=== PATIENT | female | born 1955 | race Caucasian/White ===

== ENCOUNTER 2020-10-28 13:00 | Outpatient (REF) | payer MEDICARE, SELFPAY ==
--- NOTE | 2020-10-28 | XR_ITS ---
EXAMINATION: XR CHEST CLINICAL INFORMATION: Pneumonia COMPARISON: August 19, 2020 and November 22, 2016 TECHNIQUE: 2 views of the chest were obtained. FINDINGS: There is a stable region of scarring seen within the lingula. No acute parenchymal disease, pneumothorax, or pleural effusion identified. Heart normal size. No evidence of pulmonary edema. XR/XR chest 2V IMPRESSION: No acute parenchymal disease.
[2020-10-28 14:28] LABS: MANUAL DIFF FLAG NO
[2020-10-28 14:31] LABS: Basophils Absolute Auto 0.1 X10*3/uL (0.0-0.2); Basophils Percent Auto 0.8 % (0-2); Eosinophils Absolute Auto 0.1 X10*3/uL (0.0-0.4); Eosinophils Percent Auto 0.6 % (0-4); Hematocrit 48.6 % (37-47); Hemoglobin 15.6 g/dl (12.0-16.0); Imm Gran Abs Auto 0.05 X10*3/uL (0.00-0.03); Imm Gran Pct Auto 0.4 % (0.0-0.4); Lymphocytes Absolute Auto 2.2 X10*3/uL (1.2-4.9); Lymphocytes Percent Auto 17.9 % (20-40); Mean Corpuscular HGB Conc 32.1 g/dl (31.0-35.0); Mean Corpuscular Hemoglobin 28.8 pg (27.0-33.0); Mean Corpuscular Volume 89.7 fL (80-98); Mean Platelet Volume 11.1 fL (9.4-12.3); Monocytes Percent Auto 8.1 % (2-11); Neutrophils Absolute Auto 8.9 X10*3/uL (2.0-8.3); Neutrophils Percent Auto 72.2 % (45-73); Platelet Count 453 X10*3/uL (160-400); Red Blood Count 5.42 X10*6/uL (4.20-5.50); Red Cell Distribution Width 13.2 % (11.0-16.0); White Blood Count 12.3 X10*3/uL (4.8-10.8)
[2020-10-28 15:04] LABS: Alanine Aminotransferase 35 U/L (0-31); Albumin Level 4.3 g/dL (3.5-5.0); Alkaline Phosphatase 92 U/L (39-117); Anion Gap 17 (12-20); Aspartate Amino Transferase 36 U/L (5-31); Bilirubin Total 0.6 mg/dL (0.0-1.0); Blood Urea Nitrogen 24 mg/dL (9-16); Calcium 9.2 mg/dL (8.4-10.2); Carbon Dioxide 24 mmol/L (22-29); Chloride 106 mmol/L (96-108); Estimated Glomerular Filt Rate 26; Glucose Random 87 mg/dL (60-115); Potassium 4.7 mmol/l (3.3-5.1); Sodium 142 mmol/L (135-145); Total Protein 7.3 g/dL (6.5-8.0)
[2020-10-28 15:07] LABS: Cholesterol 188 mg/dL; HDL Cholesterol 80 mg/dL; LDL Cholesterol Calculated 91 mg/dl; Triglycerides 89 mg/dL
[2020-10-28 15:26] LABS: Free T4 (Free Thyroxine) 1.18 ng/dL (0.71-1.85); Thyroid Stimulating Hormone 1.28 uIU/mL (0.32-4.0)
[2020-10-28 15:28] LABS: T4 Thyroxine 12.1 ug/dL (4.5-12.0); Vitamin D 25-OH Total 18.8 ng/mL (>30)
[2020-10-28 15:45] LABS: Folate > 20.0 ng/mL (> or = 4.0); Vitamin B12 1715 pg/mL (200-900)
== END 2020-10-28 13:01 | disposition home or self-care (01) ==
LOC: HO.LAB 13:00
PROVIDERS: PCP Internal Medicine; Visit Provider Internal Medicine
DX: K21.9 Gastro-esophageal reflux disease without esophagitis (principal); I10 Essential (primary) hypertension; R42 Dizziness and giddiness; J18.9 Pneumonia, unspecified organism; G35 Multiple sclerosis; M54.9 Dorsalgia, unspecified
CPT/HCPCS: 36415; 71046; 80053; 80061; 82306; 82607; 82746; 84436; 84439; 84443; 85025

== ENCOUNTER 2020-10-29 14:52 | Outpatient (REF) | payer MEDICARE, SELFPAY ==
--- NOTE | 2020-10-29 | MM_ITS ---
EXAMINATION: MM SCREENING DIGITAL BREAST TOMOSYNTHESIS, BILATERAL CLINICAL INFORMATION: Screening. Asymptomatic. The lifetime risk of breast cancer based on the Tyrer-Cuzick Model is 17.2%. COMPARISON: Mammography: December 2018 and studies dating back to April 02, 2012 TECHNIQUE: Digital breast tomosynthesis is performed in both the craniocaudal and mediolateral oblique views along with computer-aided detection (CAD). Synthesized 2D images are generated from the tomosynthesis. FINDINGS: There are scattered areas of fibroglandular density (ACR BI-RADS breast composition Category b). There are no significant masses, abnormal calcifications, or other abnormalities. MM/MM tomosynthesis screening BI IMPRESSION: There are no significant changes from prior study. ASSESSMENT: BI-RADS 1: Negative RECOMMENDATION: Routine annual mammography screening. This patient's information was entered into a reminder system with a target due date for their next mammogram.
== END 2020-10-29 14:53 | disposition home or self-care (01) ==
LOC: HO.MAMMO 14:52
PROVIDERS: PCP Internal Medicine; Visit Provider Internal Medicine
DX: Z12.31 Encounter for screening mammogram for malignant neoplasm of breast (principal)
CPT/HCPCS: 77063; 77067

== ENCOUNTER 2020-11-10 10:46 | Outpatient (REF) | payer MEDICARE, SELFPAY ==
--- NOTE | 2020-11-10 | US_ITS ---
EXAMINATION: US PELVIS COMPLETE US PELVIS TRANSVAGINAL CLINICAL INFORMATION: Disorders, left ovary COMPARISON: Ultrasound pelvis 12/16/2018 TECHNIQUE: Transabdominal and transvaginal ultrasounds of the pelvis are performed. FINDINGS: The uterus is anteverted and anteflexed measuring 3.8 cm in length, 2.6 cm AP and 2.9 cm in transverse dimension. There is a hypoechoic lesion in the central uterus measuring 1.1 x 1.2 x 1.1 cm. Previously it measured 1.0 x 1.4 x 1.0 cm. The right ovary is not visualized. The left ovary measures 5.1 x 3.1 x 4.6 cm and volume 38.0 mL. There is an anechoic cyst measuring 1.1 x 0.84 x 1.2 cm. Previously the left ovary measured 5.1 x 3.0 x 2.9 cm. There is small amount of free fluid in the cul-de-sac. US/US transvaginal IMPRESSION: 1. Small 1.2 cm fibroid within the upper body of the uterus. 2. Prominent left ovary measuring 5.1 cm with a small anechoic cyst measuring 1.2 cm. Previously left ovary measured 5.1 cm.
--- NOTE | 2020-11-10 10:51 | US_ITS ---
EXAMINATION: US ABDOMEN COMPLETE CLINICAL INFORMATION: Cyst of kidney, acquired. COMPARISON: CT abdomen and pelvis 11/28/2018. Ultrasound abdomen 07/09/2013 and 10/27/2010. MRI abdomen 11/12/2010. TECHNIQUE: Real-time imaging of the abdominal viscera. FINDINGS: PANCREAS: Normal. ABDOMINAL AORTA: The proximal, mid, and distal segments are normal in caliber. INFERIOR VENA CAVA: Visualized portions are normal. LIVER: The liver is normal in size. The liver contour is normal. The liver has increased echogenicity. There is an anechoic cyst in left lobe measuring 0.9 x 0.60 x 0.91 cm. There is no intrahepatic biliary duct dilatation seen. GALLBLADDER: Normal. The gallbladder is physiologically distended without evidence of stones, sludge, polyps, wall thickening or pericholecystic fluid. COMMON BILE DUCT: Normal in caliber measuring 0.4 cm in diameter. RIGHT KIDNEY: There is an echogenic stone in the lower pole measuring 0.31 x 0.21 x 0.32 cm. No hydronephrosis or focal parenchymal lesions. The kidney measures 8.3 cm in maximum dimension. LEFT KIDNEY: There is mild fullness in the right kidney. No renal calculi or focal parenchymal lesions. The kidney measures 8.8 cm in maximum dimension. SPLEEN: Normal. The spleen measures 9.8 cm in maximum dimension. FREE FLUID: None. US/US abdomen complete IMPRESSION: Small anechoic cyst left hepatic lobe. Small echogenic stone, lower pole right kidney. No caliectasis or hydronephrosis. Mild fullness of left kidney pelvis.
--- NOTE | 2020-11-10 10:51 | US_ITS ---
EXAMINATION: US PELVIS COMPLETE US PELVIS TRANSVAGINAL CLINICAL INFORMATION: Disorders, left ovary COMPARISON: Ultrasound pelvis 12/16/2018 TECHNIQUE: Transabdominal and transvaginal ultrasounds of the pelvis are performed. FINDINGS: The uterus is anteverted and anteflexed measuring 3.8 cm in length, 2.6 cm AP and 2.9 cm in transverse dimension. There is a hypoechoic lesion in the central uterus measuring 1.1 x 1.2 x 1.1 cm. Previously it measured 1.0 x 1.4 x 1.0 cm. The right ovary is not visualized. The left ovary measures 5.1 x 3.1 x 4.6 cm and volume 38.0 mL. There is an anechoic cyst measuring 1.1 x 0.84 x 1.2 cm. Previously the left ovary measured 5.1 x 3.0 x 2.9 cm. There is small amount of free fluid in the cul-de-sac. US/US pelvic complete IMPRESSION: 1. Small 1.2 cm fibroid within the upper body of the uterus. 2. Prominent left ovary measuring 5.1 cm with a small anechoic cyst measuring 1.2 cm. Previously left ovary measured 5.1 cm.
== END 2020-11-10 10:47 | disposition home or self-care (01) ==
LOC: HO.US 10:46
PROVIDERS: Visit Provider Internal Medicine
DX: N28.1 Cyst of kidney, acquired (principal); K76.89 Other specified diseases of liver; N83.8 Other noninflammatory disorders of ovary, fallopian tube and broad ligament
CPT/HCPCS: 76700; 76830; 76856

== ENCOUNTER 2020-11-23 13:55 | Outpatient (REF) | payer MEDICARE, SELFPAY ==
--- NOTE | 2020-11-23 14:00 | CT_ITS ---
EXAMINATION: CT CHEST WITHOUT CONTRAST CLINICAL INFORMATION: Follow-up pulmonary nodules COMPARISON: Previous chest x-ray most recent October [address] November 2018 TECHNIQUE: Multidetector volumetric CT imaging of the chest was done. Axial MIP volume rendering provided. Sagittal and coronal reformatted images were obtained. This CT examination was performed using dose optimization techniques as appropriate, variously including the following: *Automated exposure control *Adjustment of mA and/or kV according to patient size (this includes techniques or standardized protocols for targeted exams where dose is matched to indication/reason for exam; i.e. 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 The majority of the nodules are a semisolid or groundglass in attenuation. Largest pulmonary nodules measure 6 mm in the in the lower lobes, axial image 371 series 5 on the right and axial image 411 and axial image 429 series 5 on the left. This is similar to previous exam There is a 3 mm calcified right upper lobe nodule axial image 204 series 5 that is stable. There is scarring or chronic subsegmental atelectasis in the right middle lobe and lingula that is stable. MEDIASTINUM: The mediastinum is normal. PLEURA: There is no pleural effusion. No pleural mass or thickening. AXILLA: No lymphadenopathy. UPPER ABDOMEN: Unremarkable. OSSEOUS STRUCTURES: Unremarkable. CT/CT chest wo con IMPRESSION: Stable pulmonary nodules.
[2020-11-23 14:58] LABS: Basophils Absolute Auto 0.1 X10*3/uL (0.0-0.2); Basophils Percent Auto 0.8 % (0-2); Eosinophils Absolute Auto 0.1 X10*3/uL (0.0-0.4); Eosinophils Percent Auto 0.8 % (0-4); Hematocrit 48.8 % (37-47); Hemoglobin 15.7 g/dl (12.0-16.0); Imm Gran Abs Auto 0.04 X10*3/uL (0.00-0.03); Imm Gran Pct Auto 0.5 % (0.0-0.4); Lymphocytes Absolute Auto 1.5 X10*3/uL (1.2-4.9); Lymphocytes Percent Auto 16.9 % (20-40); Mean Corpuscular HGB Conc 32.2 g/dl (31.0-35.0); Mean Corpuscular Hemoglobin 28.6 pg (27.0-33.0); Mean Corpuscular Volume 89.1 fL (80-98); Mean Platelet Volume 11.2 fL (9.4-12.3); Monocytes Absolute Auto 0.8 X10*3/uL (0.1-1.2); Monocytes Percent Auto 9.3 % (2-11); Neutrophils Absolute Auto 6.1 X10*3/uL (2.0-8.3); Neutrophils Percent Auto 71.7 % (45-73); Platelet Count 285 X10*3/uL (160-400); Red Blood Count 5.48 X10*6/uL (4.20-5.50); Red Cell Distribution Width 12.5 % (11.0-16.0); White Blood Count 8.6 X10*3/uL (4.8-10.8)
[2020-11-23 14:59] LABS: MANUAL DIFF FLAG NO
[2020-11-23 15:28] LABS: Alanine Aminotransferase 25 U/L (0-31); Albumin Level 3.9 g/dL (3.5-5.0); Alkaline Phosphatase 85 U/L (39-117); Anion Gap 15 (12-20); Aspartate Amino Transferase 32 U/L (5-31); Bilirubin Total 0.5 mg/dL (0.0-1.0); Blood Urea Nitrogen 14 mg/dL (9-16); Calcium 8.7 mg/dL (8.4-10.2); Carbon Dioxide 24 mmol/L (22-29); Chloride 104 mmol/L (96-108); Estimated Glomerular Filt Rate 36; Glucose Random 106 mg/dL (60-115); Potassium 4.1 mmol/l (3.3-5.1); Sodium 139 mmol/L (135-145); Total Protein 6.7 g/dL (6.5-8.0)
== END 2020-11-23 13:56 | disposition home or self-care (01) ==
LOC: HO.CT 13:55
PROVIDERS: PCP Internal Medicine; Visit Provider Internal Medicine
DX: R91.8 Other nonspecific abnormal finding of lung field (principal)
CPT/HCPCS: 36415; 71250; 80053; 85025

== ENCOUNTER 2021-10-11 17:07 | Outpatient (REF) | payer MEDICARE, SELFPAY ==
--- NOTE | ~2021-10-11 | XR_ITS ---
EXAMINATION: XR LUMBOSACRAL SPINE CLINICAL INFORMATION: Pain COMPARISON: Previous x-ray August 2017 TECHNIQUE: Three views of the lumbosacral spine. FINDINGS: There is curvature of the lower lumbar spine to the right. Bone alignment is otherwise normal. No fracture or dislocation is seen. There is degenerative disc disease at L1-L2 and L2-L3. There is lower lumbar spine facet arthritis. There are several small calcifications appreciated on the lateral view questionable for renal stones. XR/XR lumbar spine 2-3V IMPRESSION: Mild scoliosis and degenerative changes. Question renal stones.
[2021-10-11 18:03] LABS: Anion Gap 16 (12-20); Blood Urea Nitrogen 24 mg/dL (9-16); Calcium 9.7 mg/dL (8.4-10.2); Carbon Dioxide 23 mmol/L (22-29); Chloride 103 mmol/L (96-108); Estimated Glomerular Filt Rate 25; Glucose Random 110 mg/dL (60-115); Potassium 4.4 mmol/L (3.3-5.1); Sodium 138 mmol/L (135-145)
[2021-10-12 17:31] LABS: CA-125 24 U/mL (<35)
== END 2021-10-11 17:08 | disposition home or self-care (01) ==
LOC: HO.XRAY 17:07
PROVIDERS: PCP Internal Medicine; Visit Provider Physician Assistant
DX: R79.89 Other specified abnormal findings of blood chemistry (principal); N83.8 Other noninflammatory disorders of ovary, fallopian tube and broad ligament; M51.9 Unspecified thoracic, thoracolumbar and lumbosacral intervertebral disc disorder
CPT/HCPCS: 36415; 72100; 80048; 86304

== ENCOUNTER 2021-11-08 14:45 | Outpatient (RCR) | payer MEDICARE, SELFPAY | END 2021-11-29 09:29 | disposition home or self-care (01) | LOC: HO.PT 14:45 | PROVIDERS: PCP Internal Medicine; Visit Provider Psychiatry & Neurology Neurology | DX: M79.7 Fibromyalgia (principal) | CPT/HCPCS: 97110; 97162 ==

== ENCOUNTER 2021-11-08 16:03 | Outpatient (REF) | payer MEDICARE, SELFPAY ==
[2021-11-08 16:20] LABS: MANUAL DIFF FLAG NO
[2021-11-08 16:48] LABS: Basophils Absolute Auto 0.1 X10*3/uL (0.0-0.2); Basophils Percent Auto 0.8 % (0-2); Eosinophils Absolute Auto 0.1 X10*3/uL (0.0-0.4); Eosinophils Percent Auto 0.6 % (0-4); Hematocrit 47.7 % (37.0-47.0); Hemoglobin 15.2 g/dl (12.0-16.0); Imm Gran Abs Auto 0.04 X10*3/uL (0.00-0.03); Imm Gran Pct Auto 0.4 % (0.0-0.4); Lymphocytes Absolute Auto 1.8 X10*3/uL (1.2-4.9); Lymphocytes Percent Auto 17.6 % (20-40); Mean Corpuscular HGB Conc 31.9 g/dl (31.0-35.0); Mean Corpuscular Hemoglobin 28.8 pg (27.0-33.0); Mean Corpuscular Volume 90.3 fL (80.0-98.0); Mean Platelet Volume 11.7 fL (9.4-12.3); Monocytes Absolute Auto 0.9 X10*3/uL (0.1-1.2); Monocytes Percent Auto 8.4 % (2-11); Neutrophils Absolute Auto 7.4 x10*3/uL (2.0-8.3); Neutrophils Percent Auto 72.2 % (45-73); Platelet Count 334 X10*3/uL (160-400); Red Blood Count 5.28 X10*6/uL (4.20-5.50); Red Cell Distribution Width 12.6 % (11.0-16.0); White Blood Count 10.2 X10*3/uL (4.8-10.8)
[2021-11-08 17:05] LABS: INTERNATIONAL NORM RATIO 1.2 (0.9-1.1); Prothrombin Time 13.2 SEC (9.9-13.0)
[2021-11-08 18:03] LABS: Alanine Aminotransferase 18 U/L (0-31); Albumin Level 4.1 g/dL (3.5-5.0); Alkaline Phosphatase 66 U/L (39-117); Amylase 92 U/L (28-100); Anion Gap 15 (12-20); Aspartate Amino Transferase 24 U/L (5-31); Bilirubin Direct 0.2 mg/dL (0.0-0.5); Bilirubin Total 0.3 mg/dL (0.0-1.0); Blood Urea Nitrogen 20 mg/dL (9-16); Calcium 9.7 mg/dL (8.4-10.2); Carbon Dioxide 23 mmol/L (22-29); Chloride 104 mmol/L (96-108); Estimated Glomerular Filt Rate 23; Glucose Random 105 mg/dL (60-115); Lipase 77 U/L (8-78); Sodium 138 mmol/L (135-145); Total Protein 7.1 g/dL (6.5-8.0)
[2021-11-09 11:57] LABS: Alpha Fetoprotein 6.3 ng/mL
[2021-11-13 21:37] LABS: FIB-ALT 16 U/L (6-29); FIB-Alpha-2-Macroglobulin 365 mg/dL (106-279); FIB-Apolipoprotein A1 169 mg/dL (101-198); FIB-GGT 18 U/L (3-65); FIB-Haptoglobin 112 mg/dL (43-212); FIB-Total Bilirubin 0.3 mg/dL (0.2-1.2); Liver Fibrosis Score 0.32; Liver Fibrosis Stage F1-F2; Nec Inflam Act Grade A0; Nec Inflam Act Score 0.06
[2021-11-15 12:56] LABS: HCV Log PCR 5.69 Log IU/mL (NOT DETECTED); HepC Viral Load 495000 IU/mL (NOT DETECTED)
== END 2021-11-08 16:04 | disposition home or self-care (01) ==
LOC: HO.LAB 16:03
PROVIDERS: PCP Internal Medicine; Visit Provider Internal Medicine
DX: R11.0 Nausea (principal); B18.2 Chronic viral hepatitis C
CPT/HCPCS: 36415; 80048; 80076; 81596; 82105; 82150; 83690; 85025; 85610; 87522

== ENCOUNTER 2022-01-27 13:17 | Inpatient (IN) | payer MEDICARE, SELFPAY ==
[2022-01-27] VITALS (8 sets, daily range): BP systolic 126–196; BP diastolic 54–135; PULSE 70–94; RESP 18–20; TEMP 36.5–36.6; O2SAT 96–100; BMI 28.3
--- NOTE | ~2022-01-27 | CT_ITS ---
EXAMINATION: CT HEAD WITHOUT CONTRAST CLINICAL INFORMATION: Multiple falls, syncope COMPARISON: 11/18/2028 TECHNIQUE: Contiguous axial imaging was performed from the skull base to vertex without intravenous administration of contrast. This CT examination was performed using dose optimization techniques as appropriate, variously including the following: *Automated exposure control *Adjustment of mA and/or kV according to patient size (this includes techniques or standardized protocols for targeted exams where dose is matched to indication/reason for exam; i.e. extremities or head) *Use of iterative reconstruction technique DLP: 585 mGy-cm FINDINGS: There is no evidence of acute intracranial hemorrhage or territorial infarction. No abnormal mass effect or midline shift is seen. Coulter to white matter differentiation is well preserved. No extra-axial fluid collections are identified. Ventricles and sulci are similar in configuration to the prior study. Similar appearance of mild patchy periventricular and subcortical white matter hypodensity. The osseous structures and soft tissues are normal. The mastoid air cells and visualized portions of the paranasal sinuses are well aerated. CT/CT head/brain wo con IMPRESSION: No acute intracranial pathology. No significant change from prior studies.
--- NOTE | ~2022-01-27 | FL_ITS ---
EXAMINATION: XR FLUOROSCOPY WITH IMAGES CLINICAL INFORMATION: Left ureteral stone. COMPARISON: CT scan of the abdomen and pelvis dated 01/27/2022. TECHNIQUE: Fluoroscopy performed by Dr. Sherwood. Fluoroscopy time: 19.5 seconds Cumulative dose: 4.56 mGy Images: 2 FL/FL guidance in OR FINDINGS/IMPRESSION: Final images show a left ureteral stent in place. An ovoid calculus is seen overlying the left ureteropelvic junction region. Please refer to the procedure report for detailed findings.
--- NOTE | ~2022-01-27 | XR_ITS ---
EXAMINATION: XR CHEST CLINICAL INFORMATION: Weakness COMPARISON: Previous chest x-ray and chest CT October 2020 TECHNIQUE: AP portable view of the chest was obtained. FINDINGS: The cardiac and mediastinal contours are stable. There is a nodular density adjacent to the left heart border measuring 1.3 cm Uncertain whether this represents a pulmonary nodule or related to prominent epicardial fat. There is question of bilateral 5 mm pulmonary nodules overlapping scapula and in between the posterior fifth and sixth ribs. The lungs are otherwise clear. There is no pleural effusion or pneumothorax. There are degenerative changes of the spine. XR/XR chest 1V IMPRESSION: Bilateral nodular densities, largest measuring 1.3 cm adjacent to the left heart border. This could be better evaluated with chest CT scan if clinically indicated.
--- NOTE | ~2022-01-27 | MR_ITS ---
EXAMINATION: MR BRAIN WITHOUT CONTRAST MR CERVICAL SPINE WITHOUT CONTRAST CLINICAL INDICATION Weakness, numbness and pain. Concern for multiple sclerosis. COMPARISON: CT scan of the head 01/27/2022. Remote MRI scan of the brain 10/15/2015 and MRI scan of the cervical spine 11/21/2012. TECHNIQUE: MRI scans of the brain and cervical spine were obtained using routine sequences without contrast. FINDINGS: MRI Brain: There are a few foci of increased diffusion signal with hyperintense ADC map signal and corresponding hyperintense T2/FLAIR signal in the bilateral centra semiovale, consistent with T2 shine through. No diffusion abnormalities are identified to suggest an acute or subacute infarct. No mass effect or midline shift is seen. The ventricles and sulci are slightly commensurately prominent consistent with diffuse volume loss. There are extensive areas of increased T2 and FLAIR signal in the periventricular and subcortical white matter, and in the crystal which have markedly increased compared to prior imaging. These are consistent with progression of demyelination and/or chronic microvascular ischemic disease. There is good volume of the corpus callosum. Some of these foci demonstrate intrinsic intrinsically low T1 signal consistent with chronic plaques. These areas demonstrate no abnormal enhancement to suggest acute demyelination, and there is no abnormal enhancement elsewhere. There is a prominent perivascular space in the left basal ganglia. No extra-axial fluid collections are seen. The cerebellum appears normal. There is no evidence of acute hemorrhage. The craniovertebral junction, marrow signal, and midline structures are normal. The major intracranial flow-voids at the level of the [place] are preserved. The dural venous sinus flow-voids are maintained. There is a retention cyst in the right maxillary sinus. The other paranasal sinuses and mastoid air cells are well-aerated. MRI Cervical Spine: VERTEBRAL BODIES AND PARASPINAL SOFT TISSUES: There is a slight dextroscoliosis. The study demonstrates narrowing of intervertebral disc height at C5-C6. There has been slight interval increase in the retrolisthesis of C5 on C6. Vertebral body heights are maintained and no fractures are demonstrated. There are degenerative endplate contour changes at C5-C6 with minimal edematous signal. Overall, marrow signal is homogenous. The visualized regional soft tissue structures are unremarkable. CERVICOMEDULLARY JUNCTION AND VISUALIZED POSTERIOR FOSSA: There is increased T2 and STIR signal in the crystal, demonstrated on the MRI scan of the brain. Accounting for artifact, spinal cord signal appears normal. SPINAL LEVELS: C2-C3: The facet joints appear normal bilaterally. Posterior disc contour is normal. There is no spinal cord compression or central stenosis. The neural foramina are patent bilaterally. C3-C4: The facet joints appear normal bilaterally. Posterior disc contour is normal. There is no spinal cord compression or central stenosis. The neural foramina are patent bilaterally. C4-C5: The facet joints appear normal bilaterally. Posterior disc contour is normal. There is no spinal cord compression or central stenosis. The neural foramina are patent bilaterally. C5-C6: There is mild right facet arthropathy. There is a broad-based posterior disc osteophyte complex which effaces CSF ventral to the spinal cord, but there is no spinal cord compression. There is mild central stenosis. There is severe bilateral foraminal narrowing. C6-C7: There is mild bilateral facet arthropathy. There is a shallow posterior disc protrusion with there is no spinal cord compression. There is mild central stenosis. The neural foramina are patent bilaterally. C7-T1: The facet joints appear normal bilaterally. Posterior disc contour is normal. There is no spinal cord compression or central stenosis. The neural foramina are patent bilaterally. MR/MR cervical spine wo con IMPRESSION: MRI brain: 1. There has been marked interval increase in scattered areas of hyperintense T2 and FLAIR signal in the periventricular and with subcortical white matter, as well as in the crystal which may be consistent with areas of demyelination and/or chronic microvascular ischemic disease. None of these demonstrate restricted diffusion or enhancement to suggest acute demyelination or infarct. 2. There is diffuse volume loss. There are no acute bleeds or infarcts. There are no masses or areas of abnormal enhancement. MRI cervical spine: 1. The study redemonstrates mild spondylosis which is most prominent at C5-C6. There is mild central stenosis at C5-C6 and C6-C7, but there is no spinal cord compression. 2. There is severe neural foraminal narrowing bilaterally at C5-C6. 3. The spinal cord has normal signal.
--- NOTE | ~2022-01-27 | CT_ITS ---
EXAMINATION: CT ABDOMEN AND PELVIS WITHOUT CONTRAST CLINICAL INFORMATION: Left upper quadrant abdominal pain status post multiple falls COMPARISON: Ultrasound abdomen 11/10/2020, CT chest 11/23/2020, CT abdomen and pelvis 11/28/2018 TECHNIQUE: Multidetector volumetric imaging was performed from the superior aspect of the liver through the pubic symphysis. Sagittal and coronal reformatted images were obtained on the technologist's workstation. This CT examination was performed using dose optimization techniques as appropriate, variously including the following: *Automated exposure control *Adjustment of mA and/or kV according to patient size (this includes techniques or standardized protocols for targeted exams where dose is matched to indication/reason for exam; i.e. extremities or head) *Use of iterative reconstruction technique DLP: 528 mGy-cm FINDINGS: LUNG BASES: Multiple lung nodules are seen ranging in size from a few millimeters punctate up to 4 mm right lower lobe solid nodule (17:13) and multiple groundglass nodules measuring up to 4 mm in size (for example 17:53). [place] images of all nodules have been saved. At the time of the prior chest CT dated 08/24/2020, similar findings were present. LIVER, GALLBLADDER, AND BILIARY TREE: The liver is normal in size, shape, and attenuation. No focal hepatic lesion or biliary ductal dilatation is present. The gallbladder is unremarkable with no evidence of radiopaque gallstones, gallbladder wall thickening, or obvious pericholecystic inflammatory changes. PANCREAS: Unremarkable. SPLEEN: Unremarkable. No evidence of splenic laceration. ADRENAL GLANDS: Unremarkable. KIDNEYS AND URETERS: On the left, there is an obstructing stone present in the proximal ureter measuring 7 x 6 x 9 mm. This is associated with moderate pelvocaliectasis. This stone measures 1451 Hounsfield units and is about 11 cm from the posterior axillary line. Some smaller left-sided intrarenal nonobstructing calculi are present measuring about 3 mm in size each. No renal masses are seen. The right kidney appears normal without calculi. BLADDER: Empty but unremarkable GASTROINTESTINAL TRACT: The small and large bowel are unremarkable. The appendix is unremarkable. ABDOMINAL WALL: No significant hernia is appreciated. LYMPH NODES: No retroperitoneal lymphadenopathy. VASCULAR: Normal calcific plaque without aneurysm. PELVIC VISCERA: A retroverted uterus is present with some calcifications indicative of old fibroids. OSSEOUS STRUCTURES: No fractures or bony destructive lesions are seen. There is mild scoliosis present convex to the right with degenerative changes seen most marked from L1 through L3. CT/CT abdomen pelvis wo con IMPRESSION: * 7 x 6 x 9 mm obstructing left proximal ureteral stone with associated left-sided hydronephrosis. * Other incidental findings as described above including stable lung nodules, nonobstructing smaller left intrarenal calculi, old uterine fibroids and degenerative changes in the spine. Fleischner guidelines were followed.
--- NOTE | 2022-01-27 13:45 | ECG_ITS ---
Test Reason : dizziness Blood Pressure : / mmHG Vent. Rate : 083 BPM Atrial Rate : 083 BPM P-R Int : 116 ms QRS Dur : 070 ms QT Int : 378 ms P-R-T Axes : 018 001 083 degrees QTc Int : 444 ms Normal sinus rhythm Left ventricular hypertrophy with repolarization abnormality ( R in aVL , Sokolow-Brantley ) Abnormal ECG When compared with ECG of 18-NOV-2018 20:45, Criteria for Anteroseptal infarct are no longer Present T wave inversion now evident in Lateral leads Referred By: Generic ED Physician Electronically Signed By:Devante Cox
[2022-01-27 14:00] LABS: MANUAL DIFF FLAG NO
[2022-01-27 14:02] LABS: Basophils Absolute Auto 0.1 X10*3/uL (0.0-0.2); Basophils Percent Auto 0.7 % (0-2); Eosinophils Percent Auto 0.3 % (0-4); Hematocrit 44.6 % (37.0-47.0); Hemoglobin 14.5 g/dl (12.0-16.0); Imm Gran Abs Auto 0.05 X10*3/uL (0.00-0.03); Imm Gran Pct Auto 0.4 % (0.0-0.4); Lymphocytes Absolute Auto 2.3 X10*3/uL (1.2-4.9); Lymphocytes Percent Auto 19.2 % (20-40); Mean Corpuscular HGB Conc 32.5 g/dl (31.0-35.0); Mean Corpuscular Hemoglobin 29.4 pg (27.0-33.0); Mean Corpuscular Volume 90.3 fL (80.0-98.0); Mean Platelet Volume 11.1 fL (9.4-12.3); Monocytes Percent Auto 8.4 % (2-11); Neutrophils Absolute Auto 8.5 x10*3/uL (2.0-8.3); Platelet Count 310 X10*3/uL (160-400); Red Blood Count 4.94 X10*6/uL (4.20-5.50); Red Cell Distribution Width 12.5 % (11.0-16.0)
[2022-01-27 14:22] LABS: Anion Gap 17 (12-20); Blood Urea Nitrogen 47 mg/dL (9-16); Calcium 9.5 mg/dL (8.4-10.2); Carbon Dioxide 22 mmol/L (22-29); Chloride 102 mmol/L (96-108); Estimated Glomerular Filt Rate 12; Glucose Random 108 mg/dL (60-115); Potassium 4.5 mmol/L (3.3-5.1); Sodium 136 mmol/L (135-145)
--- NOTE | 2022-01-27 15:42 | ED_ITS ---
HPI - Dizziness General Chief Complaint: Dizziness <REUBEN Franco Last Filed: 01/27/22 17:21> Stated Complaint: nausea dizzy l rib cage pain <REUBEN Franco Last Filed: 01/27/22 17:21> Time Seen by Provider: 01/27/22 15:10 <REUBEN Franco Last Filed: 01/27/22 17:21> Source: patient <REUBEN Franco Last Filed: 01/27/22 17:21> Mode of arrival: ambulatory <REUBEN Franco Last Filed: 01/27/22 17:21> History of Present Illness HPI Narrative: 66-year-old female with a past medical history of asthma, GERD, hepatitis- C, MS, presenting to the ED complaining of nausea, LUQ/epigastric abdominal pain, lightheadedness/dizziness, difficulty ambulating, multiple falls, syncope x2 over the past 5 days. Reports difficulty ambulating secondary to weakness/fear of falling. Also reports increasing acute on chronic confusion. Denies fever, chills, CP/SOB, vomiting/diarrhea, hematuria <REUBEN Franco Last Filed: 01/27/22 17:21> MD elicited complaint: dizziness, lightheadedness and difficulty walking <REUBEN Franco Last Filed: 01/27/22 17:21> Related Data Home Medications: Home Medications Medication Instructions Recorded Confirmed gabapentin 600 mg tablet 600 mg PO TID 11/02/20 01/27/22 lamotrigine 200 mg tablet 200 mg PO DAILY 11/02/20 01/27/22 (Lamictal) memantine 10 mg tablet 10 mg PO BID 10/11/21 01/27/22 acetaminophen 500 mg tablet 500 mg PO 5XD 01/27/22 01/27/22 omeprazole 20 mg capsule,delayed 1 cap PO DAILY 01/27/22 01/27/22 release ondansetron HCl 4 mg tablet 1 tab PO TID 01/27/22 01/27/22 Previous Rx's Medication Instructions Recorded albuterol sulfate 90 mcg/actuation 2 puff INHALATION Q4-6H PRN 90 10/11/21 aerosol inhaler (ProAir HFA) Days #3 units <REUBEN Franco Last Filed: 01/27/22 17:21> Allergies/Adverse Reactions: Allergies Allergy/AdvReac Type Severity Reaction Status Date / Time escitalopram [From LEXAPRO] Allergy Severe STOMACH Verified 01/27/22 13:36 UPSET lisinopril [LISINOPRIL] Allergy Severe SWELLING, Verified 01/27/22 13:36 Leg swelling duloxetine [From CYMBALTA] Allergy Intermediate STOMACH Verified 01/27/22 13:36 UPSET desipramine [Desipramine] Allergy Mild PALPITATION Verified 01/27/22 13:36 S diphenhydramine Allergy Mild PALPITATIONS/CLAMMY Verified 01/27/22 13:36 [From Benadryl] SKIN Penicillins Allergy Mild UNKNOWN Verified 01/27/22 13:36 fluoxetine [From Prozac] AdvReac Mild PARKINSON Verified 01/27/22 13:36 SYMPTOMS garlic AdvReac Mild IBS Verified 01/27/22 13:36 SYMPTOMS oxycodone [From Percocet] AdvReac Mild N/V Verified 01/27/22 13:36 carbamazepine [From TEGRETOL] AdvReac Unknown BLACKOUT, Verified 01/27/22 13:36 SEVERE INTOXICATION <REUBEN Franco Last Filed: 01/27/22 17:21> Review of Systems Review of Systems: Constitutional: No Fever, No Chills, No Fatigue, No Malaise ENT/Mouth: No Ear Pain, No Nasal Congestion, No sore throat, No Rhinorrhea, No Swallowing Difficulty Eyes: No Eye Pain, No Swelling, No Redness Cardiovascular: No Chest Pain, No SOB, No Edema, No Palpitations Respiratory: No Cough, No Sputum, No Dyspnea Gastrointestinal: + Nausea, No Vomiting, No Diarrhea, No Constipation, + Abdominal pain Genitourinary: No Dysuria, No Urinary Frequency, No Hematuria, No Urgency, No Flank Pain, No Urinary Flow Changes Musculoskeletal: No joint pain, No Myalgias, No Joint Swelling Skin: No Skin Lesions, No rash Neuro: + Weakness, No Numbness, No Paresthesias, + Loss of Consciousness, +Lightheadedness/ Dizziness, No Headache <REUBEN Franco Last Filed: 01/27/22 17:21> Yes all other systems are reviewed and are negative <REUBEN Franco Last Filed: 01/27/22 17:21> [facility] Past Medical History Attestation statement: The following information was validated with the patient. <REUBEN Franco - Last Filed: 01/27/22 17:21> Medical History: Medical History Allergic rhinitis Asthma Closed right clavicular fracture GERD (gastroesophageal reflux disease) Hepatitis C History of renal calculi Hypertension Lumbar radiculopathy Multiple sclerosis Obesity <REUBEN Franco - Last Filed: 01/27/22 17:21> Surgical History: Surgical History History of liver biopsy History of verrucae (wart) excision <REUBEN Franco - Last Filed: 01/27/22 17:21> Family History Family History: Family History Father Prostate cancer Myocardial infarction Mother Breast cancer Paternal Aunt Myocardial infarction Paternal Uncle Myocardial infarction <REUBEN Franco - Last Filed: 01/27/22 17:21> Social History Social History: Social History Housing: House Alcohol intake: never Patient Tobacco Use Status: Former Tobacco user Tobacco use type: Cigarette Years Smoked: 1979 quit for 8 years e-Cigarette/Vaping Use: Never Used Advance Directives: No Advance Directives Information Provided: No <REUBEN Franco - Last Filed: 01/27/22 17:21> Physical Exam Vital Signs: Vital Signs: Last Vital Signs Temp 97.9 F 01/27/22 17:38 Pulse 94 01/27/22 17:44 Resp 18 01/27/22 17:38 BP 156/135 H 01/27/22 17:44 Pulse Ox 100 01/27/22 17:38 BMI result Body Mass Index 28.3 <REUBEN Franco - Last Filed: 01/27/22 17:21> Vital Signs: Last Vital Signs Temp 97.9 F 01/27/22 17:38 Pulse 94 01/27/22 17:44 Resp 18 01/27/22 17:38 BP 156/135 H 01/27/22 17:44 Pulse Ox 100 01/27/22 17:38 BMI result Body Mass Index 28.3 <Doyle Bang PA - Last Filed: 01/27/22 19:30> Const: General: cooperative <REUBEN Franco - Last Filed: 01/27/22 17:21> Orientation/consciousness: patient oriented x3 <REUBEN Franco - Last Filed: 01/27/22 17:21> Limitations: no limitations <REUBEN Franco - Last Filed: 01/27/22 17:21> HENMT: Head: Yes normal to inspection and Yes atraumatic <REUBEN Franco - Last Filed: 01/27/22 17:21> Ears: hearing grossly normal bilaterally <REUBEN Franco - Last Filed: 01/27/22 17:21> General nose exam: Normal external nose present <REUBEN Franco - Last Filed: 01/27/22 17:21> Face and sinus: Yes normal facial exam <REUBEN Franco - Last Filed: 0 01/27/22 17:21> Throat: Yes posterior oropharynx normal, Yes tonsils normal and Yes uvula midline <REUBEN Franco - Last Filed: 01/27/22 17:21> Eyes: General: appearance normal, both eyes and all related structures <REUBEN Franco - Last Filed: 01/27/22 17:21> Pupils: Equal, round and reactive pupils present <REUBEN Franco - Last Filed: 01/27/22 17:21> EOM: EOMs intact bilaterally <REUBEN Franco - Last Filed: 01/27/22 17:21> Neck: Other: No midline cervical spinous tenderness <REUBEN Franco - Last Filed: 01/27/22 17:21> Neck: Yes normal visual inspection and Yes no meningeal signs <REUBEN Franco - Last Filed: 01/27/22 17:21> Chest: Chest palpation & inspection: no crepitus and no tenderness <Zandra ward PA - Last Filed: 01/27/22 17:21> Resp: Effort & Inspection: normal respiratory effort and no respiratory distress <Zandra Pouldaphnet PA - Last Filed: 01/27/22 17:21> Auscultation: clear to auscultation bilaterally, no rales, no rhonchi and no wheezes <Zandra Pouldaphnet, PA - Last Filed: 01/27/22 17:21> Cardio: Rate: regular rate <Zandra Pouldaphnet, PA - Last Filed: 01/27/22 17:21> Heart sounds: S1 normal heart sound present and S2 normal heart sound present <Zandra Pouldaphnet, PA - Last Filed: 01/27/22 17:21> GI: Inspection: Yes normal to inspection <Zandra Pouldaphnet, PA - Last Filed: 01/27/22 17:21> Palpation (GI): Soft to palpation, Tenderness to palpation present (GI) in the LUQ, no guarding and not rigid <Zandra Pouldaphnet, PA - Last Filed: 01/27/22 17:21> : General: Yes no CVA tenderness <Zandra Pouldaphnet, PA - Last Filed: 01/27/22 17:21> Back/Spine/Pelvis: Other: No midline thoracic/lumbar spinous tenderness <Zandra Pouldaphnet, PA - Last Filed: 01/27/22 17:21> Back: no CVA tenderness <Zandra Pouldaphnet, PA - Last Filed: 01/27/22 17:21> Skin: Rashes: no rashes <Zandra Grere, PA - Last Filed: 01/27/22 17:21> Wounds: no wounds <Zandra Pouldaphnet, PA - Last Filed: 01/27/22 17:21> Neuro: Other: No appreciable focal weakness <Zandra Pouldaphnet, PA - Last Filed: 01/27/22 17:21> General: patient oriented x3, tone normal, moves all extremities, no meningeal signs and no focal motor deficits <Zandra Pouldaphnet PA - Last Filed: 01/27/22 17:21> Cranial nerves: Yes CN's II-XII intact bilaterally, Yes Equal, round and reactive pupils present and Yes Bilaterally intact EOM present <Zandra Poulleigh PA - Last Filed: 01/27/22 17:21> Motor exam (neuro): 5/5 motor strength present throughout and Pronator motor fu nction not present <REUBEN Franco Last Filed: 01/27/22 17:21> Coordination: [id number] test normal <REUBEN Franco Last Filed: 01/27/22 17:21> Romberg Test: Negative <REUBEN Franco Last Filed: 01/27/22 17:21> Extrem: General: Yes normal to inspection and Yes no pedal edema <REUBEN Franco Last Filed: 01/27/22 17:21> Course Course Course Narrative: -1306--mild leukocytosis of 12.0, Acute on chronic YOHANA with creatinine 3.8/BUN of 47 > likely from dehydration rather than severe sepsis -CRP mildly elevated at 0.95 -1618--troponin 50.7 likely from renal dysfunction > will obtain 3 hour repeat XR chest 1V IMPRESSION: Bilateral nodular densities, largest measuring 1.3 cm adjacent to the left heart border. This could be better evaluated with chest CT scan if clinically indicated. -1700-- ED care tranferred to REUBEN Reyes pending remaning labs, CT's and admission <REUBEN Franco Last Filed: 01/27/22 17:21> Reevaluation(s) Reevaluation #1: Spoke to hospitalist, at this time patient will be admitted to the hospitalist team. Pending repeat troponin. Reviewed patient's CT she does have a left obstructing stone. She will be given Flomax and fluids at this time. <REUBEN Darden - Last Filed: 01/27/22 19:30> Time: 19:30 <REUBEN Darden Last Filed: 01/27/22 19:30> MDM - Dizziness MDM Narrative Medical decision making narrative: 66-year-old female with a past medical history of asthma, GERD, hepatitis- C, MS, presenting to the ED complaining of nausea, LUQ/epigastric abdominal pain, lightheadedness/dizziness, difficulty ambulating, multiple falls, syncope x2 over the past 5 days. On exam vital signs stable, NAD, A&O x3, no focal weakness appreciated. Concern for MS flare vs metabolic and infectious etiologies including dehydration vs ACS. R/o intra-abdominal injury Plan: EKG, labs, UA, CXR, head CT, CT abdomen/pelvis, orthostatic vital signs, admission <REUBEN Franco - Last Filed: 01/27/22 17:21> Medical Records Attestation: I reviewed the patient's medical records. <REUBEN Franco - Last Filed: 01/27/22 17:21> Lab Data Attestation: I reviewed the patient's lab results. <REUBEN Franco - Last Filed: 01/27/22 17:21> Result diagrams: : 01/27/22 13:53 01/27/22 13:53 <REUBEN Franco - Last Filed: 01/27/22 17:21> Labs: Lab Results 01/27/22 01/27/22 01/27/22 Range/Units 13:53 13:53 13:53 WBC 12.0 H (4.8-10.8) X10*3/uL RBC 4.94 (4.20-5.50) X10*6/uL Hgb 14.5 (12.0-16.0) g/dl Hct 44.6 (37.0-47.0) % MCV 90.3 (80.0-98.0) fL MCH 29.4 (27.0-33.0) pg MCHC 32.5 (31.0-35.0) g/dl RDW 12.5 (11.0-16.0) % Plt Count 310 (160-400) X10*3/uL MPV 11.1 (9.4-12.3) fL Immature Gran % (Auto) 0.4 (0.0-0.4) % Neut % (Auto) 71.0 (45-73) % Lymph % (Auto) 19.2 L (20-40) % [place] % (Auto) 8.4 (2-11) % Eos % (Auto) 0.3 (0-4) % Baso % (Auto) 0.7 (0-2) % Lymph # (Auto) 2.3 (1.2-4.9) X10*3/uL [place] # (Auto) 1.0 (0.1-1.2) X10*3/uL Eos # (Auto) 0.0 (0.0-0.4) X10*3/uL Baso # (Auto) 0.1 (0.0-0.2) X10*3/uL Abs Immat Gran (auto) 0.05 H (0.00-0.03) X10*3/uL Absolute Neuts (auto) 8.5 H (2.0-8.3) x10*3/uL Absolute Nucleated RBC 0.000 (0.0-0.012) X10*3/uL Nucleated RBC % (auto) 0.0 (0.0-0.2) /100WBC ESR (0-20) MM/HR Sodium 136 (135-145) mmol/L Potassium 4.5 (3.3-5.1) mmol/L Chloride 102 (96-108) mmol/L Carbon Dioxide 22 (22-29) mmol/L Anion Gap 17 (12-20) BUN 47 H D (9-16) mg/dL Creatinine 3.80 H (0.5-1.4) mg/dL Estim Creat Clear Calc 14.0 Estimated GFR 12 Random Glucose 108 (60-115) mg/dL Calcium 9.5 (8.4-10.2) mg/dL Magnesium 2.3 (1.6-2.6) mg/dL Total Bilirubin 0.8 (0.0-1.0) mg/dL Direct Bilirubin 0.4 (0.0-0.5) mg/dL AST 20 (5-31) U/L ALT 11 (0-31) U/L Alkaline Phosphatase 62 (39-117) U/L Troponin I High Sens 50.7 H* (<3.5-17.0) ng/L C-Reactive Protein 0.95 H (< or = 0.50) mg/dL Total Protein 7.0 (6.5-8.0) g/dL Albumin 4.0 (3.5-5.0) g/dL Lipase 67 (8-78) U/L Urine Color Urine Appearance Urine pH (5.0-8.0) Ur Specific [place] (1.005-1.025) Urine Protein (NEG-TRACE) MG/DL Urine Glucose (UA) (NEG) MG/DL Urine Ketones (NEG) MG/DL Urine Blood (NEG) Urine Nitrite (NEG) Ur Leukocyte Esterase (NEG) COVID-19 (NICOLE) (Negative) COVID-19 Clin Com 01/27/22 01/27/22 01/27/22 Range/Units 13:53 16:28 17:36 WBC (4.8-10.8) X10*3/uL RBC (4.20-5.50) X10*6/uL Hgb (12.0-16.0) g/dl Hct (37.0-47.0) % MCV (80.0-98.0) fL MCH (27.0-33.0) pg MCHC (31.0-35.0) g/dl RDW (11.0-16.0) % Plt Count (160-400) X10*3/uL MPV (9.4-12.3) fL Immature Gran % (Auto) (0.0-0.4) % Neut % (Auto) (45-73) % Lymph % (Auto) (20-40) % [place] % (Auto) (2-11) % Eos % (Auto) (0-4) % Baso % (Auto) (0-2) % Lymph # (Auto) (1.2-4.9) X10*3/uL [place] # (Auto) (0.1-1.2) X10*3/uL Eos # (Auto) (0.0-0.4) X10*3/uL Baso # (Auto) (0.0-0.2) X10*3/uL Abs Immat Gran (auto) (0.00-0.03) X10*3/uL Absolute Neuts (auto) (2.0-8.3) x10*3/uL Absolute Nucleated RBC (0.0-0.012) X10*3/uL Nucleated RBC % (auto) (0.0-0.2) /100WBC ESR 7 (0-20) MM/HR Sodium (135-145) mmol/L Potassium (3.3-5.1) mmol/L Chloride (96-108) mmol/L Carbon Dioxide (22-29) mmol/L Anion Gap (12-20) BUN (9-16) mg/dL Creatinine (0.5-1.4) mg/dL Estim Creat Clear Calc Estimated GFR Random Glucose (60-115) mg/dL Calcium (8.4-10.2) mg/dL Magnesium (1.6-2.6) mg/dL Total Bilirubin (0.0-1.0) mg/dL Direct Bilirubin (0.0-0.5) mg/dL AST (5-31) U/L ALT (0-31) U/L Alkaline Phosphatase (39-117) U/L Troponin I High Sens (<3.5-17.0) ng/L C-Reactive Protein (< or = 0.50) mg/dL Total Protein (6.5-8.0) g/dL Albumin (3.5-5.0) g/dL Lipase (8-78) U/L Urine Color YELLOW Urine Appearance CLEAR Urine pH 5.5 (5.0-8.0) Ur Specific [place] 1.020 (1.005-1.025) Urine Protein NEG (NEG-TRACE) MG/DL Urine Glucose (UA) NEG (NEG) MG/DL Urine Ketones NEG (NEG) MG/DL Urine Blood NEG (NEG) Urine Nitrite NEG (NEG) Ur Leukocyte Esterase NEG (NEG) COVID-19 (NICOLE) Negative (Negative) COVID-19 Clin Com See Note <REUBEN Franco - Last Filed: 01/27/22 17:21> Lab Results 01/27/22 01/27/22 01/27/22 Range/Units 13:53 13:53 13:53 WBC 12.0 H (4.8-10.8) X10*3/uL RBC 4.94 (4.20-5.50) X10*6/uL Hgb 14.5 (12.0-16.0) g/dl Hct 44.6 (37.0-47.0) % MCV 90.3 (80.0-98.0) fL MCH 29.4 (27.0-33.0) pg MCHC 32.5 (31.0-35.0) g/dl RDW 12.5 (11.0-16.0) % Plt Count 310 (160-400) X10*3/uL MPV 11.1 (9.4-12.3) fL Immature Gran % (Auto) 0.4 (0.0-0.4) % Neut % (Auto) 71.0 (45-73) % Lymph % (Auto) 19.2 L (20-40) % [place] % (Auto) 8.4 (2-11) % Eos % (Auto) 0.3 (0-4) % Baso % (Auto) 0.7 (0-2) % Lymph # (Auto) 2.3 (1.2-4.9) X10*3/uL [place] # (Auto) 1.0 (0.1-1.2) X10*3/uL Eos # (Auto) 0.0 (0.0-0.4) X10*3/uL Baso # (Auto) 0.1 (0.0-0.2) X10*3/uL Abs Immat Gran (auto) 0.05 H (0.00-0.03) X10*3/uL Absolute Neuts (auto) 8.5 H (2.0-8.3) x10*3/uL Absolute Nucleated RBC 0.000 (0.0-0.012) X10*3/uL Nucleated RBC % (auto) 0.0 (0.0-0.2) /100WBC ESR (0-20) MM/HR Sodium 136 (135-145) mmol/L Potassium 4.5 (3.3-5.1) mmol/L Chloride 102 (96-108) mmol/L Carbon Dioxide 22 (22-29) mmol/L Anion Gap 17 (12-20) BUN 47 H D (9-16) mg/dL Creatinine 3.80 H (0.5-1.4) mg/dL Estim Creat Clear Calc 14.0 Estimated GFR 12 Random Glucose 108 (60-115) mg/dL Calcium 9.5 (8.4-10.2) mg/dL Magnesium 2.3 (1.6-2.6) mg/dL Total Bilirubin 0.8 (0.0-1.0) mg/dL Direct Bilirubin 0.4 (0.0-0.5) mg/dL AST 20 (5-31) U/L ALT 11 (0-31) U/L Alkaline Phosphatase 62 (39-117) U/L Troponin I High Sens 50.7 H* (<3.5-17.0) ng/L C-Reactive Protein 0.95 H (< or = 0.50) mg/dL Total Protein 7.0 (6.5-8.0) g/dL Albumin 4.0 (3.5-5.0) g/dL Lipase 67 (8-78) U/L Urine Color Urine Appearance Urine pH (5.0-8.0) Ur Specific [place] (1.005-1.025) Urine Protein (NEG-TRACE) MG/DL Urine Glucose (UA) (NEG) MG/DL Urine Ketones (NEG) MG/DL Urine Blood (NEG) Urine Nitrite (NEG) Ur Leukocyte Esterase (NEG) COVID-19 (NICOLE) (Negative) COVID-19 Clin Com 01/27/22 01/27/22 01/27/22 Range/Units 13:53 16:28 17:36 WBC (4.8-10.8) X10*3/uL RBC (4.20-5.50) X10*6/uL Hgb (12.0-16.0) g/dl Hct (37.0-47.0) % MCV (80.0-98.0) fL MCH (27.0-33.0) pg MCHC (31.0-35.0) g/dl RDW (11.0-16.0) % Plt Count (160-400) X10*3/uL MPV (9.4-12.3) fL Immature Gran % (Auto) (0.0-0.4) % Neut % (Auto) (45-73) % Lymph % (Auto) (20-40) % [place] % (Auto) (2-11) % Eos % (Auto) (0-4) % Baso % (Auto) (0-2) % Lymph # (Auto) (1.2-4.9) X10*3/uL [place] # (Auto) (0.1-1.2) X10*3/uL Eos # (Auto) (0.0-0.4) X10*3/uL Baso # (Auto) (0.0-0.2) X10*3/uL Abs Immat Gran (auto) (0.00-0.03) X10*3/uL Absolute Neuts (auto) (2.0-8.3) x10*3/uL Absolute Nucleated RBC (0.0-0.012) X10*3/uL Nucleated RBC % (auto) (0.0-0.2) /100WBC ESR 7 (0-20) MM/HR Sodium (135-145) mmol/L Potassium (3.3-5.1) mmol/L Chloride (96-108) mmol/L Carbon Dioxide (22-29) mmol/L Anion Gap (12-20) BUN (9-16) mg/dL Creatinine (0.5-1.4) mg/dL Estim Creat Clear Calc Estimated GFR Random Glucose (60-115) mg/dL Calcium (8.4-10.2) mg/dL Magnesium (1.6-2.6) mg/dL Total Bilirubin (0.0-1.0) mg/dL Direct Bilirubin (0.0-0.5) mg/dL AST (5-31) U/L ALT (0-31) U/L Alkaline Phosphatase (39-117) U/L Troponin I High Sens (<3.5-17.0) ng/L C-Reactive Protein (< or = 0.50) mg/dL Total Protein (6.5-8.0) g/dL Albumin (3.5-5.0) g/dL Lipase (8-78) U/L Urine Color YELLOW Urine Appearance CLEAR Urine pH 5.5 (5.0-8.0) Ur Specific [place] 1.020 (1.005-1.025) Urine Protein NEG (NEG-TRACE) MG/DL Urine Glucose (UA) NEG (NEG) MG/DL Urine Ketones NEG (NEG) MG/DL Urine Blood NEG (NEG) Urine Nitrite NEG (NEG) Ur Leukocyte Esterase NEG (NEG) COVID-19 (NICOLE) Negative (Negative) COVID-19 Clin Com See Note <REUBEN Darden - Last Filed: 01/27/22 19:30> Critical Care Time Critical Care Time Critical Care Time: No <REUBEN Darden - Last Filed: 01/27/22 19:30> Discharge Plan Discharge Clinical Impression: Multiple sclerosis exacerbation, Syncope and collapse, Abdominal pain <REUBEN Franco - Last Filed: 01/27/22 17:21> Patient Disposition: Admitted As Inpatient <REUBEN Franco - Last Filed: 01/27/22 17:21> Prescriptions: No Action omeprazole 20 mg capsule,delayed release(DR/EC) 1 cap PO DAILY 0RF ondansetron HCl 4 mg tablet 1 tab PO TID 0RF gabapentin 600 mg tablet 600 mg PO TID 0RF lamotrigine [Lamictal] 200 mg tablet 200 mg PO DAILY 0RF acetaminophen 500 mg tablet 500 mg PO 5XD 0RF memantine 10 mg tablet 10 mg PO BID 0RF albuterol sulfate [ProAir HFA] 90 mcg/actuation HFA aerosol inhaler 2 puff inhalation Q4-6H PRN (Reason: bronchospasm) 90 Days Qty: 3 1RF <REUBEN Franco - Last Filed: 01/27/22 17:21>
[2022-01-27 15:56] LABS: Alanine Aminotransferase 11 U/L (0-31); Alkaline Phosphatase 62 U/L (39-117); Aspartate Amino Transferase 20 U/L (5-31); Bilirubin Direct 0.4 mg/dL (0.0-0.5); Bilirubin Total 0.8 mg/dL (0.0-1.0); C Reactive Protein 0.95 mg/dL (< or = 0.50); Lipase 67 U/L (8-78); Magnesium 2.3 mg/dL (1.6-2.6)
[2022-01-27] MEDS: ondansetron HCL 4 MG/2 ML VIAL IVPUSH (16:05)
[2022-01-27 16:08] LABS: Troponin-I High Sensitivity 50.7 ng/L (<3.5-17.0)
[2022-01-27] MEDS: 0.9 % Sodium Chloride 1,000 ML 999 ML IV ×2 (16:08→18:07)
[2022-01-27 16:19] LABS: Erythrocyte Sedimentation Rate 7 MM/HR (0-20)
[2022-01-27 16:37] LABS: Appearance Urine CLEAR; Color Urine YELLOW; Glucose Urine UA NEG (NEG); Leukocyte Esterase Urine NEG (NEG); Nitrite Urine NEG (NEG); PH 5.5 (5.0-8.0); Urine Blood NEG (NEG); Urine Ketones NEG (NEG); Urine Protein NEG (NEG-TRACE)
--- NOTE | 2022-01-27 17:26 | PHA.MEDREC ---
Pharmacy Consult ? Medication Reconciliation Pharmacy has completed the medication reconciliation. Patient self discontinued Harvoni on 01/24 after 25 days due to ADRS. Patient takes zofran TID scheduled. Thanks Nehemiah
[2022-01-27 18:05] LABS: COVID-19 Test Negative (Negative)
[2022-01-27] MEDS: Tamsulosin HCL 0.4 MG CAPSULE PO (19:42)
[2022-01-27 20:07] LABS: Troponin-I High Sensitivity 55.7 ng/L (<3.5-17.0)
[2022-01-27] MEDS: Acetaminophen 325 MG TABLET 975 MG PO (21:44)
--- NOTE | 2022-01-27 23:03 | PM.IMHP ---
History of Present Illness Date of Service: 01/27/22 Chief Complaint: Fall 66-year-old female with a past medical history of hypertension, hyperlipidemia, multiple sclerosis, asthma, GERD, history of hep C, history of renal calculi presented to the hospital today with a chief complaint of fall. Patient reports that over the past 1-2 weeks she has been having increased falls, and this time associated with syncope. Reports that when she tries to walk around she suddenly feels weak and falls onto the ground and has lost consciousness for few seconds. Denies any seizure-like activity. Denies any chest pain palpitations. Denies any prodrome of symptoms. Denies any postictal confusion is a. Denies any fever chills cough. Denies any urinary symptoms. Review of all other systems is negative except mentioned above ER course: Per ER team patient was also noted to be confused with the family members and has been lately crawling in the house to move around; patient also complained of left upper quadrant abdominal pain and epigastric pain to the ER team. Exam was nonfocal, CT head showed no acute findings; CT abdomen showed 7-9 mm left ureteral stone with moderate left hydronephrosis. On labs noted to have YOHANA on CKD with creatinine increased to 3.8 from baseline 2.1. EKG was nonischemic; initial troponin was 52nd troponin is pending. Patient is oriented x3 to the ER team complain of chronic back pain no change in the pain. Received Tylenol. Admitted to the hospital for further management. [facility]LY [facility] Medical History Allergic rhinitis Asthma Closed right clavicular fracture GERD (gastroesophageal reflux disease) Hepatitis C History of renal calculi Hypertension Lumbar radiculopathy Multiple sclerosis Obesity Family History Father Prostate cancer Myocardial infarction Mother Breast cancer Paternal Aunt Myocardial infarction Paternal Uncle Myocardial infarction Surgical History History of liver biopsy History of verrucae (wart) excision Social History Housing: House Alcohol intake: never Patient Tobacco Use Status: Former Tobacco user Tobacco use type: Cigarette Years Smoked: 1979 quit for 8 years e-Cigarette/Vaping Use: Never Used Advance Directives: No Advance Directives Information Provided: No Meds Allergies Allergy/AdvReac Type Severity Reaction Status Date / Time escitalopram [From LEXAPRO] Allergy Severe STOMACH Verified 01/27/22 13:36 UPSET lisinopril [LISINOPRIL] Allergy Severe SWELLING, Verified 01/27/22 13:36 Leg swelling duloxetine [From CYMBALTA] Allergy Intermediate STOMACH Verified 01/27/22 13:36 UPSET desipramine [Desipramine] Allergy Mild PALPITATION Verified 01/27/22 13:36 S diphenhydramine Allergy Mild PALPITATIONS/CLAMMY Verified 01/27/22 13:36 [From Benadryl] SKIN Penicillins Allergy Mild UNKNOWN Verified 01/27/22 13:36 fluoxetine [From Prozac] AdvReac Mild PARKINSON Verified 01/27/22 13:36 SYMPTOMS garlic AdvReac Mild IBS Verified 01/27/22 13:36 SYMPTOMS oxycodone [From Percocet] AdvReac Mild N/V Verified 01/27/22 13:36 carbamazepine [From TEGRETOL] AdvReac Unknown BLACKOUT, Verified 01/27/22 13:36 SEVERE INTOXICATION Active Medications: Current Medications Pharmacy Consult (Consult Rx Perform Med Rec) 1 each MISCELLANE ONCE PRN PRN Reason: Consult order Home Medications Medication Instructions Recorded Confirmed Last Taken Type gabapentin 600 mg tablet 600 mg PO TID 11/02/20 01/27/22 01/27/22 History lamotrigine 200 mg tablet 200 mg PO DAILY 11/02/20 01/27/22 01/27/22 History (Lamictal) memantine 10 mg tablet 10 mg PO BID 10/11/21 01/27/22 01/27/22 History acetaminophen 500 mg tablet 500 mg PO 5XD 01/27/22 01/27/22 01/27/22 History omeprazole 20 mg capsule,delayed 1 cap PO DAILY 01/27/22 01/27/22 01/27/22 History release ondansetron HCl 4 mg tablet 1 tab PO TID 01/27/22 01/27/22 01/27/22 History Physical Exam Vital Signs and Narrative: Vital Signs: Last Vital Signs Temp 97.9 F 01/27/22 19:30 Pulse 70 03/04/22 19:30 Resp 18 01/27/22 19:30 BP 126/57 L 01/27/22 19:30 Pulse Ox 100 01/27/22 19:30 BMI result Body Mass Index 28.3 Gen: Appears be in no acute distress HEENT: NCAT, Moist mucosa. Pulmonary: Vesicular breath sounds, fair air entry CVS: Normal S1-S2 Abdomen: BS+, Soft, Nontender Extremities: Warm well perfused Neuro: Alert and awake. Grossly nonfocal Results Labs CBC and Chem 7: 01/27/22 13:53 01/27/22 13:53 Labs: Laboratory Results - last 24 hr 01/27/22 01/27/22 01/27/22 13:53 13:53 13:53 MCV 90.3 MCH 29.4 MCHC 32.5 RDW 12.5 Plt Count 310 MPV 11.1 Immature Gran % (Auto) 0.4 Neut % (Auto) 71.0 Lymph % (Auto) 19.2 L [place] % (Auto) 8.4 Eos % (Auto) 0.3 Baso % (Auto) 0.7 Lymph # (Auto) 2.3 [place] # (Auto) 1.0 Eos # (Auto) 0.0 Baso # (Auto) 0.1 Abs Immat Gran (auto) 0.05 H Absolute Neuts (auto) 8.5 H Absolute Nucleated RBC 0.000 Nucleated RBC % (auto) 0.0 ESR 7 Anion Gap 17 Estim Creat Clear Calc 14.0 Estimated GFR 12 Random Glucose 108 Calcium 9.5 Magnesium 2.3 Total Bilirubin 0.8 Direct Bilirubin 0.4 AST 20 ALT 11 Alkaline Phosphatase 62 C-Reactive Protein 0.95 H Total Protein 7.0 Albumin 4.0 Lipase 67 Urine Color Urine Appearance Urine pH Ur Specific [place] Urine Protein Urine Glucose (UA) Urine Ketones Urine Blood Urine Nitrite Ur Leukocyte Esterase COVID-19 (NICOLE) COVID-19 Clin Com 01/27/22 01/27/22 16:28 17:36 MCV MCH MCHC RDW Plt Count MPV Immature Gran % (Auto) Neut % (Auto) Lymph % (Auto) [place] % (Auto) Eos % (Auto) Baso % (Auto) Lymph # (Auto) [place] # (Auto) Eos # (Auto) Baso # (Auto) Abs Immat Gran (auto) Absolute Neuts (auto) Absolute Nucleated RBC Nucleated RBC % (auto) ESR Anion Gap Estim Creat Clear Calc Estimated GFR Random Glucose Calcium Magnesium Total Bilirubin Direct Bilirubin AST ALT Alkaline Phosphatase C-Reactive Protein Total Protein Albumin Lipase Urine Color YELLOW Urine Appearance CLEAR Urine pH 5.5 Ur Specific [place] 1.020 Urine Protein NEG Urine Glucose (UA) NEG Urine Ketones NEG Urine Blood NEG Urine Nitrite NEG Ur Leukocyte Esterase NEG COVID-19 (NICOLE) Negative COVID-19 Clin Com See Note Imaging Radiologist's Impressions: Impressions Chest X-Ray 01/27/22 15:53 IMPRESSION: Bilateral nodular densities, largest measuring 1.3 cm adjacent to the left heart border. This could be better evaluated with chest CT scan if clinically indicated. Abdomen/Pelvis CT 01/27/22 17:19 IMPRESSION: * 7 x 6 x 9 mm obstructing left proximal ureteral stone with associated left-sided hydronephrosis. * Other incidental findings as described above including stable lung nodules, nonobstructing smaller left intrarenal calculi, old uterine fibroids and degenerative changes in the spine. Fleischner guidelines were followed. Head CT 01/27/22 17:19 IMPRESSION: No acute intracranial pathology. No significant change from prior studies. Assessment and Plan (1) Syncope and collapse: Status: Acute (2) Abdominal pain: Status: Acute (3) Acute kidney injury superimposed on CKD: Status: Acute Plan 66-year-old female with a past medical history of hypertension, hyperlipidemia, multiple sclerosis, asthma, GERD, history of hep C, history of renal calculi presented to the hospital today with a chief complaint of fall. Patient reports that over the past 1-2 weeks she has been having increased falls, and this time associated with syncope. noted to have following conditions Recurrent falls: Patient reports that she has history of falls. Attributes to her multiple sclerosis. Currently denies any focal weakness or numbness. PT/ OT eventually. Syncope: Patient reports had couple episodes of syncope. Denies any prodrome. Denies any chest pain. Denies any seizure-like activity. Troponins indeterminate. likely reduced clearance of renal insufficiency. EKG showed no evidence of bradycardia or AV blocks. CT head is negative. Exam grossly nonfocal. Will also obtain echocardiogram Neurology consult for further recommendations YOHANA on CKD: Patient baseline creatinine around 2.1. Creatinine presentation is 3.8. Patient on gentle IV fluids. Supportive care. Avoid nephrotoxins. Left ureteral calculus/left hydronephrosis: Urinalysis negative for infection. Pain control. Nephrology follow-up. Patient refusing opiate pain medications. History of chronic back pain: Patient denies any change in her pain. mentions that she usually takes Tylenol for pain. History of multiple sclerosis: Patient currently denies any focal weakness or numbness. Supportive care. History of anxiety / depression/ bipolar: Continue home medications. DVT prophylaxis: Subcu heparin Code status: Full code Quality Stroke Does the patient have a stroke diagnosis?: No VTE Prior VTE?: No VTE Risk Level:: Medical - moderate - high VTE Device Contraindication: Treatment Not Indicated VTE Drug Contraindication: N/A - Med Ordered
[2022-01-28] VITALS (7 sets, daily range): BP systolic 140–180; BP diastolic 32–80; PULSE 78–91; RESP 17–20; TEMP 36.2–37.3; O2SAT 98–100; BMI 29.2
--- NOTE | 2022-01-28 01:10 | PC.NURSE ---
I assumed care of this pt at 1900. At that time the pt was standing in her room, preparing to ambulate to the bathroom with her cane. She informed me that she needed to void, and I watched her ambulate to the bathroom using her cane independently, safely, steadily and at a decent pace. She did not appear to have any difficulty ambulating what so ever. Upon her return from the bathroom she requested Tylenol, and I informed her I would speak with the provider. At that time I got a new patient in the room next to hers. While in that room performing a triage on the pt I heard a very loud banging sounds. i looked into the hallway for the source of the sound and noticed that Francesca was lying in her stretcher, holding a large metal IV pole with one hand and violently banging it up against the IV cart in her room. I was shocked. I asked the pt what's going on ?. She angirly replied I need tylenol . I informed her that being violent is not a way to get staff's attention. I then left the room. Similar behavior continued from Francesca shortly after this. She stopped multiple staff members as they walked by her room, requesting Tylenol. Eventually we administered Tylenol to her, yet after getting the Tylenol she continue to stop people and ask for Tylenol. At one point she was sitting on the floor in her room, sticking ehr head - only her head - outside of the curtain and talking to people as they walk by. We assisted her back into the bed and requested that she stop behaving this way. I also informed [facility] of this. At this time the pt has been transported to her inpatient bed.
[2022-01-28] MEDS: 0.9 % Sodium Chloride 1,000 ML 75 ML IVCONT ×2 (01:30→22:36)
[2022-01-28] MEDS: ondansetron HCL 4 MG/2 ML VIAL IVPUSH ×2 (02:44→17:33)
[2022-01-28] MEDS: Acetaminophen 325 MG TABLET 650 MG PO ×4 (03:42→22:36)
[2022-01-28 06:20] LABS: MANUAL DIFF FLAG NO
[2022-01-28] MEDS: Omeprazole 20 MG CAPSULE.DR PO (06:40)
[2022-01-28 06:46] LABS: Anion Gap 11 (12-20); Basophils Absolute Auto 0.1 X10*3/uL (0.0-0.2); Blood Urea Nitrogen 39 mg/dL (9-16); Calcium 8.4 mg/dL (8.4-10.2); Carbon Dioxide 24 mmol/L (22-29); Chloride 108 mmol/L (96-108); Creatinine Clr Calc Pharmacy 17.9; Eosinophils Absolute Auto 0.2 X10*3/uL (0.0-0.4); Eosinophils Percent Auto 2.5 % (0-4); Estimated Glomerular Filt Rate 15; Glucose Random 97 mg/dL (60-115); Hematocrit 38.3 % (37.0-47.0); Hemoglobin 12.3 g/dl (12.0-16.0); Imm Gran Abs Auto 0.02 X10*3/uL (0.00-0.03); Imm Gran Pct Auto 0.2 % (0.0-0.4); Lymphocytes Absolute Auto 2.4 X10*3/uL (1.2-4.9); Lymphocytes Percent Auto 29.4 % (20-40); Mean Corpuscular HGB Conc 32.1 g/dl (31.0-35.0); Mean Corpuscular Hemoglobin 29.5 pg (27.0-33.0); Mean Corpuscular Volume 91.8 fL (80.0-98.0); Mean Platelet Volume 11.4 fL (9.4-12.3); Monocytes Absolute Auto 0.9 X10*3/uL (0.1-1.2); Monocytes Percent Auto 11.1 % (2-11); Neutrophils Absolute Auto 4.5 x10*3/uL (2.0-8.3); Neutrophils Percent Auto 55.8 % (45-73); Red Blood Count 4.17 X10*6/uL (4.20-5.50); Red Cell Distribution Width 12.5 % (11.0-16.0); Sodium 139 mmol/L (135-145); White Blood Count 8.1 X10*3/uL (4.8-10.8)
[2022-01-28 07:10] LABS: Platelet Count 202 X10*3/uL (160-400)
[2022-01-28 09:09] LABS: Troponin-I High Sensitivity 79.8 ng/L (<3.5-17.0)
--- NOTE | 2022-01-28 09:33 | MHC.CM.PN ---
Addendum entered by Iris Bustamante 01/28/22 09:38: PT HAS BEEN VACCINATED AGAINST COVID-19: PFIZER 03/23/21 & 04/15/21 BOOSTER: PFIZER 10/19/21 COPY OF VACCINE CARD SCANNED INTO [employer] AND PLACED IN CHART Original Note: PT REPORTS SHE LIVES WITH HER BOYFRIEND AND IS INDEPENDENT WITH CARE AT BASELINE SHE REPORTS SHE USES [facility] AND NO OTHER DME PT HAS NO HOME SERVICES PT DOES NOT HAVE A HCP, SHE REPORTS SHE DOES NOT FEEL SHE CAN COMPLETE ONE AT THIS TIME, SHE WOULD LIKE TO DISCUSS IT WITH HER SISTER AT A LATER DATE. SHE IS AWARE CM CAN ASSIST IF SHE CHOOSES TO COMPLETE ONE DURING HER ADMISSION. PCP IS MATTHEW LEWIS IMM DELIVERED CURRENT DC PLAN IS HOME WITH NO SERVICES BOYFRIEND TO TRANSPORT
[2022-01-28] MEDS: Memantine HCl 10 MG TABLET PO ×2 (09:38→19:58)
[2022-01-28] MEDS: lamoTRIgine 100 MG TABLET 200 MG PO (09:38)
--- NOTE | 2022-01-28 09:46 | HO.PM.IMPN ---
Subjective Subjective Date of Service: 01/28/22 Interval History: Seen in f/u for kidney s tone, renal failure, c/o been fogy still has some pain and doesn't want narcotics, tyelenol instead Review of Systems Back pain no fever no chest pain Physical Exam Vital Signs: Vital Signs: Last Vital Signs Temp 97.3 F 01/28/22 07:42 Pulse 78 01/28/22 07:42 Resp 18 01/28/22 07:42 BP 169/60 H 01/28/22 07:42 Pulse Ox 98 01/28/22 07:42 BMI result Body Mass Index 29.2 Const: Other: General: AO X 3, no acute distress Resp: CTA bilateral CVS: S1,S2,RRR GI: +BS, NT, no distention Skin: No rash Neuro: motor grossly intact Psych: appropriate affect Objective Data Active Medications Acetaminophen (Acetaminophen 325 Mg Tablet) 650 mg PO Q6H PRN PRN Reason: Pain, Mild (Pain Scale 1-3) Last Admin: 01/28/22 09:38 Dose: 650 mg Documented by: JT Albuterol Sulfate (Albuterol Sulfate 90 Mcg 8 Gm Inhaler) 2 puff INHALE Q4H PRN PRN Reason: bronchospasm Gabapentin (Gabapentin 600 Mg Tablet) 600 mg PO TID [facility] Last Admin: 01/28/22 09:36 Dose: Not Given Documented by: JT Non-Admin Reason: Physician Held Med Heparin Sodium (Porcine) (Heparin Sodium,Porcine 5,000 Unit/Ml Vial) 5,000 unit SUBCUT Q8H [facility] Last Admin: 01/28/22 09:34 Dose: Not Given Documented by: JT Non-Admin Reason: Patient Refused Sodium Chloride (Ns) 1,000 mls @ 75 mls/hr IVCONT .[id number] [facility] Last Admin: 01/28/22 01:30 Dose: 75 mls/hr Documented by: GREY Lamotrigine (Lamotrigine 100 Mg Tablet) 200 mg PO DAILY [facility] Last Admin: 01/28/22 09:38 Dose: 200 mg Documented by: JT Melatonin (Melatonin 3 Mg Tablet) 6 mg PO BEDTIME PRN PRN Reason: Insomnia Memantine (Memantine Hcl 10 Mg Tablet) 10 mg PO BID [facility] Last Admin: 01/28/22 09:38 Dose: 10 mg Documented by: BROSima Omeprazole (Omeprazole 20 Mg Capsule.Dr) 20 mg PO DAILY@0630 [facility] Last Admin: 01/28/22 06:40 Dose: 20 mg Documented by: GREY Pharmacy Consult (Consult Rx Perform Med Rec) 1 each MISCELLANE ONCE PRN PRN Reason: Consult order Senna (Sennosides 8.6 Mg Tablet) 17.2 mg PO BEDTIME PRN PRN Reason: Constipation Sodium Chloride (0.9 % Sodium Chloride Flush 3 Ml Syringe) 3 ml IVFLUSH QSHIFT [facility] Last Admin: 01/28/22 09:23 Dose: Not Given Documented by: JT Non-Admin Reason: IV Running Labs CBC & Chem 7: 01/28/22 05:57 01/28/22 05:57 Labs: Laboratory Results - last 24 hr 01/27/22 01/27/22 01/27/22 13:53 13:53 13:53 MCV 90.3 MCH 29.4 MCHC 32.5 RDW 12.5 Plt Count 310 MPV 11.1 Immature Gran % (Auto) 0.4 Neut % (Auto) 71.0 Lymph % (Auto) 19.2 L [place] % (Auto) 8.4 Eos % (Auto) 0.3 Baso % (Auto) 0.7 Lymph # (Auto) 2.3 [place] # (Auto) 1.0 Eos # (Auto) 0.0 Baso # (Auto) 0.1 Abs Immat Gran (auto) 0.05 H Absolute Neuts (auto) 8.5 H Absolute Nucleated RBC 0.000 Nucleated RBC % (auto) 0.0 ESR 7 Anion Gap 17 Estim Creat Clear Calc 14.0 Estimated GFR 12 Random Glucose 108 Calcium 9.5 Magnesium 2.3 Total Bilirubin 0.8 Direct Bilirubin 0.4 AST 20 ALT 11 Alkaline Phosphatase 62 C-Reactive Protein 0.95 H Total Protein 7.0 Albumin 4.0 Lipase 67 Urine Color Urine Appearance Urine pH Ur Specific [place] Urine Protein Urine Glucose (UA) Urine Ketones Urine Blood Urine Nitrite Ur Leukocyte Esterase COVID-19 (NICOLE) COVID-19 Clin Com 01/27/22 01/27/22 01/28/22 16:28 17:36 05:57 MCV 91.8 MCH 29.5 MCHC 32.1 RDW 12.5 Plt Count 202 D MPV 11.4 Immature Gran % (Auto) 0.2 Neut % (Auto) 55.8 Lymph % (Auto) 29.4 [place] % (Auto) 11.1 H Eos % (Auto) 2.5 Baso % (Auto) 1.0 Lymph # (Auto) 2.4 [place] # (Auto) 0.9 Eos # (Auto) 0.2 Baso # (Auto) 0.1 Abs Immat Gran (auto) 0.02 Absolute Neuts (auto) 4.5 Absolute Nucleated RBC 0.000 Nucleated RBC % (auto) 0.0 ESR Anion Gap Estim Creat Clear Calc Estimated GFR Random Glucose Calcium Magnesium Total Bilirubin Direct Bilirubin AST ALT Alkaline Phosphatase C-Reactive Protein Total Protein Albumin Lipase Urine Color YELLOW Urine Appearance CLEAR Urine pH 5.5 Ur Specific [place] 1.020 Urine Protein NEG Urine Glucose (UA) NEG Urine Ketones NEG Urine Blood NEG Urine Nitrite NEG Ur Leukocyte Esterase NEG COVID-19 (NICOLE) Negative COVID-19 Clin Com See Note 01/28/22 05:57 MCV MCH MCHC RDW Plt Count MPV Immature Gran % (Auto) Neut % (Auto) Lymph % (Auto) [place] % (Auto) Eos % (Auto) Baso % (Auto) Lymph # (Auto) [place] # (Auto) Eos # (Auto) Baso # (Auto) Abs Immat Gran (auto) Absolute Neuts (auto) Absolute Nucleated RBC Nucleated RBC % (auto) ESR Anion Gap 11 L Estim Creat Clear Calc 17.9 Estimated GFR 15 Random Glucose 97 Calcium 8.4 D Magnesium Total Bilirubin Direct Bilirubin AST ALT Alkaline Phosphatase C-Reactive Protein Total Protein Albumin Lipase Urine Color Urine Appearance Urine pH Ur Specific [place] Urine Protein Urine Glucose (UA) Urine Ketones Urine Blood Urine Nitrite Ur Leukocyte Esterase COVID-19 (NICOLE) COVID-19 Clin Com Assessment and Plan (1) Acute kidney injury superimposed on CKD: Status: Acute (2) Kidney stone: Status: Acute Plan 66/F with HTN, HLD, multiple sclerosis ( MS), asthma, GERD, history of hep C, history of renal calculi presented to the hospital today a fall, reports multiple falls the past 1-2 weeks she has been having increased falls, and this time associated with syncope. She is noted to have YOHANA, renal stone, elevated troponin. #YOHANA on CKD2--likely from dehyration and obstructive uropathy from stone. -Renal consult, IVF, serial labs and avoid Nephrotoxins. Avoid Gabapentin d/t renal failure # Left ureteral calculus/left hydronephrosis: Urinalysis negative for infection. Pain control. Nephrology follow-up. Patient refusing opiate pain medications. -Urology will like intervene on stone, once cleared by cardiology # Recurrent falls: Patient reports that she has history of falls. Attributes to her multiple sclerosis. Currently denies any focal weakness or numbness. PT/ OT eventually before discharge #Syncope: Circusmstance not clear, no arrythmia noted, elevated troponin likely from renal failure. Continue tele, echo won't be done till sunday. Cardiology to comment on this. #Elevated troponin I--likely d/t CKD--no ECG ischemic changes, cardiology eval pending #History of chronic back pain: Patient denies any change in her pain. mentions that she usually takes Tylenol for pain. #History of multiple sclerosis: Patient currently denies any focal weakness or numbness. Supportive care. #History of anxiety / depression/ bipolar: Continue home medications. DVT prophylaxis: Subcu heparin Code status: Full code Quality Stroke Does the patient have a stroke diagnosis?: No VTE Prior VTE?: No VTE Risk Level:: Medical - moderate - high VTE Device Contraindication: Treatment Not Indicated VTE Drug Contraindication: N/A - Med Ordered
--- NOTE | 2022-01-28 09:48 | P.CONNP_ITS ---
History of Present Illness Reason for Consult Consult date: 01/28/22 Chief Complaint Chief complaint: Syncope/acute on chronic kidney injury/kidney ston History of Present Illness Narrative: 66-year-old female with a medical history of hypertension, hyperlipidemia, multiple sclerosis, asthma, GERD, history of hep C, history of renal calculi presented to the hospital today with a chief complaint of fall.? Patient reports that over the past 1-2 weeks she has been having increased falls, and this time associated with syncope.? Reports that when she tries to walk around she suddenly feels weak and falls onto the ground and has lost consciousness for few seconds.? Denies any seizure- like activity.? Denies any chest pain palpitations.? Denies any prodrome of symptoms.? Denies any postictal confusion is a.? Denies any fever chills cough.? Denies any urinary symptoms.? Review of all other systems is negative except mentioned above Review of Systems Review of Systems Constitutional: No Fever, No Chills, No Fatigue, No Malaise ENT/Mouth: No Ear Pain, No Nasal Congestion, No sore throat, No Rhinorrhea, No Swallowing Difficulty Eyes: No Eye Pain, No Swelling, No Redness Cardiovascular: No Chest Pain, No SOB, No Edema, No Palpitations Respiratory: No Cough, No Sputum, No Dyspnea Gastrointestinal: + Nausea, No Vomiting, No Diarrhea, No Constipation, + Abdo kalyan pain Genitourinary: No Dysuria, No Urinary Frequency, No Hematuria, No Urgency, No Flank Pain, No Urinary Flow Changes Musculoskeletal: No joint pain, No Myalgias, No Joint Swelling Skin: No Skin Lesions, No rash Neuro: + Weakness, No Numbness, No Paresthesias, + Loss of Consciousness, +Lightheadedness/ Dizziness, No Headache Yes all other systems are reviewed and are negative [facility] Past Medical History Medical History Allergic rhinitis Asthma Closed right clavicular fracture GERD (gastroesophageal reflux disease) Hepatitis C History of renal calculi Hypertension Lumbar radiculopathy Multiple sclerosis Obesity Family History Family History Father Prostate cancer Myocardial infarction Mother Breast cancer Paternal Aunt Myocardial infarction Paternal Uncle Myocardial infarction Surgical History Surgical History History of liver biopsy History of verrucae (wart) excision Social History Social History Household Members: None Housing: Apartment Do you presently have visiting nurse or other home services: No Alcohol intake: never Patient Tobacco Use Status: Former Tobacco user Tobacco use type: Cigarette Years Smoked: 1978 quit for 8 years e-Cigarette/Vaping Use: Never Used Use of substances other than those prescribed or required for medical reasons: No Currently Displaying Signs/Symptoms of Drug Intoxication Withdrawal: No Have you been hit, kicked, punched, or otherwise hurt by someone within the past year? If so, by whom?: No Do you feel safe in your current relationship?: Yes Is there a partner from a previous relationship who is making you feel unsafe now?: No Are you made to feel afraid or neglected: No Advance Directives: No Advance Directives Information Provided: No Do you have thoughts of harming others: None Do you have a plan to hurt others: No Plan Recently lost weight without trying: Yes How much weight loss: Unsure Nutrition Risks: No Nutritional Risk service: No Current occupational status: retired Meds Allergies Allergy/AdvReac Type Severity Reaction Status Date / Time escitalopram [From LEXAPRO] Allergy Severe STOMACH Verified 01/27/22 13:36 UPSET lisinopril [LISINOPRIL] Allergy Severe SWELLING, Verified 01/27/22 13:36 Leg swelling duloxetine [From CYMBALTA] Allergy Intermediate STOMACH Verified 01/27/22 13:36 UPSET desipramine [Desipramine] Allergy Mild PALPITATION Verified 01/27/22 13:36 S diphenhydramine Allergy Mild PALPITATIONS/CLAMMY Verified 01/27/22 13:36 [From Benadryl] SKIN Penicillins Allergy Mild UNKNOWN Verified 01/27/22 13:36 fluoxetine [From Prozac] AdvReac Mild PARKINSON Verified 01/27/22 13:36 SYMPTOMS garlic AdvReac Mild IBS Verified 01/27/22 13:36 SYMPTOMS oxycodone [From Percocet] AdvReac Mild N/V Verified 01/27/22 13:36 carbamazepine [From TEGRETOL] AdvReac Unknown BLACKOUT, Verified 01/27/22 13:36 SEVERE INTOXICATION Active Medications: Current Medications Acetaminophen (Acetaminophen 325 Mg Tablet) 650 mg PO Q6H PRN PRN Reason: Pain, Mild (Pain Scale 1-3) Last Admin: 01/28/22 09:38 Dose: 650 mg Documented by: Albuterol Sulfate (Albuterol Sulfate 90 Mcg 8 Gm Inhaler) 2 puff INHALE Q4H PRN PRN Reason: bronchospasm Gabapentin (Gabapentin 600 Mg Tablet) 600 mg PO TID [facility] Last Admin: 01/28/22 09:36 Dose: Not Given Documented by: Heparin Sodium (Porcine) (Heparin Sodium,Porcine 5,000 Unit/Ml Vial) 5,000 unit SUBCUT Q8H [facility] Last Admin: 01/28/22 09:34 Dose: Not Given Documented by: Sodium Chloride (Ns) 1,000 mls @ 75 mls/hr IVCONT .[id number] [facility] Last Admin: 01/28/22 01:30 Dose: 75 mls/hr Documented by: Lamotrigine (Lamotrigine 100 Mg Tablet) 200 mg PO DAILY [facility] Last Admin: 01/28/22 09:38 Dose: 200 mg Documented by: Melatonin (Melatonin 3 Mg Tablet) 6 mg PO BEDTIME PRN PRN Reason: Insomnia Memantine (Memantine Hcl 10 Mg Tablet) 10 mg PO BID [facility] Last Admin: 01/28/22 09:38 Dose: 10 mg Documented by: Omeprazole (Omeprazole 20 Mg Capsule.Dr) 20 mg PO DAILY@0630 [facility] Last Admin: 01/28/22 06:40 Dose: 20 mg Documented by: Pharmacy Consult (Consult Rx Perform Med Rec) 1 each MISCELLANE ONCE PRN PRN Reason: Consult order Senna (Sennosides 8.6 Mg Tablet) 17.2 mg PO BEDTIME PRN PRN Reason: Constipation Sodium Chloride (0.9 % Sodium Chloride Flush 3 Ml Syringe) 3 ml IVFLUSH QSHIFT [facility] Last Admin: 01/28/22 09:23 Dose: Not Given Documented by: Home Medications Medication Instructions Recorded Confirmed Last Taken Type gabapentin 600 mg tablet 600 mg PO TID 11/02/20 01/27/22 01/27/22 History lamotrigine 200 mg tablet 200 mg PO DAILY 11/02/20 01/27/22 01/27/22 History (Lamictal) memantine 10 mg tablet 10 mg PO BID 10/11/21 01/27/22 01/27/22 History acetaminophen 500 mg tablet 500 mg PO 5XD 01/27/22 01/27/22 01/27/22 History omeprazole 20 mg capsule,delayed 1 cap PO DAILY 01/27/22 01/27/22 01/27/22 History release ondansetron HCl 4 mg tablet 1 tab PO TID 01/27/22 01/27/22 01/27/22 History Physical Exam Vital Signs: Last Vital Signs Temp 97.3 F 01/28/22 07:42 Pulse 78 01/28/22 07:42 Resp 18 01/28/22 07:42 BP 169/60 H 01/28/22 07:42 Pulse Ox 98 01/28/22 07:42 BMI result Body Mass Index 29.2 Const General: cooperative Orientation/consciousness: patient oriented x3 Limitations: no limitations HENMT Ears: hearing grossly normal bilaterally Eyes General: appearance normal, both eyes and all related structures Neck Other: No midline cervical spinous tenderness Neck: Yes no meningeal signs Resp Effort & Inspection: normal respiratory effort and no respiratory distress Auscultation: clear to auscultation bilaterally, no rales, no rhonchi and no wheezes Cardio Rate: regular rate Heart sounds: S1 normal heart sound present and S2 normal heart sound present GI Inspection: Yes normal to inspection Palpation (GI): Soft to palpation, Tenderness to palpation present (GI) in the LUQ, no guarding and not rigid General: Yes no CVA tenderness Back/Spine/Pelvis Other: No midline thoracic/lumbar spinous tenderness Back: no CVA tenderness Skin Rashes: no rashes Wounds: no wounds Neuro Other: No appreciable focal weakness General: patient oriented x3, moves all extremities, no meningeal signs and no focal motor deficits Motor exam (neuro): 5/5 motor strength present throughout Extrem General: Yes normal to inspection and Yes no pedal edema Results Lab Results Result Diagrams: 01/28/22 05:57 01/28/22 05:57 Lab results: Chemistry 01/27/22 01/28/22 13:53 05:57 Sodium 136 139 Potassium 4.5 4.0 Carbon Dioxide 22 24 BUN 47 H D 39 H Creatinine 3.80 H 3.04 H Calcium 9.5 8.4 D Hematology 01/27/22 01/28/22 13:53 05:57 WBC 12.0 H 8.1 Hgb 14.5 12.3 Plt Count 310 202 D Urinalysis 01/27/22 16:28 Urine Color YELLOW Urine Appearance CLEAR Urine pH 5.5 Ur Specific [place] 1.020 Urine Protein NEG Urine Glucose (UA) NEG Urine Ketones NEG Urine Blood NEG Urine Nitrite NEG Ur Leukocyte Esterase NEG Assessment and Plan (1) Syncope and collapse: Status: Acute (2) Abdominal pain: Status: Acute (3) Acute kidney injury superimposed on CKD: Status: Acute Plan YOHANA superimposed on CKD Left ureteral calculus/left hydronephrosis: *? 7 x 6 x 9 mm obstructing left proximal ureteral stone with associated left-sided hydronephrosis. Suggest: Urine for Na/Cr/Protein IV hydration Urology evaluation for left hydro/stone Pain Control Avoid NSAIDS Procedures Date of Service Date of Service: 01/28/22
--- NOTE | 2022-01-28 09:58 | PM.CNCAR ---
History of Present Illness History of Present Illness Date of Service: 01/28/22 Requesting physician: Eric Cook Chief complaint: + troponin Narrative: 66 year female who is here for syncope and fall. She has background of multiple sclerosis and had falls in the past. She said day for yesterday she had 2 episodes where she fell forward and passed out. She is saying she did not pass out for long time but is sure that she completely passed out. Denying any significant chest pain. She was having abdominal pain which has been found to be due to renal stone and hydronephrosis. Her high sensitivity troponin level was 50, 55 and 79. ECG is showing sinus rhythm 83 beats per minute, normal axis, left ventricular hypertrophy with repolarization changes. [facility] Past Medical History Medical History Allergic rhinitis Asthma Closed right clavicular fracture GERD (gastroesophageal reflux disease) Hepatitis C History of renal calculi Hypertension Lumbar radiculopathy Multiple sclerosis Obesity Family History Family History Father Prostate cancer Myocardial infarction Mother Breast cancer Paternal Aunt Myocardial infarction Paternal Uncle Myocardial infarction Surgical History Surgical History History of liver biopsy History of verrucae (wart) excision Social History Social History Household Members: None Housing: Apartment Do you presently have visiting nurse or other home services: No Alcohol intake: never Patient Tobacco Use Status: Former Tobacco user Tobacco use type: Cigarette Years Smoked: 1979 quit for 8 years e-Cigarette/Vaping Use: Never Used Use of substances other than those prescribed or required for medical reasons: No Currently Displaying Signs/Symptoms of Drug Intoxication Withdrawal: No Have you been hit, kicked, punched, or otherwise hurt by someone within the past year? If so, by whom?: No Do you feel safe in your current relationship?: Yes Is there a partner from a previous relationship who is making you feel unsafe now?: No Are you made to feel afraid or neglected: No Advance Directives: No Advance Directives Information Provided: No Do you have thoughts of harming others: None Do you have a plan to hurt others: No Plan Recently lost weight without trying: Yes How much weight loss: Unsure Nutrition Risks: No Nutritional Risk service: No Current occupational status: retired Meds Allergies Allergy/AdvReac Type Severity Reaction Status Date / Time escitalopram [From LEXAPRO] Allergy Severe STOMACH Verified 01/27/22 13:36 UPSET lisinopril [LISINOPRIL] Allergy Severe SWELLING, Verified 01/27/22 13:36 Leg swelling duloxetine [From CYMBALTA] Allergy Intermediate STOMACH Verified 01/27/22 13:36 UPSET desipramine [Desipramine] Allergy Mild PALPITATION Verified 01/27/22 13:36 S diphenhydramine Allergy Mild PALPITATIONS/CLAMMY Verified 01/27/22 13:36 [From Benadryl] SKIN Penicillins Allergy Mild UNKNOWN Verified 01/27/22 13:36 fluoxetine [From Prozac] AdvReac Mild PARKINSON Verified 01/27/22 13:36 SYMPTOMS garlic AdvReac Mild IBS Verified 01/27/22 13:36 SYMPTOMS oxycodone [From Percocet] AdvReac Mild N/V Verified 01/27/22 13:36 carbamazepine [From TEGRETOL] AdvReac Unknown BLACKOUT, Verified 01/27/22 13:36 SEVERE INTOXICATION Active Medications: Current Medications Acetaminophen (Acetaminophen 325 Mg Tablet) 650 mg PO Q6H PRN PRN Reason: Pain, Mild (Pain Scale 1-3) Last Admin: 01/28/22 09:38 Dose: 650 mg Documented by: Albuterol Sulfate (Albuterol Sulfate 90 Mcg 8 Gm Inhaler) 2 puff INHALE Q4H PRN PRN Reason: bronchospasm Gabapentin (Gabapentin 600 Mg Tablet) 600 mg PO TID [facility] Last Admin: 01/28/22 09:36 Dose: Not Given Documented by: Heparin Sodium (Porcine) (Heparin Sodium,Porcine 5,000 Unit/Ml Vial) 5,000 unit SUBCUT Q8H [facility] Last Admin: 01/28/22 09:34 Dose: Not Given Documented by: Sodium Chloride (Ns) 1,000 mls @ 75 mls/hr IVCONT .[id number] [facility] Last Admin: 01/28/22 01:30 Dose: 75 mls/hr Documented by: Lamotrigine (Lamotrigine 100 Mg Tablet) 200 mg PO DAILY [facility] Last Admin: 01/28/22 09:38 Dose: 200 mg Documented by: Melatonin (Melatonin 3 Mg Tablet) 6 mg PO BEDTIME PRN PRN Reason: Insomnia Memantine (Memantine Hcl 10 Mg Tablet) 10 mg PO BID [facility] Last Admin: 01/28/22 09:38 Dose: 10 mg Documented by: Omeprazole (Omeprazole 20 Mg Capsule.) 20 mg PO DAILY@0630 [facility] Last Admin: 01/28/22 06:40 Dose: 20 mg Documented by: Pharmacy Consult (Consult Rx Perform Med Rec) 1 each MISCELLANE ONCE PRN PRN Reason: Consult order Senna (Sennosides 8.6 Mg Tablet) 17.2 mg PO BEDTIME PRN PRN Reason: Constipation Sodium Chloride (0.9 % Sodium Chloride Flush 3 Ml Syringe) 3 ml IVFLUSH QSHIFT [facility] Last Admin: 01/28/22 09:23 Dose: Not Given Documented by: Home Medications Medication Instructions Recorded Confirmed Last Taken Type gabapentin 600 mg tablet 600 mg PO TID 11/02/20 01/27/22 01/27/22 History lamotrigine 200 mg tablet 200 mg PO DAILY 11/02/20 01/27/22 01/27/22 History (Lamictal) memantine 10 mg tablet 10 mg PO BID 10/11/21 01/27/22 01/27/22 History acetaminophen 500 mg tablet 500 mg PO 5XD 01/27/22 01/27/22 01/27/22 History omeprazole 20 mg capsule,delayed 1 cap PO DAILY 01/27/22 01/27/22 01/27/22 History release ondansetron HCl 4 mg tablet 1 tab PO TID 01/27/22 01/27/22 01/27/22 History Physical Exam Vital Signs: Vital Signs: Last Vital Signs Temp 97.3 F 01/28/22 07:42 Pulse 78 01/28/22 07:42 Resp 18 01/28/22 07:42 BP 169/60 H 01/28/22 07:42 Pulse Ox 98 01/28/22 07:42 BMI result Body Mass Index 29.2 GENERAL APPEARANCE: in no acute distress, pleasant. NECK: no carotid bruit, no jugular venous distention. SKIN: no suspicious lesions, warm and dry. HEART: no murmurs, regular rate and rhythm. LUNGS: clear to auscultation bilaterally. ABDOMEN: soft, nontender. EXTREMITIES: no edema. PERIPHERAL PULSES: equal. NEUROLOGIC: No gross deficits, AAO X 3 Objective Labs and Meds Result diagrams: 01/28/22 05:57 01/28/22 05:57 Lab results: Laboratory Results - last 24 hr 01/27/22 01/27/22 01/27/22 13:53 13:53 13:53 WBC 12.0 H RBC 4.94 Hgb 14.5 Hct 44.6 MCV 90.3 MCH 29.4 MCHC 32.5 RDW 12.5 Plt Count 310 MPV 11.1 Immature Gran % (Auto) 0.4 Neut % (Auto) 71.0 Lymph % (Auto) 19.[address] [place] % (Auto) 8.4 Eos % (Auto) 0.3 Baso % (Auto) 0.7 Lymph # (Auto) 2.3 [place] # (Auto) 1.0 Eos # (Auto) 0.0 Baso # (Auto) 0.1 Abs Immat Gran (auto) 0.05 H Absolute Neuts (auto) 8.5 H Absolute Nucleated RBC 0.000 Nucleated RBC % (auto) 0.0 ESR Sodium 136 Potassium 4.5 Chloride 102 Carbon Dioxide 22 Anion Gap 17 BUN 47 H D Creatinine 3.80 H Estim Creat Clear Calc 14.0 Estimated GFR 12 Random Glucose 108 Calcium 9.5 Magnesium 2.3 Total Bilirubin 0.8 Direct Bilirubin 0.4 AST 20 ALT 11 Alkaline Phosphatase 62 Troponin I High Sens 50.7 H* C-Reactive Protein 0.95 H Total Protein 7.0 Albumin 4.0 Lipase 67 Urine Color Urine Appearance Urine pH Ur Specific [place] Urine Protein Urine Glucose (UA) Urine Ketones Urine Blood Urine Nitrite Ur Leukocyte Esterase COVID-19 (NICOLE) COVID-19 Clin Com 01/27/22 01/27/22 01/27/22 13:53 16:28 17:36 WBC RBC Hgb Hct MCV MCH MCHC RDW Plt Count MPV Immature Gran % (Auto) Neut % (Auto) Lymph % (Auto) [place] % (Auto) Eos % (Auto) Baso % (Auto) Lymph # (Auto) [place] # (Auto) Eos # (Auto) Baso # (Auto) Abs Immat Gran (auto) Absolute Neuts (auto) Absolute Nucleated RBC Nucleated RBC % (auto) ESR 7 Sodium Potassium Chloride Carbon Dioxide Anion Gap BUN Creatinine Estim Creat Clear Calc Estimated GFR Random Glucose Calcium Magnesium Total Bilirubin Direct Bilirubin AST ALT Alkaline Phosphatase Troponin I High Sens C-Reactive Protein Total Protein Albumin Lipase Urine Color YELLOW Urine Appearance CLEAR Urine pH 5.5 Ur Specific [place] 1.020 Urine Protein NEG Urine Glucose (UA) NEG Urine Ketones NEG Urine Blood NEG Urine Nitrite NEG Ur Leukocyte Esterase NEG COVID-19 (NICOLE) Negative COVID-19 Clin Com See Note 01/27/22 01/28/22 01/28/22 19:35 05:57 05:57 WBC 8.1 RBC 4.17 L Hgb 12.3 Hct 38.3 MCV 91.8 MCH 29.5 MCHC 32.1 RDW 12.5 Plt Count 202 D MPV 11.4 Immature Gran % (Auto) 0.2 Neut % (Auto) 55.8 Lymph % (Auto) 29.4 [place] % (Auto) 11.1 H Eos % (Auto) 2.5 Baso % (Auto) 1.0 Lymph # (Auto) 2.4 [place] # (Auto) 0.9 Eos # (Auto) 0.2 Baso # (Auto) 0.1 Abs Immat Gran (auto) 0.02 Absolute Neuts (auto) 4.5 Absolute Nucleated RBC 0.000 Nucleated RBC % (auto) 0.0 ESR Sodium 139 Potassium 4.0 Chloride 108 Carbon Dioxide 24 Anion Gap 11 L BUN 39 H Creatinine 3.04 H Estim Creat Clear Calc 17.9 Estimated GFR 15 Random Glucose 97 Calcium 8.4 D Magnesium Total Bilirubin Direct Bilirubin AST ALT Alkaline Phosphatase Troponin I High Sens 55.7 H* C-Reactive Protein Total Protein Albumin Lipase Urine Color Urine Appearance Urine pH Ur Specific [place] Urine Protein Urine Glucose (UA) Urine Ketones Urine Blood Urine Nitrite Ur Leukocyte Esterase COVID-19 (NICOLE) COVID-19 Clin Com 01/28/22 08:25 WBC RBC Hgb Hct MCV MCH MCHC RDW Plt Count MPV Immature Gran % (Auto) Neut % (Auto) Lymph % (Auto) [place] % (Auto) Eos % (Auto) Baso % (Auto) Lymph # (Auto) [place] # (Auto) Eos # (Auto) Baso # (Auto) Abs Immat Gran (auto) Absolute Neuts (auto) Absolute Nucleated RBC Nucleated RBC % (auto) ESR Sodium Potassium Chloride Carbon Dioxide Anion Gap BUN Creatinine Estim Creat Clear Calc Estimated GFR Random Glucose Calcium Magnesium Total Bilirubin Direct Bilirubin AST ALT Alkaline Phosphatase Troponin I High Sens 79.8 H* C-Reactive Protein Total Protein Albumin Lipase Urine Color Urine Appearance Urine pH Ur Specific [place] Urine Protein Urine Glucose (UA) Urine Ketones Urine Blood Urine Nitrite Ur Leukocyte Esterase COVID-19 (NICOLE) COVID-19 Clin Com Imaging Radiologist's impression: Impressions Chest X-Ray 01/27/22 15:53 IMPRESSION: Bilateral nodular densities, largest measuring 1.3 cm adjacent to the left heart border. This could be better evaluated with chest CT scan if clinically indicated. Abdomen/Pelvis CT 01/27/22 17:19 IMPRESSION: * 7 x 6 x 9 mm obstructing left proximal ureteral stone with associated left-sided hydronephrosis. * Other incidental findings as described above including stable lung nodules, nonobstructing smaller left intrarenal calculi, old uterine fibroids and degenerative changes in the spine. Fleischner guidelines were followed. Head CT 01/27/22 17:19 IMPRESSION: No acute intracranial pathology. No significant change from prior studies. Assessment and Plan (1) Syncope and collapse: Status: Acute (2) Elevated troponin: Status: Acute Plan 66-year-old female who is presenting for syncope and fall. She has been diagnosed with renal stone and hydronephrosis. She will need surgical management for this. She has been very mildly abnormal troponin level which can be due to elevated blood pressure. ECG is showing left ventricular hypertrophy and repolarization changes. ECG has not shown any heart block. She is on memantine which can sometimes lead to bradycardia. She is being monitored on telemetry and we will see if there is any arrhythmia. She will need echocardiography to assess for any structural heart issues. I think the troponin is a type 2 injury and does not need further assessment right now. She can proceed with her surgery with intermediate risk for perioperative cardiovascular complications. Blood pressure is elevated. Please add 2.5 mg amlodipine. Thank you for allowing me to participate in the care of your patient. Please feel free to contact me if you have any questions. Procedures Date of Service Date of Service: 01/28/22
--- NOTE | 2022-01-28 11:33 | PM.NEUROCN ---
History of Present Illness Data of Consult Service Date: 01/28/22 Primary Care Provider: Cookie Sam MD [facility] Reason for consult: Falling and passing out 66 years old woman with complicated underlying neuropsychiatric history. She has imaging features suggestive of multiple sclerosis and overall clinical picture suggestive of chronic progressive multiple sclerosis. In the past she had tried couple of medicines but did not want to do injections. She also had underlying psychiatric disease manage by Dr. Carrillo. Her brain imaging has also revealed bilateral frontal cortical atrophy, which can be seen with underlying psychiatric disease or by itself result in frontal lobe syndrome. She has chronic complaints of pain unsteadiness forgetfulness numbness anxiety and depression. This time she was admitted with losing balance falling and apparently passing out. Review of Systems Review of Systems: No recent cold or flu-like illness. She was treated for renal calculi and also hepatitis-C with [facility]. [facility] Past Medical History Medical History Allergic rhinitis Asthma Closed right clavicular fracture GERD (gastroesophageal reflux disease) Hepatitis C History of renal calculi Hypertension Lumbar radiculopathy Multiple sclerosis Obesity Family History Family History Father Prostate cancer Myocardial infarction Mother Breast cancer Paternal Aunt Myocardial infarction Paternal Uncle Myocardial infarction Surgical History Surgical History History of liver biopsy History of verrucae (wart) excision Social History Social History Household Members: None Housing: Apartment Do you presently have visiting nurse or other home services: No Alcohol intake: never Patient Tobacco Use Status: Former Tobacco user Tobacco use type: Cigarette Years Smoked: 1979 quit for 8 years e-Cigarette/Vaping Use: Never Used Use of substances other than those prescribed or required for medical reasons: No Currently Displaying Signs/Symptoms of Drug Intoxication Withdrawal: No Have you been hit, kicked, punched, or otherwise hurt by someone within the past year? If so, by whom?: No Do you feel safe in your current relationship?: Yes Is there a partner from a previous relationship who is making you feel unsafe now?: No Are you made to feel afraid or neglected: No Advance Directives: No Advance Directives Information Provided: No Do you have thoughts of harming others: None Do you have a plan to hurt others: No Plan Recently lost weight without trying: Yes How much weight loss: Unsure Nutrition Risks: No Nutritional Risk service: No Current occupational status: retired Meds Allergies Allergy/AdvReac Type Severity Reaction Status Date / Time escitalopram [From LEXAPRO] Allergy Severe STOMACH Verified 01/27/22 13:36 UPSET lisinopril [LISINOPRIL] Allergy Severe SWELLING, Verified 01/27/22 13:36 Leg swelling duloxetine [From CYMBALTA] Allergy Intermediate STOMACH Verified 01/27/22 13:36 UPSET desipramine [Desipramine] Allergy Mild PALPITATION Verified 01/27/22 13:36 S diphenhydramine Allergy Mild PALPITATIONS/CLAMMY Verified 01/27/22 13:36 [From Benadryl] SKIN Penicillins Allergy Mild UNKNOWN Verified 01/27/22 13:36 fluoxetine [From Prozac] AdvReac Mild PARKINSON Verified 01/27/22 13:36 SYMPTOMS garlic AdvReac Mild IBS Verified 01/27/22 13:36 SYMPTOMS oxycodone [From Percocet] AdvReac Mild N/V Verified 01/27/22 13:36 carbamazepine [From TEGRETOL] AdvReac Unknown BLACKOUT, Verified 01/27/22 13:36 SEVERE INTOXICATION Active Medications: Current Medications Acetaminophen (Acetaminophen 325 Mg Tablet) 650 mg PO Q6H PRN PRN Reason: Pain, Mild (Pain Scale 1-3) Last Admin: 01/28/22 09:38 Dose: 650 mg Documented by: Albuterol Sulfate (Albuterol Sulfate 90 Mcg 8 Gm Inhaler) 2 puff INHALE Q4H PRN PRN Reason: bronchospasm Gabapentin (Gabapentin 600 Mg Tablet) 600 mg PO TID [facility] Last Admin: 01/28/22 09:36 Dose: Not Given Documented by: Heparin Sodium (Porcine) (Heparin Sodium,Porcine 5,000 Unit/Ml Vial) 5,000 unit SUBCUT Q8H [facility] Last Admin: 01/28/22 09:34 Dose: Not Given Documented by: Sodium Chloride (Ns) 1,000 mls @ 75 mls/hr IVCONT .[id number] [facility] Last Admin: 01/28/22 01:30 Dose: 75 mls/hr Documented by: Lamotrigine (Lamotrigine 100 Mg Tablet) 200 mg PO DAILY [facility] Last Admin: 01/28/22 09:38 Dose: 200 mg Documented by: Melatonin (Melatonin 3 Mg Tablet) 6 mg PO BEDTIME PRN PRN Reason: Insomnia Memantine (Memantine Hcl 10 Mg Tablet) 10 mg PO BID [facility] Last Admin: 01/28/22 09:38 Dose: 10 mg Documented by: Omeprazole (Omeprazole 20 Mg Capsule.) 20 mg PO DAILY@0630 [facility] Last Admin: 01/28/22 06:40 Dose: 20 mg Documented by: Pharmacy Consult (Consult Rx Perform Med Rec) 1 each MISCELLANE ONCE PRN PRN Reason: Consult order Senna (Sennosides 8.6 Mg Tablet) 17.2 mg PO BEDTIME PRN PRN Reason: Constipation Sodium Chloride (0.9 % Sodium Chloride Flush 3 Ml Syringe) 3 ml IVFLUSH QSHIFT [facility] Last Admin: 01/28/22 09:23 Dose: Not Given Documented by: Home Medications Medication Instructions Recorded Confirmed Last Taken Type gabapentin 600 mg tablet 600 mg PO TID 11/02/20 01/27/22 01/27/22 History lamotrigine 200 mg tablet 200 mg PO DAILY 11/02/20 01/27/22 01/27/22 History (Lamictal) memantine 10 mg tablet 10 mg PO BID 10/11/21 01/27/22 01/27/22 History acetaminophen 500 mg tablet 500 mg PO 5XD 01/27/22 01/27/22 01/27/22 History omeprazole 20 mg capsule,delayed 1 cap PO DAILY 01/27/22 01/27/22 01/27/22 History release ondansetron HCl 4 mg tablet 1 tab PO TID 01/27/22 01/27/22 01/27/22 History Physical Exam Vital Signs: Vital Signs: Last Vital Signs Temp 97.3 F 01/28/22 07:42 Pulse 78 01/28/22 07:42 Resp 18 01/28/22 07:42 BP 169/60 H 01/28/22 07:42 Pulse Ox 98 01/28/22 07:42 BMI result Body Mass Index 29.2 Neuro: Other: She is alert and awake with normal spontaneity of speech fluency comprehension and anxious affect. Pupils are equal and reactive to light and extraocular muscles are intact. Visual littlejohn are full. Face is symmetrical. There is no nystagmus. [id number] testing revealed moderate ataxia on right side and minimal on left. Deep tendon reflexes are 2+ including knees with equivocal plantars. Speech is normal. Results Labs CBC & Chem 7: 01/28/22 05:57 01/28/22 05:57 Labs: Short CBC 01/27/22 01/28/22 Range/Units 13:53 05:57 WBC 12.0 H 8.1 (4.8-10.8) X10*3/uL Hgb 14.5 12.3 (12.0-16.0) g/dl Hct 44.6 38.3 (37.0-47.0) % Plt Count 310 202 D (160-400) X10*3/uL BMP 01/27/22 01/28/22 13:53 05:57 Sodium 136 139 Potassium 4.5 4.0 Chloride 102 108 Carbon Dioxide 22 24 BUN 47 H D 39 H Creatinine 3.80 H 3.04 H Calcium 9.5 8.4 D Liver Function 01/27/22 Range/Units 13:53 Total Bilirubin 0.8 (0.0-1.0) mg/dL Direct Bilirubin 0.4 (0.0-0.5) mg/dL AST 20 (5-31) U/L ALT 11 (0-31) U/L Alkaline Phosphatase 62 (39-117) U/L Albumin 4.0 (3.5-5.0) g/dL Urine 01/27/22 Range/Units 16:28 Urine Color YELLOW Urine Appearance CLEAR Urine pH 5.5 (5.0-8.0) Ur Specific [place] 1.020 (1.005-1.025) Urine Protein NEG (NEG-TRACE) MG/DL Urine Glucose (UA) NEG (NEG) MG/DL Assessment and Plan (1) Syncope and collapse: Start date: 01/28/22 Status: Acute 66 years old woman with chronic multiple sclerosis. Her recent or present symptoms might be related to excess or Iron donaldson. My recommendation at this time is to obtain MRI of brain and cervical spine. Because of nature of her symptoms, an EEG is also recommended. If no other medical illness explaining falling more weakness, such as infection or metabolic abnormality, is found, I would recommend treatment with Solu-Medrol a g a day for 3 days. Please also ask Psychiatry to see her as treatment with steroid might make her more nervous. Also involved PT OT. (2) Multiple sclerosis: Status: Acute Procedures Date of Service Date of Service: 01/28/22
[2022-01-28] MEDS: Throat Lozenge, Medicated LOZENGE 1 LOZENGE MUCOUS MEM (17:33)
[2022-01-28] MEDS: Gabapentin 600 MG TABLET PO (20:01)
[2022-01-29] VITALS (13 sets, daily range): BP systolic 86–197; BP diastolic 39–100; PULSE 57–98; RESP 15–20; TEMP 36.6–37.3; O2SAT 91–99
[2022-01-29] MEDS: Acetaminophen 325 MG TABLET 650 MG PO ×3 (04:05→18:32)
[2022-01-29] MEDS: Omeprazole 20 MG CAPSULE.DR PO (05:45)
--- NOTE | 2022-01-29 08:04 | P.PNIM_ITS ---
Subjective Subjective Date of Service: 01/29/22 Interval History: Seen in f/u for kidney s tone, renal failure, c/o feels better, but generally not at her baseline Review of Systems No recent cold or flu-like illness. She was treated for renal calculi and also hepatitis-C with Mckay. Physical Exam Vital Signs: Vital Signs: Last Vital Signs Temp 98.0 F 01/29/22 07:41 Pulse 82 01/29/22 07:41 Resp 20 01/29/22 07:41 BP 161/78 H 01/29/22 07:41 Pulse Ox 98 01/29/22 07:41 BMI result Body Mass Index 29.2 Const: Other: General: AO X 3, no acute distress Resp: CTA bilateral CVS: S1,S2,RRR GI: +BS, NT, no distention Skin: No rash Neuro: motor grossly intact Psych: appropriate affect Objective Data Active Medications Acetaminophen (Acetaminophen 325 Mg Tablet) 650 mg PO Q6H PRN PRN Reason: Pain, Mild (Pain Scale 1-3) Last Admin: 01/29/22 04:05 Dose: 650 mg Documented by: GREY Albuterol Sulfate (Albuterol Sulfate 90 Mcg 8 Gm Inhaler) 2 puff INHALE Q4H PRN PRN Reason: bronchospasm Benzocaine (Throat Lozenge, Medicated Lozenge) 1 lozenge MUCOUS MEM Q2H PRN PRN Reason: Sore Throat Last Admin: 01/28/22 17:33 Dose: 1 lozenge Documented by: DOBROB Gabapentin (Gabapentin 600 Mg Tablet) 600 mg PO TID [facility] Last Admin: 01/28/22 20:01 Dose: 600 mg Documented by: GREY Heparin Sodium (Porcine) (Heparin Sodium,Porcine 5,000 Unit/Ml Vial) 5,000 unit SUBCUT Q8H [facility] Last Admin: 01/29/22 00:01 Dose: Not Given Documented by: GREY Non-Admin Reason: Patient Refused Sodium Chloride (Ns) 1,000 mls @ 75 mls/hr IVCONT .[id number] [facility] Last Admin: 01/28/22 22:36 Dose: 75 mls/hr Documented by: GREY Lamotrigine (Lamotrigine 100 Mg Tablet) 200 mg PO DAILY [facility] Last Admin: 01/28/22 09:38 Dose: 200 mg Documented by: BROSima Melatonin (Melatonin 3 Mg Tablet) 6 mg PO BEDTIME PRN PRN Reason: Insomnia Memantine (Memantine Hcl 10 Mg Tablet) 10 mg PO BID [facility] Last Admin: 01/28/22 19:58 Dose: 10 mg Documented by: GREY Omeprazole (Omeprazole 20 Mg Capsule.) 20 mg PO DAILY@0630 [facility] Last Admin: 01/29/22 05:45 Dose: 20 mg Documented by: GREY Ondansetron HCl (Ondansetron Hcl 4 Mg/2 Ml Vial) 4 mg IVPUSH Q8H PRN PRN Reason: Nausea and Vomiting Last Admin: 01/28/22 17:33 Dose: 4 mg Documented by: JT Pharmacy Consult (Consult Rx Perform Med Rec) 1 each MISCELLANE ONCE PRN PRN Reason: Consult order Senna (Sennosides 8.6 Mg Tablet) 17.2 mg PO BEDTIME PRN PRN Reason: Constipation Sodium Chloride (0.9 % Sodium Chloride Flush 3 Ml Syringe) 3 ml IVFLUSH QSHIFT [facility] Last Admin: 01/28/22 19:59 Dose: Not Given Documented by: GREY Non-Admin Reason: IV Running Labs CBC & Chem 7: 01/28/22 05:57 01/28/22 05:57 Assessment and Plan (1) Acute kidney injury superimposed on CKD: Status: Acute (2) Kidney stone: Status: Acute Plan 66/F with HTN, HLD, multiple sclerosis ( MS), asthma, GERD, history of hep C, history of renal calculi presented to the hospital today a fall, reports multiple falls the past 1-2 weeks she has been having increased falls, and this time associated with syncope. She is noted to have YOHANA, renal stone, elevated troponin. #YOHANA on CKD2--likely from dehyration and obstructive uropathy from stone. -Renal followingt, IVF, serial labs and avoid Nephrotoxins. Avoid Gabapentin d/t renal failure # Left ureteral calculus/left hydronephrosis: Urinalysis negative for infection. Pain control. Nephrology follow-up. Patient refusing opiate pain medications. -Urology to intervene on stone possible today, cleared by cardiology for surgery # Recurrent falls: Patient reports that she has history of falls. Attributes to her multiple sclerosis. Currently denies any focal weakness or numbness. PT/ OT eventually before discharge #MS--Neurology is advising MRI of head, Neck and IV 1 gram of solumedrol for 3 days but she will sart with 1 dose first #Syncope: Circusmstance not clear, no arrythmia noted, elevated troponin likely from renal failure. Continue tele, echo won't be done till sunday. Cardiology to comment on this. #Elevated troponin I--likely d/t CKD--no ECG ischemic changes, cardiology recommends no further testing at this time #History of chronic back pain: Patient denies any change in her pain. mentions that she usually takes Tylenol for pain. #History of anxiety / depression/ bipolar: Continue home medications. Psych consult DVT prophylaxis: Subcu heparin Code status: Full code Quality Stroke Does the patient have a stroke diagnosis?: No VTE Prior VTE?: No VTE Risk Level:: Medical - moderate - high VTE Device Contraindication: Treatment Not Indicated VTE Drug Contraindication: N/A - Med Ordered
--- NOTE | 2022-01-29 09:51 | P.CONAN_ITS ---
HPI - Anesthesia Eval Consult details Narrative: proximal ureter obstructing stone PMFSH Active Problems Active Problems: All Active Problems (Updated 01/28/22 @ 11:37 by Dora Lipscomb MD) Multiple sclerosis (Acute) Elevated troponin (Acute) Kidney stone (Acute) Acute kidney injury superimposed on CKD (Acute) Multiple sclerosis exacerbation (Acute) Syncope and collapse (Acute) Abdominal pain (Acute) Low back pain (Acute) Cervical cancer screening declined (Acute) Mammogram declined (Acute) Screening for osteoporosis (Acute) History of renal calculi (Acute) Chronic hepatitis C (Acute) Generalized anxiety disorder (Acute) Chronic kidney disease (Acute) Fibroid (Acute) Medicare annual wellness visit, initial (Acute) Lumbar disc disease (Acute) Nausea (Acute) DDD (degenerative disc disease) (Acute) Fibromyalgia (Acute) Renal cyst (Acute) Liver cyst (Acute) Pulmonary nodules (Acute) GERD (gastroesophageal reflux disease) (Acute) Obesity (Acute) Hypertension (Acute) Multiple sclerosis (Acute) Asthma (Acute) Past Medical History Medical History Allergic rhinitis Asthma Closed right clavicular fracture GERD (gastroesophageal reflux disease) Hepatitis C History of renal calculi Hypertension Lumbar radiculopathy Multiple sclerosis Obesity Family History Family History Father Prostate cancer Myocardial infarction Mother Breast cancer Paternal Aunt Myocardial infarction Paternal Uncle Myocardial infarction Family history of problems with anesthesia: No Surgical History Surgical History History of liver biopsy History of verrucae (wart) excision History of Problems with Anesthesia: No Social History Social History Household Members: None Housing: Apartment Do you presently have visiting nurse or other home services: No Alcohol intake: never Patient Tobacco Use Status: Former Tobacco user Tobacco use type: Cigarette Years Smoked: 1979 quit for 8 years e-Cigarette/Vaping Use: Never Used Use of substances other than those prescribed or required for medical reasons: No Currently Displaying Signs/Symptoms of Drug Intoxication Withdrawal: No Have you been hit, kicked, punched, or otherwise hurt by someone within the past year? If so, by whom?: No Do you feel safe in your current relationship?: Yes Is there a partner from a previous relationship who is making you feel unsafe now?: No Are you made to feel afraid or neglected: No Advance Directives: No Advance Directives Information Provided: No Do you have thoughts of harming others: None Do you have a plan to hurt others: No Plan Recently lost weight without trying: Yes How much weight loss: Unsure Nutrition Risks: No Nutritional Risk service: No Current occupational status: retired Meds Allergies Allergy/AdvReac Type Severity Reaction Status Date / Time escitalopram [From LEXAPRO] Allergy Severe STOMACH Verified 01/27/22 13:36 UPSET lisinopril [LISINOPRIL] Allergy Severe SWELLING, Verified 01/27/22 13:36 Leg swelling duloxetine [From CYMBALTA] Allergy Intermediate STOMACH Verified 01/27/22 13:36 UPSET desipramine [Desipramine] Allergy Mild PALPITATION Verified 01/27/22 13:36 S diphenhydramine Allergy Mild PALPITATIONS/CLAMMY Verified 01/27/22 13:36 [From Benadryl] SKIN Penicillins Allergy Mild UNKNOWN Verified 01/27/22 13:36 fluoxetine [From Prozac] AdvReac Mild PARKINSON Verified 01/27/22 13:36 SYMPTOMS garlic AdvReac Mild IBS Verified 01/27/22 13:36 SYMPTOMS oxycodone [From Percocet] AdvReac Mild N/V Verified 01/27/22 13:36 carbamazepine [From TEGRETOL] AdvReac Unknown BLACKOUT, Verified 01/27/22 13:36 SEVERE INTOXICATION Active Medications: Current Medications Acetaminophen (Acetaminophen 325 Mg Tablet) 650 mg PO Q6H PRN PRN Reason: Pain, Mild (Pain Scale 1-3) Last Admin: 01/29/22 04:05 Dose: 650 mg Documented by: Albuterol Sulfate (Albuterol Sulfate 90 Mcg 8 Gm Inhaler) 2 puff INHALE Q4H PRN PRN Reason: bronchospasm Benzocaine (Throat Lozenge, Medicated Lozenge) 1 lozenge MUCOUS MEM Q2H PRN PRN Reason: Sore Throat Last Admin: 01/28/22 17:33 Dose: 1 lozenge Documented by: Gabapentin (Gabapentin 600 Mg Tablet) 600 mg PO TID [facility] Last Admin: 01/28/22 20:01 Dose: 600 mg Documented by: Heparin Sodium (Porcine) (Heparin Sodium,Porcine 5,000 Unit/Ml Vial) 5,000 unit SUBCUT Q8H [facility] Last Admin: 01/29/22 09:06 Dose: Not Given Documented by: Sodium Chloride (Ns) 1,000 mls @ 75 mls/hr IVCONT .[id number] [facility] Last Admin: 01/28/22 22:36 Dose: 75 mls/hr Documented by: Methylprednisolone Sodium Succinate 1,000 mg/ Sodium Chloride 66 mls @ 66 mls/hr IV DAILY [facility] Lamotrigine (Lamotrigine 100 Mg Tablet) 200 mg PO DAILY [facility] Last Admin: 01/28/22 09:38 Dose: 200 mg Documented by: Melatonin (Melatonin 3 Mg Tablet) 6 mg PO BEDTIME PRN PRN Reason: Insomnia Memantine (Memantine Hcl 10 Mg Tablet) 10 mg PO BID [facility] Last Admin: 01/28/22 19:58 Dose: 10 mg Documented by: Omeprazole (Omeprazole 20 Mg Capsule.) 20 mg PO DAILY@0630 [facility] Last Admin: 01/29/22 05:45 Dose: 20 mg Documented by: Ondansetron HCl (Ondansetron Hcl 4 Mg/2 Ml Vial) 4 mg IVPUSH Q8H PRN PRN Reason: Nausea and Vomiting Last Admin: 01/28/22 17:33 Dose: 4 mg Documented by: Pharmacy Consult (Consult Rx Perform Med Rec) 1 each MISCELLANE ONCE PRN PRN Reason: Consult order Senna (Sennosides 8.6 Mg Tablet) 17.2 mg PO BEDTIME PRN PRN Reason: Constipation Sodium Chloride (0.9 % Sodium Chloride Flush 3 Ml Syringe) 3 ml IVFLUSH QSHIFT [facility] Last Admin: 01/29/22 09:06 Dose: Not Given Documented by: Home Medications Medication Instructions Recorded Confirmed Last Taken Type gabapentin 600 mg tablet 600 mg PO TID 11/02/20 01/27/22 01/27/22 History lamotrigine 200 mg tablet 200 mg PO DAILY 11/02/20 01/27/22 01/27/22 History (Lamictal) memantine 10 mg tablet 10 mg PO BID 10/11/21 01/27/22 01/27/22 History acetaminophen 500 mg tablet 500 mg PO 5XD 01/27/22 01/27/22 01/27/22 History omeprazole 20 mg capsule,delayed 1 cap PO DAILY 01/27/22 01/27/22 01/27/22 History release ondansetron HCl 4 mg tablet 1 tab PO TID 01/27/22 01/27/22 01/27/22 History Exam Exam Date and Time: January 29, 2022 0951 Height,Weight and Vital Signs: Height 5 ft 3 in Weight 75 kg Last Vital Signs Temp 98.0 F 01/29/22 07:41 Pulse 82 01/29/22 07:41 Resp 20 01/29/22 07:41 BP 161/78 H 01/29/22 07:41 Pulse Ox 98 01/29/22 07:41 Pertinent Lab Results Pertinent Lab Results: Laboratory Tests 01/27/22 01/27/22 01/27/22 13:53 13:53 13:53 WBC 12.0 H RBC 4.94 Hgb 14.5 Hct 44.6 MCV 90.3 MCH 29.4 MCHC 32.5 RDW 12.5 Plt Count 310 MPV 11.1 Immature Gran % (Auto) 0.4 Neut % (Auto) 71.0 Lymph % (Auto) 19.2 L [place] % (Auto) 8.4 Eos % (Auto) 0.3 Baso % (Auto) 0.7 Lymph # (Auto) 2.3 Grimes # (Auto) 1.0 Eos # (Auto) 0.0 Baso # (Auto) 0.1 Abs Immat Gran (auto) 0.05 H Absolute Neuts (auto) 8.5 H Absolute Nucleated RBC 0.000 Nucleated RBC % (auto) 0.0 ESR Sodium 136 Potassium 4.5 Chloride 102 Carbon Dioxide 22 Anion Gap 17 BUN 47 H D Creatinine 3.80 H Estim Creat Clear Calc 14.0 Estimated GFR 12 Random Glucose 108 Calcium 9.5 Magnesium 2.3 Total Bilirubin 0.8 Direct Bilirubin 0.4 AST 20 ALT 11 Alkaline Phosphatase 62 Troponin I High Sens 50.7 H* C-Reactive Protein 0.95 H Total Protein 7.0 Albumin 4.0 Lipase 67 Urine Color Urine Appearance Urine pH Ur Specific [place] Urine Protein Urine Glucose (UA) Urine Ketones Urine Blood Urine Nitrite Ur Leukocyte Esterase COVID-19 (NICOLE) COVID-19 Clin Com 01/27/22 01/27/22 01/27/22 13:53 16:28 17:36 WBC RBC Hgb Hct MCV MCH MCHC RDW Plt Count MPV Immature Gran % (Auto) Neut % (Auto) Lymph % (Auto) Grimes % (Auto) Eos % (Auto) Baso % (Auto) Lymph # (Auto) Grimes # (Auto) Eos # (Auto) Baso # (Auto) Abs Immat Gran (auto) Absolute Neuts (auto) Absolute Nucleated RBC Nucleated RBC % (auto) ESR 7 Sodium Potassium Chloride Carbon Dioxide Anion Gap BUN Creatinine Estim Creat Clear Calc Estimated GFR Random Glucose Calcium Magnesium Total Bilirubin Direct Bilirubin AST ALT Alkaline Phosphatase Troponin I High Sens C-Reactive Protein Total Protein Albumin Lipase Urine Color YELLOW Urine Appearance CLEAR Urine pH 5.5 Ur Specific [place] 1.020 Urine Protein NEG Urine Glucose (UA) NEG Urine Ketones NEG Urine Blood NEG Urine Nitrite NEG Ur Leukocyte Esterase NEG COVID-19 (NICOLE) Negative COVID-19 Clin Com See Note 01/27/22 01/28/22 01/28/22 19:35 05:57 05:57 WBC 8.1 RBC 4.17 L Hgb 12.3 Hct 38.3 MCV 91.8 MCH 29.5 MCHC 32.1 RDW 12.5 Plt Count 202 D MPV 11.4 Immature Gran % (Auto) 0.2 Neut % (Auto) 55.8 Lymph % (Auto) 29.4 Grimes % (Auto) 11.1 H Eos % (Auto) 2.5 Baso % (Auto) 1.0 Lymph # (Auto) 2.4 Grimes # (Auto) 0.9 Eos # (Auto) 0.2 Baso # (Auto) 0.1 Abs Immat Gran (auto) 0.02 Absolute Neuts (auto) 4.5 Absolute Nucleated RBC 0.000 Nucleated RBC % (auto) 0.0 ESR Sodium 139 Potassium 4.0 Chloride 108 Carbon Dioxide 24 Anion Gap 11 L BUN 39 H Creatinine 3.04 H Estim Creat Clear Calc 17.9 Estimated GFR 15 Random Glucose 97 Calcium 8.4 D Magnesium Total Bilirubin Direct Bilirubin AST ALT Alkaline Phosphatase Troponin I High Sens 55.7 H* C-Reactive Protein Total Protein Albumin Lipase Urine Color Urine Appearance Urine pH Ur Specific [place] Urine Protein Urine Glucose (UA) Urine Ketones Urine Blood Urine Nitrite Ur Leukocyte Esterase COVID-19 (NICOLE) COVID-19 Clin Com 01/28/22 08:25 WBC RBC Hgb Hct MCV MCH MCHC RDW Plt Count MPV Immature Gran % (Auto) Neut % (Auto) Lymph % (Auto) [place]imes % (Auto) Eos % (Auto) Baso % (Auto) Lymph # (Auto) Grimes # (Auto) Eos # (Auto) Baso # (Auto) Abs Immat Gran (auto) Absolute Neuts (auto) Absolute Nucleated RBC Nucleated RBC % (auto) ESR Sodium Potassium Chloride Carbon Dioxide Anion Gap BUN Creatinine Estim Creat Clear Calc Estimated GFR Random Glucose Calcium Magnesium Total Bilirubin Direct Bilirubin AST ALT Alkaline Phosphatase Troponin I High Sens 79.8 H* C-Reactive Protein Total Protein Albumin Lipase Urine Color Urine Appearance Urine pH Ur Specific [place] Urine Protein Urine Glucose (UA) Urine Ketones Urine Blood Urine Nitrite Ur Leukocyte Esterase COVID-19 (NICOLE) COVID-19 Clin Com Airway Mallampati Class: II TM Dist: >3cm Neck ROM: Full Loose/Missing/Broken Teeth: No Heart: RRR Lungs: CTA Assessment and Plan Assessment Anesthesia Assessment: Anesthesia Plan Discussed, PAT Visit and Chart Reviewed Final Anesthetic Review Family History of Problems with Anesthesia: No History of Problems with Anesthesia: No NPO: Yes ASA Class: III Final Preanesthetic Review: No Changes in Pt Med Stat, Meds/Allgs Chart Reviewed, Consent Obtained/Reviewed and Anes Risks/Benef Reviewed Patient Risk: Intermediate Procedure Risk: Low Anesthetic Plan Anesthetic Plan: GA Disposition: Standard PACU
--- NOTE | 2022-01-29 09:56 | HO.ANESPROP2 ---
HPI - Anesthesia Eval Consult details Narrative: proximal ureter obstructing stone PMFSH Active Problems Active Problems: All Active Problems (Updated 01/28/22 @ 11:37 by Dora Lipscomb MD) Multiple sclerosis (Acute) Elevated troponin (Acute) Kidney stone (Acute) Acute kidney injury superimposed on CKD (Acute) Multiple sclerosis exacerbation (Acute) Syncope and collapse (Acute) Abdominal pain (Acute) Low back pain (Acute) Cervical cancer screening declined (Acute) Mammogram declined (Acute) Screening for osteoporosis (Acute) History of renal calculi (Acute) Chronic hepatitis C (Acute) Generalized anxiety disorder (Acute) Chronic kidney disease (Acute) Fibroid (Acute) Medicare annual wellness visit, initial (Acute) Lumbar disc disease (Acute) Nausea (Acute) DDD (degenerative disc disease) (Acute) Fibromyalgia (Acute) Renal cyst (Acute) Liver cyst (Acute) Pulmonary nodules (Acute) GERD (gastroesophageal reflux disease) (Acute) Obesity (Acute) Hypertension (Acute) Multiple sclerosis (Acute) Asthma (Acute) Past Medical History Medical History Allergic rhinitis Asthma Closed right clavicular fracture GERD (gastroesophageal reflux disease) Hepatitis C History of renal calculi Hypertension Lumbar radiculopathy Multiple sclerosis Obesity Family History Family History Father Prostate cancer Myocardial infarction Mother Breast cancer Paternal Aunt Myocardial infarction Paternal Uncle Myocardial infarction Family history of problems with anesthesia: No Surgical History Surgical History History of liver biopsy History of verrucae (wart) excision History of Problems with Anesthesia: No Social History Social History Household Members: None Housing: Apartment Do you presently have visiting nurse or other home services: No Alcohol intake: never Patient Tobacco Use Status: Former Tobacco user Tobacco use type: Cigarette Years Smoked: 1979 quit for 8 years e-Cigarette/Vaping Use: Never Used Use of substances other than those prescribed or required for medical reasons: No Currently Displaying Signs/Symptoms of Drug Intoxication Withdrawal: No Have you been hit, kicked, punched, or otherwise hurt by someone within the past year? If so, by whom?: No Do you feel safe in your current relationship?: Yes Is there a partner from a previous relationship who is making you feel unsafe now?: No Are you made to feel afraid or neglected: No Advance Directives: No Advance Directives Information Provided: No Do you have thoughts of harming others: None Do you have a plan to hurt others: No Plan Recently lost weight without trying: Yes How much weight loss: Unsure Nutrition Risks: No Nutritional Risk service: No Current occupational status: retired Meds Allergies Allergy/AdvReac Type Severity Reaction Status Date / Time escitalopram [From LEXAPRO] Allergy Severe STOMACH Verified 01/27/22 13:36 UPSET lisinopril [LISINOPRIL] Allergy Severe SWELLING, Verified 01/27/22 13:36 Leg swelling duloxetine [From CYMBALTA] Allergy Intermediate STOMACH Verified 01/27/22 13:36 UPSET desipramine [Desipramine] Allergy Mild PALPITATION Verified 01/27/22 13:36 S diphenhydramine Allergy Mild PALPITATIONS/CLAMMY Verified 01/27/22 13:36 [From Benadryl] SKIN Penicillins Allergy Mild UNKNOWN Verified 01/27/22 13:36 fluoxetine [From Prozac] AdvReac Mild PARKINSON Verified 01/27/22 13:36 SYMPTOMS garlic AdvReac Mild IBS Verified 01/27/22 13:36 SYMPTOMS oxycodone [From Percocet] AdvReac Mild N/V Verified 01/27/22 13:36 carbamazepine [From TEGRETOL] AdvReac Unknown BLACKOUT, Verified 01/27/22 13:36 SEVERE INTOXICATION Active Medications: Current Medications Acetaminophen (Acetaminophen 325 Mg Tablet) 650 mg PO Q6H PRN PRN Reason: Pain, Mild (Pain Scale 1-3) Last Admin: 01/29/22 04:05 Dose: 650 mg Documented by: Albuterol Sulfate (Albuterol Sulfate 90 Mcg 8 Gm Inhaler) 2 puff INHALE Q4H PRN PRN Reason: bronchospasm Benzocaine (Throat Lozenge, Medicated Lozenge) 1 lozenge MUCOUS MEM Q2H PRN PRN Reason: Sore Throat Last Admin: 01/28/22 17:33 Dose: 1 lozenge Documented by: Gabapentin (Gabapentin 600 Mg Tablet) 600 mg PO TID FRANCIA Last Admin: 01/28/22 20:01 Dose: 600 mg Documented by: Heparin Sodium (Porcine) (Heparin Sodium,Porcine 5,000 Unit/Ml Vial) 5,000 unit SUBCUT Q8H [facility] Last Admin: 01/29/22 09:06 Dose: Not Given Documented by: Sodium Chloride (Ns) 1,000 mls @ 75 mls/hr IVCONT .[id number] [facility] Last Admin: 01/28/22 22:36 Dose: 75 mls/hr Documented by: Methylprednisolone Sodium Succinate 1,000 mg/ Sodium Chloride 66 mls @ 66 mls/hr IV DAILY [facility] Lamotrigine (Lamotrigine 100 Mg Tablet) 200 mg PO DAILY [facility] Last Admin: 01/28/22 09:38 Dose: 200 mg Documented by: Melatonin (Melatonin 3 Mg Tablet) 6 mg PO BEDTIME PRN PRN Reason: Insomnia Memantine (Memantine Hcl 10 Mg Tablet) 10 mg PO BID [facility] Last Admin: 01/28/22 19:58 Dose: 10 mg Documented by: Omeprazole (Omeprazole 20 Mg Capsule.) 20 mg PO DAILY@0630 [facility] Last Admin: 01/29/22 05:45 Dose: 20 mg Documented by: Ondansetron HCl (Ondansetron Hcl 4 Mg/2 Ml Vial) 4 mg IVPUSH Q8H PRN PRN Reason: Nausea and Vomiting Last Admin: 01/28/22 17:33 Dose: 4 mg Documented by: Pharmacy Consult (Consult Rx Perform Med Rec) 1 each MISCELLANE ONCE PRN PRN Reason: Consult order Senna (Sennosides 8.6 Mg Tablet) 17.2 mg PO BEDTIME PRN PRN Reason: Constipation Sodium Chloride (0.9 % Sodium Chloride Flush 3 Ml Syringe) 3 ml IVFLUSH QSHIFT [facility] Last Admin: 01/29/22 09:06 Dose: Not Given Documented by: Home Medications Medication Instructions Recorded Confirmed Last Taken Type gabapentin 600 mg tablet 600 mg PO TID 11/02/20 01/27/22 01/27/22 History lamotrigine 200 mg tablet 200 mg PO DAILY 11/02/20 01/27/22 01/27/22 History (Lamictal) memantine 10 mg tablet 10 mg PO BID 10/11/21 01/27/22 01/27/22 History acetaminophen 500 mg tablet 500 mg PO 5XD 01/27/22 01/27/22 01/27/22 History omeprazole 20 mg capsule,delayed 1 cap PO DAILY 01/27/22 01/27/22 01/27/22 History release ondansetron HCl 4 mg tablet 1 tab PO TID 01/27/22 01/27/22 01/27/22 History Exam Exam Date and Time: January 29, 2022 0956 Height,Weight and Vital Signs: Height 5 ft 3 in Weight 75 kg Last Vital Signs Temp 98.7 F 01/29/22 09:44 Pulse 98 01/29/22 09:44 Resp 18 01/29/22 09:44 BP 194/100 H 01/29/22 09:44 Pulse Ox 98 01/29/22 09:44 Pertinent Lab Results Pertinent Lab Results: Laboratory Tests 01/27/22 01/27/22 01/27/22 13:53 13:53 13:53 WBC 12.0 H RBC 4.94 Hgb 14.5 Hct 44.6 MCV 90.3 MCH 29.4 MCHC 32.5 RDW 12.5 Plt Count 310 MPV 11.1 Immature Gran % (Auto) 0.4 Neut % (Auto) 71.0 Lymph % (Auto) 19.2 L [place] % (Auto) 8.4 Eos % (Auto) 0.3 Baso % (Auto) 0.7 Lymph # (Auto) 2.3 [place] # (Auto) 1.0 Eos # (Auto) 0.0 Baso # (Auto) 0.1 Abs Immat Gran (auto) 0.05 H Absolute Neuts (auto) 8.5 H Absolute Nucleated RBC 0.000 Nucleated RBC % (auto) 0.0 ESR Sodium 136 Potassium 4.5 Chloride 102 Carbon Dioxide 22 Anion Gap 17 BUN 47 H D Creatinine 3.80 H Estim Creat Clear Calc 14.0 Estimated GFR 12 Random Glucose 108 Calcium 9.5 Magnesium 2.3 Total Bilirubin 0.8 Direct Bilirubin 0.4 AST 20 ALT 11 Alkaline Phosphatase 62 Troponin I High Sens 50.7 H* C-Reactive Protein 0.95 H Total Protein 7.0 Albumin 4.0 Lipase 67 Urine Color Urine Appearance Urine pH Ur Specific [place] Urine Protein Urine Glucose (UA) Urine Ketones Urine Blood Urine Nitrite Ur Leukocyte Esterase COVID-19 (NICOLE) COVID-19 Clin Com 01/27/22 01/27/22 01/27/22 13:53 16:28 17:36 WBC RBC Hgb Hct MCV MCH MCHC RDW Plt Count MPV Immature Gran % (Auto) Neut % (Auto) Lymph % (Auto) [place] % (Auto) Eos % (Auto) Baso % (Auto) Lymph # (Auto) [place] # (Auto) Eos # (Auto) Baso # (Auto) Abs Immat Gran (auto) Absolute Neuts (auto) Absolute Nucleated RBC Nucleated RBC % (auto) ESR 7 Sodium Potassium Chloride Carbon Dioxide Anion Gap BUN Creatinine Estim Creat Clear Calc Estimated GFR Random Glucose Calcium Magnesium Total Bilirubin Direct Bilirubin AST ALT Alkaline Phosphatase Troponin I High Sens C-Reactive Protein Total Protein Albumin Lipase Urine Color YELLOW Urine Appearance CLEAR Urine pH 5.5 Ur Specific [place] 1.020 Urine Protein NEG Urine Glucose (UA) NEG Urine Ketones NEG Urine Blood NEG Urine Nitrite NEG Ur Leukocyte Esterase NEG COVID-19 (NICOLE) Negative COVID-19 Clin Com See Note 01/27/22 01/28/22 01/28/22 19:35 05:57 05:57 WBC 8.1 RBC 4.17 L Hgb 12.3 Hct 38.3 MCV 91.8 MCH 29.5 MCHC 32.1 RDW 12.5 Plt Count 202 D MPV 11.4 Immature Gran % (Auto) 0.2 Neut % (Auto) 55.8 Lymph % (Auto) 29.4 [place] % (Auto) 11.1 H Eos % (Auto) 2.5 Baso % (Auto) 1.0 Lymph # (Auto) 2.4 [place] # (Auto) 0.9 Eos # (Auto) 0.2 Baso # (Auto) 0.1 Abs Immat Gran (auto) 0.02 Absolute Neuts (auto) 4.5 Absolute Nucleated RBC 0.000 Nucleated RBC % (auto) 0.0 ESR Sodium 139 Potassium 4.0 Chloride 108 Carbon Dioxide 24 Anion Gap 11 L BUN 39 H Creatinine 3.04 H Estim Creat Clear Calc 17.9 Estimated GFR 15 Random Glucose 97 Calcium 8.4 D Magnesium Total Bilirubin Direct Bilirubin AST ALT Alkaline Phosphatase Troponin I High Sens 55.7 H* C-Reactive Protein Total Protein Albumin Lipase Urine Color Urine Appearance Urine pH Ur Specific [place] Urine Protein Urine Glucose (UA) Urine Ketones Urine Blood Urine Nitrite Ur Leukocyte Esterase COVID-19 (NICOLE) COVID-19 Clin Com 01/28/22 08:25 WBC RBC Hgb Hct MCV MCH MCHC RDW Plt Count MPV Immature Gran % (Auto) Neut % (Auto) Lymph % (Auto) [place] % (Auto) Eos % (Auto) Baso % (Auto) Lymph # (Auto) [place] # (Auto) Eos # (Auto) Baso # (Auto) Abs Immat Gran (auto) Absolute Neuts (auto) Absolute Nucleated RBC Nucleated RBC % (auto) ESR Sodium Potassium Chloride Carbon Dioxide Anion Gap BUN Creatinine Estim Creat Clear Calc Estimated GFR Random Glucose Calcium Magnesium Total Bilirubin Direct Bilirubin AST ALT Alkaline Phosphatase Troponin I High Sens 79.8 H* C-Reactive Protein Total Protein Albumin Lipase Urine Color Urine Appearance Urine pH Ur Specific [place] Urine Protein Urine Glucose (UA) Urine Ketones Urine Blood Urine Nitrite Ur Leukocyte Esterase COVID-19 (NICOLE) COVID-19 Clin Com Airway Mallampati Class: II TM Dist: >3cm Neck ROM: Full Loose/Missing/Broken Teeth: No Heart: rrr Lungs: cta Assessment and Plan Assessment Anesthesia Assessment: Anesthesia Plan Discussed and Chart Reviewed Final Anesthetic Review Family History of Problems with Anesthesia: No History of Problems with Anesthesia: No ASA Class: III Final Preanesthetic Review: No Changes in Pt Med Stat, Meds/Allgs Chart Reviewed, Consent Obtained/Reviewed and Anes Risks/Benef Reviewed Patient Risk: Intermediate Procedure Risk: Low Anesthetic Plan Anesthetic Plan: GA Disposition: Standard PACU
[2022-01-29] MEDS: Gentamicin Sulfate/NaCl 80 MG/100 ML PIGGYBACK 100 MG IV (10:21)
--- NOTE | 2022-01-29 10:38 | PM.OP ---
Brief Operative Note Date of Service: 01/29/22 Pre-op diagnosis: obstructing left stone upj Post-op diagnosis: same Procedure: cystoscopy. retrograde stent placment left stone manipulation patinet taken to OR, time out done. cysto very tight ureteral orific would not allow whistle tip parly could place wire. givrn six of stone and tightness of ureter decided to leave stent and allow passive dilatation instead of dilating and poyentially damaging ureter, 6 x 24 used barley fit, good position by cysto and flouroscopy plan had been discussed with pt pre op Urologically cleared for discharge Surgeon: Jacques Sherwood III, MD Anesthesia: GLMA Was an Hop Separator used for this Procedure?: No Estimated blood loss (mL): 0 Pathology: none sent Condition: stable Disposition: PACU
[2022-01-29] MEDS: lamoTRIgine 100 MG TABLET 200 MG PO (12:11)
[2022-01-29] MEDS: methylPREDNISolone Sod Succ 1,000 MG in 0.9 % Sodium Chloride 50 ML 66 MG IV (12:12)
[2022-01-29] MEDS: Memantine HCl 10 MG TABLET PO ×2 (12:12→20:49)
[2022-01-29] MEDS: Gabapentin 600 MG TABLET PO ×2 (15:15→20:49)
[2022-01-29] MEDS: 0.9 % Sodium Chloride 1,000 ML 75 ML IVCONT (15:15)
[2022-01-29] MEDS: Ondansetron ODT 4 MG TAB.RAPDIS TRANSLINGU ×2 (15:15→20:49)
[2022-01-29] MEDS: 0.9 % Sodium Chloride Flush 3 ML SYRINGE IVFLUSH (20:49)
[2022-01-30] VITALS (7 sets, daily range): BP systolic 175–200; BP diastolic 80–110; PULSE 67–139; RESP 14–20; TEMP 36.3–36.8; O2SAT 95–98
[2022-01-30] MEDS: Acetaminophen 325 MG TABLET 650 MG PO ×5 (00:59→21:01)
[2022-01-30] MEDS: 0.9 % Sodium Chloride 1,000 ML 75 ML IVCONT (06:16)
[2022-01-30] MEDS: Omeprazole 20 MG CAPSULE.DR PO (06:16)
[2022-01-30 07:34] LABS: Anion Gap 16 (12-20); Blood Urea Nitrogen 31 mg/dL (9-16); Calcium 9.2 mg/dL (8.4-10.2); Carbon Dioxide 21 mmol/L (22-29); Chloride 105 mmol/L (96-108); Creatinine Clr Calc Pharmacy 21.8; Estimated Glomerular Filt Rate 19; Glucose Random 152 mg/dL (60-115); Potassium 4.8 mmol/L (3.3-5.1); Sodium 137 mmol/L (135-145)
--- NOTE | 2022-01-30 08:36 | ECG_ITS ---
Test Reason : ? heart rate afib Blood Pressure : / mmHG Vent. Rate : 153 BPM Atrial Rate : 000 BPM P-R Int : 000 ms QRS Dur : 078 ms QT Int : 290 ms P-R-T Axes : 000 -07 179 degrees QTc Int : 463 ms Atrial fibrillation with rapid ventricular response Minimal voltage criteria for LVH, may be normal variant ( R in aVL ) Septal infarct , age undetermined Marked ST abnormality, possible inferolateral subendocardial injury Abnormal ECG When compared with ECG of 27-JAN-2022 13:44, Atrial fibrillation with rapid ventricular response has replaced Normal sinus rhythm Diffuse ST depressions are present Referred By: Eric Cook Electronically Signed By:CHANNING HYDE MD
--- NOTE | 2022-01-30 09:00 | CA_ITS ---
Transthoracic Echocardiogram Patient (Last, First, Middle): Francesca Ford E Gender: Female Date of : 1955 Age: 66 Procedure Date: 01/30/2022 Procedure Type: Transthoracic E[place]ocardiogram [place] [facility] [place]: 160.02 cm Weight: 74.84 kg BSA: 1.78 m2 Heart Rate: bpm BP: 175 / 90 mmHg Hand Binder Stripper: PAMELA Forman MD: Cristian Spaulding MD Engineering Operator: Bob Maier MD Symptoms: syncope Study Quality: Fair ECG Rhythm: Atrial Fibrillation with RVR Conclusions: - 1. Technically difficult study to interpret due to rapid atrial fibrillation 2. Low normal LVEF of 50-55% 3. Normal cardiac valvular Doppler 4. Mildly elevated right ventricular systolic pressure with mildly elevated right atrial pressures 5. No gross pericardial effusion Findings Left Ventricle Normal left ventricular cavity size. There is normal left ventricular wall thickness. The left ventricular systolic function is low normal. The visually estimated ejection fraction is between 50-55%. Diastolic function is indeterminate on the basis of available data. Right Ventricle Normal right ventricular cavity size and systolic function. Atria The left atrium is likely dilated. Interatrial shunt cannot be excluded. The right atrium is normal in size. Aortic Valve Normal aortic valve structure and function. There is no aortic valve stenosis. There is no aortic valve regurgitation. Mitral Valve Likely normal mitral valve structure and function. There is mild mitral annular calcification. There is trace mitral valve regurgitation. There is no mitral valve stenosis. Pulmonic Valve The pulmonic valve was not well visualized. Tricuspid Valve Normal tricuspid valve structure. There is mild tricuspid valve regurgitation. Mildly elevated right atrial pressure. Mild pulmonary hypertension is present. Great Vessels All visible segments of the aorta are normal in size. The pulmonary artery was not well visualized. Venous The inferior vena cava is mildly dilated and collapses less than 50% with inspiration. Pericardium/Pleural There is no evidence of pericardial effusion. Prior Study Comparison no previous study in the last 5 years for comparison Measurements 2D Linear Measurements IVSd: 1.12 0.6-0.9/0.6-1.0 cm LVIDd: 3.87 3.9-5.3/4.2-5.9 cm LVIDd Index: 2.17 2.4-3.2/2.2-3.1 cm/m2 LVIDs: 2.80 2.0-3.6 cm LVPWd: 1.14 0.7-1.1 cm LA Diam: 3.60 2.7-3.8/3.0-4.0 cm LAIDs Index: 2.02 1.5-2.3 cm/m2 LV Mass: 179.28 67-162/88-224 g LV Mass Index: 100.72 43-95/49-115 g/m2 LVOT Diam: 1.90 3.0+(-)1.3 cm 2D Systolic Function EF 4C: 51.00 >55% EF 2C: 47.10 >55% Aortic Valve AoV Pk Nicholas: 1.70 AoV Mn Nicholas: 1.13 AoV VTI: 0.24 AoV Pk Grad: 12.00 Aov Mn Grad: 6.00 HEATH Cont.VTI: 2.48 LVOT LVOT Pk Nicholas: 1.22 LVOT Mn Nicholas: 0.86 LVOT VTI: 0.21 LVOT Pk Grad: 6.00 LVOT Mn Grad: 3.00 LVOT Diam: 1.90 LVOT Area: 2.84 Right Ventricle TAPSE (mm): 21.20 TVS' Nicholas: 15.10 Tricuspid Valve TR Pk Nicholas: 2.88 TR Pk Grad: 33.00 RA Press: 8.00 RVSP: 41.00 Great Vessels Aorta Sinus of Valsalva: 2.98 2.0-3.[address] [place]: 2.85 1.7-3.4 cm Ao Asc: 3.40 2.1-3.4 cm Ao Arch: 2.80 Updated in Other Vendor System with Status of Final Bob Maier MD electronically signed on 01/30/2022 10:44:42 AM with status of Final
--- NOTE | 2022-01-30 09:00 | HO.PM.IMPN ---
Subjective Subjective Date of Service: 02/25/22 Interval History: Seen in f/u for kidney s tone, renal failure, s/p retrograde stent placment left stone manipulation 01/29 and feeling better. This morning went into AFIB with RVR HR up 170 Review of Systems No recent cold or flu-like illness. She was treated for renal calculi and also hepatitis-C with Mckay. Physical Exam Vital Signs: Vital Signs: Last Vital Signs Temp 98.3 F 01/30/22 08:14 Pulse 126 H 01/30/22 08:14 Resp 20 01/30/22 08:14 BP 180/80 H 01/30/22 08:14 Pulse Ox 97 01/30/22 08:14 BMI result Body Mass Index 29.2 Const: Other: General: AO X 3, no acute distress Resp: CTA bilateral CVS: S1,S2, irregular, irregular GI: +BS, NT, no distention Skin: No rash Neuro: motor grossly intact Psych: appropriate affect Objective Data Active Medications Acetaminophen (Acetaminophen 325 Mg Tablet) 650 mg PO Q6H PRN PRN Reason: Pain, Mild (Pain Scale 1-3) Last Admin: 01/30/22 00:59 Dose: 650 mg Documented by: PAYAL Acetaminophen (Acetaminophen 325 Mg Tablet) 650 mg PO 5XD [facility] Last Admin: 01/30/22 06:16 Dose: 650 mg Documented by: PAYAL Albuterol Sulfate (Albuterol Sulfate 90 Mcg 8 Gm Inhaler) 2 puff INHALE Q4H PRN PRN Reason: bronchospasm Albuterol Sulfate (Albuterol Sulfate (0.083%) 2.5 Mg/3 Ml Vial.Neb) 2.5 mg INHALE ONCE PRN PRN Reason: Wheezing Benzocaine (Throat Lozenge, Medicated Lozenge) 1 lozenge MUCOUS MEM Q2H PRN PRN Reason: Sore Throat Last Admin: 01/28/22 17:33 Dose: 1 lozenge Documented by: DOBROB Fentanyl (Fentanyl Citrate/Pf 100 Mcg/2 Ml Vial) 25 mcg IVPUSH Q5M PRN; Protocol PRN Reason: Pain, Moderate (Pain Scale 4-6 Gabapentin (Gabapentin 600 Mg Tablet) 600 mg PO TID [facility] Last Admin: 01/29/22 20:49 Dose: 600 mg Documented by: ANTOIC Heparin Sodium (Porcine) (Heparin Sodium,Porcine 5,000 Unit/Ml Vial) 5,000 unit SUBCUT Q8H [facility] Last Admin: 01/29/22 20:51 Dose: Not Given Documented by: APYAL Non-Admin Reason: Patient Refused Hydromorphone HCl (Hydromorphone Hcl 0.5 Mg/0.5 Ml Syringe) 0.25 mg IVPUSH Q5M PRN; Protocol PRN Reason: Pain, Severe (Pain Scale 7-10) Sodium Chloride (Ns) 1,000 mls @ 75 mls/hr IVCONT .[id number] [facility] Last Admin: 01/30/22 06:16 Dose: 75 mls/hr Documented by: ANTCHRISTIANO Methylprednisolone Sodium Succinate 1,000 mg/ Sodium Chloride 66 mls @ 66 mls/hr IV DAILY [facility] Last Infusion: 01/29/22 13:39 Dose: 0 mls/hr Documented by: JT Promethazine HCl 12.5 mg/ (Sodium Chloride) 50.5 mls @ 202 mls/hr IV ONCE PRN PRN Reason: Nausea and Vomiting Lamotrigine (Lamotrigine 100 Mg Tablet) 200 mg PO DAILY [facility] Last Admin: 01/29/22 12:11 Dose: 200 mg Documented by: JT Melatonin (Melatonin 3 Mg Tablet) 6 mg PO BEDTIME PRN PRN Reason: Insomnia Memantine (Memantine Hcl 10 Mg Tablet) 10 mg PO BID [facility] Last Admin: 01/29/22 20:49 Dose: 10 mg Documented by: ANTCHRISTIANO Omeprazole (Omeprazole 20 Mg Capsule.) 20 mg PO DAILY@0630 [facility] Last Admin: 01/30/22 06:16 Dose: 20 mg Documented by: ANTCHRISTIANO Ondansetron HCl (Ondansetron Hcl 4 Mg/2 Ml Vial) 4 mg IVPUSH Q8H PRN PRN Reason: Nausea and Vomiting Last Admin: 01/28/22 17:33 Dose: 4 mg Documented by: JT Ondansetron HCl (Ondansetron Odt 4 Mg Tab.Rapdis) 4 mg TRANSLINGU TID [facility] Last Admin: 01/29/22 20:49 Dose: 4 mg Documented by: PAYAL Pharmacy Consult (Consult Rx Perform Med Rec) 1 each MISCELLANE ONCE PRN PRN Reason: Consult order Senna (Sennosides 8.6 Mg Tablet) 17.2 mg PO BEDTIME PRN PRN Reason: Constipation Sodium Chloride (0.9 % Sodium Chloride Flush 3 Ml Syringe) 3 ml IVFLUSH QSHIFT [facility] Last Admin: 01/29/22 20:49 Dose: 3 ml Documented by: ANTOIC Labs CBC & Chem 7: 01/28/22 05:57 02/01/22 05:27 Labs: Laboratory Results - last 24 hr 01/30/22 06:31 Anion Gap 16 Estim Creat Clear Calc 21.8 Estimated GFR 19 Random Glucose 152 H Calcium 9.2 D Assessment and Plan (1) Paroxysmal atrial fibrillation: Status: Acute Plan 66/F with HTN, HLD, multiple sclerosis ( MS), asthma, GERD, history of hep C, history of renal calculi presented to the hospital today a fall, reports multiple falls the past 1-2 weeks she has been having increased falls, and this time associated with syncope. She is noted to have YOHANA, renal stone, elevated troponin. #New onset of AFIB with RVR (since 01/30)--HR up to 170s.. -IV cardizem, oral metoprolol, has planned echo today, consult Dr. Maier, check TSH. Add Eliquis #YOHANA on CKD2--likely from dehyration and obstructive uropathy from stone. s/p retrograde stent placment left stone manipulation by Dr. Sherwood on 01/29 -Creatine is trending down -Renal followingt, IVF, daily labs and avoid Nephrotoxins. Avoid Gabapentin d/t renal failure # Left ureteral calculus/left hydronephrosis: Urinalysis negative for infection. Doesn't want opiate pain medications. - s/p retrograde stent placment left stone manipulation as above, to follow up with Dr. Ramon in 10-14 days # Recurrent falls: Patient reports that she has history of falls. Attributes to her multiple sclerosis. Currently denies any focal weakness or numbness. Was evaluated by Dr. Lipscomb and recommended 3 days of IV 1 grm solumedrol, she's only agreable to taking one day. MRI of cervical spine and Brain i: as follow MRI brain: 1. There has been marked interval increase in scattered areas of hyperintense T2 and FLAIR signal in the periventricular and with subcortical white matter, as well as in the crystal which may be consistent with areas of demyelination and/or chronic microvascular ischemic disease. None of these demonstrate restricted diffusion or enhancement to suggest acute demyelination or infarct. 2. There is diffuse volume loss. There are no acute bleeds or infarcts. There are no masses or areas of abnormal enhancement. ? MRI cervical spine: 1. The study redemonstrates mild spondylosis which is most prominent at C5-C6. There is mild central stenosis at C5-C6 and C6-C7, but there is no spinal cord compression. 2. There is severe neural foraminal narrowing bilaterally at C5-C6. 3. The spinal cord has normal signal. #Syncope: Circusmstance not clear, no arrythmia noted, elevated troponin likely from renal failure, ? related to AFIB with RVR #Elevated troponin I--likely d/t CKD--no ECG ischemic changes, cardiology recommends no further testing at this time #History of chronic back pain: Patient denies any change in her pain. mentions that she usually takes Tylenol for pain. #History of anxiety / depression/ bipolar: Continue home medications. Psych consult DVT prophylaxis: Subcu heparin Code status: Full code Quality Stroke Does the patient have a stroke diagnosis?: No VTE Prior VTE?: No VTE Risk Level:: Medical - moderate - high VTE Device Contraindication: Treatment Not Indicated VTE Drug Contraindication: N/A - Med Ordered
[2022-01-30] MEDS: dilTIAZem HCL 50 MG/10 ML VIAL 10 MG IVPUSH (09:03)
[2022-01-30] MEDS: Heparin Sodium,Porcine 5,000 UNIT/ML VIAL 5000 UNIT SUBCUT (09:05)
[2022-01-30] MEDS: Ondansetron ODT 4 MG TAB.RAPDIS TRANSLINGU ×3 (09:05→21:03)
[2022-01-30] MEDS: lamoTRIgine 100 MG TABLET 200 MG PO (09:05)
[2022-01-30] MEDS: Memantine HCl 10 MG TABLET PO ×2 (09:05→21:02)
[2022-01-30] MEDS: 0.9 % Sodium Chloride Flush 3 ML SYRINGE IVFLUSH ×3 (09:06→21:03)
[2022-01-30] MEDS: methylPREDNISolone Sod Succ 1,000 MG in 0.9 % Sodium Chloride 50 ML 66 MG IV (09:07)
[2022-01-30 09:17] LABS: Thyroid Stimulating Hormone 0.16 uIU/mL (0.32-4.0)
--- NOTE | 2022-01-30 09:43 | PC.NURSE ---
pt HR raised to 170's, cardizem 10 mg given at 09:03, Hr at 09:45 150
[2022-01-30] MEDS: dilTIAZem HCL 125 MG in 0.9 % Sodium Chloride 100 ML 10 MG IVCONT (10:34)
[2022-01-30] MEDS: Apixaban 5 MG TABLET PO ×2 (12:00→21:02)
[2022-01-30] MEDS: Metoprolol Tartrate 12.5 MG HALFTAB PO ×3 (12:18→21:03)
--- NOTE | 2022-01-30 12:24 | PM.PNCARD ---
Subjective Subjective Date of Service: 01/30/22 Principal diagnosis: Atrial fibrillation with rapid ventricular response Interval history: Patient developed atrial fibrillation this morning with rapid ventricular response. Complains of dizziness. Denies palpitations, chest pain, shortness of breath. No drop in her blood pressure. Started IV Cardizem drip. Just now converted back to sinus rhythm. Review of Systems Constitutional: Reports other (Body ache) Reports system reviewed and no additional complaints, except as documented Cardiovascular: Denies chest pain, Reports lightheadedness, Denies Loss of Consciousness, Denies palpitations and Denies dyspnea Respiratory: Reports no additional respiratory complaints and Denies dyspnea Gastrointestinal: Reports no additional gastrointestinal complaints Genitourinary: Reports no additional female genitourinary complaints Musculoskeletal: Reports no additional musculoskeletal complaints Reports system reviewed and no additional complaints, except as documented Psychiatric: Reports no additional psychiatric complaints Endocrine: Reports no additional endocrine complaints and Denies palpitations Hematologic/Lymphatic: Reports no additional hematologic/lymphatic complaints Physical Exam Vital Signs: Last Vital Signs Temp 98.2 F 01/30/22 10:48 Pulse 139 H 01/30/22 10:48 Resp 20 01/30/22 10:48 BP 182/84 H 01/30/22 10:48 Pulse Ox 97 01/30/22 10:48 BMI result Body Mass Index 29.2 Const General: cooperative, comfortable, alert, awake and anxious Nutritional Appearance: overweight Orientation/consciousness: patient oriented x3 Neck Neck: Yes trachea midline, Yes supple and Yes no JVD Chest Chest palpation & inspection: normal inspection of the chest Resp Effort & Inspection: normal respiratory effort Auscultation: clear to auscultation bilaterally Cardio Jugular venous distension: no JVD Rate: tachycardic Rhythm: abnormal rhythm irregularly irregular Heart sounds: S1 normal heart sound present, S2 normal heart sound present, no click, no gallops, no murmurs and no rubs GI Auscultation: normal bowel sounds Skin General skin exam: no rashes or lesions noted Neuro General: patient oriented x3 and no focal motor deficits Extrem General: Yes no clubbing, cyanosis or edema Objective Labs and Meds Result diagrams: 01/28/22 05:57 01/30/22 06:31 Lab results: Laboratory Results - last 24 hr 01/30/22 06:31 Sodium 137 Potassium 4.8 Chloride 105 Carbon Dioxide 21 L Anion Gap 16 BUN 31 H Creatinine 2.50 H Estim Creat Clear Calc 21.8 Estimated GFR 19 Random Glucose 152 H Calcium 9.2 D TSH 0.16 L Imaging Radiologist's impression: Impressions Brain MRI 01/29/22 14:58 IMPRESSION: MRI brain: 1. There has been marked interval increase in scattered areas of hyperintense T2 and FLAIR signal in the periventricular and with subcortical white matter, as well as in the crystal which may be consistent with areas of demyelination and/or chronic microvascular ischemic disease. None of these demonstrate restricted diffusion or enhancement to suggest acute demyelination or infarct. 2. There is diffuse volume loss. There are no acute bleeds or infarcts. There are no masses or areas of abnormal enhancement. MRI cervical spine: 1. The study redemonstrates mild spondylosis which is most prominent at C5-C6. There is mild central stenosis at C5-C6 and C6-C7, but there is no spinal cord compression. 2. There is severe neural foraminal narrowing bilaterally at C5-C6. 3. The spinal cord has normal signal. Cervical Spine MRI 01/29/22 14:58 IMPRESSION: MRI brain: 1. There has been marked interval increase in scattered areas of hyperintense T2 and FLAIR signal in the periventricular and with subcortical white matter, as well as in the crystal which may be consistent with areas of demyelination and/or chronic microvascular ischemic disease. None of these demonstrate restricted diffusion or enhancement to suggest acute demyelination or infarct. 2. There is diffuse volume loss. There are no acute bleeds or infarcts. There are no masses or areas of abnormal enhancement. MRI cervical spine: 1. The study redemonstrates mild spondylosis which is most prominent at C5-C6. There is mild central stenosis at C5-C6 and C6-C7, but there is no spinal cord compression. 2. There is severe neural foraminal narrowing bilaterally at C5-C6. 3. The spinal cord has normal signal. Progress Note: A&P Assessment and plan (1) Paroxysmal atrial fibrillation: Status: Acute Assessment and Plan: Paroxysmal atrial fibrillation in this elderly woman, happened without any prior history of atrial fibrillation. This is not the cause for her syncopal episode. She did complain of lightheadedness. However there was no hypertensive response. She has converted to sinus rhythm with Cardizem drip and rate control. Switch her to metoprolol 25 mg q.6 hours. She has low normal LV ejection fraction. Also she needs oral anticoagulation therapy, given her creatinine and her age and her weight, she can be on Eliquis 5 mg b.i.d. as per FDA guidance. Other possibilities switch her to Xarelto 15 mg daily. (2) Syncope and collapse: Status: Acute Assessment and Plan: Syncope and collapse with significant pain, most likely vasovagal in nature. Adequate hydration needs to be discussed. Will monitor for 1 more day on metoprolol therapy. Continue oral hydration. Will follow up as outpatient. Thank you for allowing us to partake in the care Fall Risk Details Current Medications: Current Medications Acetaminophen (Acetaminophen 325 Mg Tablet) 650 mg PO Q6H PRN PRN Reason: Pain, Mild (Pain Scale 1-3) Last Admin: 01/30/22 00:59 Dose: 650 mg Documented by: Acetaminophen (Acetaminophen 325 Mg Tablet) 650 mg PO 5XD [facility] Last Admin: 01/30/22 12:00 Dose: 650 mg Documented by: Albuterol Sulfate (Albuterol Sulfate 90 Mcg 8 Gm Inhaler) 2 puff INHALE Q4H PRN PRN Reason: bronchospasm Albuterol Sulfate (Albuterol Sulfate (0.083%) 2.5 Mg/3 Ml Vial.Neb) 2.5 mg INHALE ONCE PRN PRN Reason: Wheezing Apixaban (Apixaban 5 Mg Tablet) 5 mg PO BID [facility] Last Admin: 01/30/22 12:00 Dose: 5 mg Documented by: Benzocaine (Throat Lozenge, Medicated Lozenge) 1 lozenge MUCOUS MEM Q2H PRN PRN Reason: Sore Throat Last Admin: 01/28/22 17:33 Dose: 1 lozenge Documented by: Fentanyl (Fentanyl Citrate/Pf 100 Mcg/2 Ml Vial) 25 mcg IVPUSH Q5M PRN; Protocol PRN Reason: Pain, Moderate (Pain Scale 4-6 Gabapentin (Gabapentin 600 Mg Tablet) 600 mg PO TID [facility] Last Admin: 01/30/22 12:19 Dose: Not Given Documented by: Hydromorphone HCl (Hydromorphone Hcl 0.5 Mg/0.5 Ml Syringe) 0.25 mg IVPUSH Q5M PRN; Protocol PRN Reason: Pain, Severe (Pain Scale 7-10) Sodium Chloride (Ns) 1,000 mls @ 75 mls/hr IVCONT .[id number] [facility] Last Admin: 01/30/22 06:16 Dose: 75 mls/hr Documented by: Methylprednisolone Sodium Succinate 1,000 mg/ Sodium Chloride 66 mls @ 66 mls/hr IV DAILY [facility] Last Infusion: 01/30/22 10:15 Dose: Infused Documented by: Promethazine HCl 12.5 mg/ (Sodium Chloride) 50.5 mls @ 202 mls/hr IV ONCE PRN PRN Reason: Nausea and Vomiting Diltiazem HCl 125 mg/ Sodium (Chloride) 125 mls @ 0 mls/hr IVCONT .Q0M [facility]; Protocol Last Admin: 01/30/22 10:34 Dose: 10 mg/hr, 10 mls/hr Documented by: Lamotrigine (Lamotrigine 100 Mg Tablet) 200 mg PO DAILY [facility] Last Admin: 01/30/22 09:05 Dose: 200 mg Documented by: Melatonin (Melatonin 3 Mg Tablet) 6 mg PO BEDTIME PRN PRN Reason: Insomnia Memantine (Memantine Hcl 10 Mg Tablet) 10 mg PO BID [facility] Last Admin: 01/30/22 09:05 Dose: 10 mg Documented by: Metoprolol Tartrate (Metoprolol Tartrate 12.5 Mg Halftab) 12.5 mg PO TID [facility]; Protocol Last Admin: 01/30/22 12:18 Dose: 12.5 mg Documented by: Omeprazole (Omeprazole 20 Mg Capsule.Dr) 20 mg PO DAILY@0630 [facility] Last Admin: 01/30/22 06:16 Dose: 20 mg Documented by: Ondansetron HCl (Ondansetron Hcl 4 Mg/2 Ml Vial) 4 mg IVPUSH Q8H PRN PRN Reason: Nausea and Vomiting Last Admin: 01/28/22 17:33 Dose: 4 mg Documented by: Ondansetron HCl (Ondansetron Odt 4 Mg Tab.Rapdis) 4 mg TRANSLINGU TID [facility] Last Admin: 01/30/22 09:05 Dose: 4 mg Documented by: Pharmacy Consult (Consult Rx Perform Med Rec) 1 each MISCELLANE ONCE PRN PRN Reason: Consult order Senna (Sennosides 8.6 Mg Tablet) 17.2 mg PO BEDTIME PRN PRN Reason: Constipation Sodium Chloride (0.9 % Sodium Chloride Flush 3 Ml Syringe) 3 ml IVFLUSH QSHIFT [facility] Last Admin: 01/30/22 09:06 Dose: 3 ml Documented by: Time Spent With Patient Time: Total time spent is greater than 50% in coordination of care (as documented) at patient's floor/unit and/or counseling patient: Time with patient: 25 - 35 minutes Progress Note: Quality Stroke Does the patient have a stroke diagnosis?: No Procedures Date of Service Date of Service: 01/30/22
--- NOTE | 2022-01-30 14:30 | HO.POSTANES ---
Post Anesthesia Evaluation Post Anesthesia Evaluation Vital Signs: Vital Signs Temp Pulse Resp BP Pulse Ox 01/30/22 10:48 98.2 F 139 H 20 182/84 H 97 01/30/22 10:02 95 01/30/22 08:14 98.3 F 126 H 20 180/80 H 97 Anesthesia: General Mental Status: Awake Pain Control: Satisfactory Nausea/Vomiting: None Hydration: Adequate Anesthesia-Related Issues: No Anes. Related Issues Comments: rapid A-fib, high troponins being followed by cardiology
--- NOTE | 2022-01-30 14:40 | MHC.CM.PN ---
echocardiogram done today pt not ready for dc
[2022-01-30] MEDS: Gabapentin 600 MG TABLET PO ×2 (15:34→21:02)
[2022-01-30] MEDS: amLODIPine Besylate 2.5 MG TABLET PO (17:15)
[2022-01-30] MEDS: hydrALAZINE HCl 20 MG/ML VIAL 5 MG IVPUSH ×2 (18:39→20:59)
[2022-01-31] VITALS (10 sets, daily range): BP systolic 130–208; BP diastolic 66–104; PULSE 66–82; RESP 14–20; TEMP 36.4–36.8; O2SAT 97–99
[2022-01-31] MEDS: hydrALAZINE HCl 20 MG/ML VIAL 5 MG IVPUSH (00:15)
[2022-01-31] MEDS: ondansetron HCL 4 MG/2 ML VIAL IVPUSH (03:43)
[2022-01-31] MEDS: Omeprazole 20 MG CAPSULE.DR PO (05:01)
[2022-01-31] MEDS: Acetaminophen 325 MG TABLET 650 MG PO ×4 (05:02→17:32)
--- NOTE | 2022-01-31 05:27 | PM.EVENT ---
Event Note Date of Service: 01/31/22 Event Note: PT HYPERTENSIVE THROUGH THE NIGHT. REceived 2 doses of IV hydralazine with no resolutionl. pt asymptomatic. HR in the 70s. will try labetalol to see if it helps with bp
[2022-01-31] MEDS: Labetalol HCL 100 MG/20 ML VIAL 10 MG IVPUSH (05:54)
[2022-01-31] MEDS: Gabapentin 600 MG TABLET PO ×3 (08:00→19:49)
[2022-01-31] MEDS: 0.9 % Sodium Chloride Flush 3 ML SYRINGE IVFLUSH ×3 (08:00→19:50)
[2022-01-31] MEDS: Ondansetron ODT 4 MG TAB.RAPDIS TRANSLINGU ×3 (08:00→19:49)
[2022-01-31] MEDS: lamoTRIgine 100 MG TABLET 200 MG PO (08:01)
[2022-01-31] MEDS: Apixaban 5 MG TABLET PO ×2 (08:01→19:49)
[2022-01-31] MEDS: amLODIPine Besylate 5 MG TABLET PO (08:01)
[2022-01-31] MEDS: Memantine HCl 10 MG TABLET PO ×2 (08:01→19:49)
[2022-01-31] MEDS: Metoprolol Tartrate 25 MG TABLET PO ×3 (08:01→19:49)
--- NOTE | 2022-01-31 09:24 | PM.PNNEP ---
Subjective Subjective Date of Service: 01/30/22 Interval history: Seen and exmaimed, events noted Physical Exam Vital Signs: Vital Signs: Last Vital Signs Temp 98.1 F 01/31/22 07:25 Pulse 70 01/31/22 07:25 Resp 20 01/31/22 07:25 BP 182/80 H 01/31/22 07:25 Pulse Ox 99 01/31/22 07:25 BMI result Body Mass Index 29.2 Const: General: cooperative Orientation/consciousness: patient oriented x3 Limitations: no limitations HENMT: Ears: hearing grossly normal bilaterally Eyes: General: appearance normal, both eyes and all related structures Neck: Other: No midline cervical spinous tenderness Neck: Yes no meningeal signs Resp: Effort & Inspection: normal respiratory effort and no respiratory distress Auscultation: clear to auscultation bilaterally, no rales, no rhonchi and no wheezes Cardio: Rate: regular rate Heart sounds: S1 normal heart sound present and S2 normal heart sound present GI: Inspection: Yes normal to inspection Palpation (GI): Soft to palpation, Tenderness to palpation present (GI) in the LUQ, no guarding and not rigid : General: Yes no CVA tenderness Back/Spine/Pelvis: Other: No midline thoracic/lumbar spinous tenderness Back: no CVA tenderness Skin: Rashes: no rashes Wounds: no wounds Neuro: Other: No appreciable focal weakness General: patient oriented x3, moves all extremities, no meningeal signs and no focal motor deficits Motor exam (neuro): 5/5 motor strength present throughout Extrem: General: Yes normal to inspection and Yes no pedal edema Objective Data Labs CBC & Chem 7: 01/28/22 05:57 01/30/22 06:31 Procedures Date of Service Date of Service: 01/30/22 Assessment & Plan Assessment and plan (1) Syncope and collapse: Status: Acute (2) Abdominal pain: Status: Acute (3) Acute kidney injury superimposed on CKD: Status: Acute Plan 1. Non-Oliguric YOHANA: c/w Obs L kidney; now SCr decr close to bsl 2. CKD 4: BSL Scr 1.5-2.0; ques etiol--HTN vs other 3. L kidney Obs from stone: s/p urol intervention 4. HTN 5. Pafib 6. MS REC: cont tot rack UOP/renl func; avoid Ntoxins reveiw outpt rec re: w/u CKD as may need additional testing will follow with team Time Spent With Patient Time: Total time spent is greater than 50% in coordination of care (as documented) at patient's floor/unit and/or counseling patient: Progress Note: Quality Stroke Does the patient have a stroke diagnosis?: No
[2022-01-31] MEDS: Albuterol Sulfate 90 MCG 8 GM INHALER 2 PUFF INHALE ×2 (09:32→14:35)
[2022-01-31 09:35] LABS: Anion Gap 17 (12-20); Blood Urea Nitrogen 37 mg/dL (9-16); Calcium 8.9 mg/dL (8.4-10.2); Carbon Dioxide 20 mmol/L (22-29); Chloride 95 mmol/L (96-108); Creatinine Clr Calc Pharmacy 23.9; Estimated Glomerular Filt Rate 22; Glucose Random 157 mg/dL (60-115); Potassium 3.7 mmol/L (3.3-5.1); Sodium 128 mmol/L (135-145)
[2022-01-31] MEDS: methylPREDNISolone Sod Succ 1,000 MG in 0.9 % Sodium Chloride 50 ML 66 MG IV (10:15)
--- NOTE | 2022-01-31 13:20 | P.PNIM_ITS ---
Subjective Subjective Date of Service: 01/31/22 Interval History: uncontrolled htn,yohana, afib with rvr Review of Systems Denies any chest pain or shortness of breath or abdominal pain or fever or chills or cough or phlegm. Feels somewhat weak Physical Exam Vital Signs: Vital Signs: Last Vital Signs Temp 97.6 F 01/31/22 11:22 Pulse 68 01/31/22 11:22 Resp 20 01/31/22 11:22 BP 174/86 H 01/31/22 11:22 Pulse Ox 97 01/31/22 11:22 BMI result Body Mass Index 29.2 General: AO X 3, no acute distress Resp:? CTA bilateral CVS: S1,S2,? irregular,? irregular GI: +BS, NT, no distention Skin: No rash Neuro:? motor grossly intact Psych: appropriate affect Objective Data Active Medications Acetaminophen (Acetaminophen 325 Mg Tablet) 650 mg PO Q6H PRN PRN Reason: Pain, Mild (Pain Scale 1-3) Last Admin: 01/30/22 00:59 Dose: 650 mg Documented by: ANTOIC Acetaminophen (Acetaminophen 325 Mg Tablet) 650 mg PO 5XD [facility] Last Admin: 01/31/22 09:32 Dose: 650 mg Documented by: COTEMA Albuterol Sulfate (Albuterol Sulfate 90 Mcg 8 Gm Inhaler) 2 puff INHALE Q4H PRN PRN Reason: bronchospasm Last Admin: 01/31/22 09:32 Dose: 2 puff Documented by: COTEMA Albuterol Sulfate (Albuterol Sulfate (0.083%) 2.5 Mg/3 Ml Vial.Neb) 2.5 mg INHALE ONCE PRN PRN Reason: Wheezing Amlodipine Besylate (Amlodipine Besylate 5 Mg Tablet) 5 mg PO DAILY [facility]; Protocol Last Admin: 01/31/22 08:01 Dose: 5 mg Documented by: COTEMA Apixaban (Apixaban 5 Mg Tablet) 5 mg PO BID [facility] Last Admin: 01/31/22 08:01 Dose: 5 mg Documented by: COTEMA Benzocaine (Throat Lozenge, Medicated Lozenge) 1 lozenge MUCOUS MEM Q2H PRN PRN Reason: Sore Throat Last Admin: 01/28/22 17:33 Dose: 1 lozenge Documented by: DOBROB Fentanyl (Fentanyl Citrate/Pf 100 Mcg/2 Ml Vial) 25 mcg IVPUSH Q5M PRN; Protocol PRN Reason: Pain, Moderate (Pain Scale 4-6 Gabapentin (Gabapentin 600 Mg Tablet) 600 mg PO TID [facility] Last Admin: 01/31/22 08:00 Dose: 600 mg Documented by: COTEMA Hydralazine HCl (Hydralazine Hcl 20 Mg/Ml Vial) 5 mg IVPUSH Q6H PRN; Protocol PRN Reason: SBP 180 Last Admin: 01/31/22 00:15 Dose: 5 mg Documented by: KARRI Hydromorphone HCl (Hydromorphone Hcl 0.5 Mg/0.5 Ml Syringe) 0.25 mg IVPUSH Q5M PRN; Protocol PRN Reason: Pain, Severe (Pain Scale 7-10) Methylprednisolone Sodium Succinate 1,000 mg/ Sodium Chloride 66 mls @ 66 mls/hr IV DAILY [facility] Last Infusion: 01/31/22 11:17 Dose: 0 mls/hr Documented by: RACHELEMA Promethazine HCl 12.5 mg/ (Sodium Chloride) 50.5 mls @ 202 mls/hr IV ONCE PRN PRN Reason: Nausea and Vomiting Lamotrigine (Lamotrigine 100 Mg Tablet) 200 mg PO DAILY [facility] Last Admin: 01/31/22 08:01 Dose: 200 mg Documented by: JINA Melatonin (Melatonin 3 Mg Tablet) 6 mg PO BEDTIME PRN PRN Reason: Insomnia Memantine (Memantine Hcl 10 Mg Tablet) 10 mg PO BID [facility] Last Admin: 01/31/22 08:01 Dose: 10 mg Documented by: COTEMA Metoprolol Tartrate (Metoprolol Tartrate 25 Mg Tablet) 25 mg PO Q6H [facility]; Protocol Last Admin: 01/31/22 08:01 Dose: 25 mg Documented by: COTEMA Omeprazole (Omeprazole 20 Mg Capsule.Dr) 20 mg PO DAILY@0630 [facility] Last Admin: 01/31/22 05:01 Dose: 20 mg Documented by: KARRI Ondansetron HCl (Ondansetron Hcl 4 Mg/2 Ml Vial) 4 mg IVPUSH Q8H PRN PRN Reason: Nausea and Vomiting Last Admin: 01/31/22 03:43 Dose: 4 mg Documented by: KARRI Ondansetron HCl (Ondansetron Odt 4 Mg Tab.Rapdis) 4 mg TRANSLINGU TID [facility] Last Admin: 01/31/22 08:00 Dose: 4 mg Documented by: JINA Pharmacy Consult (Consult Rx Perform Med Rec) 1 each MISCELLANE ONCE PRN PRN Reason: Consult order Senna (Sennosides 8.6 Mg Tablet) 17.2 mg PO BEDTIME PRN PRN Reason: Constipation Sodium Chloride (0.9 % Sodium Chloride Flush 3 Ml Syringe) 3 ml IVFLUSH QSHIFT [facility] Last Admin: 01/31/22 08:00 Dose: 3 ml Documented by: JINA Labs CBC & Chem 7: 01/28/22 05:57 01/31/22 08:55 Labs: Laboratory Results - last 24 hr 01/27/22 01/28/22 01/30/22 13:53 05:57 06:31 Sodium 136 139 137 Anion Gap Creatinine 3.80 H 3.04 H 2.50 H Estim Creat Clear Calc Estimated GFR Random Glucose Calcium 01/31/22 08:55 Sodium 128 L Anion Gap 17 Creatinine 2.27 H Estim Creat Clear Calc 23.9 Estimated GFR 22 Random Glucose 157 H Calcium 8.9 Assessment and Plan (1) Multiple sclerosis: Status: Acute (2) Syncope and collapse: Status: Acute (3) Low back pain: Status: Acute Plan 66/F with HTN, HLD, multiple sclerosis ( [place]), asthma, GERD, history of hep C, history of renal calculi presented to the hospital today a fall, reports multiple falls? ? the past 1-2 weeks she has been having increased falls, and this time associated with syncope.? She is noted to have YOHANA, renal stone, elevated troponin. 1.New onset of AFIB with RVR (since 01/30)--HR seems to be improved tsh 0.16, free t3 and t4 added. echo seems low normal LV ejection fraction. off cardizem, adjusted metoprolol,?Eliquis, now patient is snius. cardiology : Syncope and collapse probably related to vasovagal type episode, cardio recommended continue hydration and metoprolol 1 more day. 2.YOHANA on CKD2--likely from dehyration and obstructive uropathy from stone. ?s/p retrograde stent placment left stone manipulation by Dr. Sherwood on 01/29 -Creatine is trending down -Renal followingt, IVF, daily? labs and avoid Nephrotoxins. Avoid Gabapentin d/t renal failure YOHANA improving. 3. Left ureteral calculus/left hydronephrosis: Urinalysis negative for infection. Doesn't want? opiate pain medications. - s/p retrograde stent placment left stone manipulation as above, to follow up with Dr. Ramon in 10-14 days 4. Recurrent falls: Patient reports that she has history of falls.? Attributes to her multiple sclerosis.? Currently denies any focal weakness or numbness. ? Was evaluated by Dr. Lipscomb and recommended 3 days of IV 1 grm solumedrol, she's only agreable to taking one day. MRI of cervical spine and Brain i: as follow Pt/ot added . 5.History of chronic back pain:? Patient denies any change in her pain.? mentions that she usually takes Tylenol for pain. 6.History of anxiety / depression/ bipolar: Continue home medications. Psych - recomended continue current meds . 7. hyponatremia : workup added will recheck sodium levels nephro eval 8. uncontrolled htn: adjusted metoprolol and amlodipine oob pt/ot ?DVT prophylaxis:? Subcu heparin ? ? Quality Stroke Does the patient have a stroke diagnosis?: No VTE Prior VTE?: No VTE Risk Level:: Medical - moderate - high VTE Device Contraindication: Treatment Not Indicated VTE Drug Contraindication: N/A - Med Ordered
[2022-01-31 13:55] LABS: Alanine Aminotransferase 28 U/L (0-31); Albumin Level 3.8 g/dL (3.5-5.0); Alkaline Phosphatase 65 U/L (39-117); Aspartate Amino Transferase 28 U/L (5-31); Bilirubin Direct 0.4 mg/dL (0.0-0.5); Bilirubin Total 0.7 mg/dL (0.0-1.0); Total Protein 6.6 g/dL (6.5-8.0)
[2022-01-31 13:59] LABS: Osmolality, Serum 277 mosm/kg (281-305)
[2022-01-31 14:09] LABS: Free T4 (Free Thyroxine) 1.16 ng/dL (0.71-1.85)
--- NOTE | 2022-01-31 15:51 | MHC.CM.PN ---
bed at [facility] for pt when dcd ready
--- NOTE | 2022-01-31 17:27 | PM.PNCARD ---
Subjective Subjective Date of Service: 01/31/22 Principal diagnosis: Atrial fibrillation with rapid ventricular response Interval history: No recurrent atrial fibrillation. No cardiac symptoms to report at this time. No repeat EKG performed at this time Review of Systems Review of Systems Yes all other systems are reviewed and are negative Physical Exam Vital Signs: Last Vital Signs Temp 98.2 F 01/31/22 15:33 Pulse 66 01/31/22 15:33 Resp 14 01/31/22 15:33 BP 167/86 H 01/31/22 15:33 Pulse Ox 97 01/31/22 15:33 BMI result Body Mass Index 29.2 Const General: cooperative, comfortable, no acute distress, alert, awake and anxious Nutritional Appearance: overweight Orientation/consciousness: patient oriented x3 Neck Neck: Yes trachea midline, Yes supple and Yes no JVD Resp Effort & Inspection: normal respiratory effort Auscultation: clear to auscultation bilaterally Cardio Jugular venous distension: no JVD Palpation: normal PMI Rate: regular rate Rhythm: regular rhythm Heart sounds: S1 normal heart sound present, S2 normal heart sound present, no click, no gallops and no murmurs Skin General skin exam: no rashes or lesions noted Neuro General: patient oriented x3 Objective Labs and Meds Result diagrams: 01/28/22 05:57 01/31/22 08:55 Lab results: Laboratory Results - last 24 hr 01/31/22 01/31/22 08:55 08:55 Sodium 128 L Potassium 3.7 D Chloride 95 L Carbon Dioxide 20 L Anion Gap 17 BUN 37 H Creatinine 2.27 H Estim Creat Clear Calc 23.9 Estimated GFR 22 Random Glucose 157 H Osmolality 277 L Calcium 8.9 Total Bilirubin 0.7 Direct Bilirubin 0.4 AST 28 ALT 28 Alkaline Phosphatase 65 Total Protein 6.6 Albumin 3.8 Free T4 1.16 Progress Note: A&P Assessment and plan (1) Paroxysmal atrial fibrillation: Status: Acute Assessment and Plan: Paroxysmal atrial fibrillation which has now resolved with rate control. Will continue rhythm control approach as she was symptomatic with atrial fibrillation. Continue metoprolol therapy. Continue Eliquis therapy given her risk. Outpatient workup with Holter monitor will be pursued. (2) Syncope and collapse: Status: Acute Assessment and Plan: Syncope most likely related to pain and vasovagal in nature. Will obtain Holter monitor as above. Also perform a myocardial perfusion imaging to run significant ischemic heart disease. Follow up in the clinic in 4 weeks time after above-mentioned workup. Thank you for allowing me to partake in her care. Will sign of the case Fall Risk Details Current Medications: Current Medications Acetaminophen (Acetaminophen 325 Mg Tablet) 650 mg PO Q6H PRN PRN Reason: Pain, Mild (Pain Scale 1-3) Last Admin: 01/30/22 00:59 Dose: 650 mg Documented by: Acetaminophen (Acetaminophen 325 Mg Tablet) 650 mg PO 5XD [facility] Last Admin: 01/31/22 14:32 Dose: 650 mg Documented by: Albuterol Sulfate (Albuterol Sulfate 90 Mcg 8 Gm Inhaler) 2 puff INHALE Q4H PRN PRN Reason: bronchospasm Last Admin: 01/31/22 14:35 Dose: 2 puff Documented by: Albuterol Sulfate (Albuterol Sulfate (0.083%) 2.5 Mg/3 Ml Vial.Neb) 2.5 mg INHALE ONCE PRN PRN Reason: Wheezing Amlodipine Besylate (Amlodipine Besylate 5 Mg Tablet) 5 mg PO DAILY [facility]; Protocol Last Admin: 01/31/22 08:01 Dose: 5 mg Documented by: Apixaban (Apixaban 5 Mg Tablet) 5 mg PO BID [facility] Last Admin: 01/31/22 08:01 Dose: 5 mg Documented by: Benzocaine (Throat Lozenge, Medicated Lozenge) 1 lozenge MUCOUS MEM Q2H PRN PRN Reason: Sore Throat Last Admin: 01/28/22 17:33 Dose: 1 lozenge Documented by: Fentanyl (Fentanyl Citrate/Pf 100 Mcg/2 Ml Vial) 25 mcg IVPUSH Q5M PRN; Protocol PRN Reason: Pain, Moderate (Pain Scale 4-6 Gabapentin (Gabapentin 600 Mg Tablet) 600 mg PO TID [facility] Last Admin: 01/31/22 14:32 Dose: 600 mg Documented by: Hydralazine HCl (Hydralazine Hcl 20 Mg/Ml Vial) 5 mg IVPUSH Q6H PRN; Protocol PRN Reason: SBP 180 Last Admin: 01/31/22 00:15 Dose: 5 mg Documented by: Hydromorphone HCl (Hydromorphone Hcl 0.5 Mg/0.5 Ml Syringe) 0.25 mg IVPUSH Q5M PRN; Protocol PRN Reason: Pain, Severe (Pain Scale 7-10) Methylprednisolone Sodium Succinate 1,000 mg/ Sodium Chloride 66 mls @ 66 mls/hr IV DAILY [facility] Last Infusion: 01/31/22 11:17 Dose: Infused Documented by: Promethazine HCl 12.5 mg/ (Sodium Chloride) 50.5 mls @ 202 mls/hr IV ONCE PRN PRN Reason: Nausea and Vomiting Lamotrigine (Lamotrigine 100 Mg Tablet) 200 mg PO DAILY [facility] Last Admin: 01/31/22 08:01 Dose: 200 mg Documented by: Melatonin (Melatonin 3 Mg Tablet) 6 mg PO BEDTIME PRN PRN Reason: Insomnia Memantine (Memantine Hcl 10 Mg Tablet) 10 mg PO BID [facility] Last Admin: 01/31/22 08:01 Dose: 10 mg Documented by: Metoprolol Tartrate (Metoprolol Tartrate 25 Mg Tablet) 25 mg PO Q6H [facility]; Protocol Last Admin: 01/31/22 14:32 Dose: 25 mg Documented by: Omeprazole (Omeprazole 20 Mg Capsule.) 20 mg PO DAILY@0630 [facility] Last Admin: 01/31/22 05:01 Dose: 20 mg Documented by: Ondansetron HCl (Ondansetron Hcl 4 Mg/2 Ml Vial) 4 mg IVPUSH Q8H PRN PRN Reason: Nausea and Vomiting Last Admin: 01/31/22 03:43 Dose: 4 mg Documented by: Ondansetron HCl (Ondansetron Odt 4 Mg Tab.Rapdis) 4 mg TRANSLINGU TID [facility] Last Admin: 01/31/22 14:32 Dose: 4 mg Documented by: Pharmacy Consult (Consult Rx Perform Med Rec) 1 each MISCELLANE ONCE PRN PRN Reason: Consult order Senna (Sennosides 8.6 Mg Tablet) 17.2 mg PO BEDTIME PRN PRN Reason: Constipation Sodium Chloride (0.9 % Sodium Chloride Flush 3 Ml Syringe) 3 ml IVFLUSH QSHIFT [facility] Last Admin: 01/31/22 14:36 Dose: 3 ml Documented by: Time Spent With Patient Time: Total time spent is greater than 50% in coordination of care (as documented) at patient's floor/unit and/or counseling patient: Time with patient: 15 - 24 minutes Progress Note: Quality Stroke Does the patient have a stroke diagnosis?: No Procedures Date of Service Date of Service: 01/31/22
--- NOTE | 2022-01-31 19:06 | PM.PNNEP ---
Subjective Subjective Date of Service: 01/31/22 Interval history: Seen and examined, events above noted Physical Exam Vital Signs: Vital Signs: Last Vital Signs Temp 98.3 F 01/31/22 18:49 Pulse 70 01/31/22 18:49 Resp 16 01/31/22 18:49 BP 130/66 01/31/22 18:49 Pulse Ox 98 01/31/22 18:49 BMI result Body Mass Index 29.2 Const: General: cooperative Orientation/consciousness: patient oriented x3 Limitations: no limitations HENMT: Ears: hearing grossly normal bilaterally Eyes: General: appearance normal, both eyes and all related structures Neck: Other: No midline cervical spinous tenderness Neck: Yes no meningeal signs Resp: Effort & Inspection: normal respiratory effort and no respiratory distress Auscultation: clear to auscultation bilaterally, no rales, no rhonchi and no wheezes Cardio: Rate: regular rate Heart sounds: S1 normal heart sound present and S2 normal heart sound present GI: Inspection: Yes normal to inspection Palpation (GI): Soft to palpation, Tenderness to palpation present (GI) in the LUQ, no guarding and not rigid : General: Yes no CVA tenderness Back/Spine/Pelvis: Other: No midline thoracic/lumbar spinous tenderness Back: no CVA tenderness Skin: Rashes: no rashes Wounds: no wounds Neuro: Other: No appreciable focal weakness General: patient oriented x3, moves all extremities, no meningeal signs and no focal motor deficits Motor exam (neuro): 5/5 motor strength present throughout Extrem: General: Yes normal to inspection and Yes no pedal edema Objective Data Labs CBC & Chem 7: 01/28/22 05:57 01/31/22 08:55 Labs: Laboratory Results - last 24 hr 01/31/22 01/31/22 08:55 08:55 Sodium 128 L Potassium 3.7 D Chloride 95 L Carbon Dioxide 20 L Anion Gap 17 BUN 37 H Creatinine 2.27 H Estim Creat Clear Calc 23.9 Estimated GFR 22 Random Glucose 157 H Osmolality 277 L Calcium 8.9 Total Bilirubin 0.7 Direct Bilirubin 0.4 AST 28 ALT 28 Alkaline Phosphatase 65 Total Protein 6.6 Albumin 3.8 Free T4 1.16 Procedures Date of Service Date of Service: 01/31/22 Assessment & Plan Assessment and plan (1) Syncope and collapse: Status: Acute (2) Abdominal pain: Status: Acute (3) Acute kidney injury superimposed on CKD: Status: Acute Plan 1. Non-Oliguric YOHANA: c/w Obs L kidney; now SCr decr close to bsl 2. CKD 4: BSL Scr 1.5-2.0; ques etiol--HTN vs other 3. L kidney Obs from stone: s/p urol intervention 4. HTN 5. HypoNa: quesexcess PO fluid intake and painassoc incr ADH 6. Pafib 7. MS REC: po fluidrestrcition; urine studies Na, osm, check uric acid level; am TSH cont to track UOP/renal func; avoid Ntoxins will follow with team Time Spent With Patient Time: Total time spent is greater than 50% in coordination of care (as documented) at patient's floor/unit and/or counseling patient: Progress Note: Quality Stroke Does the patient have a stroke diagnosis?: No
[2022-01-31 19:41] LABS: Anion Gap 18 (12-20); Carbon Dioxide 19 mmol/L (22-29); Chloride 94 mmol/L (96-108); Glucose Random 219 mg/dL (60-115); Potassium 4.2 mmol/L (3.3-5.1); Sodium 127 mmol/L (135-145)
[2022-02-01 01:24] LABS: Osmolality Urine 205 mosm/kg (373-1093)
[2022-02-01 01:46] LABS: Potassium Urine Random 18.1 mmol/L; Sodium Urine Random < 20.0 mmol/L
[2022-02-01 02:07] VITALS: BP 170/82; PULSE 76
[2022-02-01] MEDS: Metoprolol Tartrate 25 MG TABLET PO ×2 (02:07→08:55)
[2022-02-01] MEDS: ondansetron HCL 4 MG/2 ML VIAL IVPUSH (03:59)
[2022-02-01 04:06] VITALS: BP 178/86; PULSE 69; RESP 20; TEMP 36.8; O2SAT 99
[2022-02-01 05:55] LABS: Anion Gap 15 (12-20); Blood Urea Nitrogen 46 mg/dL (9-16); Carbon Dioxide 23 mmol/L (22-29); Chloride 97 mmol/L (96-108); Creatinine Clr Calc Pharmacy 25.2; Estimated Glomerular Filt Rate 23; Glucose Random 154 mg/dL (60-115); Potassium 4.4 mmol/L (3.3-5.1); Sodium 131 mmol/L (135-145)
[2022-02-01 06:17] LABS: TSH reflex Free T4 0.06 uIU/mL (0.32-4.0)
[2022-02-01] MEDS: Acetaminophen 325 MG TABLET 650 MG PO ×2 (06:27→09:09)
[2022-02-01] MEDS: Omeprazole 20 MG CAPSULE.DR PO (06:28)
[2022-02-01 07:49] VITALS: BP 163/78; PULSE 72; RESP 18; TEMP 36.6; O2SAT 97
[2022-02-01 07:54] LABS: Chloride Urine Random < 20.0 mmol/L
[2022-02-01 08:16] LABS: Triiodothyronine T3 Free 1.9 pg/mL (2.3-4.2)
[2022-02-01 08:50] LABS: Magnesium 2.1 mg/dL (1.6-2.6)
[2022-02-01] MEDS: Gabapentin 600 MG TABLET PO (08:54)
[2022-02-01] MEDS: amLODIPine Besylate 5 MG TABLET PO (08:54)
[2022-02-01] MEDS: 0.9 % Sodium Chloride Flush 3 ML SYRINGE IVFLUSH (08:54)
[2022-02-01] MEDS: Apixaban 5 MG TABLET PO (08:56)
[2022-02-01] MEDS: lamoTRIgine 100 MG TABLET 200 MG PO (08:57)
[2022-02-01] MEDS: Memantine HCl 10 MG TABLET PO (08:57)
[2022-02-01] MEDS: Ondansetron ODT 4 MG TAB.RAPDIS TRANSLINGU (08:58)
--- NOTE | 2022-02-01 09:11 | PM.DS ---
DS: Providers Provider Date of Service: 02/01/22 Date of admission: 01/27/22 22:59 Primary care physician: Cookie Sam MD Consults: 01/27/22 22:59 Consult to Nephrology Routine Consulting Provider: Navjot Holt Reason for consultation: YOHANA on CKD Consult to Neurology Routine Consulting Provider: [facility] Reason for consultation: hx MS; p/w Rec falls/ syncope Consult to Urology Routine Consulting Provider: Donal Ramon Reason for consultation: ureteral stone/hydronephrosis 01/28/22 09:46 Consult to Cardiology Routine Consulting Provider: Devante Cox Reason for consultation: Elevated troponin, for surgery tomorrow 01/28/22 12:15 Consult to Psychiatry Routine Consulting Provider: Psych Covering Reason for consultation: Depression 01/30/22 08:38 Consult to Cardiology Routine Consulting Provider: Bob Maier Reason for consultation: AFIB with RVR Has provider been notified: No DS: Diagnosis Discharge Diagnosis (1) Syncope and collapse: Status: Acute (2) Abdominal pain: Status: Acute (3) Acute kidney injury superimposed on CKD: Status: Acute DS: Summary Hospital Course Hospital Course: 66-year-old female with a past medical history of hypertension, hyperlipidemia, multiple sclerosis, asthma, GERD, history of hep C, history of renal calculi presented to the hospital today with a chief complaint of fall.? Patient reports that over the past 1-2 weeks she has been having increased falls, and this time associated with syncope.? Reports that when she tries to walk around she suddenly feels weak and falls onto the ground and has lost consciousness for few seconds.? Denies any seizure-like activity.? Denies any chest pain palpitations.? Denies any prodrome of symptoms.? Denies any postictal confusion is a.? Denies any fever chills cough.? Denies any urinary symptoms.? Review of all other systems is negative except mentioned above ER course: Per ER team patient was also noted to be confused with the family members and has been lately crawling in the house to move around; patient also complained of left upper quadrant abdominal pain and epigastric pain to the ER team.? Exam was nonfocal, CT head showed no acute findings; CT abdomen showed 7-9 mm left ureteral stone with moderate left hydronephrosis.? On labs noted to have YOHANA on CKD with creatinine increased to 3.8 from baseline 2.1.? EKG was nonischemic; initial troponin was 52nd troponin is pending.? Patient is oriented x3 to the ER team complain of chronic back pain no change in the pain.? Received Tylenol.? Admitted to the hospital for further management. Hospital course: Patient was admitted for AFib with RVR, YOHANA, MS flare possible, left ureteral calculus and hydronephrosis: AFib was treated with IV diltiazem-subsequently heart rate seems to be better under control and patient was switched to adjusted dose of metoprolol, continue amlodipine. Cardiology so saw the patient and recommended to continue metoprolol and Eliquis. Also syncope was thought to be vasovagal nature-cardiology may arrange outpatient appointment for further workup including Holter, and possible myocardial perfusion imaging. Possible MS flare: Patient was having falls and had MRI done and seen by neurology recommended-3 days of IV Solu-Medrol which was given and patient is improving-further management outpatient as per Neurology. PT recommended rehab. YOHANA on ckd seems to be improving with hydration, also patient had renal stent placement which might also have helped. follow-up with Urology Dr. Ramon in next 2 weeks. hyponatremia: probably related to increased fluid intake, seen by nephrology recommended fluid restriction 1800 mL a day, monitors BMP in rehab, consider outpatient nephrology evaluation if needed. Uncontrolled hypertension: metoprolol dose adjusted to 50 mg p.o. b.i.d., continue amlodipine monitor blood pressure improving ,moniter closely if needed these medication can be adjusted further if in rehab. possible euthyroid sick syndrome : tsh low , normal free t4 , low free t3: Please check TSH, free T4 and total T3 in 1 week in rehab, consider in endocrinology appointment, discussed with Dr. Lu in endocrinology clinic. Above management discussed with the patient in detail length she understand and in agreement with the above plan, time spent 50 minutes and 50% time spent on counseling. Significant findings: As above. Procedures performed: None. Treatment and response: As above. Complications: None. Time Spent with Patient Time attestation: Total time spent providing and/or coordinating discharge services: Discharge coordination time: Greater than 30 minutes Quality: Stroke Does the patient have a stroke diagnosis?: No Physical Exam Vital Signs: Vital Signs: Last Vital Signs Temp 97.8 F 02/01/22 07:49 Pulse 72 02/01/22 07:49 Resp 18 02/01/22 07:49 BP 163/78 H 02/01/22 07:49 Pulse Ox 97 02/01/22 07:49 BMI result Body Mass Index 29.2 General: AO X 3, no acute distress Resp:? CTA bilateral CVS: S1,S2,? irregular rythem. GI: +BS, NT, no distention Skin: No rash Neuro:? aox3,motor grossly intact. ext: no edema or cyanosis. Psych: appropriate affect DS: Data Data Completed and Pending Labs on day of discharge: Laboratory Results - last 24 hr 01/31/22 01/31/22 01/31/22 08:55 08:55 08:55 Sodium 128 L Potassium 3.7 D Chloride 95 L Carbon Dioxide 20 L Anion Gap 17 BUN 37 H Creatinine 2.27 H Estim Creat Clear Calc 23.9 Estimated GFR 22 Random Glucose 157 H Osmolality 277 L Calcium 8.9 Magnesium Total Bilirubin 0.7 Direct Bilirubin 0.4 AST 28 ALT 28 Alkaline Phosphatase 65 Total Protein 6.6 Albumin 3.8 TSH Free T4 1.16 Free T3 1.9 L Urine Osmolality Ur Random Sodium Ur Random Potassium Ur Random Chloride 01/31/22 01/31/22 01/31/22 19:23 23:45 23:45 Sodium 127 L Potassium 4.2 Chloride 94 L Carbon Dioxide 19 L Anion Gap 18 BUN Creatinine Estim Creat Clear Calc Estimated GFR Random Glucose 219 H Osmolality Calcium Magnesium Total Bilirubin Direct Bilirubin AST ALT Alkaline Phosphatase Total Protein Albumin TSH Free T4 Free T3 Urine Osmolality 205 L Ur Random Sodium < 20.0 Ur Random Potassium 18.1 Ur Random Chloride < 20.0 02/01/22 02/01/22 05:27 05:27 Sodium 131 L Potassium 4.4 Chloride 97 Carbon Dioxide 23 Anion Gap 15 BUN 46 H Creatinine 2.16 H Estim Creat Clear Calc 25.2 Estimated GFR 23 Random Glucose 154 H Osmolality Calcium 9.0 Magnesium 2.1 Total Bilirubin Direct Bilirubin AST ALT Alkaline Phosphatase Total Protein Albumin TSH 0.06 L Free T4 Free T3 Urine Osmolality Ur Random Sodium Ur Random Potassium Ur Random Chloride Additional Comments Additional comments: echo: Conclusions: - 1. Technically difficult study to interpret due to rapid atrial fibrillation ? 2.? Low normal LVEF of 50-55%? 3. Normal cardiac valvular Doppler ? 4. Mildly elevated right ventricular systolic pressure with? ? ? mildly elevated right atrial pressures ? 5. No gross pericardial effusion ? ? ?MR/MR cervical spine wo con IMPRESSION: MRI brain: 1. There has been marked interval increase in scattered areas of hyperintense T2 and FLAIR signal in the periventricular and with subcortical white matter, as well as in the crystal which may be consistent with areas of demyelination and/or chronic microvascular ischemic disease. None of these demonstrate restricted diffusion or enhancement to suggest acute demyelination or infarct. 2. There is diffuse volume loss. There are no acute bleeds or infarcts. There are no masses or areas of abnormal enhancement. ? MRI cervical spine: 1. The study redemonstrates mild spondylosis which is most prominent at C5-C6. There is mild central stenosis at C5-C6 and C6-C7, but there is no spinal cord compression. 2. There is severe neural foraminal narrowing bilaterally at C5-C6. 3. The spinal cord has normal signal. Discharge Plan Discharge Patient Disposition: [facility] Discharge Diagnosis: AFib with RVR, MS flare, YOHANA, renal stone. Referrals: Donal Ramon MD [Physician] - 1 Week (follow up outpatiently) Dora Lipscomb MD [Physician] - 1 Week (follow up outpatiently) Carla Gao DO [Physician] - 1 Week (Follow up outpatiently) Cookie Sam MD [Primary Care Provider] - 1 Week Bob Maier MD [Physician] - 1 Week (follow up outpatiently) Discharge Medications: New sennosides [Senna Lax] 8.6 mg Tablet 17.2 mg PO BEDTIME PRN (Reason: Constipation) Qty: 30 0RF Continued apixaban 5 mg tablet 5 mg PO BID Qty: 60 0RF amlodipine 5 mg tablet 5 mg PO DAILY Qty: 30 0RF metoprolol tartrate 25 mg tablet 25 mg PO BID Qty: 60 0RF omeprazole 20 mg capsule,delayed release(DR/EC) 1 cap PO DAILY 0RF ondansetron HCl 4 mg tablet 1 tab PO TID 0RF gabapentin 600 mg tablet 600 mg PO TID 0RF lamotrigine [Lamictal] 200 mg tablet 200 mg PO DAILY 0RF acetaminophen 500 mg tablet 500 mg PO 5XD 0RF memantine 10 mg tablet 10 mg PO BID 0RF albuterol sulfate [ProAir HFA] 90 mcg/actuation HFA aerosol inhaler 2 puff inhalation Q4-6H PRN (Reason: bronchospasm) 90 Days Qty: 3 1RF Changed metoprolol tartrate 25 mg tablet 50 mg PO BID Qty: 60 0RF Discharge Orders: Discharge Order (Routine); Ordered 02/01/22 Ordered By: Kristina Faustin Diet: advance to usual diet Activity on Discharge: As tolerated Stand Alone Forms: Patient Portal Discharge page Care Plan Goals: Patient was admitted for AFib with RVR, YOHANA, MS flare possible, left ureteral calculus and hydronephrosis: AFib was treated with IV diltiazem-subsequently heart rate seems to be better under control and patient was switched to adjusted dose of metoprolol, continue amlodipine. Cardiology so saw the patient and recommended to continue metoprolol and Eliquis. Also syncope was thought to be vasovagal nature-cardiology may arrange outpatient appointment for further workup including Holter, and possible myocardial perfusion imaging. Possible MS flare: Patient was having falls and had MRI done and seen by neurology recommended-3 days of IV Solu-Medrol which was given and patient is improving-further management outpatient as per Neurology. PT recommended rehab. YOHANA on ckd seems to be improving with hydration, also patient had renal stent placement which might also have helped. follow-up with Urology Dr. Ramon in next 2 weeks. hyponatremia: probably related to increased fluid intake, seen by nephrology recommended fluid restriction 1800 mL a day, monitors BMP in rehab, consider outpatient nephrology evaluation if needed. Uncontrolled hypertension: metoprolol dose adjusted to 50 mg p.o. b.i.d., continue amlodipine monitor blood pressure closely if needed these medication can be adjusted further if in rehab. possible euthyroid sick syndrome : tsh low , normal free t4 , low free t3: Please check TSH, free T4 and total T3 in 1 week in rehab, consider in endocrinology appointment, discussed with Dr. Lu in endocrinology clinic. Health Concerns: As above. Plan of Treatment: As above. Assessment: As above.
[2022-02-01 09:28] LABS: Free T4 (Free Thyroxine) 1.35 ng/dL (0.71-1.85)
[2022-02-01 09:50] LABS: COVID-19 Test Negative (Negative)
[2022-02-01 10:00] VITALS: O2SAT 98
--- NOTE | 2022-02-01 10:51 | PM.PNNEP ---
Subjective Subjective Date of Service: 02/01/22 Principal diagnosis: Atrial fibrillation with rapid ventricular response Interval history: Seen and examined, events above noted Physical Exam Vital Signs: Vital Signs: Last Vital Signs Temp 97.8 F 02/01/22 07:49 Pulse 72 02/01/22 07:49 Resp 18 02/01/22 07:49 BP 163/78 H 02/01/22 07:49 Pulse Ox 98 02/01/22 10:00 BMI result Body Mass Index 29.2 Const: General: cooperative Orientation/consciousness: patient oriented x3 Limitations: no limitations HENMT: Ears: hearing grossly normal bilaterally Eyes: General: appearance normal, both eyes and all related structures Neck: Other: No midline cervical spinous tenderness Neck: Yes no meningeal signs Resp: Effort & Inspection: normal respiratory effort and no respiratory distress Auscultation: clear to auscultation bilaterally, no rales, no rhonchi and no wheezes Cardio: Rate: regular rate Heart sounds: S1 normal heart sound present and S2 normal heart sound present GI: Inspection: Yes normal to inspection Palpation (GI): Soft to palpation, Tenderness to palpation present (GI) in the LUQ, no guarding and not rigid : General: Yes no CVA tenderness Back/Spine/Pelvis: Other: No midline thoracic/lumbar spinous tenderness Back: no CVA tenderness Skin: Rashes: no rashes Wounds: no wounds Neuro: Other: No appreciable focal weakness General: patient oriented x3, moves all extremities, no meningeal signs and no focal motor deficits Motor exam (neuro): 5/5 motor strength present throughout Extrem: General: Yes normal to inspection and Yes no pedal edema Objective Data Labs CBC & Chem 7: 01/28/22 05:57 02/01/22 05:27 Labs: Laboratory Results - last 24 hr 01/31/22 01/31/22 01/31/22 08:55 08:55 08:55 Sodium Potassium Chloride Carbon Dioxide Anion Gap BUN Creatinine Estim Creat Clear Calc Estimated GFR Random Glucose Osmolality 277 L Calcium Magnesium Total Bilirubin 0.7 Direct Bilirubin 0.4 AST 28 ALT 28 Alkaline Phosphatase 65 Total Protein 6.6 Albumin 3.8 TSH Free T4 1.16 Free T3 1.9 L Urine Osmolality Ur Random Sodium Ur Random Potassium Ur Random Chloride COVID-19 ([facility]) COVID-19 Clin Com 01/31/22 01/31/22 01/31/22 19:23 23:45 23:45 Sodium 127 L Potassium 4.2 Chloride 94 L Carbon Dioxide 19 L Anion Gap 18 BUN Creatinine Estim Creat Clear Calc Estimated GFR Random Glucose 219 H Osmolality Calcium Magnesium Total Bilirubin Direct Bilirubin AST ALT Alkaline Phosphatase Total Protein Albumin TSH Free T4 Free T3 Urine Osmolality 205 L Ur Random Sodium < 20.0 Ur Random Potassium 18.1 Ur Random Chloride < 20.0 COVID-19 ([facility]) COVID-19 Clin Com 02/01/22 02/01/22 02/01/22 05:27 05:27 09:21 Sodium 131 L Potassium 4.4 Chloride 97 Carbon Dioxide 23 Anion Gap 15 BUN 46 H Creatinine 2.16 H Estim Creat Clear Calc 25.2 Estimated GFR 23 Random Glucose 154 H Osmolality Calcium 9.0 Magnesium 2.1 Total Bilirubin Direct Bilirubin AST ALT Alkaline Phosphatase Total Protein Albumin TSH 0.06 L Free T4 1.35 Free T3 Urine Osmolality Ur Random Sodium Ur Random Potassium Ur Random Chloride COVID-19 ([facility]) Negative COVID-19 Clin Com See Note Procedures Date of Service Date of Service: 02/01/22 Assessment & Plan Assessment and plan (1) Syncope and collapse: Status: Acute (2) Abdominal pain: Status: Acute (3) Acute kidney injury superimposed on CKD: Status: Acute Plan 1. Non-Oliguric YOHANA: c/w Obs L kidney; now SCr decr close to bsl 2. CKD 4: BSL Scr 1.5-2.0; ques etiol--HTN vs other 3. L kidney Obs from stone: s/p urol intervention 4. HTN 5. HypoNa: admits to drinking lots of water Sna better this am on PO fluid restrition 6. Pafib 7. MS REC: liberalize po po fluid restrcition [id number] and recheck SNa; avoid Ntoxins I will arrange f/u with Dr Holt as outpt will follow with team Time Spent With Patient Time: Total time spent is greater than 50% in coordination of care (as documented) at patient's floor/unit and/or counseling patient: Progress Note: Quality Stroke Does the patient have a stroke diagnosis?: No
[2022-02-02 08:21] LABS: Triiodothyronine T3 Total 85 ng/dL (76-181)
== END 2022-02-01 12:00 | disposition skilled nursing facility (03) | DRG 660 ==
LOC: HO.ED 19:30 → HO.EDOVER 23:09 → HO.IMC 01-28 00:15
PROVIDERS: Internal Medicine; Internal Medicine Nephrology; Physician Assistant; Urology; Admitting Provider Hospitalist; Emergency Provider Emergency Medicine Emergency Medical Services; PCP Internal Medicine; Visit Provider Internal Medicine
PROC: 0T778ZZ Dilation of Left Ureter, Via Natural or Artificial Opening Endoscopic (ICD-10-PCS; principal; 2022-01-29 09:30)
DX: N13.2 Hydronephrosis with renal and ureteral calculous obstruction (principal); E87.1 Hypo-osmolality and hyponatremia; G35 Multiple sclerosis; N17.9 Acute kidney failure, unspecified; I12.9 Hypertensive chronic kidney disease with stage 1 through stage 4 chronic kidney disease, or unspecified chronic kidney disease; E78.5 Hyperlipidemia, unspecified; R29.6 Repeated falls; N18.2 Chronic kidney disease, stage 2 (mild); F31.9 Bipolar disorder, unspecified; G89.29 Other chronic pain; R55 Syncope and collapse; I48.91 Unspecified atrial fibrillation; E07.81 Sick-euthyroid syndrome; Z91.81 History of falling; Z86.19 Personal history of other infectious and parasitic diseases; Z20.822 Contact with and (suspected) exposure to COVID-19; Z88.0 Allergy status to penicillin; Z88.5 Allergy status to narcotic agent; Z79.01 Long term (current) use of anticoagulants; Z79.899 Other long term (current) drug therapy
CPT/HCPCS: 36415; 70450; 70551; 71045; 72141; 74176; 80048; 80051; 80076; 81003; 82436; 82947; 83690; 83735; 83930; 83935; 84133; 84300; 84439; 84443; 84480; 84481; 84484; 85025; 85652; 86140; 87635; 93005; 93306; 96361; 96374; 97162; 97166; 99285; C1769; C2617; J1100; J1580; J2405; J2930; J3010; Q9967

== ENCOUNTER 2022-02-08 16:23 | Outpatient (REF) | payer MEDICARE, SELFPAY ==
[2022-02-08 17:08] LABS: MANUAL DIFF FLAG NO
[2022-02-08 17:38] LABS: Basophils Percent Auto 0.3 % (0-2); Eosinophils Absolute Auto 0.3 X10*3/uL (0.0-0.4); Eosinophils Percent Auto 2.4 % (0-4); Hematocrit 41.4 % (37.0-47.0); Hemoglobin 13.1 g/dl (12.0-16.0); Imm Gran Abs Auto 0.08 X10*3/uL (0.00-0.03); Imm Gran Pct Auto 0.7 % (0.0-0.4); Lymphocytes Absolute Auto 2.9 X10*3/uL (1.2-4.9); Lymphocytes Percent Auto 24.7 % (20-40); Mean Corpuscular HGB Conc 31.6 g/dl (31.0-35.0); Mean Corpuscular Hemoglobin 29.3 pg (27.0-33.0); Mean Corpuscular Volume 92.6 fL (80.0-98.0); Mean Platelet Volume 10.4 fL (9.4-12.3); Monocytes Absolute Auto 1.1 X10*3/uL (0.1-1.2); Monocytes Percent Auto 9.4 % (2-11); Neutrophils Absolute Auto 7.4 x10*3/uL (2.0-8.3); Neutrophils Percent Auto 62.5 % (45-73); Platelet Count 456 X10*3/uL (160-400); Red Blood Count 4.47 X10*6/uL (4.20-5.50); Red Cell Distribution Width 13.2 % (11.0-16.0); White Blood Count 11.9 X10*3/uL (4.8-10.8)
[2022-02-08 17:41] LABS: Appearance Urine HAZY; Color Urine OTHER; Glucose Urine UA NEG (NEG); Leukocyte Esterase Urine 2+ (NEG); Nitrite Urine NEG (NEG); Urine Blood 3+ (NEG); Urine Ketones NEG (NEG); Urine Protein 2+ MG/DL (NEG-TRACE)
[2022-02-08 17:50] LABS: Bacteria Urine 1+ /LPF; RBC Urine 30-49 /HPF (0)
[2022-02-08 18:45] LABS: Creatinine Urine 74.45 mg/dL; Protein/Creatinine Ratio, Ur 0.74 (<0.2); Total Protein Urine Random 55 mg/dL (<12)
[2022-02-08 18:47] LABS: Alanine Aminotransferase 21 U/L (0-31); Alkaline Phosphatase 58 U/L (39-117); Anion Gap 16 (12-20); Aspartate Amino Transferase 20 U/L (5-31); Bilirubin Direct 0.3 mg/dL (0.0-0.5); Bilirubin Total 0.6 mg/dL (0.0-1.0); Blood Urea Nitrogen 33 mg/dL (9-16); Calcium 9.5 mg/dL (8.4-10.2); Carbon Dioxide 21 mmol/L (22-29); Chloride 106 mmol/L (96-108); Estimated Glomerular Filt Rate 25; Potassium 4.1 mmol/L (3.3-5.1); Rheumatoid Factor < 15.0 IU/mL (<15.0); Sodium 139 mmol/L (135-145); Total Protein 6.8 g/dL (6.5-8.0); Uric Acid 7.1 mg/dL (2.4-5.7)
[2022-02-08 19:07] LABS: Vitamin D 25-OH Total 84.7 ng/mL (>30)
[2022-02-10 09:17] LABS: Complement C3 147 mg/dL (83-193)
[2022-02-10 16:06] LABS: Calcium (PTHI) 9.3 mg/dL (8.6-10.4); PTHI 101 pg/mL (16-77)
[2022-02-12 08:31] LABS: HCV Log PCR <1.18 NOT DETECTED Log IU/mL (NOT DETECTED); HepC Viral Load <15 NOT DETECTED IU/mL (NOT DETECTED)
[2022-02-13 13:31] LABS: Prot Elec - Albumin 3.8 g/dL (3.8-4.8); Prot Elec - Alpha1 0.4 g/dL (0.2-0.3); Prot Elec - Alpha2 1.1 g/dL (0.5-0.9); Prot Elec - Beta 1 0.5 g/dL (0.4-0.6); Prot Elec - Beta 2 0.3 g/dL (0.2-0.5); Prot Elec - Gamma 0.8 g/dL (0.8-1.7); Prot Elec - Total Protein 6.8 g/dL (6.1-8.1)
[2022-02-14 14:51] LABS: Neutrophil Cyto Ab Screen NEGATIVE (NEGATIVE)
== END 2022-02-08 16:24 | disposition home or self-care (01) ==
LOC: HO.LAB 16:23
PROVIDERS: Absent Provider Internal Medicine; PCP Internal Medicine; Visit Provider Internal Medicine Nephrology
DX: B18.2 Chronic viral hepatitis C (principal); I12.9 Hypertensive chronic kidney disease with stage 1 through stage 4 chronic kidney disease, or unspecified chronic kidney disease; N18.32 Chronic kidney disease, stage 3b; N17.9 Acute kidney failure, unspecified
CPT/HCPCS: 36415; 80051; 80076; 81001; 82306; 82310; 82565; 82595; 83970; 84156; 84165; 84520; 84550; 85025; 86036; 86037; 86160; 86431; 87522

== ENCOUNTER → 2022-02-15 14:53 | Outpatient (BNVA) | payer MEDICARE, SELFPAY | PROVIDERS: PCP Internal Medicine; Visit Provider Urology | DX: N20.0 Calculus of kidney (principal) | CPT/HCPCS: Q3014 ==

== ENCOUNTER → 2022-02-17 07:39 | Outpatient (REF) | payer MEDICARE, SELFPAY ==
--- NOTE | ~2022-02-17 | NM_ITS ---
Lexiscan Myocardial perfusion study Indication: Proximal atrial fibrillation, assess for coronary disease and ischemia Technique: The patient was brought in for a Lexiscan perfusion study on 02/17/2022 and was injected 0.4 mg of Lexiscan intravenously. Within a minute of this injection 25 mCi of sestamibi was given intravenously. Images were obtained using the SPECT gamma camera interlaced with the gating device. Images were obtained in supine position. Resting perfusion study was performed on 02/20/2022. Patient was administered 25 mCi of sestamibi intravenously at rest. Images were then obtained in supine position. Total DLP 100mGy-cm. Images were processed with the software and compared side to side in short axis, horizontal long axis and vertical long axis views. Findings: Raw acquisition was reviewed. The stress perfusion study showed no significant perfusion abnormality. Both uncorrected as well as CT attenuation corrected images were reviewed. The gated study shows normal LV systolic function with calculated LVEF of 68%. LV cavity is normal in size. The gated study shows normal wall thickening and contraction of segments. Resting study shows no significant perfusion abnormality. Gating at rest reveals normal wall motion with ejection fraction at 53%. The findings are consistent with no reversible or fixed perfusion abnormality. NM/NM mily perf SPECT rest & str Impression: 1. Myocardial perfusion imaging study shows normal myocardial perfusion. No evidence of any ischemia or infarction. 2. Gated LVEF is 68% during stress and 53% during rest. 3. Transient ischemic dilatation not present. EKG component of the test reported separately.
--- NOTE | 2022-02-17 07:43 | CA_ITS ---
Acquisition Time: 2022-02-17 08:40:31 Total Exercise Time: 00:02:00 Test Indications: CP, SOB Medications: SEE CHART Protocol: LEXISCAN Max HR: 077 BPM 49% of Pred: 155 BPM Max BP: 146/086 mmHG Max Work Load: 1.0 METS Pharmacologcial stress test with Lexiscan injection, while sitting and kicking her legs, without anginal symptoms, without arrythmia, with normotensive response to injection, with horizontal ST depression inferiorly and downsloping ST depression V5-V6 in setting of baseline ST abnormality, possible ischemia noted. In recovery she reported some lightheadedness and nausea that was treated with Aminophylline 75mg IVP to reverse Lexiscan with resolution of symptoms. EKG changes gradually improved to baseline. Nuclear images pending. Test reviewed with Dr Cox. Referred By: Bob Maier Overread By: CRISPIN JIMÉNEZ
--- NOTE | 2022-02-17 07:43 | HM_ITS ---
Conclusion: 1. Patient was monitored for total period of 5 days and 7 hours 2. Baseline was normal sinus rhythm with average heart rate 59 beats per minute the bradycardic side 3. No significant pauses noted 4. Thirteen short bursts of SVT noted, longest lasting 10 beats. 5. No sustained episodes of atrial fibrillation 6. Total of 1359 PVCs accounting for 0.25% total burden account for occasional PACs 7. Patient reported symptoms, all of them correlated with sinus rhythm MTDD
--- NOTE | 2022-02-17 07:44 | CA_ITS ---
Transthoracic Echocardiogram Patient (Last, First, Middle): Francesca Ford E Gender: Female Date of : 1955 Age: 66 Procedure Date: 02/17/2022 Procedure Type: Transthoracic Echocardiogram Location: OP Height: 160.02 cm Weight: 73.62 kg BSA: 1.77 m2 Heart Rate: bpm BP: 120 / 84 mmHg Senior Inspector: ALEX Referring MD: Bob Maier MD Symptoms: I48.0 PAF, R55 SYNCOPE COLLAPSE R77.9 PLASMA ABN Conclusions: - Normal left ventricular size and systolic function. There is mildly increased left ventricular wall thickness. The visually estimated ejection fraction is between 65-70%. - Normal right ventricular cavity size and systolic function. Findings Left Ventricle Normal left ventricular size and systolic function. There is mildly increased left ventricular wall thickness. The visually estimated ejection fraction is between 65-70%. There is no evidence of regional wall motion abnormalities. Diastolic function is indeterminate on the basis of available data. Right Ventricle Normal right ventricular cavity size and systolic function. Mitral Valve There is mild anterior and posterior mitral leaflet thickening. Pericardium/Pleural There is no evidence of pericardial effusion. Prior Study Comparison Changes noted compared to prior study dated: 01/30/2022. EF 65-70% Measurements 2D Linear Measurements IVSd: 1.09 0.6-0.9/0.6-1.0 cm LVIDd: 4.56 3.9-5.3/4.2-5.9 cm LVIDd Index: 2.58 2.4-3.2/2.2-3.1 cm/m2 LVIDs: 2.82 2.0-3.6 cm LVPWd: 0.98 0.7-1.1 cm LV Mass: 204.89 67-162/88-224 g LV Mass Index: 115.76 43-95/49-115 g/m2 2D Systolic Function EF 4C: 75.10 >55% EF 2C: 69.70 >55% EF BiP: 72.40 >55% Mitral Valve MV Pk E: 0.65 MV PK A: 0.31 MV Decel Time: 169.00 E/A: 2.10 E'Lateral: 8.16 E'Medial: 6.64 E/E' Med: 9.80 E/E' Lat: 8.00 PHT: 50.00 MVA PHT: 4.40 Decel Vinton: 3.85 Diastolic Function MV Pk E: 0.65 MV Pk A: 0.31 E/A: 2.10 E'Medial: 6.64 E/E' Med: 9.80 E' Laterial: 8.16 E/E' Lat: 8.00 Right Ventricle TAPSE (mm): 2.56 TVS' Nicholas: 13.70 Updated in Other Vendor System with Status of Final Devante Cox MD electronically signed on 02/19/2022 9:45:38 PM with status of Final
== END ==
LOC: HO.CARD 07:39
PROVIDERS: Visit Provider Internal Medicine Cardiovascular Disease
DX: Z01.818 Encounter for other preprocedural examination (principal); R55 Syncope and collapse; I48.0 Paroxysmal atrial fibrillation; R77.8 Other specified abnormalities of plasma proteins
CPT/HCPCS: 78452; 93017; 93242; 93308; A9500; J0280; J2785

== ENCOUNTER 2022-03-01 07:59 | Day surgery (SDC) | payer MEDICARE, SELFPAY ==
[2022-02-27 10:10] VITALS: BMI 28.8
--- NOTE | 2022-02-27 13:34 | HO.ANESPROP2 ---
Documented by User: Consuelo Orona NP 02/27/22 13:49 HPI - Anesthesia Eval Consult details Narrative: 66yo F for Left Lithotripsy ESW s/p cysto, etc 01/2022 with GA-LMA 4 (was deemed intermediate risk by cardiology for inpatient procedure) 02/01/22 [facility] admit with YOHANA 2/2 obstructive uropathy, new onset afib with RVR (decrease rate with IV cardizem) Eliquis for afib *Multiple med allergies* [facility] Active Problems Active Problems: All Active Problems (Updated 02/27/22 @ 10:37 by Adore Gomez, SHAHRIAR) Pulmonary nodules (Acute) Liver cyst (Acute) Renal cyst (Acute) Fibromyalgia (Acute) DDD (degenerative disc disease) (Acute) Nausea (Acute) Lumbar disc disease (Acute) Medicare annual wellness visit, initial (Acute) Fibroid (Acute) Chronic kidney disease (Acute) Generalized anxiety disorder (Acute) Chronic hepatitis C (Acute) Screening for osteoporosis (Acute) Mammogram declined (Acute) Cervical cancer screening declined (Acute) Low back pain (Acute) Multiple sclerosis exacerbation (Acute) Syncope and collapse (Acute) Abdominal pain (Acute) Acute kidney injury superimposed on CKD (Acute) Kidney stone (Acute) Elevated troponin (Acute) Multiple sclerosis (Acute) Age-related osteoporosis without current pathological fracture (Acute) Euthyroid sick syndrome (Acute) Hospital discharge follow-up (Acute) Renal calculi (Acute) YOHANA (acute kidney injury) (Acute) Hyperlipidemia (Acute) Hyponatremia (Acute) Paroxysmal atrial fibrillation (Acute) History of renal calculi (Acute) GERD (gastroesophageal reflux disease) (Acute) Obesity (Acute) Hypertension (Acute) Multiple sclerosis (Acute) Asthma (Acute) Past Medical History Medical History (Updated 03/01/22 @ 15:34 by Cookie Sam MD) Allergic rhinitis Asthma Chronic kidney disease, stage 3b Closed right clavicular fracture GERD (gastroesophageal reflux disease) Hepatitis C History of panic attacks History of renal calculi Hypertension Lumbar radiculopathy Multiple sclerosis Obesity Paroxysmal atrial fibrillation Family History Family History Father Prostate cancer Myocardial infarction Mother Breast cancer Paternal Aunt Myocardial infarction Paternal Uncle Myocardial infarction Family history of problems with anesthesia: No Surgical History Surgical History History of esophagogastroduodenoscopy (EGD) History of gynecologic surgery History of lithotripsy History of liver biopsy History of verrucae (wart) excision Hx of colonoscopy Hx of wisdom tooth extraction History of Problems with Anesthesia: No Social History Social History Household Members: None Housing: Apartment Are you a primary director of critical care to a significant other at home: No Do you presently have visiting nurse or other home services: Yes (PT, OT, VNA) Alcohol intake: never Patient Tobacco Use Status: Former Tobacco user Quit Date: 1978 Tobacco use type: Cigarette Years Smoked: 8 e-Cigarette/Vaping Use: Never Used service: No Current occupational status: retired Cognitive needs: No Hearing needs: No Vision needs: No Meds Allergies Allergy/AdvReac Type Severity Reaction Status Date / Time escitalopram [From LEXAPRO] Allergy Severe STOMACH Verified 03/07/22 15:07 UPSET, abd pain lisinopril [LISINOPRIL] Allergy Severe SWELLING, Verified 03/07/22 15:07 Leg swelling desipramine [Desipramine] Allergy Intermediate PALPITATIONS, Verified 03/07/22 15:07 clammy skin diphenhydramine Allergy Intermediate PALPITATIONS/CLAMMY Verified 03/07/22 15:07 [From Benadryl] SKIN duloxetine [From CYMBALTA] Allergy Intermediate STOMACH Verified 03/07/22 15:07 UPSET, abd pain Penicillins Allergy Intermediate Rash Verified 03/07/22 15:07 carbamazepine [From TEGRETOL] AdvReac Severe BLACKOUT, Verified 03/07/22 15:07 SEVERE INTOXICATION oxycodone [From Percocet] AdvReac Severe N/V, Verified 03/07/22 15:07 projectile vomiting fluoxetine [From Prozac] AdvReac Intermediate PARKINSON Verified 03/07/22 15:07 SYMPTOMS garlic AdvReac Intermediate IBS Verified 03/07/22 15:07 SYMPTOMS Home Medications Medication Instructions Recorded Confirmed Last Taken Type lamotrigine 200 mg tablet 200 mg PO DAILY 11/02/20 02/27/22 01/27/22 History (Lamictal) memantine 10 mg tablet 10 mg PO BID 10/11/21 02/27/22 01/27/22 History acetaminophen 500 mg tablet 500 mg PO 5XD 01/27/22 02/27/22 01/27/22 History ondansetron HCl 4 mg tablet 1 tab PO TID 01/27/22 02/27/22 01/27/22 History amlodipine 10 mg tablet 10 mg PO DAILY 02/15/22 02/27/22 03/01/22 History omeprazole 40 mg capsule,delayed 40 mg PO DAILY 02/15/22 02/27/22 03/01/22 History release alprazolam 0.25 mg tablet 0.125 - 0.25 mg PO DAILY PRN 03/07/22 Unknown History citalopram 10 mg tablet 10 mg PO DAILY tab 03/07/22 Unknown History gabapentin 600 mg tablet 300 mg PO TID tab 03/07/22 Unknown History Exam Exam Date and Time: February 27, 2022 1334 Height,Weight and Vital Signs: Height 5 ft 3 in Weight 73.709 kg Pertinent Lab Results Pertinent Lab Results: Laboratory Tests 02/08/22 02/08/22 17:05 17:05 WBC 11.9 H Hgb 13.1 Hct 41.4 Plt Count 456 H D Sodium 139 Potassium 4.1 Chloride 106 Carbon Dioxide 21 L BUN 33 H Creatinine 1.99 H Narrative Narrative: ECHO 02/17/22 Conclusions: - Normal left ventricular size and systolic function. There is ? mildly increased left ventricular wall thickness.? The visually? estimated ejection fraction is between 65-70%. ? - Normal right ventricular cavity size and systolic function.? ? NM mily perf SPECT rest & str 02/17/22 Impression: ? 1.? Myocardial perfusion imaging study shows normal myocardial perfusion. No evidence of any ischemia or infarction. 2.? Gated LVEF is 68% during stress and 53% during rest. 3. Transient ischemic dilatation not present. ? EKG component of the test reported separately. EKG 01/27/22 Vent. Rate : 083 BPM ? ? Atrial Rate : 083 BPM ?? P-R Int : 116 ms? QRS Dur : 070 ms ? ? QT Int : 378 ms ? ? ? P-R-T Axes : 018 001 083 degrees ?? QTc Int : 444 ms ? Normal sinus rhythm Left ventricular hypertrophy with repolarization abnormality ( R in aVL , Sokolow-Brantley ) Abnormal ECG When compared with ECG of 24-DEC-2018 20:45, Criteria for Anteroseptal infarct are no longer Present T wave inversion now evident in Lateral leads Assessment and Plan Assessment Anesthesia Assessment: Chart Reviewed Final Anesthetic Review Family History of Problems with Anesthesia: No History of Problems with Anesthesia: No Documented by User: Collin Jamil MD 03/07/22 23:57 HPI - Anesthesia Eval Consult details Narrative: 66yo F for Left Lithotripsy ESW s/p cysto, etc 01/2022 with GA-LMA 4 (was deemed intermediate risk by cardiology for inpatient procedure) 02/01/22 [facility] admit with YOHANA 2/2 obstructive uropathy, new onset afib with RVR (decrease rate with IV cardizem) Eliquis for afib, on hold for procedure patient is high risk for Cardiovascular standpoint . *Multiple med allergies* [facility] Past Medical History Medical History (Updated 03/01/22 @ 15:34 by Cookie Sam MD) Allergic rhinitis Asthma Chronic kidney disease, stage 3b Closed right clavicular fracture GERD (gastroesophageal reflux disease) Hepatitis C History of panic attacks History of renal calculi Hypertension Lumbar radiculopathy Multiple sclerosis Obesity Paroxysmal atrial fibrillation Family History Family History Father Prostate cancer Myocardial infarction Mother Breast cancer Paternal Aunt Myocardial infarction Paternal Uncle Myocardial infarction Surgical History Surgical History History of esophagogastroduodenoscopy (EGD) History of gynecologic surgery History of lithotripsy History of liver biopsy History of verrucae (wart) excision Hx of colonoscopy Hx of wisdom tooth extraction Social History Social History Household Members: None Housing: Apartment Are you a primary director of critical care to a significant other at home: No Do you presently have visiting nurse or other home services: Yes (PT, OT, VNA) Alcohol intake: never Patient Tobacco Use Status: Former Tobacco user Quit Date: 1978 Tobacco use type: Cigarette Years Smoked: 8 e-Cigarette/Vaping Use: Never Used service: No Current occupational status: retired Cognitive needs: No Hearing needs: No Vision needs: No Meds Allergies Allergy/AdvReac Type Severity Reaction Status Date / Time escitalopram [From LEXAPRO] Allergy Severe STOMACH Verified 03/07/22 15:07 UPSET, abd pain lisinopril [LISINOPRIL] Allergy Severe SWELLING, Verified 03/07/22 15:07 Leg swelling desipramine [Desipramine] Allergy Intermediate PALPITATIONS, Verified 03/07/22 15:07 clammy skin diphenhydramine Allergy Intermediate PALPITATIONS/CLAMMY Verified 03/07/22 15:07 [From Benadryl] SKIN duloxetine [From CYMBALTA] Allergy Intermediate STOMACH Verified 03/07/22 15:07 UPSET, abd pain Penicillins Allergy Intermediate Rash Verified 03/07/22 15:07 carbamazepine [From TEGRETOL] AdvReac Severe BLACKOUT, Verified 03/07/22 15:07 SEVERE INTOXICATION oxycodone [From Percocet] AdvReac Severe N/V, Verified 03/07/22 15:07 projectile vomiting fluoxetine [From Prozac] AdvReac Intermediate PARKINSON Verified 03/07/22 15:07 SYMPTOMS garlic AdvReac Intermediate IBS Verified 03/07/22 15:07 SYMPTOMS Home Medications Medication Instructions Recorded Confirmed Last Taken Type lamotrigine 200 mg tablet 200 mg PO DAILY 11/02/20 02/27/22 01/27/22 History (Lamictal) memantine 10 mg tablet 10 mg PO BID 10/11/21 02/27/22 01/27/22 History acetaminophen 500 mg tablet 500 mg PO 5XD 01/27/22 02/27/22 01/27/22 History ondansetron HCl 4 mg tablet 1 tab PO TID 01/27/22 02/27/22 01/27/22 History amlodipine 10 mg tablet 10 mg PO DAILY 02/15/22 02/27/22 03/01/22 History omeprazole 40 mg capsule,delayed 40 mg PO DAILY 02/15/22 02/27/22 03/01/22 History release alprazolam 0.25 mg tablet 0.125 - 0.25 mg PO DAILY PRN 03/07/22 Unknown History citalopram 10 mg tablet 10 mg PO DAILY tab 03/07/22 Unknown History gabapentin 600 mg tablet 300 mg PO TID tab 03/07/22 Unknown History Exam Airway Mallampati Class: III TM Dist: >3cm Neck ROM: Full Loose/Missing/Broken Teeth: Yes Heart: S1, S2 Lungs: b/l breath sounds Assessment and Plan Assessment Anesthesia Assessment: Anesthesia Plan Discussed Final Anesthetic Review NPO: Yes ASA Class: III Final Preanesthetic Review: Meds/Allgs Chart Reviewed, Consent Obtained/Reviewed and Anes Risks/Benef Reviewed Patient Risk: High Procedure Risk: Intermediate Anesthetic Plan Anesthetic Plan: GA Disposition: Standard PACU
[2022-03-01] VITALS (7 sets, daily range): BP systolic 126–156; BP diastolic 59–79; PULSE 56–64; RESP 7–18; TEMP 36.2–36.8; O2SAT 96–100
--- NOTE | ~2022-03-01 | XR_ITS ---
EXAMINATION: XR ABDOMEN KUB CLINICAL INDICATION: Nephrolithiasis COMPARISON: CT abdomen and pelvis 01/27/2022. TECHNIQUE: AP view of the abdomen. FINDINGS: There is a left ureteral stent in place with a radiopaque calculi in the lower pole of the calyx left kidney measuring 8mm. No additional radiopaque calculi seen along the course of the stent. There is mild/moderate stool seen throughout the colon. There is no organomegaly. No gross bony abnormality. XR/XR KUB IMPRESSION: Left ureteral stent is noted. There is a radiopaque 8 mm calculi lower pole calyx left kidney. On previous CT, the same calculi was seen in the left kidney pelvis on previous CT abdomen exam..
[2022-03-01] MEDS: Lactated Ringers 1,000 ML 50 ML IVCONT (09:03)
[2022-03-01] MEDS: Acetaminophen 325 MG TABLET 650 MG PO (09:03)
--- NOTE | 2022-03-01 10:22 | MHC.SHP ---
Pre-Procedural Eval Section A Date of Service: 03/01/22 The patient is an INPATIENT: No Changes since office visit: No Cold of Flu in the past 2 weeks, No New Medical Problems, No Changes in Medication and No Patient answered all questions The History & Physical has been completed within 30 days and I have reviewed it.: Yes Section B Chief Complaint: Calculus of kidney Details of Present Illness: left kidney stone with indwelling stent Relevant Family History (Specify if Yes): No Relevant Social History: None Present Medications: see Short Stay Collaborative assessment Medical History: No relevant PMH History of Previous Operations: Relevant previous surgery/procedure and date(s) Allergies: Allergies Allergy/AdvReac Type Severity Reaction Status Date / Time escitalopram [From LEXAPRO] Allergy Severe STOMACH Verified 02/27/22 10:07 UPSET, abd pain lisinopril [LISINOPRIL] Allergy Severe SWELLING, Verified 02/27/22 10:07 Leg swelling desipramine [Desipramine] Allergy Intermediate PALPITATIONS, Verified 02/27/22 10:07 clammy skin diphenhydramine Allergy Intermediate PALPITATIONS/CLAMMY Verified 02/27/22 10:07 [From Benadryl] SKIN duloxetine [From CYMBALTA] Allergy Intermediate STOMACH Verified 02/27/22 10:07 UPSET, abd pain Penicillins Allergy Intermediate Rash Verified 02/27/22 10:07 carbamazepine [From TEGRETOL] AdvReac Severe BLACKOUT, Verified 02/27/22 10:07 SEVERE INTOXICATION oxycodone [From Percocet] AdvReac Severe N/V, Verified 02/27/22 10:07 projectile vomiting fluoxetine [From Prozac] AdvReac Intermediate PARKINSON Verified 02/27/22 10:07 SYMPTOMS garlic AdvReac Intermediate IBS Verified 02/27/22 10:07 SYMPTOMS Review of Systems Sugical H&P ROS: Negative: Constitution, Cardiovascular, Respiratory, Neurological, Psychiatric, Hem-Onc, Allergic/Immunologic, Gastrointestinal, Genitourinary, Musculoskeletal, Integumentary, Endocrine and Eyes/Ears/Nose/Throat Exam Surgical H&P Exam: Normal: HEENT, Normal: Heart, Normal: Lungs, Normal: Extremities, Normal: Abdomen, Normal: Skin and Normal: Neurological Plan Diagnosis/Plan: Unchanged (left sewl with removal of left stent cystoscopy) I have reviewed the history and physical and performed a pertinent physical examination on my patient. No changes have occurred unless specified.
--- NOTE | 2022-03-01 11:26 | W.PM.OPN ---
Operative Note Operative Note Date of Service: 03/01/22 Narrative: PreOperative Diagnosis: Left Renal stones and indwelling stent Post Operative Diagnosis: Left Renal stones and indwelling stent Procedure: Left ESWL - cystoscopy with stent remove Surgeon: Dr Donal Ramon Anesthesia: mac/sedation Indications for procedure: The patient understands ESWL may be a staged procedure and subsequent intervention may be required based on imaging after ESWL. They also understand there is a risk of bleeding to the kidney, infection, damage to adjacent organs, and stone migration following the procedure. - Imaging 9 mm stone left lower pole Procedure: After informed consent was verified the patient was brought to the operating room and placed in a supine position. Anesthesia was performed per protocol. Safety pause time-out was performed. Imaging was displayed in the room and laterality confirmed. ESWL was performed. The 1st 500 shocks were performed at 60 hertz. These were performed with increasing power. Once maximum power was reached the rate was increased to 180 hertz. A total of 2500 shocks were given. Targetted imaging with ultrasound/fluoroscopy showed stone smudging suggestive of disintegration. At completion of the procedure the patient was placed in a frog-leg position. Cystoscopy was introduced and the stent emerging from the left ureteric orifice was grasped and removed without difficulty. The patient tolerated the procedure well and was transferred to the recovery area upon completion. Post procedure imaging will be organized. There was no evidence for flank discoloration.
== END 2022-03-01 12:36 | disposition home or self-care (01) ==
PROVIDERS: PCP Internal Medicine; Visit Provider Urology
PROC: (CPT 50590; principal; 2022-03-01 10:10)
DX: N20.0 Calculus of kidney (principal); Z96.0 Presence of urogenital implants; Z87.442 Personal history of urinary calculi; G35 Multiple sclerosis; J45.909 Unspecified asthma, uncomplicated; I10 Essential (primary) hypertension; B19.20 Unspecified viral hepatitis C without hepatic coma; I48.0 Paroxysmal atrial fibrillation; Z79.01 Long term (current) use of anticoagulants; Z79.899 Other long term (current) drug therapy; Z88.0 Allergy status to penicillin; Z88.8 Allergy status to other drugs, medicaments and biological substances; Z87.891 Personal history of nicotine dependence
CPT/HCPCS: 50590; 52310; 74018; J1100; J2250; J2370; J2405; J3010

== ENCOUNTER → 2022-03-07 14:54 | Outpatient (BNVA) | payer MEDICARE, SELFPAY | PROVIDERS: PCP Internal Medicine; Referring Provider Internal Medicine; Visit Provider Nurse Practitioner Family | DX: Z09 Encounter for follow-up examination after completed treatment for conditions other than malignant neoplasm (principal); I48.0 Paroxysmal atrial fibrillation; N18.9 Chronic kidney disease, unspecified; R77.8 Other specified abnormalities of plasma proteins; R55 Syncope and collapse | CPT/HCPCS: 99212 ==

== ENCOUNTER 2022-03-08 12:18 | Outpatient (REF) | payer MEDICARE, SELFPAY ==
--- NOTE | ~2022-03-08 | MM_ITS ---
EXAMINATION: MM SCREENING DIGITAL BREAST TOMOSYNTHESIS, BILATERAL CLINICAL INFORMATION: Screening. Asymptomatic. The lifetime risk of breast cancer based on the Tyrer-Cuzick Model is 16%. COMPARISON: Mammography: 10/29/2020, 01/03/2019, 11/12/2013 TECHNIQUE: Digital breast tomosynthesis is performed in both the craniocaudal and mediolateral oblique views along with computer-aided detection (CAD). Synthesized 2D images are generated from the tomosynthesis. FINDINGS: There are scattered areas of fibroglandular density (ACR BI-RADS breast composition Category b). There are no significant masses, abnormal calcifications, or other abnormalities. Parenchymal pattern is similar to prior studies. There is no developing density or architectural abnormality or significant change. MM/MM tomosynthesis screening BI IMPRESSION: No mammographic evidence of malignancy. ASSESSMENT: BI-RADS 1: Negative RECOMMENDATION: Routine annual mammography screening. This patient's information was entered into a reminder system with a target due date for their next mammogram.
--- NOTE | ~2022-03-08 | MM_ITS ---
EXAMINATION: BONE DENSITOMETRY CLINICAL INDICATION: Age-related osteoporosis without current pathological fracture. COMPARISON: Baseline BD dated 05/20/2010. TECHNIQUE: Using a [employer] DXA System (software version: 13.1) manufactured by [employer], dual-energy x-ray absorptiometry was performed of the lumbar spine and left hip. The images are of good technical quality. Summary results are attached. FINDINGS: AP SPINE L1-L4: Current: BMD 1.022 g/cm2, Z-score -0.1, T-score -1.3, osteopenia, 17.3% decrease from baseline (<5% change is not significant). Baseline: BMD 1.236 g/cm2. LEFT FEMUR, NECK: Current: BMD 0.728 g/cm2, Z-score -1.0, T-score -2.2, osteopenia. Baseline: BMD 0.900 g/cm2. LEFT FEMUR, TOTAL: Current: BMD 0.743 g/cm2, Z-score -1.2, T-score -2.1, osteopenia, 24.3% decrease from baseline (<5% change is not significant). Baseline: BMD 0.981 g/cm2. IDENTIFIED RISK FACTORS: Renal, recurrent falls, secondary osteoporosis, history of fracture (adult), menopause. HISTORY OF FRACTURE: Clavicle. MEDICATIONS: None listed. MM/XR DEXA axial skeleton IMPRESSION: 1. DIAGNOSIS: Osteopenia based on the lowest T-score value of -2.2 in the femoral neck applying World Health Organization criteria. 2. 10-YEAR FRACTURE RISK PREDICTION, FRAX: Major osteoporotic fracture (clinical spine, forearm, hip or shoulder) 18.8%. Hip fracture 3.4%. 3. Treatment Recommendations: NOF guidelines recommend consideration for treatment in postmenopausal women and men age 50 and older presenting with the following: -A hip or vertebral (clinical or morphometric) fracture. -T-score less than or equal to -2.5 at the femoral neck or spine after appropriate evaluation to exclude secondary causes. -Low bone mass at the hip or spine and a 10-year fracture probability by FRAX of greater than or equal to 3% for hip fracture or greater than or equal to 20% for major osteoporotic fracture based on the [place] adapted WHO algorithm. 4. Other Recommendations: All treatment decisions require clinical judgment and consideration of individual patient factors, including patient preferences, comorbidities, previous drug use, risk factors not captured in the FRAX model (e.g. frailty, falls, vitamin D deficiency, increased bone turnover, interval significant decline in bone density) and possible under or overestimation of fracture risk by FRAX. Additional medical evaluation for secondary cause of low bone mineral density may be appropriate. FUTURE SCAN RECOMMENDATION: People with diagnosed cases of osteoporosis or at high risk for fracture should have regular bone mineral density tests. For patients eligible for Medicare, routine testing is allowed once every 2 years. The testing frequency can be increased to one year for patients who have rapidly progressing disease, those who are receiving or discontinuing medical therapy to restore bone mass, or have additional risk factors.
== END 2022-03-08 12:19 | disposition home or self-care (01) ==
LOC: HO.MAMMO 12:18
PROVIDERS: PCP Internal Medicine; Visit Provider Internal Medicine
DX: Z12.31 Encounter for screening mammogram for malignant neoplasm of breast (principal); M81.0 Age-related osteoporosis without current pathological fracture; Z78.0 Asymptomatic menopausal state; R29.2 Abnormal reflex; Z91.81 History of falling
CPT/HCPCS: 77063; 77067; 77080

== ENCOUNTER 2022-03-24 11:13 | Outpatient (REF) | payer MEDICARE, SELFPAY | END 2022-03-24 11:14 | disposition home or self-care (01) | LOC: CF 11:13 | PROVIDERS: PCP Internal Medicine; Visit Provider Urology | DX: Z13.89 Encounter for screening for other disorder (principal) | CPT/HCPCS: 99212; Q3014 ==

== ENCOUNTER 2022-03-24 15:03 | Outpatient (REF) | payer MEDICARE, SELFPAY ==
[2022-03-30 23:01] LABS: Stone Source KIDNEY STONE
== END 2022-03-24 15:04 | disposition home or self-care (01) ==
LOC: HO.LNP 15:03
PROVIDERS: Visit Provider Urology
DX: N20.0 Calculus of kidney (principal)
CPT/HCPCS: 82365; 88300; 99212; Q3014

== ENCOUNTER 2022-05-04 12:47 | Outpatient (REF) | payer MEDICARE, SELFPAY ==
[2022-05-04 14:03] LABS: Alanine Aminotransferase 10 U/L (0-31); Albumin Level 4.3 g/dL (3.5-5.0); Alkaline Phosphatase 65 U/L (39-117); Aspartate Amino Transferase 17 U/L (5-31); Bilirubin Direct 0.2 mg/dL (0.0-0.5); Bilirubin Total 0.5 mg/dL (0.0-1.0)
[2022-05-06 14:56] LABS: HCV Log PCR <1.18 NOT DETECTED Log IU/mL (NOT DETECTED); HepC Viral Load <15 NOT DETECTED IU/mL (NOT DETECTED)
== END 2022-05-04 12:48 | disposition home or self-care (01) ==
LOC: HO.LAB 12:47
PROVIDERS: PCP Internal Medicine; Visit Provider Internal Medicine
DX: B18.2 Chronic viral hepatitis C (principal)
CPT/HCPCS: 36415; 80076; 87522

== ENCOUNTER → 2022-05-18 11:20 | Outpatient (BNVA) | payer MEDICARE, SELFPAY | PROVIDERS: PCP Internal Medicine; Visit Provider Internal Medicine | DX: E05.90 Thyrotoxicosis, unspecified without thyrotoxic crisis or storm (principal); E21.3 Hyperparathyroidism, unspecified; M85.80 Other specified disorders of bone density and structure, unspecified site; E55.9 Vitamin D deficiency, unspecified | CPT/HCPCS: Q3014 ==

== ENCOUNTER 2022-05-25 11:59 | Outpatient (REF) | payer MEDICARE, SELFPAY ==
[2022-05-25 13:54] LABS: Free T4 (Free Thyroxine) 1.11 ng/dL (0.71-1.85); Thyroid Stimulating Hormone 0.73 uIU/mL (0.32-4.0); Vitamin D 25-OH Total 73.8 ng/mL (>30)
[2022-05-26 16:07] LABS: Triiodothyronine T3 Total 120 ng/dL (76-181)
[2022-05-26 22:52] LABS: Thyroglobulin Antibodies <1 IU/mL (< or = 1); Thyroid Peroxidase Antibodies 3 IU/mL (<9)
[2022-05-29 18:57] LABS: Thyrotropin Receptor Antibody <1.00 IU/L (<=2.00)
[2022-05-31 15:49] LABS: Thyroid Stimulating Immunoglob 91 % baseline (<140)
== END 2022-05-25 12:00 | disposition home or self-care (01) ==
LOC: HO.LAB 11:59
PROVIDERS: PCP Internal Medicine; Visit Provider Internal Medicine
DX: E05.90 Thyrotoxicosis, unspecified without thyrotoxic crisis or storm (principal); E55.9 Vitamin D deficiency, unspecified
CPT/HCPCS: 36415; 82306; 83520; 84439; 84443; 84445; 84480; 86376; 86800

== ENCOUNTER → 2022-06-07 09:30 | Outpatient (REF) | payer MEDICARE, SELFPAY ==
--- NOTE | ~2022-06-07 | NM_ITS ---
EXAMINATION: THYROID UPTAKE AND SCAN CLINICAL INFORMATION: Thyrotoxicosis, TSH 02/01/2022 0.06. COMPARISON: No previous thyroid imaging studies are available for comparison. TECHNIQUE: Following the oral administration of 299 microcuries of I-123 sodium iodide, thyroid uptake was performed and expressed as a percentage of the administrated dose. Gamma scintillation camera images of the thyroid in the anterior and right and left anterior oblique views were obtained using a pinhole collimator following the administration of 10 mCi Tc-99m pertechnetate. FINDINGS: The uptake is 4.9% at 4 hours and 22.6% at 24 hours (Normal radioiodine uptake at 24 hours is 10% to 30%). The radioiodine uptake is normal. The radiopertechnetate thyroid scintigram demonstrates the thyroid gland to be normal in size, shape, and position. There is homogeneous distribution of activity within the the gland with no focal abnormalities noted. The trapping function moderately increased diffusely. NM/NM thyroid w uptake IMPRESSION: Although this scan appearance and uptake measurements are normal, the diffusely increased trapping function and the very low TSH level are most consistent with Graves' disease. No nodules are visualized.
== END ==
LOC: HO.NUCMED 09:30
PROVIDERS: PCP Internal Medicine; Visit Provider Internal Medicine
DX: E05.90 Thyrotoxicosis, unspecified without thyrotoxic crisis or storm (principal)
CPT/HCPCS: 78014; A9512; A9516

== ENCOUNTER 2022-07-12 13:16 | Outpatient (REF) | payer MEDICARE, SELFPAY ==
--- NOTE | ~2022-07-12 | US_ITS ---
EXAMINATION: US THYROID CLINICAL INFORMATION: Thyrotoxicosis, unspecified without thyrotoxic crisis or storm. COMPARISON: Nuclear medicine thyroid uptake and scan 06/07/2022. TECHNIQUE: Linear transducer grayscale and color Doppler examination with attention to the region of the thyroid. FINDINGS: SIZE: Measurements of the thyroid lobes and nodules are given in sagittal, anteroposterior and transverse dimensions respectively. Right Thyroid Lobe: 4.9 x 1.2 x 1.5 cm, volume 4.6 mL. Parenchyma: The gland echotexture is homogeneous. Thyroid vascularity is normal. Left Thyroid Lobe: 4.1 x 1.0 x 1.2 cm, volume 2.6 mL. Parenchyma: The gland echotexture is homogeneous. Thyroid vascularity is normal. Isthmus: 0.2 cm in maximum AP dimension. Estimated total number of nodules greater than or equal to 1 cm: 1. [employer] nodules are described as follows: 1. Location: Right mid. Size: 0.5 x 0.3 x 0.4 cm, volume 0.03 mL. Nodule characteristics: Composition: Solid (2). Echogenicity: Hypoechoic (2). Shape: Not taller than wide (0). Margins: Smooth (0). Echogenic Foci: None (0). ACR TI-RADS total points: 4 ACR TI-RADS category: 4 2. Location: Right inferior. Size: 0.5 x 0.3 x 0.4 cm, volume 0.03 mL. Nodule characteristics: Composition: Mixed cystic and solid (1). Echogenicity: Cannot be determined (1). Shape: Not taller than wide (0). Margins: Smooth (0). Echogenic Foci: None (0). ACR TI-RADS total points: 2 ACR TI-RADS category: 2 3. Location: Left inferior. Size: 0.9 x 0.5 x 0.5 cm, volume 0.2 mL. Nodule characteristics: Composition: Solid/almost completely solid (2). Echogenicity: Hypoechoic (2). Shape: Not taller than wide (0). Margins: Smooth (0). Echogenic Foci: None (0). ACR TI-RADS total points: 4 ACR TI-RADS category: 4 4. Location: Left inferior. Size: 0.6 x 0.4 x 0.5 cm, volume 0.1 mL. Nodule characteristics: Composition: Solid/almost completely solid (2). Echogenicity: Isoechoic (1). Shape: Not taller than wide (0). Margins: Smooth (0). Echogenic Foci: None (0). ACR TI-RADS total points: 3 ACR TI-RADS category: 3 5. Location: Isthmus. Size: 1.5 x 0.5 x 0.7 cm, volume 0.3 mL. Nodule characteristics: Composition: Solid (2). Echogenicity: Isoechoic (1). Shape: Not taller than wide (0). Margins: Smooth (0). Echogenic Foci: None (0). ACR TI-RADS total points: 3 ACR TI-RADS category: 3 NODES: No lymphadenopathy is seen in the tissue surrounding the thyroid gland. US/US thyroid IMPRESSION: Multiple bilateral thyroid nodules the largest of which measures 1.5 cm and is an ACR TI RADS category 3 Other subcentimeter thyroid nodules 2 of which are ACR TI-RADS Category 4 By ACR TI-RADS breast recommendation annual follow-up is suggested. ACR TI-RADS RECOMMENDATION REFERENCE: * TR1 (0 point) and TR 2 (2 points): No FNA or follow up * TR3 (3 points): FNA if more than or equal to 2.5 cm in maximum dimension, followup ultrasound in 1, 3 and 5 years if 1.5 to 2.4 cm in maximum dimension. * TR4 (4-6 points): FNA if more than or equal to 1.5 cm in maximum dimension, followup ultrasound in 1, 2, 3 and 5 years if 1 to 1.4 cm in maximum dimension.
== END 2022-07-12 13:17 | disposition home or self-care (01) ==
LOC: HO.US 13:16
PROVIDERS: Visit Provider Internal Medicine
DX: E05.90 Thyrotoxicosis, unspecified without thyrotoxic crisis or storm (principal)
CPT/HCPCS: 76536

== ENCOUNTER 2022-08-16 13:50 | Outpatient (REF) | payer MEDICARE, SELFPAY ==
[2022-08-16 16:01] LABS: Alanine Aminotransferase 20 U/L (0-31); Albumin Level 4.3 g/dL (3.5-5.0); Alkaline Phosphatase 73 U/L (39-117); Aspartate Amino Transferase 31 U/L (5-31); Bilirubin Direct 0.3 mg/dL (0.0-0.5); Bilirubin Total 0.8 mg/dL (0.0-1.0); Total Protein 6.8 g/dL (6.5-8.0)
[2022-08-16 16:03] LABS: Alanine Aminotransferase 20 U/L (0-31); Albumin Level 4.3 g/dL (3.5-5.0); Alkaline Phosphatase 73 U/L (39-117); Anion Gap 19 (12-20); Aspartate Amino Transferase 33 U/L (5-31); Bilirubin Total 0.8 mg/dL (0.0-1.0); Blood Urea Nitrogen 24 mg/dL (9-16); Calcium 9.6 mg/dL (8.4-10.2); Carbon Dioxide 23 mmol/L (22-29); Chloride 100 mmol/L (96-108); Estimated Glomerular Filt Rate 24; Glucose Random 129 mg/dL (60-115); Phosphorus 5.2 mg/dL (2.7-4.5); Potassium 4.3 mmol/L (3.3-5.1); Sodium 138 mmol/L (135-145)
[2022-08-16 16:25] LABS: Free T4 (Free Thyroxine) 1.03 ng/dL (0.71-1.85); Thyroid Stimulating Hormone 1.85 uIU/mL (0.32-4.0); Vitamin D 25-OH Total 49.6 ng/mL (>30)
[2022-08-17 14:57] LABS: Calcium (PTHI) 9.8 mg/dL (8.6-10.4); PTHI 87 pg/mL (16-77)
[2022-08-17 15:22] LABS: HCV Log PCR <1.18 NOT DETECTED Log IU/mL (NOT DETECTED); HepC Viral Load <15 NOT DETECTED IU/mL (NOT DETECTED)
[2022-08-18 14:47] LABS: Triiodothyronine T3 Total 125 ng/dL (76-181)
[2022-08-20 00:07] LABS: Prot Elec - Albumin 4.1 g/dL (3.8-4.8); Prot Elec - Alpha1 0.3 g/dL (0.2-0.3); Prot Elec - Beta 1 0.4 g/dL (0.4-0.6); Prot Elec - Beta 2 0.3 g/dL (0.2-0.5); Prot Elec - Gamma 0.7 g/dL (0.8-1.7); Prot Elec - Total Protein 6.8 g/dL (6.1-8.1)
== END 2022-08-16 13:51 | disposition home or self-care (01) ==
LOC: HO.LAB 13:50
PROVIDERS: Absent Provider Internal Medicine; PCP Internal Medicine; Visit Provider Internal Medicine
DX: E05.90 Thyrotoxicosis, unspecified without thyrotoxic crisis or storm (principal); E21.3 Hyperparathyroidism, unspecified; M85.80 Other specified disorders of bone density and structure, unspecified site; E55.9 Vitamin D deficiency, unspecified; E04.2 Nontoxic multinodular goiter; B18.2 Chronic viral hepatitis C
CPT/HCPCS: 36415; 80053; 80076; 82248; 82306; 83970; 84100; 84165; 84439; 84443; 84480; 87522; 99212

== ENCOUNTER → 2022-08-24 13:51 | Outpatient (BNVA) | payer MEDICARE, SELFPAY | PROVIDERS: PCP Internal Medicine; Referring Provider Internal Medicine; Visit Provider Nurse Practitioner Family | DX: I48.0 Paroxysmal atrial fibrillation (principal); R77.8 Other specified abnormalities of plasma proteins; N18.9 Chronic kidney disease, unspecified; R55 Syncope and collapse | CPT/HCPCS: 99212 ==

== ENCOUNTER 2022-09-06 12:19 | Outpatient (REF) | payer MEDICARE, SELFPAY ==
--- NOTE | ~2022-09-06 | US_ITS ---
EXAMINATION: US RETROPERITONEAL LIMITED (RENAL ONLY) CLINICAL INFORMATION: Calculus of kidney. COMPARISON: X-ray abdomen KUB 03/01/2022. CT abdomen and pelvis without contrast 01/27/2022. Ultrasound abdomen complete 11/10/2020 and 07/09/2013. TECHNIQUE: Real-time imaging of the kidneys. FINDINGS: RIGHT KIDNEY: 9.0 x 4.3 x 5.0 cm (SAG x AP x TRV). The kidney is normal in size, contour, and echogenicity. Renal cortical thickness is normal. There are 2 small stones in the lower pole measuring 2 x 3 mm. No focal parenchymal lesions or hydronephrosis. LEFT KIDNEY: 8.1 x 4.0 x 4.2 cm (SAG x AP x TRV). The kidney is slightly small but normal in contour, and echogenicity. There is renal cortical thinning. There is a 7 x 2 x 4 mm stone in the midpole. No focal parenchymal lesions or hydronephrosis. US/US renal BI IMPRESSION: Bilateral renal stones. Left renal cortical thinning.
== END 2022-09-06 12:20 | disposition home or self-care (01) ==
LOC: HO.US 12:19
PROVIDERS: Visit Provider Urology
DX: N20.0 Calculus of kidney (principal)
CPT/HCPCS: 76775; 82340; 82570

== ENCOUNTER 2022-09-06 13:51 | Outpatient (REF) | payer MEDICARE, SELFPAY ==
[2022-09-06 14:10] LABS: Total Volume 24 Hour Urine 2350 mL
[2022-09-06 14:50] LABS: Creatinine, 24Hr Urine 0.7 G/Day (1.0-2.0); Creatinine, mg/dL 30.27
[2022-09-09 18:02] LABS: Calcium, 24 Hr Urine 54 mg/24 h; Calcium/Creatinine Ratio 74 mg/g creat (30-275); Creatinine 24Hr Urine 0.73 g/24 h (0.50-2.15)
== END 2022-09-06 13:52 | disposition home or self-care (01) ==
LOC: HO.LNP 13:51
PROVIDERS: Visit Provider Internal Medicine
DX: Z13.89 Encounter for screening for other disorder (principal)
CPT/HCPCS: 82340; 82570

== ENCOUNTER → 2022-09-22 13:13 | Outpatient (BNVA) | payer MEDICARE, SELFPAY | PROVIDERS: PCP Internal Medicine; Visit Provider Urology | DX: N20.0 Calculus of kidney (principal) | CPT/HCPCS: 99212 ==

== ENCOUNTER 2022-09-27 09:28 | Day surgery (SDC) | payer MEDICARE, SELFPAY ==
--- NOTE | 2022-09-26 11:40 | P.CONAN_ITS ---
Documented by User: Consuelo Orona NP 09/26/22 11:42 HPI - Anesthesia Eval Consult details Narrative: 67yo F for Colonoscopy Eliquis for afib Stable at 07/2022 cardiology visit for 1 year f/u Multiple urology procedures with [facility] admit spring 2021 [facility], [facility] Active Problems Active Problems: All Active Problems (Updated 08/16/22 @ 14:06 by Carla Gay DO) Multinodular thyroid (Acute) Vitamin D deficiency (Acute) Hyperparathyroidism (Acute) Hyperthyroidism (Acute) Osteopenia (Acute) Syncope (Acute) Pulmonary nodules (Acute) Liver cyst (Acute) Renal cyst (Acute) Fibromyalgia (Acute) DDD (degenerative disc disease) (Acute) Nausea (Acute) Lumbar disc disease (Acute) Medicare annual wellness visit, initial (Acute) Fibroid (Acute) Chronic kidney disease (Acute) Generalized anxiety disorder (Acute) Chronic hepatitis C (Acute) Screening for osteoporosis (Acute) Mammogram declined (Acute) Cervical cancer screening declined (Acute) Low back pain (Acute) Syncope and collapse (Acute) Abdominal pain (Acute) Acute kidney injury superimposed on CKD (Acute) Kidney stone (Acute) Elevated troponin (Acute) Age-related osteoporosis without current pathological fracture (Acute) Euthyroid sick syndrome (Acute) Hospital discharge follow-up (Acute) Renal calculi (Acute) YOHANA (acute kidney injury) (Acute) Hyperlipidemia (Acute) Hyponatremia (Acute) Paroxysmal atrial fibrillation (Acute) History of renal calculi (Acute) GERD (gastroesophageal reflux disease) (Acute) Obesity (Acute) Hypertension (Acute) Multiple sclerosis (Acute) Asthma (Acute) Past Medical History Medical History Allergic rhinitis Asthma Chronic kidney disease, stage 3b Closed right clavicular fracture GERD (gastroesophageal reflux disease) Hepatitis C History of panic attacks History of renal calculi Hypertension Lumbar radiculopathy Multinodular thyroid Multiple sclerosis Multiple sclerosis Multiple sclerosis exacerbation Obesity Paroxysmal atrial fibrillation Family History Family History Father Prostate cancer Myocardial infarction Mother Breast cancer Paternal Aunt Myocardial infarction Paternal Uncle Myocardial infarction Family history of problems with anesthesia: No Surgical History Surgical History History of esophagogastroduodenoscopy (EGD) History of gynecologic surgery History of kidney stones History of lithotripsy History of liver biopsy History of verrucae (wart) excision Hx of colonoscopy Hx of wisdom tooth extraction History of Problems with Anesthesia: No Social History Social History Household Members: None Housing: Apartment Are you a primary career development engineer to a significant other at home: No Do you presently have visiting nurse or other home services: Yes (PT, OT, VNA) Alcohol intake: never Patient Tobacco Use Status: Former Tobacco user Quit Date: 1978 Tobacco use type: Cigarette Years Smoked: 8 Smoked in Last 30 Days: No e-Cigarette/Vaping Use: Never Used Use of substances other than those prescribed or required for medical reasons: No Are you DNR?: No Advance Directives: No Advance Directives Information Provided: Yes service: No Current occupational status: retired Cognitive needs: No Hearing needs: No Vision needs: Yes Meds Allergies Allergy/AdvReac Type Severity Reaction Status Date / Time escitalopram [From LEXAPRO] Allergy Severe STOMACH Verified 09/27/22 09:42 UPSET, abd pain lisinopril [LISINOPRIL] Allergy Severe SWELLING, Verified 09/27/22 09:42 Leg swelling desipramine [Desipramine] Allergy Intermediate PALPITATIONS, Verified 09/27/22 09:42 clammy skin diphenhydramine Allergy Intermediate PALPITATIONS/CLAMMY Verified 09/27/22 09:42 [From Benadryl] SKIN duloxetine [From CYMBALTA] Allergy Intermediate STOMACH Verified 09/27/22 09:42 UPSET, abd pain Penicillins Allergy Intermediate Rash Verified 09/27/22 09:42 carbamazepine [From TEGRETOL] AdvReac Severe BLACKOUT, Verified 09/27/22 09:42 SEVERE INTOXICATION oxycodone [From Percocet] AdvReac Severe N/V, Verified 09/27/22 09:42 projectile vomiting fluoxetine [From Prozac] AdvReac Intermediate PARKINSON Verified 09/27/22 09:42 SYMPTOMS garlic AdvReac Intermediate IBS Verified 09/27/22 09:42 SYMPTOMS Home Medications Medication Instructions Recorded Confirmed Last Taken Type lamotrigine 200 mg tablet 200 mg PO DAILY 11/02/20 09/27/22 01/27/22 History (Lamictal) memantine 10 mg tablet 10 mg PO BID 10/11/21 09/27/22 01/27/22 History acetaminophen 500 mg tablet 500 mg PO 5XD 01/27/22 09/27/22 01/27/22 History ondansetron HCl 4 mg tablet 1 tab PO TID 01/27/22 09/27/22 01/27/22 History omeprazole 40 mg capsule,delayed 40 mg PO DAILY 02/15/22 09/27/22 03/01/22 History release alprazolam 0.25 mg tablet 0.125 - 0.25 mg PO DAILY PRN 03/07/22 08/24/22 Unknown History Anxiety gabapentin 600 mg tablet 300 mg PO TID 03/07/22 09/27/22 Unknown History chlorthalidone 25 mg tablet 12.5 mg PO QAM 08/16/22 09/27/22 Unknown History citalopram 10 mg tablet 10 mg PO DAILY 08/16/22 09/27/22 Unknown History amlodipine 10 mg tablet 10 mg PO DAILY 09/22/22 09/27/22 09/27/22 05:00 History Exam Exam Date and Time: September 26, 2022 1140 Pertinent Lab Results Pertinent Lab Results: Laboratory Tests 02/08/22 08/16/22 17:05 15:07 WBC 11.9 H Hgb 13.1 Hct 41.4 Plt Count 456 H D Sodium 138 Potassium 4.3 Chloride 100 Carbon Dioxide 23 BUN 24 H Creatinine 2.06 H Narrative Narrative: ECHO 02/17/22 Conclusions: - Normal left ventricular size and systolic function. There is ? mildly increased left ventricular wall thickness.? The visually? estimated ejection fraction is between 65-70%. ? - Normal right ventricular cavity size and systolic function.? ? NM mily perf SPECT rest & str 02/17/22 Impression: ? 1.? Myocardial perfusion imaging study shows normal myocardial perfusion. No evidence of any ischemia or infarction. 2.? Gated LVEF is 68% during stress and 53% during rest. 3. Transient ischemic dilatation not present. ? EKG component of the test reported separately. EKG 01/27/22 Vent. Rate : 083 BPM ? ? Atrial Rate : 083 BPM ?? P-R Int : 116 ms? QRS Dur : 070 ms ? ? QT Int : 378 ms ? ? ? P-R-T Axes : 018 001 083 degrees ?? QTc Int : 444 ms ? Normal sinus rhythm Left ventricular hypertrophy with repolarization abnormality ( R in aVL , Sokolow-Brantley ) Abnormal ECG When compared with ECG of 18-NOV-2018 20:45, Criteria for Anteroseptal infarct are no longer Present T wave inversion now evident in Lateral leads Assessment and Plan Assessment Anesthesia Assessment: Chart Reviewed Final Anesthetic Review Family History of Problems with Anesthesia: No History of Problems with Anesthesia: No Documented by User: Collin Jamil MD 09/27/22 17:13 [facility] Past Medical History Medical History Allergic rhinitis Asthma Chronic kidney disease, stage 3b Closed right clavicular fracture GERD (gastroesophageal reflux disease) Hepatitis C History of panic attacks History of renal calculi Hypertension Lumbar radiculopathy Multinodular thyroid Multiple sclerosis Multiple sclerosis Multiple sclerosis exacerbation Obesity Paroxysmal atrial fibrillation Family History Family History Father Prostate cancer Myocardial infarction Mother Breast cancer Paternal Aunt Myocardial infarction Paternal Uncle Myocardial infarction Surgical History Surgical History History of esophagogastroduodenoscopy (EGD) History of gynecologic surgery History of kidney stones History of lithotripsy History of liver biopsy History of verrucae (wart) excision Hx of colonoscopy Hx of wisdom tooth extraction Social History Social History Household Members: None Housing: Apartment Are you a primary career development engineer to a significant other at home: No Do you presently have visiting nurse or other home services: Yes (PT, OT, VNA) Alcohol intake: never Patient Tobacco Use Status: Former Tobacco user Quit Date: 1978 Tobacco use type: Cigarette Years Smoked: 8 Smoked in Last 30 Days: No e-Cigarette/Vaping Use: Never Used Use of substances other than those prescribed or required for medical reasons: No Are you DNR?: No Advance Directives: No Advance Directives Information Provided: Yes service: No Current occupational status: retired Cognitive needs: No Hearing needs: No Vision needs: Yes Meds Allergies Allergy/AdvReac Type Severity Reaction Status Date / Time escitalopram [From LEXAPRO] Allergy Severe STOMACH Verified 09/27/22 09:42 UPSET, abd pain lisinopril [LISINOPRIL] Allergy Severe SWELLING, Verified 09/27/22 09:42 Leg swelling desipramine [Desipramine] Allergy Intermediate PALPITATIONS, Verified 09/27/22 09:42 clammy skin diphenhydramine Allergy Intermediate PALPITATIONS/CLAMMY Verified 09/27/22 09:42 [From Benadryl] SKIN duloxetine [From CYMBALTA] Allergy Intermediate STOMACH Verified 09/27/22 09:42 UPSET, abd pain Penicillins Allergy Intermediate Rash Verified 09/27/22 09:42 carbamazepine [From TEGRETOL] AdvReac Severe BLACKOUT, Verified 09/27/22 09:42 SEVERE INTOXICATION oxycodone [From Percocet] AdvReac Severe N/V, Verified 09/27/22 09:42 projectile vomiting fluoxetine [From Prozac] AdvReac Intermediate PARKINSON Verified 09/27/22 09:42 SYMPTOMS garlic AdvReac Intermediate IBS Verified 09/27/22 09:42 SYMPTOMS Home Medications Medication Instructions Recorded Confirmed Last Taken Type lamotrigine 200 mg tablet 200 mg PO DAILY 11/02/20 09/27/22 01/27/22 History (Lamictal) memantine 10 mg tablet 10 mg PO BID 10/11/21 09/27/22 01/27/22 History acetaminophen 500 mg tablet 500 mg PO 5XD 01/27/22 09/27/22 01/27/22 History ondansetron HCl 4 mg tablet 1 tab PO TID 01/27/22 09/27/22 01/27/22 History omeprazole 40 mg capsule,delayed 40 mg PO DAILY 02/15/22 09/27/22 03/01/22 History release alprazolam 0.25 mg tablet 0.125 - 0.25 mg PO DAILY PRN 03/07/22 08/24/22 Unknown History Anxiety gabapentin 600 mg tablet 300 mg PO TID 03/07/22 09/27/22 Unknown History chlorthalidone 25 mg tablet 12.5 mg PO QAM 08/16/22 09/27/22 Unknown History citalopram 10 mg tablet 10 mg PO DAILY 08/16/22 09/27/22 Unknown History amlodipine 10 mg tablet 10 mg PO DAILY 09/22/22 09/27/22 09/27/22 05:00 History Exam Airway Mallampati Class: III TM Dist: >3cm Neck ROM: Full Loose/Missing/Broken Teeth: Yes (Poor dentition ) Heart: S1,S2 Lungs: b/l breath sounds Assessment and Plan Assessment Anesthesia Assessment: Anesthesia Plan Discussed Final Anesthetic Review NPO: Yes ASA Class: III Final Preanesthetic Review: Meds/Allgs Chart Reviewed, Consent Obtained/Reviewed and Anes Risks/Benef Reviewed Patient Risk: High Procedure Risk: Intermediate Anesthetic Plan Anesthetic Plan: MAC: Disposition: Standard PACU
[2022-09-27 09:32] VITALS: BMI 26.5
[2022-09-27 09:42] VITALS: BP 139/77; PULSE 72; RESP 16; TEMP 36.2; O2SAT 99
[2022-09-27] MEDS: Lactated Ringers 1,000 ML 100 ML IVCONT (09:53)
--- NOTE | 2022-09-27 10:15 | MHC.SHP ---
Pre-Procedural Eval Section A Date of Service: 09/27/22 Section B Chief Complaint: Encounter for screening for malignant neoplasm of Details of Present Illness: see H*P no changes Relevant Family History (Specify if Yes): No Relevant Social History: None Present Medications: see Short Stay Collaborative assessment Medical History: No relevant PMH History of Previous Operations: No relevant previous surgery Allergies: Allergies Allergy/AdvReac Type Severity Reaction Status Date / Time escitalopram [From LEXAPRO] Allergy Severe STOMACH Verified 09/27/22 09:42 UPSET, abd pain lisinopril [LISINOPRIL] Allergy Severe SWELLING, Verified 09/27/22 09:42 Leg swelling desipramine [Desipramine] Allergy Intermediate PALPITATIONS, Verified 09/27/22 09:42 clammy skin diphenhydramine Allergy Intermediate PALPITATIONS/CLAMMY Verified 09/27/22 09:42 [From Benadryl] SKIN duloxetine [From CYMBALTA] Allergy Intermediate STOMACH Verified 09/27/22 09:42 UPSET, abd pain Penicillins Allergy Intermediate Rash Verified 09/27/22 09:42 carbamazepine [From TEGRETOL] AdvReac Severe BLACKOUT, Verified 09/27/22 09:42 SEVERE INTOXICATION oxycodone [From Percocet] AdvReac Severe N/V, Verified 09/27/22 09:42 projectile vomiting fluoxetine [From Prozac] AdvReac Intermediate PARKINSON Verified 09/27/22 09:42 SYMPTOMS garlic AdvReac Intermediate IBS Verified 09/27/22 09:42 SYMPTOMS Review of Systems Sugical H&P ROS: Negative: Constitution, Cardiovascular, Respiratory, Neurological, Psychiatric, Hem-Onc, Allergic/Immunologic, Gastrointestinal, Genitourinary, Musculoskeletal, Integumentary, Endocrine and Eyes/Ears/Nose/Throat Exam Surgical H&P Exam: Normal: HEENT, Normal: Heart, Normal: Lungs, Normal: Extremities, Normal: Abdomen, Normal: Skin and Normal: Neurological Plan Diagnosis/Plan: Unchanged I have reviewed the history and physical and performed a pertinent physical examination on my patient. No changes have occurred unless specified.
--- NOTE | 2022-09-27 10:43 | P.BOP_ITS ---
Brief Operative Note Date of Service: 09/27/22 Pre-op diagnosis: screening Post-op diagnosis: same Procedure: colonoscopy Surgeon: Braydon Holguin Anesthesia: MAC Was an Cigar Bander Hand used for this Procedure?: No Estimated blood loss (mL): 2 Pathology: other Condition: stable Disposition: PACU
[2022-09-27 10:48] VITALS: BP 96/46; PULSE 74; RESP 16; TEMP 37.1; O2SAT 98
[2022-09-27 11:03] VITALS: BP 121/55; PULSE 78; RESP 18; TEMP 37.1; O2SAT 99
--- NOTE | 2022-09-27 22:39 | OP_ITS ---
SURGEON: Braydon Holguin MD INDICATIONS: Colon cancer screening and prior history of adenomatous colon polyps on 09/27/22. PREOPERATIVE DIAGNOSIS: POSTOPERATIVE DIAGNOSIS: PROCEDURE PERFORMED: ESTIMATED BLOOD LOSS: COMPLICATIONS: ANESTHESIA: Monitored anesthesia care. ASSISTANTS: SPECIMENS: PROCEDURE: Colonoscopy to the terminal ileum, biopsy and snare polypectomy. DESCRIPTION OF PROCEDURE: History and physical performed. The risks and benefits of the procedure were explained to the patient. Informed consent was obtained. The patient was placed in the left lateral decubitus position. A digital rectal exam was performed and was found to be normal. The Olympus pediatric video colonoscope was introduced into the rectum and advanced to the cecum without difficulty. The cecum was identified by transillumination, palpation, and identification of ileocecal valve examination was performed. The scope was removed. She tolerated the procedure well and was taken to recovery in stable condition. FINDINGS: The terminal ileum was examined and appeared normal. The visualized colonic mucosa was normal. The quality of prep was good. Three polyps were identified in the cecum was a 6 mm polyp, which was removed with a snare and recovered via suction at 45 cm was a less than 5 mm polyp, which was removed with biopsy forceps. In the rectum at about 15 cm was an 8 mm polyp, which was removed with a snare and recovered via suction. There was mild sigmoid diverticulosis. Retroflexed examination showed hypertrophic anal papillae and small internal hemorrhoids. IMPRESSION: Colon polyps. RECOMMENDATION: Follow up the biopsy results. MD CAPRICE Wolfe/EMBER / [id number]
== END 2022-09-27 11:46 | disposition home or self-care (01) ==
PROVIDERS: PCP Internal Medicine; Visit Provider Internal Medicine Gastroenterology
PROC: 0DJD8ZZ Inspection of Lower Intestinal Tract, Via Natural or Artificial Opening Endoscopic (ICD-10-PCS; CPT 45378; principal; 2022-09-27 10:40)
DX: Z12.11 Encounter for screening for malignant neoplasm of colon (principal); Z86.010 Personal history of colon polyps; Z80.0 Family history of malignant neoplasm of digestive organs; D12.0 Benign neoplasm of cecum; D12.5 Benign neoplasm of sigmoid colon; D12.8 Benign neoplasm of rectum; K57.30 Diverticulosis of large intestine without perforation or abscess without bleeding; K64.8 Other hemorrhoids; K62.89 Other specified diseases of anus and rectum; K21.9 Gastro-esophageal reflux disease without esophagitis; B18.2 Chronic viral hepatitis C; I10 Essential (primary) hypertension; G35 Multiple sclerosis; J45.909 Unspecified asthma, uncomplicated; I48.91 Unspecified atrial fibrillation; Z79.01 Long term (current) use of anticoagulants; Z79.899 Other long term (current) drug therapy; Z88.0 Allergy status to penicillin; Z88.8 Allergy status to other drugs, medicaments and biological substances; Z87.442 Personal history of urinary calculi; Z87.891 Personal history of nicotine dependence
CPT/HCPCS: 45385; 45380; 88305

== ENCOUNTER 2022-10-11 08:47 | Outpatient (REF) | payer MEDICARE, SELFPAY ==
--- NOTE | ~2022-10-11 | US_ITS ---
EXAMINATION: US RETROPERITONEAL LIMITED (RENAL ONLY) CLINICAL INFORMATION: Kidney stone. COMPARISON: None TECHNIQUE: Multiple 2-D grayscale and color Doppler ultrasound images of the kidneys were obtained. FINDINGS: RIGHT KIDNEY: 9.1 x 3.8 x 4.2 cm (SAG x AP x TRV). Adjacent lower pole echogenic foci are seen measuring up to 0.2 cm. No hydronephrosis. Doppler showed no abnormal vascular flow. LEFT KIDNEY: 8.6 x 4.2 x 3.3 cm (SAG x AP x TRV). Adjacent interpolar echogenic foci both measure 0.4 cm. No left hydronephrosis. Color Doppler showed no abnormal vascular flow. US/US renal BI IMPRESSION: Nonobstructing intrarenal calculi bilaterally.
== END 2022-10-11 08:48 | disposition home or self-care (01) ==
LOC: HO.US 08:47
PROVIDERS: Visit Provider Urology
DX: N20.0 Calculus of kidney (principal)
CPT/HCPCS: 76775

== ENCOUNTER 2022-10-11 09:49 | Day surgery (SDC) | payer MEDICARE, SELFPAY ==
--- NOTE | 2022-10-10 12:55 | HO.ANESPROP2 ---
Documented by User: Consuelo Orona NP 10/10/22 13:09 HPI - Anesthesia Eval Consult details Narrative: 67yo F for Left ESWL Eliquis for afib Stable at 07/2022 cardiology visit for 1 year f/u s/p colonoscopy 09/27/22 with MAC *Multiple Med Allergies* PMFSH Active Problems Active Problems: All Active Problems (Updated 09/28/22 @ 14:45 by Cookie Sam MD) Tinnitus (Acute) Chronic kidney disease, stage 3b (Acute) Multinodular thyroid (Acute) Vitamin D deficiency (Acute) Hyperparathyroidism (Acute) Hyperthyroidism (Acute) Osteopenia (Acute) Syncope (Acute) Pulmonary nodules (Acute) Liver cyst (Acute) Renal cyst (Acute) Fibromyalgia (Acute) DDD (degenerative disc disease) (Acute) Nausea (Acute) Lumbar disc disease (Acute) Medicare annual wellness visit, initial (Acute) Fibroid (Acute) Generalized anxiety disorder (Acute) Chronic hepatitis C (Acute) Mammogram declined (Acute) Cervical cancer screening declined (Acute) Euthyroid sick syndrome (Acute) Renal calculi (Acute) Hyperlipidemia (Acute) Hyponatremia (Acute) Paroxysmal atrial fibrillation (Acute) History of renal calculi (Acute) GERD (gastroesophageal reflux disease) (Acute) Obesity (Acute) Hypertension (Acute) Multiple sclerosis (Acute) Asthma (Acute) Past Medical History Medical History Abdominal pain Acute kidney injury superimposed on CKD Age-related osteoporosis without current pathological fracture YOHANA (acute kidney injury) Allergic rhinitis Asthma Chronic kidney disease Chronic kidney disease, stage 3b Closed right clavicular fracture Elevated troponin GERD (gastroesophageal reflux disease) Hepatitis C History of panic attacks History of renal calculi Hospital discharge follow-up Hypertension Kidney stone Low back pain Lumbar radiculopathy Multinodular thyroid Multiple sclerosis Multiple sclerosis Multiple sclerosis exacerbation Obesity Paroxysmal atrial fibrillation Screening for osteoporosis Syncope and collapse Family History Family History Father Prostate cancer Myocardial infarction Mother Breast cancer Paternal Aunt Myocardial infarction Paternal Uncle Myocardial infarction Family history of problems with anesthesia: No Surgical History Surgical History History of esophagogastroduodenoscopy (EGD) History of gynecologic surgery History of kidney stones History of lithotripsy History of liver biopsy History of verrucae (wart) excision Hx of colonoscopy Hx of wisdom tooth extraction History of Problems with Anesthesia: No Social History Social History Household Members: None Housing: Apartment Are you a primary animal care service worker to a significant other at home: No Do you presently have visiting nurse or other home services: Yes (PT, OT, VNA) Alcohol intake: never Patient Tobacco Use Status: Former Tobacco user Quit Date: 1978 Tobacco use type: Cigarette Years Smoked: 8 Smoked in Last 30 Days: No e-Cigarette/Vaping Use: Never Used Use of substances other than those prescribed or required for medical reasons: No Are you DNR?: No Advance Directives: No Advance Directives Information Provided: Yes service: No Current occupational status: retired Cognitive needs: No Hearing needs: No Vision needs: Yes Meds Allergies Allergy/AdvReac Type Severity Reaction Status Date / Time escitalopram [From LEXAPRO] Allergy Severe STOMACH Verified 10/11/22 10:36 UPSET, abd pain lisinopril [LISINOPRIL] Allergy Severe SWELLING, Verified 10/11/22 10:36 Leg swelling desipramine [Desipramine] Allergy Intermediate PALPITATIONS, Verified 10/11/22 10:36 clammy skin diphenhydramine Allergy Intermediate PALPITATIONS/CLAMMY Verified 10/11/22 10:36 [From Benadryl] SKIN duloxetine [From CYMBALTA] Allergy Intermediate STOMACH Verified 10/11/22 10:36 UPSET, abd pain Penicillins Allergy Intermediate Rash Verified 10/11/22 10:36 carbamazepine [From TEGRETOL] AdvReac Severe BLACKOUT, Verified 10/11/22 10:36 SEVERE INTOXICATION oxycodone [From Percocet] AdvReac Severe N/V, Verified 10/11/22 10:36 projectile vomiting fluoxetine [From Prozac] AdvReac Intermediate PARKINSON Verified 10/11/22 10:36 SYMPTOMS garlic AdvReac Intermediate IBS Verified 10/11/22 10:36 SYMPTOMS Home Medications Medication Instructions Recorded Confirmed Last Taken Type lamotrigine 200 mg tablet 200 mg PO DAILY 11/02/20 10/11/22 01/27/22 History (Lamictal) memantine 10 mg tablet 10 mg PO BID 11/10/11/22 01/27/22 History acetaminophen 500 mg tablet 500 mg PO 5XD 01/27/22 10/11/22 10/11/22 06:00 History ondansetron HCl 4 mg tablet 1 tab PO TID 01/27/22 10/11/22 01/27/22 History omeprazole 40 mg capsule,delayed 40 mg PO DAILY 02/15/22 10/11/22 03/01/22 History release alprazolam 0.25 mg tablet 0.125 - 0.25 mg PO DAILY PRN 03/07/22 10/11/22 Unknown History Anxiety chlorthalidone 25 mg tablet 12.5 mg PO QAM 08/16/22 10/11/22 Unknown History amlodipine 10 mg tablet 10 mg PO DAILY 09/22/22 10/11/22 10/11/22 06:00 History citalopram 20 mg tablet 20 mg PO DAILY 09/28/22 10/11/22 Unknown History metoprolol tartrate 50 mg tablet 50 mg PO BID 09/28/22 10/11/22 Unknown History Exam Exam Date and Time: October 10, 2022 1255 Pertinent Lab Results Pertinent Lab Results: Laboratory Tests 02/08/22 08/16/22 17:05 15:07 WBC 11.9 H Hgb 13.1 Hct 41.4 Plt Count 456 H D Sodium 138 Potassium 4.3 Chloride 100 Carbon Dioxide 23 BUN 24 H Creatinine 2.06 H Narrative Narrative: ECHO 02/17/22 Conclusions: - Normal left ventricular size and systolic function. There is ? mildly increased left ventricular wall thickness.? The visually? estimated ejection fraction is between 65-70%. ? - Normal right ventricular cavity size and systolic function.? ? NM mily perf SPECT rest & str 02/17/22 Impression: ? 1.? Myocardial perfusion imaging study shows normal myocardial perfusion. No evidence of any ischemia or infarction. 2.? Gated LVEF is 68% during stress and 53% during rest. 3. Transient ischemic dilatation not present. ? EKG component of the test reported separately. EKG 01/27/22 Vent. Rate : 083 BPM ? ? Atrial Rate : 083 BPM ?? P-R Int : 116 ms? QRS Dur : 070 ms ? ? QT Int : 378 ms ? ? ? P-R-T Axes : 018 001 083 degrees ?? QTc Int : 444 ms ? Normal sinus rhythm Left ventricular hypertrophy with repolarization abnormality ( R in aVL , Sokolow-B[place] ) Abnormal ECG When compared with ECG of 18-NOV-2018 20:45, Criteria for Anteroseptal infarct are no longer Present T wave inversion now evident in Lateral leads Assessment and Plan Assessment Anesthesia Assessment: Chart Reviewed Final Anesthetic Review Family History of Problems with Anesthesia: No History of Problems with Anesthesia: No Documented by User: Luan Chung MD 10/11/22 13:03 [facility] Past Medical History Medical History Abdominal pain Acute kidney injury superimposed on CKD Age-related osteoporosis without current pathological fracture YOHANA (acute kidney injury) Allergic rhinitis Asthma Chronic kidney disease Chronic kidney disease, stage 3b Closed right clavicular fracture Elevated troponin GERD (gastroesophageal reflux disease) Hepatitis C History of panic attacks History of renal calculi Hospital discharge follow-up Hypertension Kidney stone Low back pain Lumbar radiculopathy Multinodular thyroid Multiple sclerosis Multiple sclerosis Multiple sclerosis exacerbation Obesity Paroxysmal atrial fibrillation Screening for osteoporosis Syncope and collapse Family History Family History Father Prostate cancer Myocardial infarction Mother Breast cancer Paternal Aunt Myocardial infarction Paternal Uncle Myocardial infarction Surgical History Surgical History History of esophagogastroduodenoscopy (EGD) History of gynecologic surgery History of kidney stones History of lithotripsy History of liver biopsy History of verrucae (wart) excision Hx of colonoscopy Hx of wisdom tooth extraction Social History Social History Household Members: None Housing: Apartment Are you a primary animal care service worker to a significant other at home: No Do you presently have visiting nurse or other home services: Yes (PT, OT, VNA) Alcohol intake: never Patient Tobacco Use Status: Former Tobacco user Quit Date: 1978 Tobacco use type: Cigarette Years Smoked: 8 Smoked in Last 30 Days: No e-Cigarette/Vaping Use: Never Used Use of substances other than those prescribed or required for medical reasons: No Are you DNR?: No Advance Directives: No Advance Directives Information Provided: Yes service: No Current occupational status: retired Cognitive needs: No Hearing needs: No Vision needs: Yes Meds Allergies Allergy/AdvReac Type Severity Reaction Status Date / Time escitalopram [From LEXAPRO] Allergy Severe STOMACH Verified 10/11/22 10:36 UPSET, abd pain lisinopril [LISINOPRIL] Allergy Severe SWELLING, Verified 10/11/22 10:36 Leg swelling desipramine [Desipramine] Allergy Intermediate PALPITATIONS, Verified 10/11/22 10:36 clammy skin diphenhydramine Allergy Intermediate PALPITATIONS/CLAMMY Verified 10/11/22 10:36 [From Benadryl] SKIN duloxetine [From CYMBALTA] Allergy Intermediate STOMACH Verified 10/11/22 10:36 UPSET, abd pain Penicillins Allergy Intermediate Rash Verified 10/11/22 10:36 carbamazepine [From TEGRETOL] AdvReac Severe BLACKOUT, Verified 10/11/22 10:36 SEVERE INTOXICATION oxycodone [From Percocet] AdvReac Severe N/V, Verified 10/11/22 10:36 projectile vomiting fluoxetine [From Prozac] AdvReac Intermediate PARKINSON Verified 10/11/22 10:36 SYMPTOMS garlic AdvReac Intermediate IBS Verified 10/11/22 10:36 SYMPTOMS Home Medications Medication Instructions Recorded Confirmed Last Taken Type lamotrigine 200 mg tablet 200 mg PO DAILY 11/02/20 10/11/22 01/27/22 History (Lamictal) memantine 10 mg tablet 10 mg PO BID 10/11/21 10/11/22 01/27/22 History acetaminophen 500 mg tablet 500 mg PO 5XD 01/27/22 10/11/22 10/11/22 06:00 History ondansetron HCl 4 mg tablet 1 tab PO TID 01/27/22 10/11/22 01/27/22 History omeprazole 40 mg capsule,delayed 40 mg PO DAILY 02/15/22 10/11/22 03/01/22 History release alprazolam 0.25 mg tablet 0.125 - 0.25 mg PO DAILY PRN 03/07/22 10/11/22 Unknown History Anxiety chlorthalidone 25 mg tablet 12.5 mg PO QAM 08/16/22 10/11/22 Unknown History amlodipine 10 mg tablet 10 mg PO DAILY 09/22/22 10/11/22 10/11/22 06:00 History citalopram 20 mg tablet 20 mg PO DAILY 09/28/22 10/11/22 Unknown History metoprolol tartrate 50 mg tablet 50 mg PO BID 09/28/22 10/11/22 Unknown History Exam Airway Mallampati Class: II TM Dist: >3cm Neck ROM: Full Loose/Missing/Broken Teeth: No Heart: irreg irreg s1s2 Lungs: cta b/l Assessment and Plan Assessment Anesthesia Assessment: Anesthesia Plan Discussed Final Anesthetic Review NPO: Yes ASA Class: III Final Preanesthetic Review: No Changes in Pt Med Stat, Meds/Allgs Chart Reviewed, Consent Obtained/Reviewed and Anes Risks/Benef Reviewed Patient Risk: Intermediate Procedure Risk: Intermediate Assessment/Block/Sedation in SS: Assess/Block/Sedation-SS Anesthetic Plan Anesthetic Plan: GA, MAC: and Agree w/ Assess. and Plan Disposition: Standard PACU
--- NOTE | ~2022-10-11 | XR_ITS ---
EXAMINATION: XR ABDOMEN KUB CLINICAL INDICATION: Left renal stone COMPARISON: Previous KUB February 2022, CT of the abdomen and pelvis January 2022 and renal ultrasound of the same day TECHNIQUE: AP view of the abdomen. FINDINGS: There is question of a small 2 mm stone in the upper pole of the left kidney. There is a 4 x 7 mm new calcification in the pelvis suggestive of left bladder or distal ureteral stone. Previously identified left internal ureteral stent is no longer seen. No right stone is seen. Bowel gas pattern is normal. There is curvature of the lumbar spine to the right. XR/XR KUB IMPRESSION: Question small left renal stone. 4 x 7 mm new calcification in the pelvis suggestive of a bladder or left distal ureteral stone.
[2022-10-11 10:46] VITALS: BMI 26.5
[2022-10-11 10:53] VITALS: BP 122/54; PULSE 55; RESP 16; TEMP 36.6; O2SAT 98
[2022-10-11] MEDS: Lactated Ringers 1,000 ML 100 ML IVCONT (11:07)
--- NOTE | 2022-10-11 11:39 | MHC.SHP ---
Pre-Procedural Eval Section A Date of Service: 10/11/22 The patient is an INPATIENT: No Changes since office visit: No Cold of Flu in the past 2 weeks, No New Medical Problems, No Changes in Medication and No Patient answered all questions The History & Physical has been completed within 30 days and I have reviewed it.: No Section B Chief Complaint: Calculus of kidney Details of Present Illness: left flank pain with 7mm stone Relevant Family History (Specify if Yes): No Relevant Social History: None Present Medications: see Short Stay Collaborative assessment Medical History: Significant History History of Previous Operations: Relevant previous surgery/procedure and date(s) Allergies: Allergies Allergy/AdvReac Type Severity Reaction Status Date / Time escitalopram [From LEXAPRO] Allergy Severe STOMACH Verified 10/11/22 10:36 UPSET, abd pain lisinopril [LISINOPRIL] Allergy Severe SWELLING, Verified 10/11/22 10:36 Leg swelling desipramine [Desipramine] Allergy Intermediate PALPITATIONS, Verified 10/11/22 10:36 clammy skin diphenhydramine Allergy Intermediate PALPITATIONS/CLAMMY Verified 10/11/22 10:36 [From Benadryl] SKIN duloxetine [From CYMBALTA] Allergy Intermediate STOMACH Verified 10/11/22 10:36 UPSET, abd pain Penicillins Allergy Intermediate Rash Verified 10/11/22 10:36 carbamazepine [From TEGRETOL] AdvReac Severe BLACKOUT, Verified 10/11/22 10:36 SEVERE INTOXICATION oxycodone [From Percocet] AdvReac Severe N/V, Verified 10/11/22 10:36 projectile vomiting fluoxetine [From Prozac] AdvReac Intermediate PARKINSON Verified 10/11/22 10:36 SYMPTOMS garlic AdvReac Intermediate IBS Verified 10/11/22 10:36 SYMPTOMS Review of Systems Sugical H&P ROS: Negative: Constitution, Cardiovascular, Respiratory, Neurological, Psychiatric, Hem-Onc, Allergic/Immunologic, Gastrointestinal, Genitourinary, Musculoskeletal, Integumentary, Endocrine and Eyes/Ears/Nose/Throat Exam Surgical H&P Exam: Normal: HEENT, Normal: Heart, Normal: Lungs, Normal: Extremities, Normal: Abdomen, Normal: Skin and Normal: Neurological Plan Diagnosis/Plan: Unchanged (left eswl for 7mm stone) I have reviewed the history and physical and performed a pertinent physical examination on my patient. No changes have occurred unless specified.
--- NOTE | 2022-10-11 13:35 | W.PM.OPN ---
Operative Note Operative Note Date of Service: 10/11/22 Narrative: PreOperative Diagnosis: left Renal stones Post Operative Diagnosis: left Renal stones Procedure: left ESWL Surgeon: Dr Donal Ramon Anesthesia: mac/sedation Indications for procedure: The patient understands ESWL may be a staged procedure and subsequent intervention may be required based on imaging after ESWL. Quoted stone clearance rates for a solitary procedure are in the 70-80% range based primarily on stone location. They also understand there is a risk of bleeding to the kidney, infection, damage to adjacent organs, and stone migration following the procedure. - Imaging left 7mm US left lower pole Procedure: After informed consent was verified the patient was brought to the operating room and placed in a supine position. Anesthesia was performed per protocol. Safety pause time-out was performed. Imaging was displayed in the room and laterality confirmed. ESWL was performed. The 1st 500 shocks were performed at 60 hertz. These were performed with increasing power. Once maximum power was reached the rate was increased to 180 hertz. A total of 2500 shocks were given. Targeted imaging with ultrasound/fluoroscopy showed stone smudging suggestive of disintegration. The patient tolerated the procedure well and was transferred to the recovery area upon completion. Post procedure imaging will be organized. There was no evidence for flank discoloration.
[2022-10-11 13:53] VITALS: BP 106/51; PULSE 54; RESP 16; TEMP 36.4; O2SAT 100
[2022-10-11 13:58] VITALS: BP 106/51; PULSE 53; RESP 17; O2SAT 100
[2022-10-11 14:08] VITALS: BP 107/51; PULSE 58; RESP 18; O2SAT 100
[2022-10-11 14:27] VITALS: BP 122/40; PULSE 61; RESP 18; TEMP 36.1; O2SAT 98
[2022-10-11] MEDS: Acetaminophen 325 MG TABLET 650 MG PO (14:34)
[2022-10-11] MEDS: Phenazopyridine HCL 100 MG TABLET PO (14:35)
== END 2022-10-11 14:52 | disposition home or self-care (01) ==
PROVIDERS: PCP Internal Medicine; Visit Provider Urology
PROC: (CPT 50590; principal; 2022-10-11 12:20)
DX: N20.0 Calculus of kidney (principal); Z87.442 Personal history of urinary calculi; I12.9 Hypertensive chronic kidney disease with stage 1 through stage 4 chronic kidney disease, or unspecified chronic kidney disease; N18.32 Chronic kidney disease, stage 3b; G35 Multiple sclerosis; J45.909 Unspecified asthma, uncomplicated; I48.0 Paroxysmal atrial fibrillation; Z79.01 Long term (current) use of anticoagulants; Z79.1 Long term (current) use of non-steroidal anti-inflammatories (NSAID); Z79.899 Other long term (current) drug therapy; Z88.0 Allergy status to penicillin; Z88.8 Allergy status to other drugs, medicaments and biological substances; Z87.891 Personal history of nicotine dependence
CPT/HCPCS: 50590; 74018; 76775; J1100; J2250; J2405; J3010

== ENCOUNTER 2022-11-01 23:26 | Observation (INO) | payer MEDICARE, SELFPAY ==
--- NOTE | ~2022-11-01 | CT_ITS ---
EXAMINATION: CT head/brain wo IV con, CT cervical spine wo IV con INDICATION INFORMATION: Reason for Exam sycope and fall 15 stairs on Eliquis COMPARISON: CT head without contrast 01/27/2022 TECHNIQUE: Separate noncontrast CT examinations of the head and cervical spine were performed. Coronal and sagittal images were created for each examination at the technologist workstation. This CT examination was performed using dose optimization techniques as appropriate, variously including the following: *Automated exposure control *Adjustment of mA and/or kV according to patient size (this includes techniques or standardized protocols for targeted exams where dose is matched to indication/reason for exam; i.e. extremities or head) *Use of iterative reconstruction technique DLP: 941 mGy-cm FINDINGS: Head: No acute osseous or soft tissue abnormality. The mastoid air cells and visualized portions of the paranasal sinuses are well aerated. There is no evidence of acute intracranial hemorrhage or territorial infarction. No abnormal mass effect or midline shift is seen. Coulter to white matter differentiation is well preserved. No extra-axial fluid collections are identified. Stable prominent bifrontal extra-axial spaces No hydrocephalus. No significant volume loss. Patchy periventricular and deep white matter hypoattenuation is consistent with mild small vessel ischemic changes. Cervical spine: There is no evidence of acute cervical spine fracture. Vertebral bodies remain normal in height. Mild to moderate multilevel degenerative changes of the cervical spine. No pre- or paravertebral soft tissue abnormality is identified. 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 The thyroid gland is unremarkable. CT/CT cervical spine wo IV con IMPRESSION: 1. No acute intracranial abnormality. 2. No cervical spine fracture or traumatic malalignment.
--- NOTE | ~2022-11-01 | CT_ITS ---
EXAMINATION: CT CHEST, ABDOMEN AND PELVIS WITHOUT CONTRAST CLINICAL INFORMATION: Reason for Exam Fell 15 stairs on Eliquis COMPARISON: CT abdomen pelvis 01/27/2022 CT chest 11/28/2018 TECHNIQUE: Multidetector volumetric imaging was performed from the thoracic inlet through the pubic symphysis without IV contrast. Sagittal and coronal reformatted images were obtained on the technologist's workstation. This CT examination was performed using dose optimization techniques as appropriate, variously including the following: *Automated exposure control *Adjustment of mA and/or kV according to patient size (this includes techniques or standardized protocols for targeted exams where dose is matched to indication/reason for exam; i.e. extremities or head) *Use of iterative reconstruction technique DLP: 690 mGy-cm FINDINGS: CHEST: Lung: Some tiny punctate noncalcified nodules are seen. Calcified granulomas are present. In both lower lobes, there are many groundglass nodules present, some with qlzq-[id number]-type distribution, the largest measuring about 6 mm (for example 7: 330). These are without significant interval change when compared to 11/28/2018. Mediastinum: The mediastinum is unremarkable. The central vascular structures are unremarkable ascending aorta measures 3.6 cm with no significant coronary calcium is seen. No hilar or mediastinal lymphadenopathy. Pericardium/Pleura: No significant effusion. No pleural mass or thickening. Chest Wall/Axilla: Unremarkable ABDOMEN/PELVIS: Peritoneal Space: No significant free air or free fluid identified. Liver, Gallbladder, Biliary Tree: The liver is normal in size, shape, and attenuation. No focal hepatic lesion or biliary ductal dilatation is present. The gallbladder is unremarkable with no evidence of radiopaque gallstones, gallbladder wall thickening, or obvious pericholecystic inflammatory changes. Pancreas: Unremarkable Spleen: Unremarkable Adrenal Glands: Unremarkable Kidneys and Ureters: The kidneys are normal in size, shape, and attenuation. There is a 2 mm nonobstructing left lower pole renal calculus (12:249). No hydronephrosis, hydroureter, or other calculi seen. No perinephric stranding. Bladder: Unremarkable Gastrointestinal Tract: The small and large bowel are unremarkable. The appendix is unremarkable. Abdominal Wall: No significant hernia is appreciated. Lymph Nodes: No lymphadenopathy. Vascular: The aorta appears normal.. The IVC appears unremarkable. PELVIC VISCERA: A retroverted uterus is present with some calcifications indicative of old fibroids. There is a prominent left adnexal mass/ovary measuring 3.9 x 2.7 x 5.0 cm, unchanged from prior. This was about the size of the ovary on a pelvic ultrasound from 11/10/2020. There is a small amount of free pelvic fluid. OSSEUS STRUCTURES: Moderate degenerative changes are noted in the spine from L1 through L3. No acute fractures. No bony destructive lesions are seen. CT/CT chest wo IV con IMPRESSION: 1. No evidence of an acute traumatic injury in the chest, abdomen or pelvis. 2. Incidental note made of: 3. Groundglass nodules, some with [id number]-type distribution, without significant interval change since 2019. 4. Nonobstructing 2 mm left renal calculus. 5. Left adnexal mass/ovary, unchanged. 6. Other incidental findings as described above including old uterine fibroids and degenerative changes in the spine. 2017 Fleischner Society Recommendations for Lung Nodule(s): Follow-Up based on size (average of long- and short-axis diameters). Use most suspicious nodule for followup. Multiple GG/Part Solid lung nodules >= 6 mm: Recommend a non-contrast Chest CT at 3-6 months. Subsequent management based on the most suspicious nodule(s). These guidelines do not apply to patients younger than 35 years, immunocompromised patients, and patients with cancer. F/u in patients with significant comorbidities as clinically warranted. For lung cancer screening, adhere to Lung-RADS guidelines. Reference: Radiology. 2017 May; 284(1):228-243
--- NOTE | ~2022-11-01 | XR_ITS ---
EXAMINATION: XR KNEE, RIGHT CLINICAL INFORMATION: Fall with right knee pain COMPARISON: None TECHNIQUE: Two views of the right knee. FINDINGS: Bones and soft tissues are normal. No fracture or joint effusion. Alignment is anatomic. Joint spaces are well maintained. No abnormal soft tissue calcification. XR/XR knee RT 2V IMPRESSION: Normal right knee.
--- NOTE | ~2022-11-01 | CT_ITS ---
EXAMINATION: CT CHEST, ABDOMEN AND PELVIS WITHOUT CONTRAST CLINICAL INFORMATION: Reason for Exam Fell 15 stairs on Eliquis COMPARISON: CT abdomen pelvis 01/27/2022 CT chest 11/28/2018 TECHNIQUE: Multidetector volumetric imaging was performed from the thoracic inlet through the pubic symphysis without IV contrast. Sagittal and coronal reformatted images were obtained on the technologist's workstation. This CT examination was performed using dose optimization techniques as appropriate, variously including the following: *Automated exposure control *Adjustment of mA and/or kV according to patient size (this includes techniques or standardized protocols for targeted exams where dose is matched to indication/reason for exam; i.e. extremities or head) *Use of iterative reconstruction technique DLP: 690 mGy-cm FINDINGS: CHEST: Lung: Some tiny punctate noncalcified nodules are seen. Calcified granulomas are present. In both lower lobes, there are many groundglass nodules present, some with [id number]-vn-[id number]-type distribution, the largest measuring about 6 mm (for example 7: 330). These are without significant interval change when compared to 11/28/2018. Mediastinum: The mediastinum is unremarkable. The central vascular structures are unremarkable ascending aorta measures 3.6 cm with no significant coronary calcium is seen. No hilar or mediastinal lymphadenopathy. Pericardium/Pleura: No significant effusion. No pleural mass or thickening. Chest Wall/Axilla: Unremarkable ABDOMEN/PELVIS: Peritoneal Space: No significant free air or free fluid identified. Liver, Gallbladder, Biliary Tree: The liver is normal in size, shape, and attenuation. No focal hepatic lesion or biliary ductal dilatation is present. The gallbladder is unremarkable with no evidence of radiopaque gallstones, gallbladder wall thickening, or obvious pericholecystic inflammatory changes. Pancreas: Unremarkable Spleen: Unremarkable Adrenal Glands: Unremarkable Kidneys and Ureters: The kidneys are normal in size, shape, and attenuation. There is a 2 mm nonobstructing left lower pole renal calculus (12:249). No hydronephrosis, hydroureter, or other calculi seen. No perinephric stranding. Bladder: Unremarkable Gastrointestinal Tract: The small and large bowel are unremarkable. The appendix is unremarkable. Abdominal Wall: No significant hernia is appreciated. Lymph Nodes: No lymphadenopathy. Vascular: The aorta appears normal.. The IVC appears unremarkable. PELVIC VISCERA: A retroverted uterus is present with some calcifications indicative of old fibroids. There is a prominent left adnexal mass/ovary measuring 3.9 x 2.7 x 5.0 cm, unchanged from prior. This was about the size of the ovary on a pelvic ultrasound from 11/10/2020. There is a small amount of free pelvic fluid. OSSEUS STRUCTURES: Moderate degenerative changes are noted in the spine from L1 through L3. No acute fractures. No bony destructive lesions are seen. CT/CT abdomen pelvis wo IV con IMPRESSION: 1. No evidence of an acute traumatic injury in the chest, abdomen or pelvis. 2. Incidental note made of: 3. Groundglass nodules, some with fzho-ci-qcc-type distribution, without significant interval change since 2019. 4. Nonobstructing 2 mm left renal calculus. 5. Left adnexal mass/ovary, unchanged. 6. Other incidental findings as described above including old uterine fibroids and degenerative changes in the spine. 2017 Fleischner Society Recommendations for Lung Nodule(s): Follow-Up based on size (average of long- and short-axis diameters). Use most suspicious nodule for followup. Multiple GG/Part Solid lung nodules >= 6 mm: Recommend a non-contrast Chest CT at 3-6 months. Subsequent management based on the most suspicious nodule(s). These guidelines do not apply to patients younger than 35 years, immunocompromised patients, and patients with cancer. F/u in patients with significant comorbidities as clinically warranted. For lung cancer screening, adhere to Lung-RADS guidelines. Reference: Radiology. 2017 May; 284(1):228-243
[2022-11-01 23:30] VITALS: BP 99/44; PULSE 55; RESP 16; O2SAT 99; BMI 24.7
[2022-11-01 23:47] VITALS: BP 123/63; PULSE 58; RESP 12; TEMP 37.1; O2SAT 98
--- NOTE | 2022-11-01 23:53 | ECG_ITS ---
Test Reason : fall Blood Pressure : / mmHG Vent. Rate : 052 BPM Atrial Rate : 052 BPM P-R Int : 134 ms QRS Dur : 076 ms QT Int : 496 ms P-R-T Axes : 071 -03 031 degrees QTc Int : 461 ms Sinus bradycardia Nonspecific ST and T wave abnormality Abnormal ECG When compared with ECG of 30-JAN-2022 08:48, Normal sinus rhythm has replaced Normal sinus rhythm Referred By: Latrell Hogue Electronically Signed By:CHANNING HYDE MD
--- NOTE | 2022-11-01 23:56 | ED.FALL ---
HPI - Fall General Chief Complaint: Fall Stated Complaint: fall, leg pain? Time Seen by Provider: 11/01/22 23:45 Source: patient and family (A friend) Mode of arrival: ambulatory Limitations: no limitations History of Present Illness HPI Narrative: 67-year-old female walked into the emergency department for evaluation after a fall and syncope. Was climbing a 15 steps of stairs at home patient blacked out at the top of the stairs causing falling backward patient fell down the 15 steps backward landing on the ground her friend heard a thud patient was on the ground conscious and coherent the patient had another 10 seconds of syncopal episode witnessed by the friend, complaining of right knee pain patient was able to ambulate with limp. Stated that she has been having episodes of blacking out recently causing her to fall patient had a pre-existing left occipital hematoma from a previous recent fall. Patient is taking Eliquis and metoprolol for paroxysmal atrial fibrillation. Patient declines CP, SOB, abdominal pain, nausea, vomiting, or diarrhea. Related Data Home Medications Medication Instructions Recorded Confirmed lamotrigine 200 mg tablet 200 mg PO DAILY 11/02/20 10/11/22 (Lamictal) memantine 10 mg tablet 10 mg PO BID 10/11/21 10/11/22 acetaminophen 500 mg tablet 500 mg PO 5XD 01/27/22 10/11/22 ondansetron HCl 4 mg tablet 1 tab PO TID 01/27/22 10/11/22 omeprazole 40 mg capsule,delayed 40 mg PO DAILY 02/15/22 10/11/22 release alprazolam 0.25 mg tablet 0.125 - 0.25 mg PO DAILY PRN 03/07/22 10/11/22 Anxiety chlorthalidone 25 mg tablet 12.5 mg PO QAM 08/16/22 10/11/22 amlodipine 10 mg tablet 10 mg PO DAILY 09/22/22 10/11/22 citalopram 20 mg tablet 20 mg PO DAILY 09/28/22 10/11/22 metoprolol tartrate 50 mg tablet 50 mg PO BID 09/28/22 10/11/22 Previous Rx's Medication Instructions Recorded apixaban 5 mg tablet 5 mg PO BID 90 days #180 tabs 06/16/22 albuterol sulfate 90 mcg/actuation 2 puff inhalation Q4-6H PRN 09/28/22 aerosol inhaler (Ventolin HFA) bronchospasm #8.5 grams naproxen 500 mg tablet (Naprosyn) 500 mg PO BID 2 weeks #28 tabs 10/04/22 tamsulosin 0.4 mg capsule 0.4 mg PO BEDTIME #30 caps 10/04/22 tramadol 50 mg tablet 50 mg PO q6h 3 days #8 tabs 10/04/22 gabapentin 300 mg capsule 300 mg PO TID 90 days #270 caps 10/06/22 phenazopyridine 100 mg tablet 100 mg PO TID PRN Spasm 4 days #12 10/11/22 (Pyridium) tabs tamsulosin 0.4 mg capsule 0.4 mg PO BEDTIME 14 days #14 caps 10/11/22 Allergies Allergy/AdvReac Type Severity Reaction Status Date / Time escitalopram [From LEXAPRO] Allergy Severe STOMACH Verified 10/11/22 10:36 UPSET, abd pain lisinopril [LISINOPRIL] Allergy Severe SWELLING, Verified 10/11/22 10:36 Leg swelling desipramine [Desipramine] Allergy Intermediate PALPITATIONS, Verified 10/11/22 10:36 clammy skin diphenhydramine Allergy Intermediate PALPITATIONS/CLAMMY Verified 10/11/22 10:36 [From Benadryl] SKIN duloxetine [From CYMBALTA] Allergy Intermediate STOMACH Verified 10/11/22 10:36 UPSET, abd pain Penicillins Allergy Intermediate Rash Verified 10/11/22 10:36 carbamazepine [From TEGRETOL] AdvReac Severe BLACKOUT, Verified 10/11/22 10:36 SEVERE INTOXICATION oxycodone [From Percocet] AdvReac Severe N/V, Verified 10/11/22 10:36 projectile vomiting fluoxetine [From Prozac] AdvReac Intermediate PARKINSON Verified 10/11/22 10:36 SYMPTOMS garlic AdvReac Intermediate IBS Verified 10/11/22 10:36 SYMPTOMS Review of Systems Review of Systems: All other systems are reviewed and are negative Constitutional: Reports as per HPI and Reports no additional constitutional complaints Eyes: Reports as per HPI and Reports no additional eye complaints Reports system reviewed and no additional complaints, except as documented Cardiovascular: Reports as per HPI and Reports no additional cardiovascular complaints Respiratory: Reports as per HPI and Reports no additional respiratory complaints Gastrointestinal: Reports as per HPI and Reports no additional gastrointestinal complaints Genitourinary: Reports no additional female genitourinary complaints Musculoskeletal: Reports no additional musculoskeletal complaints Skin/Breast: Reports system reviewed and no additional complaints, except as docu Psychiatric: Reports no additional psychiatric complaints Endocrine: Reports no additional endocrine complaints Hematologic/Lymphatic: Reports no additional hematologic/lymphatic complaints Allergic/Immunologic: Reports no additional allergic/immunologic complaints Reports system reviewed and no additional complaints, except as documented and Reports Abnormal speech present [facility] Past Medical History Medical History Abdominal pain Acute kidney injury superimposed on CKD Age-related osteoporosis without current pathological fracture YOHANA (acute kidney injury) Allergic rhinitis Asthma Chronic kidney disease Chronic kidney disease, stage 3b Closed right clavicular fracture Elevated troponin GERD (gastroesophageal reflux disease) Hepatitis C History of panic attacks History of renal calculi Hospital discharge follow-up Hypertension Kidney stone Low back pain Lumbar radiculopathy Multinodular thyroid Multiple sclerosis Multiple sclerosis Multiple sclerosis exacerbation Obesity Paroxysmal atrial fibrillation Screening for osteoporosis Syncope and collapse Surgical History History of esophagogastroduodenoscopy (EGD) History of gynecologic surgery History of kidney stones History of lithotripsy History of liver biopsy History of verrucae (wart) excision Hx of colonoscopy Hx of wisdom tooth extraction Family History Family History Father Prostate cancer Myocardial infarction Mother Breast cancer Paternal Aunt Myocardial infarction Paternal Uncle Myocardial infarction Social History Social History Household Members: None Housing: Apartment Are you a primary rn coronary care unit to a significant other at home: No Do you presently have visiting nurse or other home services: Yes (PT, OT, VNA) Alcohol intake: never Patient Tobacco Use Status: Former Tobacco user Quit Date: 1978 Tobacco use type: Cigarette Years Smoked: 8 Smoked in Last 30 Days: No e-Cigarette/Vaping Use: Never Used Use of substances other than those prescribed or required for medical reasons: No Advance Directives: No service: No Current occupational status: retired Cognitive needs: No Hearing needs: No Vision needs: Yes Physical Exam Vital Signs: Vital Signs: Last Vital Signs Temp 98.6 F 11/02/22 00:00 Pulse 58 11/02/22 00:00 Resp 18 11/02/22 00:00 BP 123/53 L 11/02/22 00:00 Pulse Ox 96 11/02/22 00:00 O2 Del Method 11/02/22 00:00 BMI result Body Mass Index 24.7 Vital signs have been reviewed as appeared to be correct. Blood pressure normal. Heart rate normal. Respiration rate normal. Temperature normal. Oxygen saturation normal. Appearance: Alert. Oriented X3. No acute distress. GCS of 15 Head: Normal external exam. Normocephalic. Pre-existing area of hematoma on the left occipital area with no step-off or deformity. No Mosher signs noted. No raccoon eyes noted Eyes: PERRLA. EOMI. Conjunctiva and sclera normal. Eyelids normal. ENT: TM's Normal. Pharynx normal. Uvula midline. Moist mucous membranes. No trismus noted. No drooling noted. No muffled voice noted. Neck: Normal inspection. Neck supple. FROM. No adenopathy. Thyroid Normal. No meningeal signs. No neck mass noted. CVS: Normal heart rate and rhythm. Heart sound normal. No murmurs noted. Pulses normal throughout. Respiratory: No respiratory distress. Painless inspiration. Breath sounds normal. No wheezes/rales/rhonchi noted. Chest nontender. No accessory muscle usage noted or decreased air movement noted. Abdomen: Soft and nontender. Bowel sounds normal in all 4 quadrants. No distention noted. No organomegaly noted. No visible injury noted. Back: No CVA tenderness. Full range of motion noted. 5 x 5 cm area of ecchymosis to the left flank area with no tenderness. Skin: Skin warm and dry. Normal skin color. Normal skin turgor. No rashes/lesions/lacerations noted. Extremities: Right knee tenderness no deformity or step-off, limited ROM due to pain, superficial ecchymoses around inner side of the left leg. Neuro: Oriented X 3. Cranial nerve exam: II-XII are grossly intact No motor deficit. No sensory deficit. Reflexes normal. Course Course Course Narrative: 67-year-old female with history of paroxysmal AFib on Eliquis fell 15 steps stairs backward after having a syncopal episode. 1. No traumatic injury with negative CT head/C-spine/chest/abdomen and negative right knee x-ray. 2. Attempt to obtain orthostatic vital sign patient fell dizzy when she stood up. 3. Hyponatremia patient had hyponatremia in the past will give 1 L of normal saline IV. 4. Hypokalemia will replete by p.o. 5. Bradycardia on the EKG patient on beta licha? 6. Will admit for further monitoring. Medications Administered Generic Name Dose Route Start Last Admin Trade Name Freq PRN Reason Stop Dose Admin Sodium Chloride 1,000 mls @ 999 mls/hr 11/02/22 00:50 11/02/22 01:39 Ns IV 11/02/22 01:50 999 mls/hr .Q1H1M ONE Administration Discontinued Medications Generic Name Dose Route Start Last Admin Trade Name Freq PRN Reason Stop Dose Admin Sodium Chloride 1,000 mls @ 999 mls/hr 11/01/22 23:53 11/02/22 01:05 Ns IV 11/02/22 00:53 Infused .Q1H1M ONE Infusion Potassium Chloride 40 meq 11/02/22 00:50 11/02/22 01:37 Potassium Chloride Packet 20 Meq Packet PO 11/02/22 00:51 40 meq ONCE ONE Administration Medical Decision Making Medical Decision Making Differential Diagnoses: Differential diagnosis (Head injury/neck injury/chest injury/abdominal injuries/right knee contusion/right knee fracture/syncope/cardiac arrhythmia/ACS.) Consideration of admission/observation: Consideration of Admission/Observation Discussion of management with other physician/healthcare provider/other source (e.g., hospitalist, senior market intelligence consultant, behavioral health): Discussion w/other physician/healthcare provider Management of the patient was discussed with: Hospitalist My interpretation is Lab Attestation: I reviewed the patient's lab results. Independent interpretation of EKG, rhythm strip, radiology study: Independent interp EKG,rhythm strip, radiology study I performed an independent interpretation of the: EKG My interpretation is sinus bradycardia at 52 beats per minutes, left axis deviation, normal intervals, nonspecific ST-T changes. Discharge Plan Discharge Clinical Impression: Syncope and collapse, Acute hypokalemia, Acute hyponatremia, Contusion of right lower extremity, Fall from height of greater than 3 feet Patient Disposition: Admitted As Inpatient
[2022-11-02] VITALS (11 sets, daily range): BP systolic 74–164; BP diastolic 53–132; PULSE 58–71; RESP 10–18; TEMP 36.7–37; O2SAT 94–98
[2022-11-02 00:07] LABS: Basophils Absolute Auto 0.1 X10*3/uL (0.0-0.2); Basophils Percent Auto 1.2 % (0-2); Eosinophils Absolute Auto 0.1 X10*3/uL (0.0-0.4); Eosinophils Percent Auto 1.6 % (0-4); Hematocrit 41.1 % (37.0-47.0); Hemoglobin 14.2 g/dl (12.0-16.0); Imm Gran Abs Auto 0.03 X10*3/uL (0.00-0.03); Imm Gran Pct Auto 0.3 % (0.0-0.4); Lymphocytes Absolute Auto 2.1 X10*3/uL (1.2-4.9); Lymphocytes Percent Auto 24.7 % (20-40); MANUAL DIFF FLAG NO; Mean Corpuscular HGB Conc 34.5 g/dl (31.0-35.0); Mean Corpuscular Volume 86.7 fL (80.0-98.0); Mean Platelet Volume 10.3 fL (9.4-12.3); Monocytes Percent Auto 11.3 % (2-11); Neutrophils Absolute Auto 5.3 x10*3/uL (2.0-8.3); Neutrophils Percent Auto 60.9 % (45-73); Platelet Count 338 X10*3/uL (160-400); Red Blood Count 4.74 X10*6/uL (4.20-5.50); Red Cell Distribution Width 12.2 % (11.0-16.0); White Blood Count 8.7 X10*3/uL (4.8-10.8)
[2022-11-02 00:31] LABS: B Type Natriuretic Peptide 486 pg/mL (<100)
[2022-11-02 00:36] LABS: Troponin-I High Sensitivity 8.8 ng/L (<3.5-17.0)
[2022-11-02 00:39] LABS: Alanine Aminotransferase 16 U/L (0-31); Alkaline Phosphatase 54 U/L (39-117); Anion Gap 16 (12-20); Aspartate Amino Transferase 22 U/L (5-31); Bilirubin Direct 0.2 mg/dL (0.0-0.5); Blood Urea Nitrogen 23 mg/dL (9-16); Calcium 8.7 mg/dL (8.4-10.2); Carbon Dioxide 25 mmol/L (22-29); Chloride 90 mmol/L (96-108); Creatinine Clr Calc Pharmacy 24.1; Estimated Glomerular Filt Rate 24; Glucose Random 104 mg/dL (60-115); Lipase 66 U/L (8-78); Potassium 3.2 mmol/L (3.3-5.1); Sodium 128 mmol/L (135-145); Total Protein 6.3 g/dL (6.5-8.0)
[2022-11-02 00:47] LABS: Influenza A PCR NEGATIVE (Negative); Influenza B PCR NEGATIVE (Negative); Resp Syncy Virus RNA Qual PCR NEGATIVE (Negative); SARS COV2 PCR INHOUSE NEGATIVE (Negative)
[2022-11-02 01:37] LABS: Bilirubin Total 0.5 mg/dL (0.0-1.0)
[2022-11-02] MEDS: Potassium Chloride Packet 20 MEQ PACKET 40 MEQ PO (01:37)
[2022-11-02] MEDS: 0.9 % Sodium Chloride 1,000 ML 999 ML IV ×2 (01:39)
[2022-11-02] MEDS: Acetaminophen 325 MG TABLET 650 MG PO ×3 (02:40→17:02)
--- NOTE | 2022-11-02 02:51 | PM.IMHP ---
History of Present Illness Date of Service: 11/02/22 Chief Complaint: Syncope and fall This is a 67-year-old female with pertinent history mood disorder, essential hypertension, paroxysmal atrial fibrillation on Eliquis, peripheral neuropathy, dementia, urinary incontinence, history of MS presents to the emergency department for evaluation of fall and syncope. Patient states she was climbing her stairs when she blacked out and fell down. Patient states she regained consciousness after about a minute. Prior to losing consciousness, patient denies dizziness, lightheadedness, tongue bite, jerking movement of extremities, urinary or bowel incontinence. No postictal confusion. Patient states over the last 2 weeks she has had about 3-5 episodes of syncope. All episodes have been sudden-onset and only during ambulation. No chest discomfort, palpitations, shortness of breath prior to the episode. No dizziness, lightheadedness prior. She denies fever, chills, abdominal pain, changes in urinary or bowel habits. Of note, patient was admitted in January 2022 after syncope and fall. She was found to have AFib with RVR and was initiated on metoprolol and Eliquis. Also thought to have MS flare and treated with 5 days of Solu-Medrol. Syncope was thought to be vasovagal in nature. Review of Systems Constitutional: Constitutional: Reports no additional constitutional complaints Cardiovascular: Cardiovascular: Reports no additional cardiovascular complaints Respiratory: Respiratory: Reports no additional respiratory complaints Gastrointestinal: Gastrointestinal: Reports no additional gastrointestinal complaints Genitourinary: Genitourinary: Reports no additional female genitourinary complaints [facility] Medical History Abdominal pain Acute kidney injury superimposed on CKD Age-related osteoporosis without current pathological fracture YOHANA (acute kidney injury) Allergic rhinitis Asthma Chronic kidney disease Chronic kidney disease, stage 3b Closed right clavicular fracture Elevated troponin GERD (gastroesophageal reflux disease) Hepatitis C History of panic attacks History of renal calculi Hospital discharge follow-up Hypertension Kidney stone Low back pain Lumbar radiculopathy Multinodular thyroid Multiple sclerosis Multiple sclerosis Multiple sclerosis exacerbation Obesity Paroxysmal atrial fibrillation Screening for osteoporosis Syncope and collapse Family History Father Prostate cancer Myocardial infarction Mother Breast cancer Paternal Aunt Myocardial infarction Paternal Uncle Myocardial infarction Surgical History History of esophagogastroduodenoscopy (EGD) History of gynecologic surgery History of kidney stones History of lithotripsy History of liver biopsy History of verrucae (wart) excision Hx of colonoscopy Hx of wisdom tooth extraction Social History Household Members: None Housing: Apartment Are you a primary respiratory care assistant to a significant other at home: No Do you presently have visiting nurse or other home services: Yes (PT, OT, VNA) Alcohol intake: never Patient Tobacco Use Status: Former Tobacco user Quit Date: 1978 Tobacco use type: Cigarette Years Smoked: 8 Smoked in Last 30 Days: No e-Cigarette/Vaping Use: Never Used Use of substances other than those prescribed or required for medical reasons: No Advance Directives: No service: No Current occupational status: retired Cognitive needs: No Hearing needs: No Vision needs: Yes Meds Allergies Allergy/AdvReac Type Severity Reaction Status Date / Time escitalopram [From LEXAPRO] Allergy Severe STOMACH Verified 10/11/22 10:36 UPSET, abd pain lisinopril [LISINOPRIL] Allergy Severe SWELLING, Verified 10/11/22 10:36 Leg swelling desipramine [Desipramine] Allergy Intermediate PALPITATIONS, Verified 10/11/22 10:36 clammy skin diphenhydramine Allergy Intermediate PALPITATIONS/CLAMMY Verified 10/11/22 10:36 [From Benadryl] SKIN duloxetine [From CYMBALTA] Allergy Intermediate STOMACH Verified 10/11/22 10:36 UPSET, abd pain Penicillins Allergy Intermediate Rash Verified 10/11/22 10:36 carbamazepine [From TEGRETOL] AdvReac Severe BLACKOUT, Verified 10/11/22 10:36 SEVERE INTOXICATION oxycodone [From Percocet] AdvReac Severe N/V, Verified 10/11/22 10:36 projectile vomiting fluoxetine [From Prozac] AdvReac Intermediate PARKINSON Verified 10/11/22 10:36 SYMPTOMS garlic AdvReac Intermediate IBS Verified 10/11/22 10:36 SYMPTOMS Active Medications: Current Medications Acetaminophen (Acetaminophen 325 Mg Tablet) 650 mg PO Q6H PRN PRN Reason: Pain, Mild (Pain Scale 1-3) Last Admin: 11/02/22 02:40 Dose: 650 mg Melatonin (Melatonin 3 Mg Tablet) 6 mg PO BEDTIME PRN PRN Reason: Insomnia Ondansetron HCl (Ondansetron Hcl 4 Mg/2 Ml Vial) 4 mg IVPUSH Q8H PRN PRN Reason: Nausea and Vomiting Pharmacy Consult (Consult Rx Perform Med Rec) 1 each MISCELLANE ONCE PRN PRN Reason: Consult order Pharmacy Consult (Consult Rx Perform Med Rec) 1 each MISCELLANE ONCE PRN PRN Reason: Consult order Sodium Chloride (0.9 % Sodium Chloride Flush 3 Ml Syringe) 3 ml IVFLUSH [facility] Home Medications Medication Instructions Recorded Confirmed Last Taken Type lamotrigine 200 mg tablet 200 mg PO DAILY 11/02/20 10/11/22 01/27/22 History (Lamictal) memantine 10 mg tablet 10 mg PO BID 10/11/21 10/11/22 01/27/22 History acetaminophen 500 mg tablet 500 mg PO 5XD 01/27/22 10/11/22 10/11/22 06:00 History ondansetron HCl 4 mg tablet 1 tab PO TID 01/27/22 10/11/22 01/27/22 History omeprazole 40 mg capsule,delayed 40 mg PO DAILY 02/15/22 10/11/22 03/01/22 History release alprazolam 0.25 mg tablet 0.125 - 0.25 mg PO DAILY PRN 03/07/22 10/11/22 Unknown History Anxiety chlorthalidone 25 mg tablet 12.5 mg PO QAM 08/16/22 10/11/22 Unknown History amlodipine 10 mg tablet 10 mg PO DAILY 09/22/22 10/11/22 10/11/22 06:00 History citalopram 20 mg tablet 20 mg PO DAILY 09/28/22 10/11/22 Unknown History metoprolol tartrate 50 mg tablet 50 mg PO BID 09/28/22 10/11/22 Unknown History Physical Exam Vital Signs and Narrative: Vital Signs: Last Vital Signs Temp 98.6 F 11/02/22 00:00 Pulse 58 11/02/22 00:00 Resp 18 11/02/22 00:00 BP 123/53 L 11/02/22 00:00 Pulse Ox 96 11/02/22 00:00 O2 Del Method 11/02/22 00:00 BMI result Body Mass Index 24.7 Middle-aged female lying in bed in no distress Neck supple, no JVD Regular rate and rhythm, S1-S2 heard Regular breath sounds bilaterally, no wheezing or crackles appreciated Abdomen soft nontender, no guarding, no rigidity Patient is awake, alert and oriented to self, place, time and person ; no focal motor deficit Psych: Normal mood No pedal edema Results Labs CBC and Chem 7: 11/01/22 23:59 11/01/22 23:59 Labs: Laboratory Results - last 24 hr 11/01/22 11/01/22 11/01/22 23:59 23:59 23:59 MCV 86.7 MCH 30.0 MCHC 34.5 RDW 12.2 Plt Count 338 D MPV 10.3 Immature Gran % (Auto) 0.3 Neut % (Auto) 60.9 Lymph % (Auto) 24.7 [place] % (Auto) 11.3 H Eos % (Auto) 1.6 Baso % (Auto) 1.2 Lymph # (Auto) 2.1 [place] # (Auto) 1.0 Eos # (Auto) 0.1 Baso # (Auto) 0.1 Abs Immat Gran (auto) 0.03 Absolute Neuts (auto) 5.3 Absolute Nucleated RBC 0.000 Nucleated RBC % (auto) 0.0 Anion Gap 16 Estim Creat Clear Calc 24.1 Estimated GFR 24 Random Glucose 104 Calcium 8.7 D Total Bilirubin 0.5 Direct Bilirubin 0.2 AST 22 ALT 16 Alkaline Phosphatase 54 D Troponin I High Sens 8.8 D B-Natriuretic Peptide Total Protein 6.3 L Albumin 4.0 Lipase 66 Influenza Type A (PCR) Influenza Type B (PCR) RSV RNA Qual (PCR) SARS-CoV-2 RNA (RT-PCR) 11/01/22 11/01/22 23:59 23:59 MCV MCH MCHC RDW Plt Count MPV Immature Gran % (Auto) Neut % (Auto) Lymph % (Auto) [place] % (Auto) Eos % (Auto) Baso % (Auto) Lymph # (Auto) [place] # (Auto) Eos # (Auto) Baso # (Auto) Abs Immat Gran (auto) Absolute Neuts (auto) Absolute Nucleated RBC Nucleated RBC % (auto) Anion Gap Estim Creat Clear Calc Estimated GFR Random Glucose Calcium Total Bilirubin Direct Bilirubin AST ALT Alkaline Phosphatase Troponin I High Sens B-Natriuretic Peptide 486 H Total Protein Albumin Lipase Influenza Type A (PCR) NEGATIVE Influenza Type B (PCR) NEGATIVE RSV RNA Qual (PCR) NEGATIVE SARS-CoV-2 RNA (RT-PCR) NEGATIVE Imaging Radiologist's Impressions: Impressions Knee X-Ray 11/02/22 00:23 IMPRESSION: Normal right knee. Abdomen/Pelvis CT 11/02/22 00:33 IMPRESSION: 1. No evidence of an acute traumatic injury in the chest, abdomen or pelvis. 2. Incidental note made of: 3. Groundglass nodules, some with [id number]-type distribution, without significant interval change since 2019. 4. Nonobstructing 2 mm left renal calculus. 5. Left adnexal mass/ovary, unchanged. 6. Other incidental findings as described above including old uterine fibroids and degenerative changes in the spine. 2017 Fleischner Society Recommendations for Lung Nodule(s): Follow-Up based on size (average of long- and short-axis diameters). Use most suspicious nodule for followup. Multiple GG/Part Solid lung nodules >= 6 mm: Recommend a non-contrast Chest CT at 3-6 months. Subsequent management based on the most suspicious nodule(s). These guidelines do not apply to patients younger than 35 years, immunocompromised patients, and patients with cancer. F/u in patients with significant comorbidities as clinically warranted. For lung cancer screening, adhere to Lung-RADS guidelines. Reference: Radiology. 2017 May; 284(1):228-[address] 11/02/22 00:33 IMPRESSION: 1. No acute intracranial abnormality. 2. No cervical spine fracture or traumatic malalignment. Chest CT 11/02/22 00:33 IMPRESSION: 1. No evidence of an acute traumatic injury in the chest, abdomen or pelvis. 2. Incidental note made of: 3. Groundglass nodules, some with [id number]-type distribution, without significant interval change since 2019. 4. Nonobstructing 2 mm left renal calculus. 5. Left adnexal mass/ovary, unchanged. 6. Other incidental findings as described above including old uterine fibroids and degenerative changes in the spine. 2017 Fleischner Society Recommendations for Lung Nodule(s): Follow-Up based on size (average of long- and short-axis diameters). Use most suspicious nodule for followup. Multiple GG/Part Solid lung nodules >= 6 mm: Recommend a non-contrast Chest CT at 3-6 months. Subsequent management based on the most suspicious nodule(s). These guidelines do not apply to patients younger than 35 years, immunocompromised patients, and patients with cancer. F/u in patients with significant comorbidities as clinically warranted. For lung cancer screening, adhere to Lung-RADS guidelines. Reference: Radiology. 2017 May; 284(1):228-[address] 11/02/22 00:34 IMPRESSION: 1. No acute intracranial abnormality. 2. No cervical spine fracture or traumatic malalignment. Assessment and Plan (1) Syncope and collapse: Status: Acute (2) Fall from height of greater than 3 feet: Status: Acute (3) Paroxysmal atrial fibrillation: Status: Acute (4) GERD (gastroesophageal reflux disease): Qualifiers: Esophagitis presence: without esophagitis Qualified Code(s): K21.9 - Gastro-esophageal reflux disease without esophagitis Status: Acute (5) Hypertension: Qualifiers: Hypertension type: primary hypertension Qualified Code(s): I10 - Essential (primary) hypertension Status: Acute (6) Multiple sclerosis: Status: Acute Plan This is a 67-year-old female with pertinent history mood disorder, essential hypertension, paroxysmal atrial fibrillation on Eliquis, peripheral neuropathy, dementia, urinary incontinence, history of MS presents to the emergency department for evaluation of fall and syncope. #. Syncope -sudden-onset without prodrome concerning for cardiogenic cause. Will admit with tele monitor and consulting Cardiology in a.m. -does have history of proximal atrial fibrillation but patient in normal sinus rhythm at the time of my evaluation. Obtaining echo -obtaining orthostatic vital signs #. Fall due to above -no acute traumatic injury in the head, chest, abdominal pelvis as per imaging #. History of multiple sclerosis: Previously treated for flares in January. Patient not on any medications for MS #. Paroxysmal atrial fibrillation: On Eliquis and beta-licha #. Peripheral neuropathy: On Neurontin #. Hyponatremia, likely hypovolemic: Resuscitated IV crystalloids. Monitor in a.m. #. Hypokalemia: Repleted #. Chronic kidney disease: Creatinine at baseline. Monitor and avoid nephrotoxins #. Dementia, unspecified: On memantine Med rec pending DVT prophylaxis: On Eliquis Full code Cardiac diet Quality Stroke Does the patient have a stroke diagnosis?: No VTE Prior VTE?: No VTE Risk Level:: Medical - moderate - high VTE Device Contraindication: Treatment Not Indicated VTE Drug Contraindication: N/A - Med Ordered
--- NOTE | 2022-11-02 03:02 | PC.NURSE ---
pt is in pain with her leg when she stands up and it seems like it gives out but she said it is alot of pain, nurse notified, pt has no other issues at this time
[2022-11-02 03:18] LABS: Appearance Urine Clear; Color Urine Yellow; Glucose Urine UA Negative (Negative); Leukocyte Esterase Urine Negative (Negative); Nitrite Urine Negative (Negative); PH 7.5 (5.0-9.0); Specific Gravity - Urine <= 1.005 (1.005-1.025); Urine Blood Negative (Negative); Urine Ketones Negative (Negative); Urine Protein Negative (Neg-Trace)
[2022-11-02] MEDS: traMADoL HCL 50 MG TABLET 25 MG PO (05:20)
--- NOTE | 2022-11-02 05:44 | PC.NURSE ---
PT stand by assist to bedside commode. PT able to stand and pivot.
[2022-11-02 06:51] LABS: MANUAL DIFF FLAG NO
[2022-11-02 06:54] LABS: Basophils Absolute Auto 0.1 X10*3/uL (0.0-0.2); Basophils Percent Auto 0.9 % (0-2); Eosinophils Absolute Auto 0.1 X10*3/uL (0.0-0.4); Eosinophils Percent Auto 0.7 % (0-4); Hematocrit 37.5 % (37.0-47.0); Hemoglobin 12.8 g/dl (12.0-16.0); Imm Gran Abs Auto 0.06 X10*3/uL (0.00-0.03); Imm Gran Pct Auto 0.6 % (0.0-0.4); Lymphocytes Absolute Auto 1.8 X10*3/uL (1.2-4.9); Lymphocytes Percent Auto 17.2 % (20-40); Mean Corpuscular HGB Conc 34.1 g/dl (31.0-35.0); Mean Corpuscular Volume 87.8 fL (80.0-98.0); Monocytes Absolute Auto 1.2 X10*3/uL (0.1-1.2); Monocytes Percent Auto 11.4 % (2-11); Neutrophils Percent Auto 69.2 % (45-73); Platelet Count 258 X10*3/uL (160-400); Red Blood Count 4.27 X10*6/uL (4.20-5.50); Red Cell Distribution Width 12.3 % (11.0-16.0); White Blood Count 10.2 X10*3/uL (4.8-10.8)
[2022-11-02 07:12] LABS: Anion Gap 11 (12-20); Blood Urea Nitrogen 17 mg/dL (9-16); Carbon Dioxide 24 mmol/L (22-29); Chloride 102 mmol/L (96-108); Creatinine Clr Calc Pharmacy 29.7; Estimated Glomerular Filt Rate 31; Glucose Random 110 mg/dL (60-115); Potassium 3.5 mmol/L (3.3-5.1); Sodium 133 mmol/L (135-145)
[2022-11-02] MEDS: 0.9 % Sodium Chloride Flush 3 ML SYRINGE IVFLUSH ×3 (08:00→22:54)
--- NOTE | 2022-11-02 08:02 | PC.NURSE ---
pt. alert and oriented, resting comfortably. complains of pain 6/10 on rt knee. Due for tylenol in 40 minutes.
--- NOTE | 2022-11-02 08:47 | PHA.MEDREC ---
Pharmacy Consult ? Medication Reconciliation Pharmacy has completed the medication reconciliation. Patient states she would like to have tylenol 5X a day while inpatient. Also mentioned she would like a break from her omeprazole as shes noticed some constipation.
--- NOTE | 2022-11-02 09:09 | P.CONCA_ITS ---
History of Present Illness History of Present Illness Date of Service: 11/02/22 Requesting physician: Kanika Palacios Consult reason: other (Syncope) Chief complaint: Syncope Narrative: I was consulted to see Francesca in cardiology consultation today for syncopal episode. This episode happened yesterday when she got out of bed and stood up and was walking up a flight of stairs. She then lost consciousness and fell down the stairs and hurt her knee and her back. She is hurting from that. She does not recall exactly having any chest pain or lightheadedness or rapid heart rate or nausea prior to passing out. She says she notices slight shortness of breath before passing out and knows that she might be passing out. These has be en happening very frequently in the last 2 weeks almost 3 to 4 times a week. Every time she passes out is with change in our position from lying down to standing up. She says she has been trying to do with more gradually but despite that she passed out. She has been drinking about 60 oz of fluid because of her kidney stones. She has multiple endocrine issues including the past she had hyperthyroidism which currently last TSH in July was within normal limits. She also has hyperparathyroidism and chronic kidney disease. She also has fibromyalgia as well as multiple sclerosis. She has history of atrial fibrillation January when she was admitted with multiple sclerosis flare up. Usually follows with Dr. Cox. Echocardiogram done in January was within normal limits. Myocardial perfusion imaging in January was also within normal limits no evidence of ischemia. She is on Eliquis and metoprolol. Orthostatic vitals done here showed actually significantly elevated blood pressure with standing up which is unusual. She does have prior history of hypertension at home she monitors her blood pressure regularly as noted is markedly variable blood pressure at home without any obvious reason. She watches the salt in her diet religiously. She denies any exertional chest pain or shortness of breath. She does have balance issues. Review of Systems Constitutional: Constitutional: Reports no additional constitutional complaints Eyes: Eyes: Reports no additional eye complaints Cardiovascular: Cardiovascular: Denies chest pain, Denies lightheadedness, Reports Loss of Consciousness, Denies palpitations and Denies dyspnea on exertion Respiratory: Respiratory: Reports no additional respiratory complaints and Denies dyspnea on exertion Gastrointestinal: Gastrointestinal: Reports no additional gastrointestinal complaints Genitourinary: Genitourinary: Reports no additional female genitourinary complaints Musculoskeletal: Musculoskeletal: Reports back pain Integumentary/Breasts: Skin/Breast: Reports system reviewed and no additional complaints, except as docu Neurologic: Reports system reviewed and no additional complaints, except as documented Endocrine: Endocrine: Denies palpitations PMFSH Past Medical History Medical History Abdominal pain Acute kidney injury superimposed on CKD Age-related osteoporosis without current pathological fracture YOHANA (acute kidney injury) Allergic rhinitis Asthma Chronic kidney disease Chronic kidney disease, stage 3b Closed right clavicular fracture Elevated troponin GERD (gastroesophageal reflux disease) Hepatitis C History of panic attacks History of renal calculi Hospital discharge follow-up Hypertension Kidney stone Low back pain Lumbar radiculopathy Multinodular thyroid Multiple sclerosis Multiple sclerosis Multiple sclerosis exacerbation Obesity Paroxysmal atrial fibrillation Screening for osteoporosis Syncope and collapse Family History Family History Father Prostate cancer Myocardial infarction Mother Breast cancer Paternal Aunt Myocardial infarction Paternal Uncle Myocardial infarction Surgical History Surgical History History of esophagogastroduodenoscopy (EGD) History of gynecologic surgery History of kidney stones History of lithotripsy History of liver biopsy History of verrucae (wart) excision Hx of colonoscopy Hx of wisdom tooth extraction Social History Social History Household Members: None Housing: Apartment Are you a primary primary care provider to a significant other at home: No Do you presently have visiting nurse or other home services: Yes (PT, OT, VNA) Alcohol intake: never Patient Tobacco Use Status: Former Tobacco user Quit Date: 1978 Tobacco use type: Cigarette Years Smoked: 8 Smoked in Last 30 Days: No e-Cigarette/Vaping Use: Never Used Use of substances other than those prescribed or required for medical reasons: No Advance Directives: No service: No Current occupational status: retired Cognitive needs: No Hearing needs: No Vision needs: Yes Meds Allergies Allergy/AdvReac Type Severity Reaction Status Date / Time escitalopram [From LEXAPRO] Allergy Severe STOMACH Verified 10/11/22 10:36 UPSET, abd pain lisinopril [LISINOPRIL] Allergy Severe SWELLING, Verified 10/11/22 10:36 Leg swelling desipramine [Desipramine] Allergy Intermediate PALPITATIONS, Verified 10/11/22 10:36 clammy skin diphenhydramine Allergy Intermediate PALPITATIONS/CLAMMY Verified 10/11/22 10:36 [From Benadryl] SKIN duloxetine [From CYMBALTA] Allergy Intermediate STOMACH Verified 10/11/22 10:36 UPSET, abd pain Penicillins Allergy Intermediate Rash Verified 10/11/22 10:36 carbamazepine [From TEGRETOL] AdvReac Severe BLACKOUT, Verified 10/11/22 10:36 SEVERE INTOXICATION oxycodone [From Percocet] AdvReac Severe N/V, Verified 10/11/22 10:36 projectile vomiting fluoxetine [From Prozac] AdvReac Intermediate PARKINSON Verified 10/11/22 10:36 SYMPTOMS garlic AdvReac Intermediate IBS Verified 10/11/22 10:36 SYMPTOMS Active Medications: Current Medications Acetaminophen (Acetaminophen 325 Mg Tablet) 650 mg PO Q6H PRN PRN Reason: Pain, Mild (Pain Scale 1-3) Last Admin: 11/02/22 02:40 Dose: 650 mg Melatonin (Melatonin 3 Mg Tablet) 6 mg PO BEDTIME PRN PRN Reason: Insomnia Ondansetron HCl (Ondansetron Hcl 4 Mg/2 Ml Vial) 4 mg IVPUSH Q8H PRN PRN Reason: Nausea and Vomiting Pharmacy Consult (Consult Rx Perform Med Rec) 1 each MISCELLANE ONCE PRN PRN Reason: Consult order Pharmacy Consult (Consult Rx Perform Med Rec) 1 each MISCELLANE ONCE PRN PRN Reason: Consult order Sodium Chloride (0.9 % Sodium Chloride Flush 3 Ml Syringe) 3 [facility] Last Admin: 11/02/22 08:00 Dose: 3 ml Home Medications Medication Instructions Recorded Confirmed Last Taken Type acetaminophen 500 mg tablet 500 mg PO 5XD 01/27/22 11/02/22 10/11/22 06:00 History albuterol sulfate 90 mcg/actuation See Rx Instructions .Route 11/02/22 11/02/22 Unknown History aerosol inhaler (Ventolin HFA) .COMPLEX PRN Shortness Of Breath Or Wheezing amlodipine 10 mg tablet 1 tab PO DAILY@0600 11/02/22 11/02/22 Unknown History apixaban 5 mg tablet (Eliquis) 1 tab PO BID@0600,1800 11/02/22 11/02/22 Unknown History chlorthalidone 25 mg tablet 0.5 tab PO DAILY@0600 11/02/22 11/02/22 Unknown History citalopram 20 mg tablet 1 tab PO DAILY@0600 11/02/22 11/02/22 Unknown History gabapentin 300 mg capsule 1 cap PO TID@0600,1200,1800 11/02/22 11/02/22 Unknown History lamotrigine 200 mg tablet 1 tab PO DAILY@1800 11/02/22 11/02/22 Unknown History memantine 10 mg tablet 1 tab PO BID@0600,1800 11/02/22 11/02/22 Unknown History metoprolol tartrate 25 mg tablet 2 tab PO BID@0600,1800 11/02/22 11/02/22 Unknown History omeprazole 40 mg capsule,delayed 1 cap PO DAILY@0600 11/02/22 11/02/22 Unknown History release ondansetron HCl 4 mg tablet 2 tab PO BID@0600,1800 11/02/22 11/02/22 Unknown History tamsulosin 0.4 mg capsule 0.4 mg PO DAILY@1800 11/02/22 11/02/22 Unknown History tramadol 50 mg tablet 50 mg PO q6h PRN Severe Pain 11/02/22 11/02/22 Unknown History (Scale Score 7-10) Physical Exam Vital Signs: Vital Signs: Last Vital Signs Temp 98.6 F 11/02/22 03:00 Pulse 67 11/02/22 09:05 Resp 16 11/02/22 07:57 BP 74/54 L 11/02/22 09:05 Pulse Ox 98 11/02/22 07:57 O2 Del Method 11/02/22 07:57 BMI result Body Mass Index 24.7 Patient's supine systolic blood pressure in 130s and standing blood pressure 74, consistent with severe orthostatic hypotension Const: General: cooperative, comfortable, no acute distress, alert, awake and anxious Nutritional Appearance: average body habitus Orientation/consciousness: patient oriented x3 HEENT: Head: Yes normocephalic and Yes atraumatic Neck: Neck: Yes trachea midline, Yes supple and Yes no JVD Resp: Effort & Inspection: normal respiratory effort Auscultation: clear to auscultation bilaterally Cardio: Jugular venous distension: no JVD Palpation: normal PMI Rate: regular rate Rhythm: regular rhythm Heart sounds: S1 normal heart sound present, S2 normal heart sound present, no click, no gallops, no murmurs and no rubs GI: Auscultation: normal bowel sounds Skin: General skin exam: no rashes or lesions noted Neuro: General: patient oriented x3 and no focal motor deficits Extrem: General: Yes no clubbing, cyanosis or edema Objective Labs and Meds Result diagrams: 11/02/22 06:17 11/02/22 06:17 Lab results: Laboratory Results - last 24 hr 11/01/22 11/01/22 11/01/22 23:59 23:59 23:59 WBC 8.7 RBC 4.74 Hgb 14.2 Hct 41.1 MCV 86.7 MCH 30.0 MCHC 34.5 RDW 12.2 Plt Count 338 D MPV 10.3 Immature Gran % (Auto) 0.3 Neut % (Auto) 60.9 Lymph % (Auto) 24.7 [place] % (Auto) 11.3 H Eos % (Auto) 1.6 Baso % (Auto) 1.2 Lymph # (Auto) 2.1 [place] # (Auto) 1.0 Eos # (Auto) 0.1 Baso # (Auto) 0.1 Abs Immat Gran (auto) 0.03 Absolute Neuts (auto) 5.3 Absolute Nucleated RBC 0.000 Nucleated RBC % (auto) 0.0 Sodium 128 L Potassium 3.2 L D Chloride 90 L Carbon Dioxide 25 Anion Gap 16 BUN 23 H Creatinine 2.05 H Estim Creat Clear Calc 24.1 Estimated GFR 24 Random Glucose 104 Calcium 8.7 D Total Bilirubin 0.5 Direct Bilirubin 0.2 AST 22 ALT 16 Alkaline Phosphatase 54 D Troponin I High Sens 8.8 D B-Natriuretic Peptide Total Protein 6.3 L Albumin 4.0 Lipase 66 Urine Color Urine Appearance Urine pH Ur Specific [place] Urine Protein Urine Glucose (UA) Urine Ketones Urine Blood Urine Nitrite Ur Leukocyte Esterase Influenza Type A (PCR) Influenza Type B (PCR) RSV RNA Qual (PCR) SARS-CoV-2 RNA (RT-PCR) 11/01/22 11/01/22 11/02/22 23:59 23:59 03:08 WBC RBC Hgb Hct MCV MCH MCHC RDW Plt Count MPV Immature Gran % (Auto) Neut % (Auto) Lymph % (Auto) [place] % (Auto) Eos % (Auto) Baso % (Auto) Lymph # (Auto) [place] # (Auto) Eos # (Auto) Baso # (Auto) Abs Immat Gran (auto) Absolute Neuts (auto) Absolute Nucleated RBC Nucleated RBC % (auto) Sodium Potassium Chloride Carbon Dioxide Anion Gap BUN Creatinine Estim Creat Clear Calc Estimated GFR Random Glucose Calcium Total Bilirubin Direct Bilirubin AST ALT Alkaline Phosphatase Troponin I High Sens B-Natriuretic Peptide 486 H Total Protein Albumin Lipase Urine Color Yellow Urine Appearance Clear Urine pH 7.5 Ur Specific [place] <= 1.005 Urine Protein Negative Urine Glucose (UA) Negative Urine Ketones Negative Urine Blood Negative Urine Nitrite Negative Ur Leukocyte Esterase Negative Influenza Type A (PCR) NEGATIVE Influenza Type B (PCR) NEGATIVE RSV RNA Qual (PCR) NEGATIVE SARS-CoV-2 RNA (RT-PCR) NEGATIVE 11/02/22 11/02/22 06:17 06:17 WBC 10.2 RBC 4.27 Hgb 12.8 Hct 37.5 MCV 87.8 MCH 30.0 MCHC 34.1 RDW 12.3 Plt Count 258 MPV 11.0 Immature Gran % (Auto) 0.6 H Neut % (Auto) 69.2 Lymph % (Auto) 17.2 L [place] % (Auto) 11.4 H Eos % (Auto) 0.7 Baso % (Auto) 0.9 Lymph # (Auto) 1.8 [place] # (Auto) 1.2 Eos # (Auto) 0.1 Baso # (Auto) 0.1 Abs Immat Gran (auto) 0.06 H Absolute Neuts (auto) 7.0 Absolute Nucleated RBC 0.000 Nucleated RBC % (auto) 0.0 Sodium 133 L Potassium 3.5 Chloride 102 Carbon Dioxide 24 Anion Gap 11 L BUN 17 H Creatinine 1.67 H Estim Creat Clear Calc 29.7 Estimated GFR 31 Random Glucose 110 Calcium 8.0 L D Total Bilirubin Direct Bilirubin AST ALT Alkaline Phosphatase Troponin I High Sens B-Natriuretic Peptide Total Protein Albumin Lipase Urine Color Urine Appearance Urine pH Ur Specific [place] Urine Protein Urine Glucose (UA) Urine Ketones Urine Blood Urine Nitrite Ur Leukocyte Esterase Influenza Type A (PCR) Influenza Type B (PCR) RSV RNA Qual (PCR) SARS-CoV-2 RNA (RT-PCR) Imaging Radiologist's impression: Impressions Knee X-Ray 11/02/22 00:23 IMPRESSION: Normal right knee. Abdomen/Pelvis CT 11/02/22 00:33 IMPRESSION: 1. No evidence of an acute traumatic injury in the chest, abdomen or pelvis. 2. Incidental note made of: 3. Groundglass nodules, some with hecp-[id number]-type distribution, without significant interval change since 2019. 4. Nonobstructing 2 mm left renal calculus. 5. Left adnexal mass/ovary, unchanged. 6. Other incidental findings as described above including old uterine fibroids and degenerative changes in the spine. 2017 Fleischner Society Recommendations for Lung Nodule(s): Follow-Up based on size (average of long- and short-axis diameters). Use most suspicious nodule for followup. Multiple GG/Part Solid lung nodules >= 6 mm: Recommend a non-contrast Chest CT at 3-6 months. Subsequent management based on the most suspicious nodule(s). These guidelines do not apply to patients younger than 35 years, immunocompromised patients, and patients with cancer. F/u in patients with significant comorbidities as clinically warranted. For lung cancer screening, adhere to Lung-RADS guidelines. Reference: Radiology. 2017 May; 284(1):228-[address] 11/02/22 00:33 IMPRESSION: 1. No acute intracranial abnormality. 2. No cervical spine fracture or traumatic malalignment. Chest CT 11/02/22 00:33 IMPRESSION: 1. No evidence of an acute traumatic injury in the chest, abdomen or pelvis. 2. Incidental note made of: 3. Groundglass nodules, some with smzf-jj-hin-type distribution, without significant interval change since 2019. 4. Nonobstructing 2 mm left renal calculus. 5. Left adnexal mass/ovary, unchanged. 6. Other incidental findings as described above including old uterine fibroids and degenerative changes in the spine. 2017 Fleischner Society Recommendations for Lung Nodule(s): Follow-Up based on size (average of long- and short-axis diameters). Use most suspicious nodule for followup. Multiple GG/Part Solid lung nodules >= 6 mm: Recommend a non-contrast Chest CT at 3-6 months. Subsequent management based on the most suspicious nodule(s). These guidelines do not apply to patients younger than 35 years, immunocompromised patients, and patients with cancer. F/u in patients with significant comorbidities as clinically warranted. For lung cancer screening, adhere to Lung-RADS guidelines. Reference: Radiology. 2017 May; 284(1):228-[address] 11/02/22 00:34 IMPRESSION: 1. No acute intracranial abnormality. 2. No cervical spine fracture or traumatic malalignment. Assessment and Plan (1) Syncope and collapse: Status: Acute Patient's history is highly consistent with orthostatic syncope which is not confirmed by vital signs just obtain which shows significant drop in her blood pressure standing up. This explains or symptoms. Unclear whether this is due to hypovolemia and/or autonomic dysfunction. I would give her challenge of 1 L of normal saline IV over the next 2 hours and repeat orthostatic vitals. If she persists with orthostatic hypertension most likely represent autonomic dysfunction. This would probably need to be treated with changing her medicati ons. It tamsulosin is known to increased propensity for orthostatic hypertension with therefore discontinue it. Also discontinue chlorthalidone which can cause intravascular volume depletion. Switch her amlodipine to nighttime. Reduce metoprolol to half the does. She is currently not having any significant arrhythmias but continue to watch for 1 more day on full disclosure cardiac monitoring. There is no need for echocardiogram at this point in time. We discussed at length about her condition and precautions that she needs to take. She is advised to avoid sudden upright positioning and obtain this upright position gradually and then when she is standing and developed symptoms to seek sitting or supine position right away to avoid injury. Also advised to increase her fluid intake up to 80 oz. She may require lower body compression stockings. Also advised her to sleep in a semi reclining position to reduce significant change in her orthostatic positioning and drop in her blood pressure. Given her multiple endocrine issues, check plasma metanephrines as well as TSH. Will continue to follow with her. Thank you for allowing us to partake in the care (2) Paroxysmal atrial fibrillation: Status: Acute Paroxysmal atrial fibrillation which is suppressed at this point time. Continue metoprolol but at half dose as above. Continue full oral anticoagulation Eliquis. Continue full disclosure cardiac monitoring. Procedures Date of Service Date of Service: 11/02/22
--- NOTE | 2022-11-02 09:16 | PC.NURSE ---
pt. alert and oriented. gave her Tylenol for knee pain. ortho BP from 135/63 laying to 74/54 standing. provider at bedside explaining med changes. will start fluids.
--- NOTE | 2022-11-02 10:40 | PM.EVENT ---
Event Note Date of Service: 11/02/22 Event Note: pt seen/examined. She give a story consistant with orthostatic hypotension and which is comfirmed, likely d/t autonomic insuficiency Decrease norvasc to 5 and give at night, hold chlorthalidone, flomax, check TSH, no indication for echo at this time. Orthostatic BPs Q shift
[2022-11-02] MEDS: Apixaban 5 MG TABLET PO ×2 (11:24→21:59)
[2022-11-02] MEDS: Gabapentin 300 MG CAPSULE PO ×2 (11:24→18:25)
[2022-11-02 11:36] LABS: Thyroid Stimulating Hormone 0.73 uIU/mL (0.32-4.0)
--- NOTE | 2022-11-02 12:00 | PC.NURSE ---
Pt concerned for medications missed at 0600 d/t not ordered until later, medications given unscheduled as charted. Next does due at 1800, per pharmacy okay to give doses at that time despite late admin. Pt also medicated as charted for persistent right leg pain with Tramadol as charted, no change s/p Tylenol given in AM.
[2022-11-02] MEDS: traMADoL HCL 50 MG TABLET PO ×2 (12:11→22:00)
[2022-11-02] MEDS: Metoprolol Tartrate 25 MG TABLET PO ×2 (12:11→18:27)
[2022-11-02] MEDS: Memantine HCl 10 MG TABLET PO ×2 (12:12→18:25)
[2022-11-02] MEDS: Ondansetron ODT 4 MG TAB.RAPDIS 8 MG TRANSLINGU ×2 (12:13→18:25)
[2022-11-02] MEDS: lamoTRIgine 100 MG TABLET 200 MG PO (18:24)
--- NOTE | 2022-11-02 21:22 | PC.NURSE ---
Called [facility] to Give report FD reports nurse will return call to nurses.
[2022-11-02] MEDS: amLODIPine Besylate 5 MG TABLET PO (21:59)
[2022-11-03] VITALS (10 sets, daily range): BP systolic 110–130; BP diastolic 58–78; PULSE 56–76; RESP 15–20; TEMP 36.2–36.8; O2SAT 96–98
[2022-11-03] MEDS: Acetaminophen 325 MG TABLET 650 MG PO ×3 (00:58→15:34)
[2022-11-03] MEDS: Gabapentin 300 MG CAPSULE PO ×3 (06:07→17:53)
[2022-11-03] MEDS: Memantine HCl 10 MG TABLET PO ×2 (06:07→17:54)
[2022-11-03] MEDS: Metoprolol Tartrate 25 MG TABLET PO ×2 (06:07→17:54)
[2022-11-03] MEDS: Omeprazole 40 MG CAPSULE.DR PO (06:07)
[2022-11-03] MEDS: traMADoL HCL 50 MG TABLET PO ×3 (06:07→17:54)
[2022-11-03] MEDS: Ondansetron ODT 4 MG TAB.RAPDIS 8 MG TRANSLINGU ×2 (06:07→17:54)
[2022-11-03] MEDS: 0.9 % Sodium Chloride Flush 3 ML SYRINGE IVFLUSH ×2 (09:16→17:53)
[2022-11-03] MEDS: Apixaban 5 MG TABLET PO ×2 (09:16→20:18)
--- NOTE | 2022-11-03 10:02 | MHC.CM.PN ---
pt is independent has no previous servceis ,does not expect to hacve servceis when dcd pt is covid vax x 3 has own ride home
--- NOTE | 2022-11-03 13:44 | PM.PNCARD ---
Subjective Subjective Date of Service: 11/03/22 Principal diagnosis: Syncope Interval history: Orthostatic vitals this morning are within normal limits with no orthostasis noted. This is after IV hydration and stopping her tamsulosin and chlorthalidone. Her Lopressor also reduced. Her amlodipine was also reduced to 5 mg and switch to nighttime. She complains of significant pain Review of Systems Constitutional: Reports no additional constitutional complaints Cardiovascular: Reports no additional cardiovascular complaints Respiratory: Reports no additional respiratory complaints Gastrointestinal: Reports no additional gastrointestinal complaints Reports system reviewed and no additional complaints, except as documented Endocrine: Reports no additional endocrine complaints Physical Exam Vital Signs: Last Vital Signs Temp 97.1 F 11/03/22 11:43 Pulse 63 11/03/22 11:43 Resp 20 11/03/22 11:43 BP 130/78 11/03/22 11:43 Pulse Ox 98 11/03/22 11:43 O2 Del Method 11/03/22 11:43 BMI result Body Mass Index 24.7 Patient's supine systolic blood pressure in 130s and standing blood pressure 74, consistent with severe orthostatic hypotension Const General: cooperative, comfortable, no acute distress, alert, awake and anxious Nutritional Appearance: average body habitus Orientation/consciousness: patient oriented x3 Neck Neck: Yes trachea midline, Yes supple and Yes no JVD Resp Effort & Inspection: normal respiratory effort Auscultation: clear to auscultation bilaterally Cardio Jugular venous distension: no JVD Palpation: normal PMI Rate: regular rate Rhythm: regular rhythm Heart sounds: S1 normal heart sound present, S2 normal heart sound present, no click, no gallops, no murmurs and no rubs GI Auscultation: normal bowel sounds Neuro General: patient oriented x3 and no focal motor deficits Objective Labs and Meds Result diagrams: 11/02/22 06:17 11/02/22 06:17 Progress Note: A&P Assessment and plan (1) Syncope and collapse: Status: Acute Assessment and Plan: Syncope secondary to orthostatic hypotension which has now corrected after IV hydration as well as stopping her medications. Does not appear to have autonomic dysfunction at this point in time. Advised to continue maintain adequate hydration. Change in medications as prescribed. Avoid medicines such as tamsulosin and/or diuretics that can potentiate orthostatic hypertension. Advised to continue monitor blood pressure at home and maintain a log. Orthostatic precautions were discussed. Will sign of the case and follow-up as outpatient. Time Spent With Patient Time: Total time spent is greater than 50% in coordination of care (as documented) at patient's floor/unit and/or counseling patient: Progress Note: Quality Stroke Does the patient have a stroke diagnosis?: No Procedures Date of Service Date of Service: 11/03/22
--- NOTE | 2022-11-03 15:27 | P.PNIM_ITS ---
Subjective Subjective Date of Service: 11/03/22 Interval History: f/u on orthostatic hypotension withsyncope interval history: Orthostatic has resolved. c/o knee pain Review of Systems knee pain no dizziness Physical Exam Vital Signs: Vital Signs: Last Vital Signs Temp 97.1 F 11/03/22 11:43 Pulse 63 11/03/22 13:30 Resp 20 11/03/22 11:43 BP 130/78 11/03/22 13:30 Pulse Ox 98 11/03/22 13:30 O2 Del Method 11/03/22 11:43 BMI result Body Mass Index 24.7 Objective Data Active Medications Acetaminophen (Acetaminophen 325 Mg Tablet) 650 mg PO Q6H PRN PRN Reason: Pain, Mild (Pain Scale 1-3) Last Admin: 11/03/22 09:16 Dose: 650 mg Documented By: TRAN Acetaminophen (Acetaminophen 325 Mg Tablet) 650 mg PO Q6H PRN PRN Reason: Pain, Moderate (Pain Scale 4-6 Albuterol Sulfate (Albuterol Sulfate 90 Mcg 8 Gm Inhaler) 2 puff INHALE Q4H PRN PRN Reason: Shortness Of Breath Or Wheezing Amlodipine Besylate (Amlodipine Besylate 5 Mg Tablet) 5 mg PO BEDTIME [facility]; Protocol Last Admin: 11/02/22 21:59 Dose: 5 mg Documented By: ELIZABETH Apixaban (Apixaban 5 Mg Tablet) 5 mg PO BID [facility] Last Admin: 11/03/22 09:16 Dose: 5 mg Documented By: TRAN Gabapentin (Gabapentin 300 Mg Capsule) 300 mg PO TID@0600,1200,1800 [facility] Last Admin: 11/03/22 11:29 Dose: 300 mg Documented By: TRAN Lamotrigine (Lamotrigine 100 Mg Tablet) 200 mg PO DAILY@1800 [facility] Last Admin: 11/02/22 18:24 Dose: 200 mg Documented By: KERA Melatonin (Melatonin 3 Mg Tablet) 6 mg PO BEDTIME PRN PRN Reason: Insomnia Memantine (Memantine Hcl 10 Mg Tablet) 10 mg PO BID@0600,1800 [facility] Last Admin: 11/03/22 06:07 Dose: 10 mg Documented By: JONELLE Metoprolol Tartrate (Metoprolol Tartrate 25 Mg Tablet) 25 mg PO BID@0600,1800 [facility]; Protocol Last Admin: 11/03/22 06:07 Dose: 25 mg Documented By: JONELLE Non-Formulary Medication (Citalopram) 1 tab PO DAILY@0600 [facility] Omeprazole (Omeprazole 40 Mg Capsule.Dr) 40 mg PO DAILY@0600 [facility] Last Admin: 11/03/22 06:07 Dose: 40 mg Documented By: JONELLE Ondansetron HCl (Ondansetron Hcl 4 Mg/2 Ml Vial) 4 mg IVPUSH Q8H PRN PRN Reason: Nausea and Vomiting Ondansetron HCl (Ondansetron Odt 4 Mg Tab.Rapdis) 8 mg TRANSLINGU BID@0600,1800 [facility] Last Admin: 11/03/22 06:07 Dose: 8 mg Documented By: JONELLE Pharmacy Consult (Consult Rx Perform Med Rec) 1 each MISCELLANE ONCE PRN PRN Reason: Consult order Pharmacy Consult (Consult Rx Perform Med Rec) 1 each MISCELLANE ONCE PRN PRN Reason: Consult order Sodium Chloride (0.9 % Sodium Chloride Flush 3 Ml Syringe) [address] [facility] Last Admin: 11/03/22 09:16 Dose: 3 ml Documented By: MAXIM-IVY Tramadol HCl (Tramadol Hcl 50 Mg Tablet) 50 mg PO q6h PRN PRN Reason: Severe Pain (Scale Score 7-10) Last Admin: 11/03/22 11:29 Dose: 50 mg Documented By: MAXIM-IVY Tramadol HCl (Tramadol Hcl 50 Mg Tablet) 25 mg PO Q6H PRN PRN Reason: Pain, Severe (Pain Scale 7-10) Labs CBC & Chem 7: 11/02/22 06:17 11/02/22 06:17 Assessment and Plan (1) Orthostatic hypotension: Status: Acute Plan 67-year-old female with pertinent history mood disorder, essential hypertension, paroxysmal atrial fibrillation on Eliquis, peripheral neuropathy, dementia, urinary incontinence, history of MS presents to the emergency department for evaluation of fall and syncope. #.? Syncope d/t orthostatic hypotension likely from meds.. meds adjusted (stopped chlorthalidone, norasc decreased and changed to night, dc flomax) #.? Fall due to above -no acute traumatic injury in the head, chest, abdominal pelvis or knee but has pain in the right knee, PT is recommending STR she doesn't want it #.? History of multiple sclerosis:? Previously treated for flares in January.? Patient not on any medications for MS #.? Paroxysmal atrial fibrillation:? On Eliquis and beta-licha #.? Peripheral neuropathy: On Neurontin #.? Hyponatremia, likely hypovolemic:? Resuscitated IV crystalloids.? Monitor in a.m. #.? Hypokalemia: Repleted #.? Chronic kidney disease: Creatinine at baseline.? Monitor and avoid nephrotoxins #.? Dementia, unspecified: On memantine dispo: home need for inpatient: orthostatic hypotension mangmension Time Spent With Patient Time: Total time managing care of this patient today ____ minutes. Quality Stroke Does the patient have a stroke diagnosis?: No VTE Prior VTE?: No VTE Risk Level:: Medical - moderate - high VTE Device Contraindication: Treatment Not Indicated VTE Drug Contraindication: N/A - Med Ordered
--- NOTE | 2022-11-03 16:02 | MHC.CM.PN ---
physical therapy has recommnded str pt is reluctant to agrree we discussed homem with vna she is still uncertain what she wants to do..she wants to try ambulating i the room rn will come in we also discussed how she would get home initially vinh said her friend scoobycollin would take her now she is talking about a chair which i imformed her she would have to pay for
[2022-11-03] MEDS: lamoTRIgine 100 MG TABLET 200 MG PO (17:54)
[2022-11-03] MEDS: amLODIPine Besylate 5 MG TABLET PO (20:18)
[2022-11-04] VITALS: BP 129/66; PULSE 56
[2022-11-04] MEDS: Acetaminophen 325 MG TABLET 650 MG PO ×2 (00:48→06:20)
[2022-11-04] MEDS: 0.9 % Sodium Chloride Flush 3 ML SYRINGE IVFLUSH ×2 (00:49→09:44)
[2022-11-04 03:30] VITALS: BP 117/52; PULSE 59; RESP 20; TEMP 35.9; O2SAT 97
[2022-11-04] MEDS: Gabapentin 300 MG CAPSULE PO (06:17)
[2022-11-04] MEDS: Omeprazole 40 MG CAPSULE.DR PO (06:17)
[2022-11-04] MEDS: Memantine HCl 10 MG TABLET PO (06:17)
[2022-11-04] MEDS: Metoprolol Tartrate 25 MG TABLET PO (06:17)
[2022-11-04] MEDS: Ondansetron ODT 4 MG TAB.RAPDIS 8 MG TRANSLINGU (06:18)
[2022-11-04 08:00] VITALS: BP 109/64; PULSE 62; RESP 18; TEMP 36.4; O2SAT 97
[2022-11-04] MEDS: Apixaban 5 MG TABLET PO (09:44)
--- NOTE | 2022-11-04 11:01 | W.MHC.F2F ---
Service Date Service Date: 11/04/22 Encounter Date of encounter: 11/04/22 Reasons for Services Signs and symptoms assessed: syncope, fall, knee pain Reason for intermediate: medication management and teach disease management Reason for physical therapy: home safety and mobility, therapeutic exercises and gait/transfer training Homebound: Leaving the home is medically contraindicated at this time without the asist of a device and/or another person due th the listed conditions above and below. Reason homebound: unsteady gait / fall risk Homebound supporting statement: Homebound due to recent fall due to syncope, causing knee contusion and pain and difficulty walking, at baseline uses cane from multiple sclerosis and therefore needs the assistance of another person Certification: Based on the above findings, I certify that this patient is confined to the home and needs intermittent intermediate care, physical therapy and/or speech therapy, or continues to need occupational therapy. The patient is under my care, and I have initiated the establishment of the plan of care. The patient will be followed by a physician who will periodically review the plan of care. Time Spent With Patient Time: Total time managing care of this patient today ____ minutes.
--- NOTE | 2022-11-04 13:55 | PM.DS ---
DS: Providers Provider Date of Service: 12/21/22 Date of admission: 11/02/22 01:36 Primary care physician: Cookie Sam MD Consults: 11/02/22 02:50 Consult to Cardiology Routine Consulting Provider: Bob Maier Reason for consultation: ?cardiogenic syncope DS: Diagnosis Discharge Diagnosis (1) Orthostatic hypotension: Status: Resolved DS: Summary Hospital Course Hospital Course: Chief Complaint: Syncope and fall This is a 67-year-old female with pertinent history mood disorder, essential hypertension, paroxysmal atrial fibrillation on Eliquis, peripheral neuropathy, dementia, urinary incontinence, history of MS presents to the emergency department for evaluation of fall and syncope.? Patient states she was climbing her stairs when she blacked out and fell down.? Patient states she regained consciousness after about a minute.? Prior to losing consciousness, patient denies dizziness, lightheadedness, tongue bite, jerking movement of extremities, urinary or bowel incontinence.? No postictal confusion.? Patient states over the last 2 weeks she has had about 3-5 episodes of syncope.? All episodes have been sudden-onset and only during ambulation.? No chest discomfort, palpitations, shortness of breath prior to the episode.? No dizziness, lightheadedness prior.? She denies fever, chills, abdominal pain, changes in urinary or bowel habits. Of note, patient was admitted in January 2022 after syncope and fall.? She was found to have AFib with RVR and was initiated on metoprolol and Eliquis.? Also thought to have MS flare and treated with 5 days of Solu-Medrol.? Syncope was thought to be vasovagal in nature. Hospital course: #.? Syncope d/t orthostatic hypotension likely from meds.. meds adjusted (stopped chlorthalidone, norasc decreased and changed to night, dc flomax) #.? Fall due to above -no acute traumatic injury in the head, chest, abdominal pelvis or knee but has pain in the? right knee, PT is recommending? STR she doesn't want it #.? History of multiple sclerosis:? Previously treated for flares in January.? Patient not on any medications for MS #.? Paroxysmal atrial fibrillation:? On Eliquis and beta-licha #.? Peripheral neuropathy: On Neurontin #.? Hyponatremia, likely hypovolemic:? Resuscitated IV crystalloids.? Monitor in a.m. #.? Hypokalemia: Repleted #.? Chronic kidney disease: Creatinine at baseline.? Monitor and avoid nephrotoxins #.? Dementia, unspecified: On memantine Time Spent with Patient Time attestation: Total time managing care of this patient today ____ minutes. Discharge coordination time: Greater than 30 minutes Quality: Safe Use of Opioids Does Pt have an Active Cancer Diagnosis on the Problem List?: No Quality: Stroke Does the patient have a stroke diagnosis?: No Physical Exam Vital Signs: Vital Signs: Last Vital Signs Temp 97.5 F 11/04/22 08:00 Pulse 62 11/04/22 08:00 Resp 18 11/04/22 08:00 BP 109/64 11/04/22 08:00 Pulse Ox 97 11/04/22 08:00 O2 Del Method 11/04/22 08:00 BMI result Body Mass Index 24.7 DS: Data Data Completed and Pending Completed studies during hospitalization [Text1]: Procedures Dilation of Left Ureter, Via Natural or Artificial Opening Endoscopic (01/27/22) Fluoroscopy of Left Kidney, Ureter and Bladder (01/27/22) Discharge Plan Discharge Anticipated Discharge Date/Time: 11/04/22 10:40 Patient Disposition: Home Health Service Discharge Diagnosis: Orthostatic hypotension syncope Referrals: PoCookie MD [Primary Care Provider] - 1 Week Discharge Medications: New amlodipine 5 mg Tablet 5 mg PO BEDTIME Qty: 30 0RF Protocol: Hold for SBP< HOLD for SBP < : 90 Continued omeprazole 40 mg capsule,delayed release(DR/EC) 1 cap PO DAILY@0600 citalopram 20 mg tablet 1 tab PO DAILY@0600 gabapentin 300 mg capsule 1 cap PO TID@0600,1200,1800 albuterol sulfate [Ventolin HFA] 90 mcg/actuation HFA aerosol inhaler See Rx Instructions .ROUTE .COMPLEX PRN (Reason: Shortness Of Breath Or Wheezing) Rx Instructions: every 4-6 hrs as needed memantine 10 mg tablet 1 tab PO BID@0600,1800 metoprolol tartrate 25 mg tablet 2 tab PO BID@0600,1800 acetaminophen 500 mg tablet 500 mg PO 5XD Discontinued amlodipine 10 mg tablet 1 tab PO DAILY@0600 chlorthalidone 25 mg tablet 0.5 tab PO DAILY@0600 tamsulosin 0.4 mg capsule 0.4 mg PO DAILY@1800 No Action Eliquis 5 mg tablet 5 mg PO BID@0600,1800 lamotrigine 200 mg tablet 300 mg PO TID ondansetron HCl 4 mg tablet 4 mg PO TID pyridoxine (vitamin B6) 50 mg tablet 50 mg PO DAILY 90 Days Qty: 90 1RF citalopram 10 mg tablet 20 mg PO DAILY Discharge Orders: Discharge Order (Routine); Ordered 11/04/22 Ordered By: Eric Cook Diet: Advance to usual diet Activity on Discharge: As tolerated Stand Alone Forms: Patient Portal Discharge page Care Plan Goals: prevent orthostatic hypontension and syncope full recovery from fall Health Concerns: Orthostatic hypotension Fall Plan of Treatment: your medication have been adjusted as follow 1/Do not take Flomax anymore 2/Norvasc (Amlodipine) has been reduced to 5 mg daily 3/Do not take Chlorthalidone anymore Follow up with your Doctor Use a cane a walker at all time to walk You have declined to go to rehab, we will arrange home PT at home. Assessment: as above Discharge Date/Time: 11/04/22 11:32
--- NOTE | 2022-11-04 14:01 | MHC.CM.PN ---
PT DISCHARGED HOME TODAY WITH [facility] TO BE PROVIDED BY [facility] PT ARRANGED TRANSPORT
== END 2022-11-04 11:32 | disposition home health service (06) ==
LOC: HO.ED 11-02 01:49 → HO.EDOVER 11-02 02:00 → HO.IMC 11-02 20:37
PROVIDERS: Admitting Provider Student in an Organized Health Care Education/Training Program; Emergency Provider Emergency Medicine; PCP Internal Medicine; Visit Provider Internal Medicine
DX: R55 Syncope and collapse (principal); G35 Multiple sclerosis; M25.561 Pain in right knee; I10 Essential (primary) hypertension; K21.9 Gastro-esophageal reflux disease without esophagitis; I48.0 Paroxysmal atrial fibrillation; R51.9 Headache, unspecified; R26.2 Difficulty in walking, not elsewhere classified; R06.02 Shortness of breath; M54.2 Cervicalgia; M54.6 Pain in thoracic spine; R10.9 Unspecified abdominal pain; Z20.822 Contact with and (suspected) exposure to COVID-19; Z79.899 Other long term (current) drug therapy
CPT/HCPCS: 0241U; 36415; 70450; 71250; 72125; 73560; 74176; 80048; 80076; 81003; 83690; 83880; 84443; 84484; 85025; 93005; 96361; 96374; 97162; 99219; 99285; Q9957

== ENCOUNTER 2022-11-17 12:43 | Outpatient (REF) | payer MEDICARE, SELFPAY | END 2022-11-17 12:44 | disposition home or self-care (01) | LOC: HO.US 12:43 | PROVIDERS: Visit Provider Urology | DX: N20.0 Calculus of kidney (principal) | CPT/HCPCS: 76775 ==

== ENCOUNTER → 2022-11-29 11:17 | Outpatient (BNVA) | payer MEDICARE, SELFPAY | PROVIDERS: PCP Internal Medicine; Visit Provider Urology | DX: N20.0 Calculus of kidney (principal); M85.80 Other specified disorders of bone density and structure, unspecified site | CPT/HCPCS: Q3014 ==

== ENCOUNTER → 2022-12-06 14:29 | Outpatient (BNVA) | payer MEDICARE, SELFPAY | PROVIDERS: PCP Internal Medicine; Visit Provider Internal Medicine Cardiovascular Disease | DX: I48.0 Paroxysmal atrial fibrillation (principal); I10 Essential (primary) hypertension | CPT/HCPCS: 99212 ==

== ENCOUNTER 2022-12-15 12:35 | Outpatient (REF) | payer MEDICARE, SELFPAY ==
--- NOTE | 2022-12-20 10:27 | MHC.AU.ANO ---
Adult Audiological Evaluation Date of Visit: 12/15/22 Reason for Appointment: Patient has been experiencing tinnitus for the past several months. The tinnitus comes and goes, but when it is present, it can last for days. She has also been experiencing vertigo that is worse when she turns her head. She has not been noticing significant hearing difficulties. Ear History: Ear Deformity: None Reported Recent Ear Drainage: None Reported Recent Ear Pain: None Reported Recent Ear Infections: None Reported Ear Infections in Childhood: None Reported History of Ear Wax Buildup: None Reported Previous Ear Surgery: None Reported Bothersome Tinnitus/Ringing/Noises in Ears: Both Ears Blocked/Full Sensation in Ear(s): None Reported History of occupational noise exposure?: No History: No Medical History: Multiple Sclerosis, Stage 3b Kidney Disease, Afib, Hypertension, Migraines, Sinus/allergy problems, Vertigo, Cognitive changes (thought to be due to MS) Otoscopy: Right Ear: Unremarkable Left Ear: Unremarkable Tympanometry: Tympanometry performed due to: To assess integrity of the middle ear system Right Ear: Reduced Middle Ear Compliance (Type As) Left Ear: Reduced Middle Ear Compliance (Type As) Hearing Evaluation: Transducer(s) Used: Insert Earphones Method: Conventional Audiometry Stimuli Used: Pure Tones Right Ear: Description of Hearing: Normal from 250-4000 Hz, steeply sloping to moderately-severe sensorineural hearing loss by 8000 Hz. SRT is 10 dBHL. Word discrimination at 50 dBHL is 100%. Left Ear: Description of Hearing: Normal from 250-4000 Hz, steeply sloping to severe sensorineural hearing loss by 8000 Hz. SRT is 5 dBHL. Word discrimination at 50 dBHL is 100%. QuickSIN: 4 dB SNR loss, which suggests difficulty listening in noise that is mildly elevated over the average listener. Recommendations: Patient has several risk factors for tinnitus, including high frequency hearing loss, sinus/allergy problems, hypertension, vertigo, and multiple sclerosis. It is important that she work closely with her healthcare providers to manage those conditions and minimize the impact they may have on the tinnitus. Audiological re-evaluation in 1-2 years, or sooner if changes are noted. Referral for vestibular physical therapy may be warranted, given patient's report of vertigo that is brought on by turning her head. Amplification is not yet warranted. Discussed tinnitus coping strategies, such as use of masking sounds (music, TV, noise generators, fans, etc). Diagnosis: Primary Diagnosis: H90.3 Bilateral Sensorineural Hearing Loss Secondary Diagnosis: H93.13 Tinnitus, Bilateral Signature: Provider: Kenia Diallo, CCC-A
== END 2022-12-15 12:36 | disposition home or self-care (01) ==
LOC: HO.SH 12:35
PROVIDERS: Visit Provider Internal Medicine
DX: H90.3 Sensorineural hearing loss, bilateral (principal); H93.13 Tinnitus, bilateral
CPT/HCPCS: 92557; 92567; 92587

== ENCOUNTER 2023-04-05 13:57 | Outpatient (REF) | payer MEDICARE, SELFPAY ==
[2023-04-05 16:07] LABS: Anion Gap 13 (12-20); Blood Urea Nitrogen 18 mg/dL (9-16); Calcium 9.1 mg/dL (8.4-10.2); Carbon Dioxide 24 mmol/L (22-29); Chloride 102 mmol/L (96-108); Estimated Glomerular Filt Rate 40; Potassium 4.4 mmol/L (3.3-5.1); Sodium 135 mmol/L (135-145)
[2023-04-06 15:33] LABS: Calcium (PTHI) 9.2 mg/dL (8.6-10.4); PTHI 60 pg/mL (16-77)
== END 2023-04-05 13:58 | disposition home or self-care (01) ==
LOC: HO.LAB 13:57
PROVIDERS: PCP Internal Medicine; Referring Provider Internal Medicine; Visit Provider Internal Medicine Nephrology
DX: I12.9 Hypertensive chronic kidney disease with stage 1 through stage 4 chronic kidney disease, or unspecified chronic kidney disease (principal); N18.32 Chronic kidney disease, stage 3b; N20.0 Calculus of kidney
CPT/HCPCS: 36415; 80051; 82310; 82565; 83970; 84520; 99212

== ENCOUNTER 2023-04-12 15:21 | Outpatient (REF) | payer MEDICARE, SELFPAY ==
[2023-04-12 15:33] LABS: MANUAL DIFF FLAG NO
[2023-04-12 16:21] LABS: Basophils Absolute Auto 0.1 X10*3/uL (0.0-0.2); Basophils Percent Auto 0.6 % (0-2); Eosinophils Absolute Auto 0.1 X10*3/uL (0.0-0.4); Eosinophils Percent Auto 1.2 % (0-4); Hematocrit 48.1 % (37.0-47.0); Hemoglobin 15.5 g/dl (12.0-16.0); Imm Gran Abs Auto 0.03 X10*3/uL (0.00-0.03); Imm Gran Pct Auto 0.4 % (0.0-0.4); Lymphocytes Percent Auto 22.8 % (20-40); Mean Corpuscular HGB Conc 32.2 g/dl (31.0-35.0); Mean Corpuscular Hemoglobin 28.4 pg (27.0-33.0); Mean Corpuscular Volume 88.1 fL (80.0-98.0); Mean Platelet Volume 12.2 fL (9.4-12.3); Monocytes Absolute Auto 0.7 X10*3/uL (0.1-1.2); Monocytes Percent Auto 8.4 % (2-11); Neutrophils Absolute Auto 5.7 x10*3/uL (2.0-8.3); Neutrophils Percent Auto 66.6 % (45-73); Platelet Count 242 X10*3/uL (160-400); Red Blood Count 5.46 X10*6/uL (4.20-5.50); Red Cell Distribution Width 14.4 % (11.0-16.0); White Blood Count 8.6 X10*3/uL (4.8-10.8)
[2023-04-12 16:58] LABS: Alanine Aminotransferase 14 U/L (0-31); Albumin Level 4.1 g/dL (3.5-5.0); Alkaline Phosphatase 54 U/L (39-117); Anion Gap 14 (12-20); Aspartate Amino Transferase 27 U/L (5-31); Bilirubin Total 0.8 mg/dL (0.0-1.0); Blood Urea Nitrogen 20 mg/dL (9-16); C Reactive Protein < 0.10 mg/dL (< or = 0.50); Calcium 9.5 mg/dL (8.4-10.2); Carbon Dioxide 26 mmol/L (22-29); Chloride 102 mmol/L (96-108); Cholesterol 244 mg/dL; Erythrocyte Sedimentation Rate 2 MM/HR (0-20); Estimated Glomerular Filt Rate 37; Glucose Random 93 mg/dL (60-115); HDL Cholesterol 83 mg/dL; LDL Cholesterol Calculated 138 mg/dl; Magnesium 2.1 mg/dL (1.6-2.6); Phosphorus 4.7 mg/dL (2.7-4.5); Potassium 4.9 mmol/L (3.3-5.1); Sodium 137 mmol/L (135-145); Total Protein 6.7 g/dL (6.5-8.0); Triglycerides 119 mg/dL
[2023-04-12 17:25] LABS: Free T4 (Free Thyroxine) 0.97 ng/dL (0.71-1.85); Thyroid Stimulating Hormone 1.14 uIU/mL (0.32-4.0); Vitamin B12 692 pg/mL (200-900); Vitamin D 25-OH Total 72.2 ng/mL (>30)
== END 2023-04-12 15:22 | disposition home or self-care (01) ==
LOC: HO.LAB 15:21
PROVIDERS: PCP Internal Medicine; Visit Provider Internal Medicine
DX: E78.00 Pure hypercholesterolemia, unspecified (principal); M81.0 Age-related osteoporosis without current pathological fracture; E55.9 Vitamin D deficiency, unspecified
CPT/HCPCS: 36415; 80053; 80061; 82306; 82607; 82746; 83735; 84100; 84439; 84443; 85025; 85652; 86140

== ENCOUNTER → 2023-04-17 13:52 | Outpatient (BNVA) | payer MEDICARE, SELFPAY | PROVIDERS: PCP Internal Medicine; Visit Provider Psychiatry & Neurology Psychiatry | DX: F34.1 Dysthymic disorder (principal); F43.10 Post-traumatic stress disorder, unspecified; I48.0 Paroxysmal atrial fibrillation; N18.32 Chronic kidney disease, stage 3b; M79.7 Fibromyalgia; M51.36 Other intervertebral disc degeneration, lumbar region | CPT/HCPCS: 90833; 99212 ==

== ENCOUNTER 2023-05-10 10:55 | Outpatient (REF) | payer MEDICARE, SELFPAY ==
--- NOTE | 2023-05-10 11:29 | P.BOP_ITS ---
Brief Operative Note Date of Service: 05/10/23 Pre-op diagnosis: Multinodular Thyroid Procedure: This is doctor Carla Gay. This is an ultrasound-guided fine-needle aspiration report. Indication: Multinodular Thyroid Porcedure: Procedure was explained to the patient. Alternatives, the risk and benefits were discussed. Written consent was obtained. A time-out was also obtained. After sterile preparation, 1 ml of 1% lidocaine solution was applied subcutaneously for anesthetic effect. Then Fine-needle aspiration of an isthmus 1.5 cm thyroid nodule was performed using direct ultrasound guidance to confirm accurate needle placement. Four aspirations were made using 27 gauge needles. Samples were submitted for cytology. 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 The patient tolerated the procedure well. A ftercare instructions were provided. Impression: Uncomplicated fine needle aspiration biopsy of an isthmus 1.5 cm thyroid nodule under ultrasound guidance. Surgeon: Carla Gay, DO Was an General Machine Operator used for this Procedure?: No Estimated blood loss (mL): 0
[2023-05-10] MEDS: Lidocaine HCl 1 % MPF 30 ML VIAL 5 ML SUBCUT (13:43)
== END 2023-05-10 10:56 | disposition home or self-care (01) ==
LOC: HO.US 10:55
PROVIDERS: PCP Internal Medicine; Visit Provider Internal Medicine
DX: E04.2 Nontoxic multinodular goiter (principal)
CPT/HCPCS: 10005; 88172; 88173

== ENCOUNTER 2023-05-21 12:26 | Outpatient (REF) | payer MEDICARE, SELFPAY ==
--- NOTE | ~2023-05-21 | US_ITS ---
EXAMINATION: US RETROPERITONEAL LIMITED (RENAL ONLY) CLINICAL INFORMATION: Calculus of kidney. COMPARISON: Ultrasound retroperitoneal limited (renal only) 11/17/2022. CT chest, abdomen and pelvis without contrast 11/02/2022. Ultrasound retroperitoneal limited (renal only) 10/11/2022. X-ray abdomen KUB 10/11/2022 and 03/01/2022. TECHNIQUE: Real-time imaging of the kidneys. FINDINGS: RIGHT KIDNEY: 8.7 x 3.3 x 3.4 cm (SAG x AP x TRV). The kidney is normal in size, contour, and echogenicity. Renal cortical thickness is normal. A nonobstructing 2 mm lower pole echogenic focus is present with twinkle artifact consistent with a nonobstructing calculus. No focal parenchymal lesions or hydronephrosis. LEFT KIDNEY: 8.1 x 4.4 x 3.1 cm (SAG x AP x TRV). The kidney is normal in size, contour, and echogenicity. Renal cortical thickness is normal. A nonobstructing 3 mm lower pole echogenic focus present with twinkle artifact consistent with a nonobstructing calculus. No focal parenchymal lesions or hydronephrosis. US/US renal BI IMPRESSION: Bilateral small nonobstructing renal calculi. Similar findings were present previously.
== END 2023-05-21 12:27 | disposition home or self-care (01) ==
LOC: HO.US 12:26
PROVIDERS: PCP Internal Medicine; Visit Provider Urology
DX: N20.0 Calculus of kidney (principal)
CPT/HCPCS: 76775

== ENCOUNTER → 2023-05-24 13:05 | Outpatient (BNVA) | payer MEDICARE, SELFPAY | PROVIDERS: PCP Internal Medicine; Visit Provider Internal Medicine | DX: E05.90 Thyrotoxicosis, unspecified without thyrotoxic crisis or storm (principal); E21.3 Hyperparathyroidism, unspecified; M85.80 Other specified disorders of bone density and structure, unspecified site; E55.9 Vitamin D deficiency, unspecified; E04.2 Nontoxic multinodular goiter | CPT/HCPCS: Q3014 ==

== ENCOUNTER 2023-06-08 11:54 | Outpatient (AMB) | payer MEDICARE, SELFPAY ==
--- NOTE | 2023-06-08 11:54 | A.OFFVIS_ITS ---
Intake Intake Visit Reasons: 6M US(set) Intake Note: Patient is present for Follow Up Ultrasound Urology Med: none Antibiotic Allergy: Penicillins Blood Thinner: Eliquis Allergies escitalopram [From LEXAPRO] Allergy (Severe, Verified 08/09/23 12:39) STOMACH UPSET, abd pain lisinopril [LISINOPRIL] Allergy (Severe, Verified 08/09/23 12:39) SWELLING, Leg swelling desipramine [Desipramine] Allergy (Intermediate, Verified 08/09/23 12:39) PALPITATIONS, clammy skin diphenhydramine [From Benadryl] Allergy (Intermediate, Verified 08/09/23 12:39) PALPITATIONS/CLAMMY SKIN duloxetine [From CYMBALTA] Allergy (Intermediate, Verified 08/09/23 12:39) STOMACH UPSET, abd pain Penicillins Allergy (Intermediate, Verified 08/09/23 12:39) Rash carbamazepine [From TEGRETOL] Adverse Reaction (Severe, Verified 08/09/23 12:39) BLACKOUT, SEVERE INTOXICATION oxycodone [From Percocet] Adverse Reaction (Severe, Verified 08/09/23 12:39) N/V, projectile vomiting fluoxetine [From Prozac] Adverse Reaction (Intermediate, Verified 08/09/23 12:39) PARKINSON SYMPTOMS garlic Adverse Reaction (Intermediate, Verified 08/09/23 12:39) IBS SYMPTOMS HPI HPI Comments History of Present Illness Details Francesca is a pleasant female. She is a patient of Dr. Sam. She seen for the following urologic conditions - nephrolithiasis Telemedicine Evaluation 15 min Consultation Doximity Valeriano Video attempted Off chlorthalidone Discussed results 12m f/u Nephrolithiasis Initial presentation for stones January 2022 Imaging - 02/14 9 mm proximal left stone Intervention - 02/14 left ESWL with stent removal - 11/16 left ESWL Imaging - 08/17 renal ultrasound bilateral stones - 7mm left with pain - 11/16 renal US 3mm fragments - 05/18 renal ultrasound bilateral 2-3 mm fragments unchanged Stone composition - 03/17 CaOxMo Medications - cholthalidone - for HTN/Raad stone via nephrology Therapeutic plan - encourage fluids - interval surveillance PFSH Medical History Abdominal pain Acute kidney injury superimposed on CKD Age-related osteoporosis without current pathological fracture YOHANA (acute kidney injury) Allergic rhinitis Asthma Chronic kidney disease Chronic kidney disease, stage 3b Closed right clavicular fracture Dysthymia (or depressive neurosis) Elevated troponin GERD (gastroesophageal reflux disease) Hepatitis C History of panic attacks History of renal calculi Hospital discharge follow-up Hyperparathyroidism Hypertension Hyperthyroidism Kidney stone Low back pain Lumbar radiculopathy Multinodular thyroid Multiple sclerosis Multiple sclerosis Multiple sclerosis exacerbation Obesity Paroxysmal atrial fibrillation Post traumatic stress disorder (PTSD) Screening for osteoporosis Syncope and collapse Surgical History History of kidney stones History of lithotripsy History of gynecologic surgery Hx of wisdom tooth extraction History of esophagogastroduodenoscopy (EGD) Hx of colonoscopy History of verrucae (wart) excision History of liver biopsy Family History Father Prostate cancer Myocardial infarction Mother Breast cancer Paternal Aunt Myocardial infarction Paternal Uncle Myocardial infarction Social History Household Members: None Housing: Apartment Are you a primary insurance healthcare representative to a significant other at home: No Do you presently have visiting nurse or other home services: Yes (PT, OT, [facility]NA) Alcohol intake: never Patient Tobacco Use Status: Former Tobacco user Quit Date: 1978 Tobacco use type: Cigarette Years Smoked: 8 e-Cigarette/Vaping Use: Never Used service: No Current occupational status: retired Cognitive needs: No Hearing needs: No Vision needs: Yes Review of Systems Const All systems reviewed & are unremarkable except as noted in HPI and below Reports no additional complaints Resp Reports no additional complaints GI Reports no additional complaints Reports as per HPI Musc Reports no additional complaints Physical Exam Telemedicine evaluation Appropriate responses Regular breathing rate and rhythm HEENT Head: Yes normal to inspection Ears: hearing grossly normal bilaterally Eyes General: appearance normal, both eyes and all related structures Neck Neck: Yes normal visual inspection Chest Chest palpation & inspection: normal inspection of the chest Resp Effort & Inspection: normal respiratory effort and able to speak in complete sentences Assessment & Plan Assessment & Plan (1) Renal calculi: Comment: Left ESWL Dr. Ramon February 2022 with stent removal September 2022 Code(s): N20.0 - Calculus of kidney Plan Twelve month follow-up Patient Instructions: Imaging studies, laboratory and physical exam results were discussed and reviewed in detail. No major barriers to patient understanding were identified. An opportunity to ask questions regarding the treatment plan was provided. All questions were answered. The patient expressed understanding and agreement with the above treatment plan. The patient is aware they should contact our office by phone for worsening of their current condition or the appearance of new urologic symptoms. Compliance is encouraged with any medications and followup testing that is ordered. It is a privilege to participate in the urologic care of your patient. If you have any questions or concerns regarding treatment for the above conditions, or other urologic issues, please do not hesitate to contact me. The office telephone contact is [phone]. This note is constructed using voice recognition software. While every effort has been made to ensure accuracy manager lpn errors may have been included. Yours sincerely, Dr Donal Ramon MD, [facility] - Urology Providers of Expert, Compassionate Care for the Genitourinary System Telehealth Telehealth Location of provider rendering services: practice address Location of patient: address on file Patient Identification confirmed using: Name, : Yes Telehealth method: video Patient verbally consented to treatment: Yes Patient verbally consented to billing insurance company: Yes Patient informed of any privacy concerns related to visit: Yes Coding Level of Care Code Tele Est Pt Level 3 (06183) Diagnoses Renal calculi N20.0
== END 2023-06-08 13:41 | disposition home or self-care (01) ==
LOC: HO.HUSH 11:54
PROVIDERS: PCP Internal Medicine; Visit Provider Urology
DX: N20.0 Calculus of kidney (principal)
CPT/HCPCS: 99213

== ENCOUNTER → 2023-06-08 11:54 | Outpatient (BNVA) | payer MEDICARE, SELFPAY | PROVIDERS: PCP Internal Medicine; Visit Provider Urology ==

== ENCOUNTER 2023-08-09 12:32 | Outpatient (AMB) | payer MEDICARE, SELFPAY ==
[2023-08-09 12:38] VITALS: BP 118/78; PULSE 71; O2SAT 98; BMI 24.8
--- NOTE | 2023-08-09 12:38 | A.OFFPC_ITS ---
Vital Signs 08/09/23 12:38 Height 5 ft 3 in Weight 140 lb BMI 24.8 BP 118/78 Blood Pressure Location Lt brachial Position Sitting Pulse 71 Pulse Source Pulse Oximeter Pulse Oximetry (%) 98 Oxygen Delivery Method Room Air Intake Visit Reasons: dizziness, A fib, renal calculi Dispatcher Service Chief Required: No Accompanied by: Self / Same As Patient Allergies escitalopram [From LEXAPRO] Allergy (Severe, Verified 08/09/23 12:39) STOMACH UPSET, abd pain lisinopril [LISINOPRIL] Allergy (Severe, Verified 08/09/23 12:39) SWELLING, Leg swelling desipramine [Desipramine] Allergy (Intermediate, Verified 08/09/23 12:39) PALPITATIONS, clammy skin diphenhydramine [From Benadryl] Allergy (Intermediate, Verified 08/09/23 12:39) PALPITATIONS/CLAMMY SKIN duloxetine [From CYMBALTA] Allergy (Intermediate, Verified 08/09/23 12:39) STOMACH UPSET, abd pain Penicillins Allergy (Intermediate, Verified 08/09/23 12:39) Rash carbamazepine [From TEGRETOL] Adverse Reaction (Severe, Verified 08/09/23 12:39) BLACKOUT, SEVERE INTOXICATION oxycodone [From Percocet] Adverse Reaction (Severe, Verified 08/09/23 12:39) N/V, projectile vomiting fluoxetine [From Prozac] Adverse Reaction (Intermediate, Verified 08/09/23 12:39) PARKINSON SYMPTOMS garlic Adverse Reaction (Intermediate, Verified 08/09/23 12:39) IBS SYMPTOMS Medication List - Last Reconciled 08/09/23 by Cookie Sam MD acetaminophen 500 mg PO 5XD albuterol sulfate 90 mcg/actuation (Ventolin HFA) every 4-6 hrs as needed alendronate 70 mg PO QWEEK amlodipine 5 mg See Protocol PO BEDTIME apixaban (Eliquis) 5 mg PO BID@0600,1800 90 days citalopram 20 mg PO DAILY folic acid 1 mg PO DAILY gabapentin 300 mg PO TID@0600,1200,1800 90 days lamotrigine 100 mg PO DAILY 90 days magnesium gluconate 27 mg PO BID memantine 1 tab PO BID@0600,1800 metoprolol tartrate 50 mg PO BID omeprazole 1 cap PO DAILY@0600 ondansetron HCl 4 mg PO TID Tobacco use date assessed: 08/09/23 Fall risk assessment: 2 + Falls in past year Last assessed Fall Risk: 08/09/23 Dental Screening Dental Screen Date: 08/09/23 Did you have a dental visit in the last 12 months?: Yes Did you have a dental problem in the last 6 months where you did not have access to dental care?: No Was dental information given to patient?: Patient has dentist HPI dizziness, A fib, renal calculi HPI Details 68-year-old female with labile hypertens ion on amlodipine and metoprolol paroxysmal atrial fibrillation, chronic kidney disease stage III generalized anxiety disorder asthma coming in for follow-up. Last seen in March 2023. Patient is due for mammogram up-to-date with colonoscopy and bone density. Patient has history of nephrolithiasis and follows up with urology has had ESWL and continue to be followed patient sees endocrinology for the hyperthyroidism blood work came up as within normal limits thyroid scan within normal limits antibodies negative thyroid ultrasound did show a 1.5 cm isthmus nodule had FNA biopsy April 2023 benign diagnosis of euthyroid sick syndrome, hyperparathyroidism likely related to chronic kidney disease yearly ultrasound for thyroid. [facility] Medical History Abdominal pain Acute kidney injury superimposed on CKD Age-related osteoporosis without current pathological fracture YOHANA (acute kidney injury) Allergic rhinitis Asthma Chronic kidney disease Chronic kidney disease, stage 3b Closed right clavicular fracture Dysthymia (or depressive neurosis) Elevated troponin GERD (gastroesophageal reflux disease) Hepatitis C History of panic attacks History of renal calculi Hospital discharge follow-up Hyperparathyroidism Hypertension Hyperthyroidism Kidney stone Low back pain Lumbar radiculopathy Multinodular thyroid Multiple sclerosis Multiple sclerosis Multiple sclerosis exacerbation Obesity Paroxysmal atrial fibrillation Post traumatic stress disorder (PTSD) Screening for osteoporosis Syncope and collapse Surgical History History of kidney stones History of lithotripsy History of gynecologic surgery Hx of wisdom tooth extraction History of esophagogastroduodenoscopy (EGD) Hx of colonoscopy History of verrucae (wart) excision History of liver biopsy Family History Father Prostate cancer Myocardial infarction Mother Breast cancer Paternal Aunt Myocardial infarction Paternal Uncle Myocardial infarction Social History Household Members: None Housing: Apartment Are you a primary lawn care professional to a significant other at home: No Do you presently have visiting nurse or other home services: Yes (PT, OT, VNA) Alcohol intake: never Patient Tobacco Use Status: Former Tobacco user Quit Date: 1978 Tobacco use type: Cigarette Years Smoked: 8 e-Cigarette/Vaping Use: Never Used service: No Current occupational status: retired Cognitive needs: No Hearing needs: No Vision needs: Yes Questionnaire PHQ-9 Over the last 2 weeks, how often have you been bothered by any of the following problems? 1. Little interest or pleasure in doing things: not at all 2. Feeling down, depressed, or hopeless: not at all 3. Trouble falling or staying asleep, or sleeping too much: not at all 4. Feeling tired or having little energy: not at all 5. Poor appetite or overeating: not at all 6. Feeling bad about yourself - or that you are a failure or have let yourself or your family down: not at all 7. Trouble concentrating on things, such as reading the newspaper or watching television: not at all 8. Moving or speaking so slowly that other people could have noticed. Or the opposite - being so fidgety or restless that you have been moving around a lot more than usual: not at all 9. Thoughts that you would be better off or of hurting yourself in some way: not at all Total score: 0 Depression Screening Interpretation: Negative Source: Developed by Drs. Mario Ernandez, Vale Hubbard, Nahum Parada and colleagues, with an educational mel from [employer]. Thrive Questionnaire Date Thrive assessed: 08/09/23 I am a: Patient What is your living situation today?: I have a steady place to live Within the past 12 months, did the food you bought not last and you didn't have the money to get more?: Never true Within the past 12 months, did you worry whether your food would run out before you got money to buy more?: Never true Do you have trouble paying for medicines?: No Do you have trouble getting transportation to medical appointments?: No Do you have trouble paying your heating and electricity bill?: No Do you have trouble taking care of your child, family member or friend?: No Do you have trouble with day-to-day activities such as bathing, preparing meals, shopping, managing finances, etc.?: No Are you currently unemployed and looking for a job?: No Are you interested in more education?: No Please select the resources that you would like help with: None Currently or been in a relationship where the following occur: no concerns reported AUDIT C Alcohol Use Questionnaire (AUDIT-C) 1. How often do you have a drink containing alcohol?: Never Total Score: 0 Score Reviewed/Action Taken: No BEREKET-7 AMB Questionnaire BEREKET-7 Date BEREKET - 7 assessed: 08/09/23 Feeling nervous, anxious, or on edge: 0 = Not at all Not being able to stop or control worryin = Not at all Worrying too much about different things: 0 = Not at all Trouble relaxin = Not at all Being so restless that it is hard to sit still: 0 = Not at all Becoming easily annoyed or irritable: 0 = Not at all Feeling afraid as if something awful might happen: 0 = Not at all Total BEREKET-7 score (0-4 normal; 5-9 mild; 10-14 moderate; 15-21 severe): 0 Source: Developed by Drs. Mario Ernandez, Vale Hubbard, Nahum Parada and colleagues, with an educational mel from [employer]. Physical exam (Primary Care) Vital Signs: Last Vital Signs Pulse 71 08/09/23 12:38 BP 118/78 08/09/23 12:38 Pulse Ox 98 08/09/23 12:38 Oxygen Delivery Method Room Air 08/09/23 12:38 BMI result Body Mass Index 24.8 Tobacco/Smoking Status: Tobacco use Status Tobacco use date assessed 08/09/23 08/09/23 12:47 Patient Tobacco Use Status Former Tobacco user 08/09/23 12:47 Tobacco use type Cigarette 08/09/23 12:47 e-Cigarette/Vaping Use Never Used 08/09/23 12:47 PHQ-9: PHQ-9 Score PHQ-9: Total score 0 08/09/23 12:47 Depression Screening Interpretation: Negative Thrive Assessment: Date of Thrive Assessment Date Thrive assessed 08/09/23 08/09/23 12:47 Currently or been in a relationship where the following occur: no concerns reported Const General: alert; No acute distress Eyes Conjunctivae: conjunctivae normal Resp Auscultation: clear to auscultation bilaterally Cardio Rate: regular rate Rhythm: regular rhythm GI Inspection: Yes normal to inspection Extrem General: Yes normal to inspection and No edema Assessment and Plan Assessment & Plan (1) Multinodular thyroid: Comment: Thyroid biopsy benign April 2023 Dr. Lu thyroid ultrasound June 2022 Code(s): E04.2 - Nontoxic multinodular goiter Plan: Will continue to have yearly thyroid ultrasound (2) Asthma: Code(s): J45.909 - Unspecified asthma, uncomplicated Qualifiers: Asthma severity: mild Asthma persistence: intermittent Asthma complication type: uncomplicated Qualified Code(s): J45.20 - Mild intermittent asthma, uncomplicated Plan: Continue with inhaler albuterol (3) Generalized anxiety disorder: Comment: Dr. Carrillo, Dr. Roberts psychologist Code(s): F41.1 - Generalized anxiety disorder Plan: Continue to follow-up with psychiatry and therapy (4) Euthyroid sick syndrome: Code(s): E07.81 - Sick-euthyroid syndrome Plan: Stable and no further treatment (5) Renal calculi: Comment: Left ESWL Dr. Ramon February 2022 with stent removal September 2022 Code(s): N20.0 - Calculus of kidney Plan: Increase oral fluids continue to follow-up with Urology (6) Chronic kidney disease, stage 3b: Code(s): N18.32 - Chronic kidney disease, stage 3b Plan: Keep well hydrated avoid NSAIDs (7) Essential hypertension: Code(s): I10 - Essential (primary) hypertension Plan: Continue with blood pressure medication. Decrease salt intake and exercise patient is on amlodipine 5 mg once a day and metoprolol 50 mg twice a day (8) PAF (paroxysmal atrial fibrillation): Code(s): I48.0 - Paroxysmal atrial fibrillation Plan: Continue with anticoagulation with Eliquis (9) Breast cancer screening by mammogram: Code(s): Z12.31 - Encounter for screening mammogram for malignant neoplasm of breast Orders: Orders MM tomosynthesis screening BI 3 Months Z12.31 - Encounter for screening mammogram for malignant neoplasm of breast Comprehensive Met. Panel 3 Months I48.0 - Paroxysmal atrial fibrillation Free T4 (Free Thyroxine) 3 Months I48.0 - Paroxysmal atrial fibrillation Thyroid Stimulating Hormone 3 Months I48.0 - Paroxysmal atrial fibrillation Vitamin B12 and Folate 3 Months I48.0 - Paroxysmal atrial fibrillation Complete Blood Count Auto Diff 3 Months I48.0 - Paroxysmal atrial fibrillation Lipid Panel 3 Months E78.00 - Pure hypercholesterolemia, unspecified, I48.0 - Paroxysmal atrial fibrillation Vitamin D 25-OH Total 3 Months I48.0 - Paroxysmal atrial fibrillation Medications: New alendronate 70 mg PO QWEEK 12 tabs 2RF M85.80 - Other specified disorders of bone density and structure, unspecified site Coding Level of Care Code Est Pt Level 4 (98221) Diagnoses Multinodular thyroid E04.2 Mild intermittent asthma without complication J45.20 Asthma severity: mild Asthma persistence: intermittent Asthma complication type: uncomplicated Generalized anxiety disorder F41.1 Euthyroid sick syndrome E07.81 Renal calculi N20.0 Chronic kidney disease, stage 3b N18.32 Essential hypertension I10 PAF (paroxysmal atrial fibrillation) I48.0 Breast cancer screening by mammogram Z12.31 Additional Codes PHQ-9 - 91466 - PHQ-9 Billing: ([id number])
== END 2023-08-09 13:42 | disposition home or self-care (01) ==
PROVIDERS: Visit Provider Internal Medicine
DX: I12.9 Hypertensive chronic kidney disease with stage 1 through stage 4 chronic kidney disease, or unspecified chronic kidney disease (principal); N18.32 Chronic kidney disease, stage 3b; E04.2 Nontoxic multinodular goiter; J45.20 Mild intermittent asthma, uncomplicated; I48.0 Paroxysmal atrial fibrillation; F41.1 Generalized anxiety disorder; E07.81 Sick-euthyroid syndrome; N20.0 Calculus of kidney
CPT/HCPCS: 99214

== ENCOUNTER 2023-08-09 13:52 | Outpatient (REF) | payer MEDICARE, SELFPAY | END 2023-08-09 13:53 | disposition home or self-care (01) | LOC: HO.LAB 13:52 | PROVIDERS: PCP Internal Medicine; Visit Provider Internal Medicine | DX: Z13.89 Encounter for screening for other disorder (principal) ==

== ENCOUNTER 2023-10-30 15:11 | Outpatient (AMB) | payer MEDICARE, SELFPAY ==
--- NOTE | 2023-10-30 15:29 | A.OFFPSYCH_ITS ---
Intake Intake Visit Reasons: depression Allergies escitalopram [From LEXAPRO] Allergy (Severe, Verified 08/09/23 12:39) STOMACH UPSET, abd pain lisinopril [LISINOPRIL] Allergy (Severe, Verified 08/09/23 12:39) SWELLING, Leg swelling desipramine [Desipramine] Allergy (Intermediate, Verified 08/09/23 12:39) PALPITATIONS, clammy skin diphenhydramine [From Benadryl] Allergy (Intermediate, Verified 08/09/23 12:39) PALPITATIONS/CLAMMY SKIN duloxetine [From CYMBALTA] Allergy (Intermediate, Verified 08/09/23 12:39) STOMACH UPSET, abd pain Penicillins Allergy (Intermediate, Verified 08/09/23 12:39) Rash carbamazepine [From TEGRETOL] Adverse Reaction (Severe, Verified 08/09/23 12:39) BLACKOUT, SEVERE INTOXICATION oxycodone [From Percocet] Adverse Reaction (Severe, Verified 08/09/23 12:39) N/V, projectile vomiting fluoxetine [From Prozac] Adverse Reaction (Intermediate, Verified 08/09/23 12 :39) PARKINSON SYMPTOMS garlic Adverse Reaction (Intermediate, Verified 08/09/23 12:39) IBS SYMPTOMS HPI- Psychiatric Chief Complaint: depression HPI Narrative: Pt has been on citalopram lamictal gabapentin her spiritual octavio has been quite helpful to her has connected more to her octavio seems more connected less agoraphobic had experienced a lot of losses has niece in [place] gabapentin 300 tid still has occ panic at night Past Psychiatric History: hx of ptsd and depression Mental Status Exam Mental Status Exam Narrative: Mental Status Exam Narrative: Appearance: Casually dressed Behavior: Cooperative appropriate psychomotor: Within normal limits Speech: Normal volume and prosody Thought proccess logical and goal-directed Thought content: Denies current self-harming thoughts More appreciative more focused on self-care and bf Mood: euthymic Affect: Appropriate to mood full affect SI:denies HI:denies VH/AH:none Delusions: None Insight/judgment: Good insight and judgment much improved Memory/cog: Intact Assessment and Plan Assessment & Plan (1) Post traumatic stress disorder (PTSD): Status: Acute Code(s): F43.10 - Post-traumatic stress disorder, unspecified (2) Dysthymia (or depressive neurosis): Status: Acute Code(s): F34.1 - Dysthymic disorder Plan pt much more stable mood less tortured denies active si still has regular insomnia and nightmares discussed use of periactin for insomnia and nightmares cont citalopram lamictal has been stabilizing Medications: New cyproheptadine 2 - 4 mg (0.5 - 1 x 4 mg) PO BEDTIME PRN 30 tabs 1RF insomnia/nightmares Counseling and coordination of Care Details: I spent [] minutes reviewing the record, seeing the patient and documenting in the medical record. Counseling provided to the patient/caregiver as outlined below. Addressed patient/caregiver concerns regarding current medication regime including effective adherence. Addressed patient/caregiver concerns regarding diagnosis and prognosis including accuracy of diagnosis, prognosis over time, impact of diagnosis. Addressed patient/caregiver concerns regarding impact of recent stressors. [facility] Medical History Abdominal pain Acute kidney injury superimposed on CKD Age-related osteoporosis without current pathological fracture YOHANA (acute kidney injury) Allergic rhinitis Asthma Chronic kidney disease Chronic kidney disease, stage 3b Closed right clavicular fracture Dysthymia (or depressive neurosis) Elevated troponin GERD (gastroesophageal reflux disease) Hepatitis C History of panic attacks History of renal calculi Hospital discharge follow-up Hyperparathyroidism Hypertension Hyperthyroidism Kidney stone Low back pain Lumbar radiculopathy Multinodular thyroid Multiple sclerosis Multiple sclerosis Multiple sclerosis exacerbation Obesity Paroxysmal atrial fibrillation Post traumatic stress disorder (PTSD) Screening for osteoporosis Syncope and collapse Surgical History History of kidney stones History of lithotripsy History of gynecologic surgery Hx of wisdom tooth extraction History of esophagogastroduodenoscopy (EGD) Hx of colonoscopy History of verrucae (wart) excision History of liver biopsy Family History Father Prostate cancer Myocardial infarction Mother Breast cancer Paternal Aunt Myocardial infarction Paternal Uncle Myocardial infarction Social History Household Members: None Housing: Apartment Are you a primary animal care worker to a significant other at home: No Do you presently have visiting nurse or other home services: Yes (PT, OT, VNA) Alcohol intake: never Patient Tobacco Use Status: Former Tobacco user Quit Date: 1978 Tobacco use type: Cigarette Years Smoked: 8 e-Cigarette/Vaping Use: Never Used service: No Current occupational status: retired Cognitive needs: No Hearing needs: No Vision needs: Yes Social History: Patient has been chronically on disability she does live alone in her own apartment does have a long-term partner who lives in the same apartment building who is quite supportive Substance History: na Trauma History: History of childhood trauma Coding Level of Care Code Est Pt Level 4 (50984) Diagnoses Post traumatic stress disorder (PTSD) F43.10 Dysthymia (or depressive neurosis) F34.1
== END 2023-10-30 16:03 | disposition home or self-care (01) ==
LOC: HO.HOP 15:11
PROVIDERS: PCP Internal Medicine; Visit Provider Psychiatry & Neurology Psychiatry
DX: F43.10 Post-traumatic stress disorder, unspecified (principal); F34.1 Dysthymic disorder
CPT/HCPCS: 99214

== ENCOUNTER → 2023-10-30 15:11 | Outpatient (BNVA) | payer MEDICARE, SELFPAY | PROVIDERS: PCP Internal Medicine; Visit Provider Psychiatry & Neurology Psychiatry | DX: F43.10 Post-traumatic stress disorder, unspecified (principal); F34.1 Dysthymic disorder | CPT/HCPCS: 99212 ==

== ENCOUNTER 2023-11-08 11:33 | Outpatient (REF) | payer MEDICARE, SELFPAY | END 2023-11-08 11:34 | disposition home or self-care (01) | LOC: HO.MAMMO 11:33 | PROVIDERS: PCP Internal Medicine; Visit Provider Internal Medicine | DX: Z12.31 Encounter for screening mammogram for malignant neoplasm of breast (principal); I48.0 Paroxysmal atrial fibrillation; E78.00 Pure hypercholesterolemia, unspecified | CPT/HCPCS: 36415; 77063; 77067; 80053; 80061; 82306; 82607; 82746; 84439; 84443; 85025 ==

== ENCOUNTER → 2023-11-08 11:45 | Outpatient (BNV) | payer MEDICARE, SELFPAY | PROVIDERS: PCP Internal Medicine; Visit Provider Radiology Diagnostic Radiology | DX: Z12.31 Encounter for screening mammogram for malignant neoplasm of breast (principal) | CPT/HCPCS: 77063; 77067 ==

== ENCOUNTER 2023-11-08 12:09 | Outpatient (REF) | payer MEDICARE, SELFPAY ==
[2023-11-08 12:41] LABS: MANUAL DIFF FLAG NO
[2023-11-08 14:05] LABS: Basophils Percent Auto 0.6 % (0-2); Eosinophils Absolute Auto 0.1 X10*3/uL (0.0-0.4); Eosinophils Percent Auto 1.1 % (0-4); Hematocrit 48.2 % (37.0-47.0); Hemoglobin 15.8 g/dl (12.0-16.0); Imm Gran Abs Auto 0.04 X10*3/uL (0.00-0.03); Imm Gran Pct Auto 0.6 % (0.0-0.4); Lymphocytes Absolute Auto 1.6 X10*3/uL (1.2-4.9); Lymphocytes Percent Auto 25.4 % (20-40); Mean Corpuscular HGB Conc 32.8 g/dl (31.0-35.0); Mean Corpuscular Volume 91.5 fL (80.0-98.0); Mean Platelet Volume 11.1 fL (9.4-12.3); Monocytes Absolute Auto 0.6 X10*3/uL (0.1-1.2); Monocytes Percent Auto 9.1 % (2-11); Neutrophils Percent Auto 63.2 % (45-73); Platelet Count 280 X10*3/uL (160-400); Red Blood Count 5.27 X10*6/uL (4.20-5.50); Red Cell Distribution Width 13.5 % (11.0-16.0); White Blood Count 6.4 X10*3/uL (4.8-10.8)
[2023-11-08 14:40] LABS: Alanine Aminotransferase 13 U/L (0-31); Albumin Level 3.8 g/dL (3.5-5.0); Alkaline Phosphatase 47 U/L (39-117); Anion Gap 13 (12-20); Aspartate Amino Transferase 20 U/L (5-31); Bilirubin Total 0.7 mg/dL (0.0-1.0); Blood Urea Nitrogen 14 mg/dL (9-16); Calcium 8.6 mg/dL (8.4-10.2); Carbon Dioxide 25 mmol/L (22-29); Chloride 105 mmol/L (96-108); Cholesterol 200 mg/dL (<200); Estimated Glomerular Filt Rate 47; Glucose Random 110 mg/dL (60-115); HDL Cholesterol 60 mg/dL (>40); LDL Cholesterol Calculated 112 mg/dL (<100); Potassium 3.3 mmol/L (3.3-5.1); Sodium 140 mmol/L (135-145); Total Protein 6.4 g/dL (6.5-8.0); Triglycerides 143 mg/dL (<150)
[2023-11-08 14:58] LABS: Free T4 (Free Thyroxine) 0.84 ng/dL (0.71-1.85); Thyroid Stimulating Hormone 0.94 uIU/mL (0.32-4.0)
[2023-11-08 15:11] LABS: Folate > 20.0 ng/mL (> or = 4.0); Vitamin B12 795 pg/mL (200-900)
== END 2023-11-08 12:10 | disposition home or self-care (01) ==
LOC: HO.LAB 12:09
PROVIDERS: PCP Internal Medicine; Visit Provider Internal Medicine
DX: Z13.89 Encounter for screening for other disorder (principal)
CPT/HCPCS: 36415; 80053; 80061; 82306; 82607; 82746; 84439; 84443; 85025

== ENCOUNTER 2024-04-09 12:29 | Outpatient (AMB) | payer MEDICARE, SELFPAY ==
[2024-04-09 12:42] VITALS: BP 120/64; PULSE 53; BMI 26.7
--- NOTE | 2024-04-09 12:42 | A.OFFVIS_ITS ---
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 Accompanied by: Self / Same As Patient Allergies escitalopram [From LEXAPRO] Allergy (Severe, Verified 08/09/23 12:39) STOMACH UPSET, abd pain lisinopril [LISINOPRIL] Allergy (Severe, Verified 08/09/23 12:39) SWELLING, Leg swelling desipramine [Desipramine] Allergy (Intermediate, Verified 08/09/23 12:39) PALPITATIONS, clammy skin diphenhydramine [From Benadryl] Allergy (Intermediate, Verified 08/09/23 12:39) PALPITATIONS/CLAMMY SKIN duloxetine [From CYMBALTA] Allergy (Intermediate, Verified 08/09/23 12:39) STOMACH UPSET, abd pain Penicillins Allergy (Intermediate, Verified 08/09/23 12:39) Rash carbamazepine [From TEGRETOL] Adverse Reaction (Severe, Verified 08/09/23 12:39) BLACKOUT, SEVERE INTOXICATION oxycodone [From Percocet] Adverse Reaction (Severe, Verified 08/09/23 12:39) N/V, projectile vomiting fluoxetine [From Prozac] Adverse Reaction (Intermediate, Verified 08/09/23 12:39) PARKINSON SYMPTOMS garlic Adverse Reaction (Intermediate, Verified 08/09/23 12:39) IBS SYMPTOMS Medication List - Last Reconciled 04/09/24 by Devante Cox MD acetaminophen 500 mg PO 5XD albuterol sulfate 90 mcg/actuation (Ventolin HFA) every 4-6 hrs as needed alendronate 70 mg PO QWEEK amlodipine 5 mg See Protocol PO BEDTIME apixaban (Eliquis) 5 mg PO BID@0600,1800 90 days citalopram 20 mg PO DAILY cyproheptadine 2 - 4 mg (0.5 - 1 x 4 mg) PO BEDTIME PRN folic acid 1 mg PO DAILY gabapentin 300 mg PO TID@0600,1200,1800 90 days lamotrigine 100 mg PO DAILY 90 days memantine 1 tab PO BID@0600,1800 metoprolol tartrate 50 mg PO BID omeprazole 1 cap PO DAILY@0600 ondansetron HCl 4 mg PO TID HPI Comments Details: 68-year-old female here for follow-up. She has background history of paroxysmal atrial fibrillation. She also has hypertension. Recent admission to hospital with orthostasis. Her medications were adjusted and thiazide diuretic was stopped. She is saying she is feeling better but her blood pressures have been high at home. She has recorded systolic blood pressures to 160s and 170s at times. Blood pressure in the office is normal. She has an appointment to see nephrology in a week. Otherwise clinically stable. Taking medications regularly. No bleeding issues. 04/09/24: She is here for f/u. BP is much better controlled. 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 She said she also had a headache and was very dizzy and almost passed out. She thought that this was due to heat but continued to feel somewhat sick the next day with some epigastric discomfort. She is saying she is still short of breath since this happened. She has been using her inhaler. No palpitations. Blood pressure is well controlled and she is sinus rhythm on EKG. REPLACED BY [facility] Medical History Abdominal pain Acute kidney injury superimposed on CKD Age-related osteoporosis without current pathological fracture YOHANA (acute kidney injury) Allergic rhinitis Asthma Chronic kidney disease Chronic kidney disease, stage 3b Closed right clavicular fracture Dysthymia (or depressive neurosis) Elevated troponin GERD (gastroesophageal reflux disease) Hepatitis C History of panic attacks History of renal calculi Hospital discharge follow-up Hyperparathyroidism Hypertension Hyperthyroidism Kidney stone Low back pain Lumbar radiculopathy Multinodular thyroid Multiple sclerosis Multiple sclerosis Multiple sclerosis exacerbation Obesity Paroxysmal atrial fibrillation Post traumatic stress disorder (PTSD) Screening for osteoporosis Syncope and collapse Surgical History History of kidney stones History of lithotripsy History of gynecologic surgery Hx of wisdom tooth extraction History of esophagogastroduodenoscopy (EGD) Hx of colonoscopy History of verrucae (wart) excision History of liver biopsy Family History Father Prostate cancer Myocardial infarction Mother Breast cancer Paternal Aunt Myocardial infarction Paternal Uncle Myocardial infarction Social History Household Members: None Housing: Apartment Are you a primary sub acute care nurse to a significant other at home: No Do you presently have visiting nurse or other home services: Yes (PT, OT, VNA) Alcohol intake: never Patient Tobacco Use Status: Former Tobacco user Quit Date: 1978 Tobacco use type: Cigarette Years Smoked: 8 e-Cigarette/Vaping Use: Never Used service: No Current occupational status: retired Cognitive needs: No Hearing needs: No Vision needs: Yes Review of Systems Const Denies chills, Denies fatigue, Denies fever(s), Denies frequent falls, Denies weakness, Denies weight gain and Denies weight loss ENT Denies dizziness Card Denies chest pain, Denies leg edema, Denies lightheadedness, Denies palpitations, Denies dyspnea and Denies dyspnea on exertion Resp Denies cough, Denies dyspnea and Denies dyspnea on exertion GI Denies hematochezia Musc Denies abnormal gait, Denies muscle weakness, Denies numbness, Denies radiating pain into limb and Denies tingling Neuro Denies abnormal gait, Denies dizziness, Denies frequent falls, Denies numbness, Denies tingling and Denies weakness Endo Denies fatigue and Denies palpitations Physical Exam Vital Signs: Last Vital Signs Pulse 53 04/09/24 12:42 BP 120/64 04/09/24 12:42 BMI result Body Mass Index 26.7 Const Other: Ambulates with a cane General: cooperative, healthy appearing, comfortable and no acute distress Orientation/consciousness: patient oriented x3 Neck Neck: Yes normal visual inspection and Yes no JVD Resp Effort & Inspection: normal respiratory effort Auscultation: clear to auscultation bilaterally, no crackles, no rales, no rhonchi and no wheezes Cardio Jugular venous distension: no JVD Rate: regular rate Rhythm: regular rhythm Heart sounds: S1 normal heart sound present, S2 normal heart sound present, no gallops, no murmurs and no rubs Skin General skin exam: no rashes or lesions noted Neuro General: patient oriented x3 Extrem General: Yes normal to inspection Psych Appearance: grossly normal Mental Status: mental status grossly normal Speech and movement: Normal speech and movement present Office Procedures EKG Details: Sinus bradycardia 53 beats per minute, normal axis, can not rule out septal infa rct, QTC 422 milliseconds. [id number], Complete Assessment & Plan Assessment & Plan (1) PAF (paroxysmal atrial fibrillation): Code(s): I48.0 - Paroxysmal atrial fibrillation Category: Medical (2) Essential hypertension: Code(s): I10 - Essential (primary) hypertension Category: Medical (3) Chest pain: Code(s): R07.9 - Chest pain, unspecified Category: Medical (4) SOB (shortness of breath): Code(s): R06.02 - Shortness of breath Category: Medical Plan Pleasant 68 year female with known history of atrial fibrillation and hypertension who is here for follow-up. Stable from hypertension and AFib point of view. She had episode of chest pain or shortness of breath along with headache and dizziness while working in the heat 2 days ago in the y[place]. She is still getting some shortness of breath with activity. EKGs not showing any dynamic changes. I have advised her to do an exercise stress test. Otherwise continue same medications for now. Follow-up in 3 months. If there is any abnormality on stress test and will reach out to her. Thank you for allowing me to participate in the care of your patient. Please feel free to contact me if you have any questions. Orders: Orders CA stress test Today R07.9 - Chest pain, unspecified Coding Level of Care Code Est Pt Level 4 (18062) Diagnoses PAF (paroxysmal atrial fibrillation) I48.0 Essential hypertension I10 Chest pain R07.9 SOB (shortness of breath) R06.02 CPT Codes EKG - CPT: 06982-[id number], Complete ([id number])
== END 2024-04-09 13:11 | disposition home or self-care (01) ==
PROVIDERS: Visit Provider Internal Medicine Cardiovascular Disease
DX: I48.0 Paroxysmal atrial fibrillation (principal); I10 Essential (primary) hypertension; R07.9 Chest pain, unspecified; R06.02 Shortness of breath
CPT/HCPCS: 93010; 99214

== ENCOUNTER → 2024-04-09 12:29 | Outpatient (BNVA) | payer MEDICARE, SELFPAY | PROVIDERS: Visit Provider Internal Medicine Cardiovascular Disease | DX: I48.0 Paroxysmal atrial fibrillation (principal); I10 Essential (primary) hypertension; R07.9 Chest pain, unspecified; R06.02 Shortness of breath | CPT/HCPCS: 93005; 99212 ==

== ENCOUNTER 2024-04-28 14:06 | Outpatient (AMB) | payer MEDICARE, SELFPAY ==
[2024-04-28 14:09] VITALS: BP 152/98; PULSE 56; O2SAT 97; BMI 26.2
--- NOTE | 2024-04-28 14:09 | MHC.PC.OV ---
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 Allergies escitalopram [From LEXAPRO] Allergy (Severe, Verified 04/28/24 14:09) STOMACH UPSET, abd pain lisinopril [LISINOPRIL] Allergy (Severe, Verified 04/28/24 14:09) SWELLING, Leg swelling desipramine [Desipramine] Allergy (Intermediate, Verified 04/28/24 14:09) PALPITATIONS, clammy skin diphenhydramine [From Benadryl] Allergy (Intermediate, Verified 04/28/24 14:09) PALPITATIONS/CLAMMY SKIN duloxetine [From CYMBALTA] Allergy (Intermediate, Verified 04/28/24 14:09) STOMACH UPSET, abd pain Penicillins Allergy (Intermediate, Verified 04/28/24 14:09) Rash carbamazepine [From TEGRETOL] Adverse Reaction (Severe, Verified 04/28/24 14:09) BLACKOUT, SEVERE INTOXICATION oxycodone [From Percocet] Adverse Reaction (Severe, Verified 04/28/24 14:09) N/V, projectile vomiting fluoxetine [From Prozac] Adverse Reaction (Intermediate, Verified 04/28/24 14:09) PARKINSON SYMPTOMS garlic Adverse Reaction (Intermediate, Verified 04/28/24 14:09) IBS SYMPTOMS Tobacco use date assessed: 04/28/24 Fall risk assessment: No Falls in past year Last assessed Fall Risk: 04/28/24 Dental Screening Dental Screen Date: 04/28/24 Did you have a dental visit in the last 12 months?: Yes Did you have a dental problem in the last 6 months where you did not have access to dental care?: No Was dental information given to patient?: Patient has dentist HPI Patient care follow-up. HPI Details 68-year-old female with asthma generalized anxiety disorder chronic kidney disease hypertension atrial fibrillation coming in for follow-up last seen in 08/15/2023. Patient is mammogram is up-to-date colonoscopy is up-to-date. Patient follows up with Cardiology seen 04/09/2024 for yearly follow-up recently admitted for orthostasis taken off diuretics but states blood pressure has been high at home patient has been complaining of shortness of breath on exertion and has been advised to get a stress test, this is pending. Nephrology notes appreciated 11/01/2023 . Continuing with blood pressure medication and blood work is stable. 12/15/2023 follows up with Psychiatry on citalopram, Lamictal and gabapentin stable diagnosis of PTSD and dysthymia placed on Periactin for insomnia and citalopram Lamictal. May 07, 2024 Stress test and ff up with renal may 08, 2024. [facility] Medical History Abdominal pain Acute kidney injury superimposed on CKD Age-related osteoporosis without current pathological fracture YOHANA (acute kidney injury) Allergic rhinitis Asthma Chronic kidney disease Chronic kidney disease, stage 3b Closed right clavicular fracture Dysthymia (or depressive neurosis) Elevated troponin GERD (gastroesophageal reflux disease) Hepatitis C History of panic attacks History of renal calculi Hospital discharge follow-up Hyperparathyroidism Hypertension Hyperthyroidism Kidney stone Low back pain Lumbar radiculopathy Multinodular thyroid Multiple sclerosis Multiple sclerosis Multiple sclerosis exacerbation Obesity Paroxysmal atrial fibrillation Post traumatic stress disorder (PTSD) Screening for osteoporosis Syncope and collapse Surgical History History of kidney stones History of lithotripsy History of gynecologic surgery Hx of wisdom tooth extraction History of esophagogastroduodenoscopy (EGD) Hx of colonoscopy History of verrucae (wart) excision History of liver biopsy Family History Father Prostate cancer Myocardial infarction Mother Breast cancer Paternal Aunt Myocardial infarction Paternal Uncle Myocardial infarction Social History Household Members: None Housing: Apartment Are you a primary senior resident care director to a significant other at home: No Do you presently have visiting nurse or other home services: Yes (PT, OT, VNA) Alcohol intake: never Patient Tobacco Use Status: Former Tobacco user Tobacco use type: Cigarette Years Smoked: 8 e-Cigarette/Vaping Use: Never Used service: No Current occupational status: retired Cognitive needs: No Hearing needs: No Vision needs: Yes Questionnaire PHQ-9 Over the last 2 weeks, how often have you been bothered by any of the following problems? 1. Little interest or pleasure in doing things: not at all 2. Feeling down, depressed, or hopeless: not at all 3. Trouble falling or staying asleep, or sleeping too much: not at all 4. Feeling tired or having little energy: not at all 5. Poor appetite or overeating: not at all 6. Feeling bad about yourself - or that you are a failure or have let yourself or your family down: not at all 7. Trouble concentrating on things, such as reading the newspaper or watching television: not at all 8. Moving or speaking so slowly that other people could have noticed. Or the opposite - being so fidgety or restless that you have been moving around a lot more than usual: not at all 9. Thoughts that you would be better off or of hurting yourself in some way: not at all Total score: 0 Depression Screening Interpretation: Positive Depression Screening Follow-up: Existing condition and In treatment Depression Screening Done: Yes Source: Developed by Drs. Mario Ernandez, Vale Hubbard, Nahum Parada and colleagues, with an educational mel from [employer]. Thrive Questionnaire Date Thrive assessed: 04/28/24 I am a: Patient What is your living situation today?: I have a steady place to live Within the past 12 months, did the food you bought not last and you didn't have the money to get more?: Never true Within the past 12 months, did you worry whether your food would run out before you got money to buy more?: Never true Do you have trouble paying for medicines?: No Do you have trouble getting transportation to medical appointments?: No Do you have trouble paying your heating and electricity bill?: No Do you have trouble taking care of your child, family member or friend?: No Do you have trouble with day-to-day activities such as bathing, preparing meals, shopping, managing finances, etc.?: No Are you currently unemployed and looking for a job?: No Are you interested in more education?: No Please select the resources that you would like help with: None Currently or been in a relationship where the following occur: no concerns reported THRIVE Score: 0 AUDIT C Alcohol Use Questionnaire (AUDIT-C) 1. How often do you have a drink containing alcohol?: Never 3. How often do you have six or more drinks on one occasion?: Never Total Score: 0 Score Reviewed/Action Taken: No BEREKET-7 AMB Questionnaire BEREKET-7 Date BEREKET - 7 assessed: 04/28/24 Feeling nervous, anxious, or on edge: 0 = Not at all Not being able to stop or control worryin = Not at all Worrying too much about different things: 0 = Not at all Trouble relaxin = Not at all Being so restless that it is hard to sit still: 0 = Not at all Becoming easily annoyed or irritable: 0 = Not at all Feeling afraid as if something awful might happen: 0 = Not at all Total BEREKET-7 score (0-4 normal; 5-9 mild; 10-14 moderate; 15-21 severe): 0 Source: Developed by Drs. Mario Ernandez, Vale Hubbard, Nahum Parada and colleagues, with an educational mel from [employer]. Physical exam (Primary Care) Vital Signs: Oxygen Delivery Method Room Air 04/28/24 14:09 Tobacco/Smoking Status: Tobacco use Status Tobacco use date assessed 04/28/24 04/28/24 14:10 Patient Tobacco Use Status Former Tobacco user 04/28/24 14:10 Tobacco use type Cigarette 04/28/24 14:10 e-Cigarette/Vaping Use Never Used 04/28/24 14:10 Depression Screening Interpretation: Positive Depression Screening Follow-up: Existing condition and In treatment Thrive Assessment: Date of Thrive Assessment Date Thrive assessed 04/28/24 04/28/24 14:10 Currently or been in a relationship where the following occur: no concerns reported Const General: alert; No acute distress Eyes Conjunctivae: conjunctivae normal Resp Auscultation: clear to auscultation bilaterally Cardio Rate: regular rate Rhythm: regular rhythm GI Inspection: Yes normal to inspection Extrem General: Yes normal to inspection and No edema Assessment and Plan Assessment & Plan (1) SOB (shortness of breath): Code(s): R06.02 - Shortness of breath Plan: Patient has been seen by Cardiology and has advised stress test (2) Dysthymia (or depressive neurosis): Comment: Dr. Carrillo Code(s): F34.1 - Dysthymic disorder Plan: Continue to follow-up with psychiatry on citalopram 20 mg once a day placed on cyproheptadine recently continue with gabapentin lamotrigine 100 mg once a day (3) PAF (paroxysmal atrial fibrillation): Code(s): I48.0 - Paroxysmal atrial fibrillation Plan: Continue with anticoagulation with apixaban semiannual renal function test (4) Essential hypertension: Code(s): I10 - Essential (primary) hypertension Plan: Continue with blood pressure medication. Decrease salt intake and exercise patient on amlodipine 5 mg once a day and metoprolol tartrate 50 mg twice a day. BP high today, advised to monitor (5) Chronic kidney disease, stage 3b: Code(s): N18.32 - Chronic kidney disease, stage 3b Plan: Stable patient follows up with Nephrology (6) Osteopenia: Comment: 02/2022 Code(s): M85.80 - Other specified disorders of bone density and structure, unspecified site Plan: Patient is advised retesting at bone density presently on alendronate Orders: Orders Complete Blood Count Auto Diff Today I10 - Essential (primary) hypertension Thyroid Stimulating Hormone Today I10 - Essential (primary) hypertension Free T4 (Free Thyroxine) Today I10 - Essential (primary) hypertension Comprehensive Met. Panel Today I10 - Essential (primary) hypertension Lipid Panel Today E78.00 - Pure hypercholesterolemia, unspecified, I10 - Essential (primary) hypertension Vitamin B12 and Folate Today I10 - Essential (primary) hypertension XR DEXA axial skeleton Today M81.0 - Age-related osteoporosis without current pathological fracture, M85.80 - Other specified disorders of bone density and structure, unspecified site Medications: Discontinued cyproheptadine Discontinued Reason: Patient Refused 2 - 4 mg (0.5 - 1 x 4 mg) PO BEDTIME PRN 30 tabs 1RF insomnia/nightmares Coding Level of Care Code Est Pt Level 4 (15822) Diagnoses SOB (shortness of breath) R06.02 Dysthymia (or depressive neurosis) F34.1 PAF (paroxysmal atrial fibrillation) I48.0 Essential hypertension I10 Chronic kidney disease, stage 3b N18.32 Osteopenia M85.80 Additional Codes PHQ-9 - 31862 - PHQ-9 Billing: ([id number])
== END 2024-04-28 14:32 | disposition home or self-care (01) ==
PROVIDERS: PCP Internal Medicine; Visit Provider Internal Medicine
DX: I12.9 Hypertensive chronic kidney disease with stage 1 through stage 4 chronic kidney disease, or unspecified chronic kidney disease (principal); I48.0 Paroxysmal atrial fibrillation; N18.32 Chronic kidney disease, stage 3b; R06.02 Shortness of breath; F34.1 Dysthymic disorder; M85.80 Other specified disorders of bone density and structure, unspecified site
CPT/HCPCS: 99214

== ENCOUNTER 2024-04-28 14:37 | Outpatient (REF) | payer MEDICARE, MEDICAID, SELFPAY ==
[2024-04-28 14:51] LABS: MANUAL DIFF FLAG NO
[2024-04-28 15:35] LABS: Basophils Absolute Auto 0.1 X10*3/uL (0.0-0.2); Basophils Percent Auto 0.9 % (0-2); Eosinophils Absolute Auto 0.1 X10*3/uL (0.0-0.4); Eosinophils Percent Auto 1.1 % (0-4); Hematocrit 49.7 % (37.0-47.0); Hemoglobin 16.4 g/dl (12.0-16.0); Imm Gran Abs Auto 0.02 X10*3/uL (0.00-0.03); Imm Gran Pct Auto 0.4 % (0.0-0.4); Lymphocytes Absolute Auto 1.6 X10*3/uL (1.2-4.9); Lymphocytes Percent Auto 28.5 % (20-40); Mean Corpuscular Hemoglobin 30.1 pg (27.0-33.0); Mean Corpuscular Volume 91.2 fL (80.0-98.0); Mean Platelet Volume 11.3 fL (9.4-12.3); Monocytes Absolute Auto 0.6 X10*3/uL (0.1-1.2); Monocytes Percent Auto 11.2 % (2-11); Neutrophils Absolute Auto 3.1 x10*3/uL (2.0-8.3); Neutrophils Percent Auto 57.9 % (45-73); Platelet Count 251 X10*3/uL (160-400); Red Blood Count 5.45 X10*6/uL (4.20-5.50); Red Cell Distribution Width 13.1 % (11.0-16.0); White Blood Count 5.4 X10*3/uL (4.8-10.8)
[2024-04-28 16:05] LABS: Alanine Aminotransferase 10 U/L (0-31); Albumin Level 4.2 g/dL (3.5-5.0); Alkaline Phosphatase 44 U/L (39-117); Anion Gap 12 (12-20); Aspartate Amino Transferase 17 U/L (5-31); Bilirubin Total 0.7 mg/dL (0.0-1.0); Blood Urea Nitrogen 17 mg/dL (9-16); Calcium 9.6 mg/dL (8.4-10.2); Carbon Dioxide 25 mmol/L (22-29); Chloride 105 mmol/L (96-108); Cholesterol 225 mg/dL (<200); Estimated Glomerular Filt Rate 46; Glucose Random 101 mg/dL (60-115); HDL Cholesterol 90 mg/dL (>40); LDL Cholesterol Calculated 118 mg/dL (<100); Potassium 4.3 mmol/L (3.3-5.1); Sodium 138 mmol/L (135-145); Total Protein 6.9 g/dL (6.5-8.0); Triglycerides 88 mg/dL (<150)
[2024-04-28 16:21] LABS: Free T4 (Free Thyroxine) 0.95 ng/dL (0.71-1.85); Thyroid Stimulating Hormone 1.34 uIU/mL (0.32-4.0)
[2024-04-28 16:51] LABS: Folate > 20.0 ng/mL (> or = 4.0); Vitamin B12 499 pg/mL (200-900)
== END 2024-04-28 14:38 | disposition home or self-care (01) ==
LOC: HO.LAB 14:37
PROVIDERS: PCP Internal Medicine; Visit Provider Internal Medicine
DX: I10 Essential (primary) hypertension (principal); E78.00 Pure hypercholesterolemia, unspecified
CPT/HCPCS: 36415; 80053; 80061; 82607; 82746; 84439; 84443; 85025

== ENCOUNTER → 2024-06-11 10:18 | Outpatient (REF) | payer MEDICARE, MEDICAID, SELFPAY ==
--- NOTE | 2024-06-11 10:20 | CA_ITS ---
Acquisition Time: 2024-06-11 10:27:26 Total Exercise Time: 00:03:09 Test Indications: CP, SOB Medications: SEE H Protocol: SABA Max HR: 085 BPM 55% of Pred: 153 BPM Max BP: 138/078 mmHG Max Work Load: 4.7 METS Exercise stress test exercise 3 min 9 sec of Saba protocol achieving 55% MPHR and need to stop due to safety and moderate SOB, without arrhythmias, with normotensive response to exercise, with nondiagnositic EKGs. Breathing returned to normal with rest. Test reviewed with Dr. Maier Referred By: Devante Cox Overread By: Heather Varghese
== END ==
LOC: HO.CARD 10:18
PROVIDERS: PCP Internal Medicine; Visit Provider Internal Medicine Cardiovascular Disease
DX: R07.9 Chest pain, unspecified (principal)
CPT/HCPCS: 93017

== ENCOUNTER → 2024-06-11 10:20 | Outpatient (BNV) | payer MEDICARE, MEDICAID, SELFPAY | PROVIDERS: PCP Internal Medicine; Visit Provider Nurse Practitioner | DX: R06.02 Shortness of breath (principal) | CPT/HCPCS: 93016; 93018 ==

== ENCOUNTER → 2024-06-30 08:18 | Outpatient (REF) | payer MEDICARE, MEDICAID, SELFPAY ==
--- NOTE | ~2024-06-30 | NM_ITS ---
Lexiscan Myocardial perfusion study Indication: Shortness of breath Technique: The patient was brought in for a Lexiscan perfusion study on 06/30/2024 and was injected 0.4 mg of Lexiscan intravenously. Within a minute of this injection 25 mCi of sestamibi was given intravenously. Images were obtained using the SPECT gamma camera interlaced with the gating device. Images were obtained in supine position. Resting perfusion study was performed on 07/01/2024. Patient was administered 25 mCi of sestamibi intravenously at rest. Images were then obtained in supine position. Images were processed with the software and compared side to side in short axis, horizontal long axis and vertical long axis views. Total DLP 90mGy-cm. Findings: Raw acquisition reviewed. The stress perfusion study showed no significant perfusion abnormality. Both uncorrected as well as CT attenuation corrected images were reviewed. The gated study shows normal LV systolic function with calculated LVEF of >70%. LV cavity is normal in size. The gated study shows normal wall thickening and contraction of segments. Resting study shows no significant perfusion abnormality. Gating at rest reveals normal wall motion with ejection fraction at >70 %. The findings are consistent with no clear reversible or fixed perfusion abnormality. NM/NM mily perf SPECT rest & str Impression: 1. Myocardial perfusion imaging study shows normal myocardial perfusion. 2. Gated LVEF is > 70% during stress and rest. 3. Transient ischemic dilatation not present. EKG component of the test reported separately.
--- NOTE | 2024-06-30 08:20 | CA_ITS ---
Acquisition Time: 2024-06-30 08:32:34 Total Exercise Time: 00:02:00 Test Indications: SHORTNESS OF BREATH Medications: Protocol: LEXISCAN Max HR: 080 BPM 52% of Pred: 153 BPM Max BP: 170/090 mmHG Max Work Load: 1.6 METS Pharmacologicla stress test with Lexiscan injection while walking slowly on the treadmill due to HR in 50s, without chest pain, with mild SOB and dizziness. without arrhythmias, with hypertensive response (170/90) to injection, with scooping/downsloping noted in leads 2, 3, aVF, V4-V6 not meeting criteria for ischemia. Aminophylline 75mg IVP given to reverse Lexiscan. Nuclear images pending. Test reviewed with Dr. Maier Referred By: Devante Cox Overread By: Heather Varghese
== END ==
LOC: HO.CARD 08:18
PROVIDERS: PCP Internal Medicine; Visit Provider Internal Medicine Cardiovascular Disease
DX: R06.02 Shortness of breath (principal)
CPT/HCPCS: 78452; 93017; A9500; J0280; J2785

== ENCOUNTER → 2024-06-30 08:20 | Outpatient (BNV) | payer MEDICARE, MEDICAID, SELFPAY | PROVIDERS: PCP Internal Medicine; Visit Provider Nurse Practitioner | DX: R06.02 Shortness of breath (principal) | CPT/HCPCS: 78452; 93016; 93018 ==

== ENCOUNTER 2024-07-07 15:16 | Outpatient (AMB) | payer MEDICARE, MEDICAID, SELFPAY ==
[2024-07-07 15:47] VITALS: BP 120/70; PULSE 55; BMI 26.6
--- NOTE | 2024-07-07 15:47 | MHC.OFFVIS ---
Vital Signs 07/07/24 15:47 Height 5 ft 3 in Weight 150 lb 5.684 oz BMI 26.6 BP 120/70 Blood Pressure Location Lt brachial Position Sitting Pulse 55 Pulse Source Monitor Intake Visit Reasons: r/s 06/30 followup after stress test Intake Note: f/up after stress test. 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 Accompanied by: Self / Same As Patient Allergies escitalopram [From LEXAPRO] Allergy (Severe, Verified 04/28/24 14:09) STOMACH UPSET, abd pain lisinopril [LISINOPRIL] Allergy (Severe, Verified 04/28/24 14:09) SWELLING, Leg swelling desipramine [Desipramine] Allergy (Intermediate, Verified 04/28/24 14:09) PALPITATIONS, clammy skin diphenhydramine [From Benadryl] Allergy (Intermediate, Verified 04/28/24 14:09) PALPITATIONS/CLAMMY SKIN duloxetine [From CYMBALTA] Allergy (Intermediate, Verified 04/28/24 14:09) STOMACH UPSET, abd pain Penicillins Allergy (Intermediate, Verified 04/28/24 14:09) Rash carbamazepine [From TEGRETOL] Adverse Reaction (Severe, Verified 04/28/24 14:09) BLACKOUT, SEVERE INTOXICATION oxycodone [From Percocet] Adverse Reaction (Severe, Verified 04/28/24 14:09) N/V, projectile vomiting fluoxetine [From Prozac] Adverse Reaction (Intermediate, Verified 04/28/24 14:09) PARKINSON SYMPTOMS garlic Adverse Reaction (Intermediate, Verified 04/28/24 14:09) IBS SYMPTOMS Medication List - Last Reconciled 07/07/24 by Devante Cox MD acetaminophen 500 mg PO 5XD albuterol sulfate 90 mcg/actuation (Ventolin HFA) every 4-6 hrs as needed alendronate 70 mg PO QWEEK amlodipine 5 mg See Protocol PO BEDTIME apixaban (Eliquis) 5 mg PO BID@0600,1800 90 days citalopram 20 mg PO DAILY gabapentin 300 mg PO TID@0600,1200,1800 90 days lamotrigine 100 mg PO DAILY 90 days memantine 1 tab PO BID@0600,1800 metoprolol tartrate 50 mg PO BID HPI Comments Details: 68-year-old female here for follow-up. She has background history of paroxysmal atrial fibrillation. She also has hypertension. Recent admission to hospital with orthostasis. Her medications were adjusted and thiazide diuretic was stopped. She is saying she is feeling better but her blood pressures have been high at home. She has recorded systolic blood pressures to 160s and 170s at times. Blood pressure in the office is normal. She has an appointment to see nephrology in a week. Otherwise clinically stable. Taking medications regularly. No bleeding issues. 04/09/24: She is here for f/u. BP is much better controlled. 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 She said she also had a headache and was very dizzy and almost passed out. She thought that this was due to heat but continued to feel somewhat sick the next day with some epigastric discomfort. She is saying she is still short of breath since this happened. She has been using her inhaler. No palpitations. Blood pressure is well controlled and she is sinus rhythm on EKG. 07/07/2024: She is here for follow-up. She said she had a syncopal episode recently. She said she was inside her house when she started feeling lightheaded and then passed out for few minutes. She did not have any urinary or fecal incontinence. Tongue bite. No known history of seizures. She said she did not have any further episodes since then. Denying any chest discomfort or shortness of breath. No infection or fevers. She did not have any prodrome like feeling hot or flushed/nauseous. She said she days later she had some palpitations which she felt like skipped beats. [facility] Medical History Abdominal pain Acute kidney injury superimposed on CKD Age-related osteoporosis without current pathological fracture YOHANA (acute kidney injury) Allergic rhinitis Asthma Chronic kidney disease Chronic kidney disease, stage 3b Closed right clavicular fracture Dysthymia (or depressive neurosis) Elevated troponin GERD (gastroesophageal reflux disease) Hepatitis C History of panic attacks History of renal calculi Hospital discharge follow-up Hyperparathyroidism Hypertension Hyperthyroidism Kidney stone Low back pain Lumbar radiculopathy Multinodular thyroid Multiple sclerosis Multiple sclerosis Multiple sclerosis exacerbation Obesity Paroxysmal atrial fibrillation Post traumatic stress disorder (PTSD) Screening for osteoporosis Syncope and collapse Surgical History History of kidney stones History of lithotripsy History of gynecologic surgery Hx of wisdom tooth extraction History of esophagogastroduodenoscopy (EGD) Hx of colonoscopy History of verrucae (wart) excision History of liver biopsy Family History Father Prostate cancer Myocardial infarction Mother Breast cancer Paternal Aunt Myocardial infarction Paternal Uncle Myocardial infarction Social History Household Members: None Housing: Apartment Are you a primary client care representative to a significant other at home: No Do you presently have visiting nurse or other home services: Yes (PT, OT, VNA) Alcohol intake: never Patient Tobacco Use Status: Former Tobacco user Tobacco use type: Cigarette Years Smoked: 8 e-Cigarette/Vaping Use: Never Used service: No Current occupational status: retired Cognitive needs: No Hearing needs: No Vision needs: Yes Review of Systems Const Denies chills, Denies fatigue, Denies fever(s), Denies frequent falls, Denies weakness, Denies weight gain and Denies weight loss ENT Denies dizziness Card Denies chest pain, Denies leg edema, Denies lightheadedness, Denies palpitations, Denies dyspnea and Denies dyspnea on exertion Resp Denies cough, Denies dyspnea and Denies dyspnea on exertion GI Denies hematochezia Musc Denies abnormal gait, Denies muscle weakness, Denies numbness, Denies radiating pain into limb and Denies tingling Neuro Denies abnormal gait, Denies dizziness, Denies frequent falls, Denies numbness, Denies tingling and Denies weakness Endo Denies fatigue and Denies palpitations Physical Exam Vital Signs: Last Vital Signs Pulse 55 07/07/24 15:47 BP 120/70 07/07/24 15:47 BMI result Body Mass Index 26.6 GENERAL APPEARANCE: in no acute distress, pleasant. NECK: no carotid bruit, no jugular venous distention. SKIN: no suspicious lesions, warm and dry. HEART: no murmurs, regular rate and rhythm. LUNGS: clear to auscultation bilaterally. ABDOMEN: soft, nontender. EXTREMITIES: no edema. PERIPHERAL PULSES: equal. NEUROLOGIC: No gross deficits, AAO X 3 Office Procedures EKG Details: Sinus bradycardia 55 beats per minute, normal axis, septal infarct, QTC 419 milliseconds. [id number], Complete Assessment & Plan Assessment & Plan (1) Syncope: Code(s): R55 - Syncope and collapse Category: Medical (2) Chest pain: Code(s): R07.9 - Chest pain, unspecified Category: Medical Plan [age] year female who is here for follow-up. She has background history of paroxysmal atrial fibrillation. She has been on anticoagulation. Recent episode of syncope. Etiology is unclear. With being on anticoagulation this being a thromboembolic event is quite low. Vasovagal syncope is still a possibility. I have advised her to keep herself well hydrated and avoid the heat. She had some palpitations and skipped beats. We will arrange a cardiac event monitor to rule out any arrhythmia specially Brant arrhythmia. Recent stress test is normal. She will see us back in few months. Thank you for allowing me to participate in the care of your patient. Please feel free to contact me if you have any questions. Orders: Orders ECG 30 day event monitor Today R55 - Syncope and collapse Coding Level of Care Code Est Pt Level 4 (78231) Diagnoses Syncope R55 Chest pain R07.9 CPT Codes EKG - CPT: 27840-[id number], Complete ([id number])
== END 2024-07-07 16:22 | disposition home or self-care (01) ==
PROVIDERS: PCP Internal Medicine; Visit Provider Internal Medicine Cardiovascular Disease
DX: R55 Syncope and collapse (principal); R07.9 Chest pain, unspecified
CPT/HCPCS: 93010; 99214

== ENCOUNTER → 2024-07-07 15:16 | Outpatient (BNVA) | payer MEDICARE, MEDICAID, SELFPAY | PROVIDERS: PCP Internal Medicine; Visit Provider Internal Medicine Cardiovascular Disease | DX: R55 Syncope and collapse (principal); R07.9 Chest pain, unspecified | CPT/HCPCS: 93005; 99212 ==

== ENCOUNTER 2024-07-10 12:55 | Outpatient (AMB) | payer MEDICARE, MEDICAID, SELFPAY ==
--- NOTE | 2024-07-10 13:25 | MHC.OFFVISPS ---
Intake Intake Visit Reasons: depression Allergies escitalopram [From LEXAPRO] Allergy (Severe, Verified 04/28/24 14:09) STOMACH UPSET, abd pain lisinopril [LISINOPRIL] Allergy (Severe, Verified 04/28/24 14:09) SWELLING, Leg swelling desipramine [Desipramine] Allergy (Intermediate, Verified 04/28/24 14:09) PALPITATIONS, clammy skin diphenhydramine [From Benadryl] Allergy (Intermediate, Verified 04/28/24 14:09) PALPITATIONS/CLAMMY SKIN duloxetine [From CYMBALTA] Allergy (Intermediate, Verified 04/28/24 14:09) STOMACH UPSET, abd pain Penicillins Allergy (Intermediate, Verified 04/28/24 14:09) Rash carbamazepine [From TEGRETOL] Adverse Reaction (Severe, Verified 04/28/24 14:09) BLACKOUT, SEVERE INTOXICATION oxycodone [From Percocet] Adverse Reaction (Severe, Verified 04/28/24 14:09) N/V, projectile vomiting fluoxetine [From Prozac] Adverse Reaction (Intermediate, Verified 04/28/24 14:09) PARKINSON SYMPTOMS garlic Adverse Reaction (Intermediate, Verified 04/28/24 14:09) IBS SYMPTOMS HPI- Psychiatric Chief Complaint: depression HPI Narrative: Pt seen in f/u has generally been doing okay history of chronic depression and anxiety that has generally been more manageable over the past number of months. The patient has been taking her medication regularly marked improvement of mood better able to enjoy things better able to leave the house trying to take better self-care. Continues to be close with her boyfriend who lives next door not overly depressed Past Psychiatric History: hx of ptsd and depression Mental Status Exam Mental Status Exam Narrative: Mental Status Exam Narrative: Appearance: Casually dressed Behavior: Cooperative appropriate psychomotor: Within normal limits Speech: Normal volume and prosody Thought proccess logical and goal-directed Thought content: Denies current self-harming thoughts More appreciative more focused on self-care and bf discontinues to be true Mood: euthymic Affect: Appropriate to mood full affect SI:denies HI:denies VH/AH:none Delusions: None Insight/judgment: Good insight and judgment much improved Memory/cog: Intact Assessment and Plan Assessment & Plan (1) Post traumatic stress disorder (PTSD): Status: Acute Code(s): F43.10 - Post-traumatic stress disorder, unspecified Plan Patient has generally been doing better than in previous years less depressed less anxiety has been on citalopram gabapentin lamotrigine taking it on a more regular basis. Concerns have been related to chronic pain she is no longer seeing Dr. Home quintana for therapy Continue citalopram gabapentin lamotrigine PTSD and depressive symptoms are in better check Medications: Changed From gabapentin 300 mg PO TID@0600,1200,1800 90 days 270 caps 1RF To gabapentin 300 mg PO TID 270 caps 1RF 90 days Refilled citalopram 20 mg PO DAILY 90 tabs 1RF Counseling and coordination of Care Details-Self Mgmt counseling: Issues related to chronic anxiety and sleep disorder Details-Med Mgmt counseling: Issues related to chronic concerns in discomfort taking medication particularly when feeling overmedicated at night Diagnosis and Prognosis Counseling: Adequacy of current interventions Details: I spent [38] minutes reviewing the record, seeing the patient and documenting in the medical record. Counseling provided to the patient/caregiver as outlined below. Addressed patient/caregiver concerns regarding current medication regime including effective adherence. Addressed patient/caregiver concerns regarding diagnosis and prognosis including accuracy of diagnosis, prognosis over time, impact of diagnosis. Addressed patient/caregiver concerns regarding impact of recent stressors. [facility] Medical History Abdominal pain Acute kidney injury superimposed on CKD Age-related osteoporosis without current pathological fracture YOHANA (acute kidney injury) Allergic rhinitis Asthma Chronic kidney disease Chronic kidney disease, stage 3b Closed right clavicular fracture Dysthymia (or depressive neurosis) Elevated troponin GERD (gastroesophageal reflux disease) Hepatitis C History of panic attacks History of renal calculi Hospital discharge follow-up Hyperparathyroidism Hypertension Hyperthyroidism Kidney stone Low back pain Lumbar radiculopathy Multinodular thyroid Multiple sclerosis Multiple sclerosis Multiple sclerosis exacerbation Obesity Paroxysmal atrial fibrillation Post traumatic stress disorder (PTSD) Screening for osteoporosis Syncope and collapse Surgical History History of kidney stones History of lithotripsy History of gynecologic surgery Hx of wisdom tooth extraction History of esophagogastroduodenoscopy (EGD) Hx of colonoscopy History of verrucae (wart) excision History of liver biopsy Family History Father Prostate cancer Myocardial infarction Mother Breast cancer Paternal Aunt Myocardial infarction Paternal Uncle Myocardial infarction Social History Household Members: None Housing: Apartment Are you a primary inspector health care facilities to a significant other at home: No Do you presently have visiting nurse or other home services: Yes (PT, OT, VNA) Alcohol intake: never Patient Tobacco Use Status: Former Tobacco user Tobacco use type: Cigarette Years Smoked: 8 e-Cigarette/Vaping Use: Never Used service: No Current occupational status: retired Cognitive needs: No Hearing needs: No Vision needs: Yes Social History: Patient has been chronically on disability she does live alone in her own apartment does have a long-term partner who lives in the same apartment building who is quite supportive Substance History: na Trauma History: History of childhood trauma Coding Level of Care Code Est Pt Level 3 (54113) Therapy 30m w/E&M (14697) Diagnoses Post traumatic stress disorder (PTSD) F43.10
== END 2024-07-10 13:53 | disposition home or self-care (01) ==
LOC: HO.HOP 12:55
PROVIDERS: PCP Internal Medicine; Visit Provider Psychiatry & Neurology Psychiatry
DX: F43.10 Post-traumatic stress disorder, unspecified (principal)
CPT/HCPCS: 90833; 99213

== ENCOUNTER → 2024-07-10 12:55 | Outpatient (BNVA) | payer MEDICARE, MEDICAID, SELFPAY | PROVIDERS: PCP Internal Medicine; Visit Provider Psychiatry & Neurology Psychiatry | DX: F43.10 Post-traumatic stress disorder, unspecified (principal); Z79.899 Other long term (current) drug therapy | CPT/HCPCS: 99212 ==

== ENCOUNTER 2024-07-11 10:49 | Outpatient (REF) | payer MEDICARE, MEDICAID, SELFPAY ==
--- NOTE | ~2024-07-11 | MM_ITS ---
EXAMINATION: BONE DENSITOMETRY CLINICAL INDICATION: Age-related osteoporosis without current pathological fracture. COMPARISON: Previous BD dated 03/08/2022 and baseline BD dated 05/20/2010. TECHNIQUE: Using a [employer] DXA System (software version: 13.1) manufactured by [employer], dual-energy x-ray absorptiometry was performed of the lumbar spine and left hip. The images are of good technical quality. Summary results are attached. FINDINGS: LEFT FEMUR, NECK: Current: BMD 0.705 g/cm2, Z-score -0.9, T-score -2.4, osteopenia. Prior: BMD 0.728 g/cm2. Baseline: BMD 0.900 g/cm2. LEFT FEMUR, TOTAL: Current: BMD 0.705 g/cm2, Z-score -1.1, T-score -2.4, osteopenia, 5.1% decrease from previous, 28.1% decrease from baseline (<5% change is not significant). Prior: BMD 0.743 g/cm2. Baseline: BMD 0.981 g/cm2. AP SPINE L1-L4: Current: BMD 1.012 g/cm2, Z-score 0.1, T-score -1.4, osteopenia, 1.0% decrease from previous, 18.1% decrease from baseline (<5% change is not significant). Prior: BMD 1.022 g/cm2. Baseline: BMD 1.236 g/cm2. IDENTIFIED RISK FACTORS: Menopause, kidney disease, parental hip fracture, history of fracture (adult). HISTORY OF FRACTURE: Other. MEDICATIONS: Bisphosphonates. MM/XR DEXA axial skeleton IMPRESSION: 1. DIAGNOSIS: Osteopenia based on the lowest T-score value of -2.4 in the femoral neck and total femur applying World Health Organization criteria. 2. 10-YEAR FRACTURE RISK PREDICTION, FRAX: Not performed in this patient on estrogen or bone building treatments. 3. Treatment Recommendations: NOF guidelines recommend consideration for treatment in postmenopausal women and men age 50 and older presenting with the following: -A hip or vertebral (clinical or morphometric) fracture. -T-score less than or equal to -2.5 at the femoral neck or spine after appropriate evaluation to exclude secondary causes. -Low bone mass at the hip or spine and a 10-year fracture probability by FRAX of greater than or equal to 3% for hip fracture or greater than or equal to 20% for major osteoporotic fracture based on the [place] adapted WHO algorithm. 4. Other Recommendations: All treatment decisions require clinical judgment and consideration of individual patient factors, including patient preferences, comorbidities, previous drug use, risk factors not captured in the FRAX model (e.g. frailty, falls, vitamin D deficiency, increased bone turnover, interval significant decline in bone density) and possible under or overestimation of fracture risk by FRAX. Additional medical evaluation for secondary cause of low bone mineral density may be appropriate. FUTURE SCAN RECOMMENDATION: People with diagnosed cases of osteoporosis or at high risk for fracture should have regular bone mineral density tests. For patients eligible for Medicare, routine testing is allowed once every 2 years. The testing frequency can be increased to one year for patients who have rapidly progressing disease, those who are receiving or discontinuing medical therapy to restore bone mass, or have additional risk factors.
== END 2024-07-11 10:50 | disposition home or self-care (01) ==
LOC: HO.MAMMO 10:49
PROVIDERS: PCP Internal Medicine; Visit Provider Internal Medicine
DX: M81.0 Age-related osteoporosis without current pathological fracture (principal); M85.80 Other specified disorders of bone density and structure, unspecified site
CPT/HCPCS: 77080

== ENCOUNTER → 2024-07-16 13:50 | Outpatient (REF) | payer MEDICARE, MEDICAID, SELFPAY ==
--- NOTE | 2024-07-16 13:52 | HM_ITS ---
Cardiac event monitor Indication: Syncope Technique: Patient was hooked up to cardiac event monitor from 07/16/2024 to 08/15/2024 for 30 days with a total where time of 22.7 days. Findings: Baseline was normal sinus rhythm with average heart of 59 beats per minute. There has frequent sinus bradycardia noted with 71% of time heart rate below 60 beats per minute. There were no significant pauses or av conduction abnormalities noted. Rare PACs and PVCs noted with total burden of less than 1%. One 7 beat episode of wide complex rhythm consistent with excellent idioventricular rhythm noted. One episode of SVT with a heart rate of 105 beats per minute noted, consistent with paroxysmal atrial tachycardia. Patient triggered 26 events. Symptoms of palpitations for mostly associated with either with paroxysmal atrial tachycardia, PVCs and at 1 time with sinus bradycardia. Patient reported multiple other events including lightheadedness and chest pressure that correlated with sinus bradycardia. Patient did not report any other symptoms with the other events which correlated with sinus bradycardia. Conclusion: 1. Baseline was normal sinus rhythm with frequent sinus bradycardia without significant pauses or av conduction abnormality 2. Rare PACs and PVCs noted with 2 brief episodes of paroxysmal atrial tachycardia/accelerated idioventricular rhythm 3. Patient triggered multiple events with symptoms of palpitation mostly correlating either with paroxysmal atrial tachycardia or PVCs. 4. Patient 1 of the events of lightheadedness and chest pressure correlated with sinus bradycardia MTDD
== END ==
LOC: HO.CARD 13:50
PROVIDERS: PCP Internal Medicine; Visit Provider Internal Medicine Cardiovascular Disease
DX: R55 Syncope and collapse (principal)
CPT/HCPCS: 93270

== ENCOUNTER → 2024-07-16 13:52 | Outpatient (BNV) | payer MEDICARE, MEDICAID, SELFPAY | PROVIDERS: PCP Internal Medicine; Visit Provider Internal Medicine Cardiovascular Disease | DX: I47.9 Paroxysmal tachycardia, unspecified (principal); I49.3 Ventricular premature depolarization | CPT/HCPCS: 93272 ==

== ENCOUNTER 2024-08-20 13:26 | Outpatient (REF) | payer MEDICARE, MEDICAID, SELFPAY ==
--- NOTE | ~2024-08-20 | US_ITS ---
EXAMINATION: US RETROPERITONEAL LIMITED (RENAL ONLY) CLINICAL INFORMATION: Cyst of kidney, acquired. COMPARISON: Ultrasound renal 05/21/2023 and 11/17/2022. CT abdomen and pelvis 11/02/2022. Extra KUB 10/11/2022 and 03/01/2022. TECHNIQUE: Real-time imaging of the kidneys. FINDINGS: RIGHT KIDNEY: 9.0 x 3.6 x 3.9 cm (SAG x AP x TRV). The kidney is normal in size, contour, and echogenicity. Renal cortical thickness is normal. No focal parenchymal lesions or hydronephrosis. Two (2) lower pole echogenic foci with twinkle artifact present measuring 2 mm each consistent with nonobstructing calculi. LEFT KIDNEY: 8.4 x 3.6 x 3.0 cm (SAG x AP x TRV). The kidney is normal in size, contour, and echogenicity. Renal cortical thickness is normal. No hydronephrosis. Two (2) lower pole echogenic foci with twinkle artifact measuring 2 and 3 mm in size are consistent with nonobstructing calculi. A benign upper pole 1.0 cm Bosniak class I renal cyst is noted which requires no additional imaging or follow up. No solid renal masses are seen. US/US renal BI IMPRESSION: Bilateral nonobstructing renal calculi. Electronically signed by: Jose De La Cruz MD 08/29/2024 12:45 AM EDT
== END 2024-08-20 13:27 | disposition home or self-care (01) ==
LOC: HO.US 13:26
PROVIDERS: PCP Internal Medicine; Visit Provider Urology
DX: N28.1 Cyst of kidney, acquired (principal)
CPT/HCPCS: 76775

== ENCOUNTER 2024-08-27 10:34 | Outpatient (AMB) | payer MEDICARE, MEDICAID, SELFPAY ==
--- NOTE | 2024-08-27 10:38 | A.OFFVIS_ITS ---
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[employer] Department Required: No Allergies escitalopram [From LEXAPRO] Allergy (Severe, Verified 08/27/24 10:44) STOMACH UPSET, abd pain lisinopril [LISINOPRIL] Allergy (Severe, Verified 08/27/24 10:44) SWELLING, Leg swelling desipramine [Desipramine] Allergy (Intermediate, Verified 08/27/24 10:44) PALPITATIONS, clammy skin diphenhydramine [From Benadryl] Allergy (Intermediate, Verified 08/27/24 10:44) PALPITATIONS/CLAMMY SKIN duloxetine [From CYMBALTA] Allergy (Intermediate, Verified 08/27/24 10:44) STOMACH UPSET, abd pain Penicillins Allergy (Intermediate, Verified 08/27/24 10:44) Rash carbamazepine [From TEGRETOL] Adverse Reaction (Severe, Verified 08/27/24 10:44) BLACKOUT, SEVERE INTOXICATION oxycodone [From Percocet] Adverse Reaction (Severe, Verified 08/27/24 10:44) N/V, projectile vomiting fluoxetine [From Prozac] Adverse Reaction (Intermediate, Verified 08/27/24 10:44) PARKINSON SYMPTOMS garlic Adverse Reaction (Intermediate, Verified 08/27/24 10:44) IBS SYMPTOMS Medication List - Last Reconciled 08/27/24 by Leslee Haro MD acetaminophen 500 mg PO 5XD albuterol sulfate 90 mcg/actuation (Ventolin HFA) every 4-6 hrs as needed alendronate 70 mg PO QWEEK amlodipine 5 mg See Protocol PO BEDTIME apixaban (Eliquis) 5 mg PO BID@0600,1800 90 days citalopram 20 mg PO DAILY gabapentin 300 mg PO TID 90 days lamotrigine 100 mg PO DAILY 90 days memantine 1 tab PO BID@0600,1800 metoprolol tartrate 50 mg PO BID HPI Comments Details: 08/27/24--h/o kidney stones. Telehealth FU - Francesca states she is doing well. Currently off diuretics. Missed appointment with Nephrology, Dr. Lewis, states she needs to call to reschedule. I reviewed recent renal US imaging, 08/20/24- small bilateral renal calculi, stable. Instructed on increasing citrate in diet, adding lemon to water, OTC Vit B6 100 mg. Review of chart: 06/08/23--Francesca is a pleasant female. She is a patient of Dr. Sam. She seen for the following urologic conditions - nephrolithiasis Telemedicine Evaluation-Off chlorthalidone. Discussed results. 12m f/u Nephrolithiasis Initial presentation for stones January 2022 Imaging - 02/14 9 mm proximal left stone Intervention - 02/14 left ESWL with stent removal - 11/16 left ESWL Imaging - 08/17 renal ultrasound bilateral stones - 7mm left with pain - 11/16 renal US 3mm fragments - 05/18 renal ultrasound bilateral 2-3 mm fragments unchanged Stone composition - 03/17 CaOxMo Medications - cholthalidone - for HTN/Raad stone via nephrology Therapeutic plan - encourage fluids - interval surveillance PFSH Medical History Post traumatic stress disorder (PTSD) Dysthymia (or depressive neurosis) Multinodular thyroid Hyperparathyroidism Hyperthyroidism Chronic kidney disease, stage 3b History of panic attacks YOHANA (acute kidney injury) Hospital discharge follow-up Age-related osteoporosis without current pathological fracture Paroxysmal atrial fibrillation Multiple sclerosis Elevated troponin Kidney stone Acute kidney injury superimposed on CKD Abdominal pain Syncope and collapse Multiple sclerosis exacerbation Low back pain Screening for osteoporosis Chronic kidney disease History of renal calculi Closed right clavicular fracture Lumbar radiculopathy Allergic rhinitis Hepatitis C GERD (gastroesophageal reflux disease) Obesity Hypertension Multiple sclerosis Asthma Surgical History History of kidney stones History of lithotripsy History of gynecologic surgery Hx of wisdom tooth extraction History of esophagogastroduodenoscopy (EGD) Hx of colonoscopy History of verrucae (wart) excision History of liver biopsy Family History Father Prostate cancer Myocardial infarction Mother Breast cancer Paternal Aunt Myocardial infarction Paternal Uncle Myocardial infarction Social History Household Members: None Housing: Apartment Are you a primary animal caregiver to a significant other at home: No Do you presently have visiting nurse or other home services: Yes (PT, OT, VNA) Alcohol intake: never Patient Tobacco Use Status: Former Tobacco user Tobacco use type: Cigarette Years Smoked: 8 e-Cigarette/Vaping Use: Never Used service: No Current occupational status: retired Cognitive needs: No Hearing needs: No Vision needs: Yes Review of Systems Const All systems reviewed & are unremarkable except as noted in HPI and below Reports no additional complaints Eyes Reports no additional complaints ENT Reports no additional complaints Card Reports no additional complaints Resp Reports no additional complaints GI Reports no additional complaints Reports as per HPI Musc Reports no additional complaints Skin/Breast Reports system reviewed and no additional complaints, except as documented Neuro Reports no additional complaints Psych Reports no additional complaints Endo Reports no additional complaints Navjot/Lymph Reports no additional complaints Aller/Immun Reports no additional complaints Telehealth Telehealth Telehealth Platform: Telephone Location of provider rendering services: practice address Location of patient: address on file Patient Identification confirmed using: Name, : Yes Telehealth method: voice only Patient verbally consented to treatment: Yes Patient verbally consented to billing insurance company: Yes Patient informed of any privacy concerns related to visit: Yes Minutes spent on Phone/Video with Pt.: 15 Results Reviewed Results Reviewed: Renal US images 08/20/24-small bilateral renal stones, stable. Assessment & Plan Assessment & Plan (1) Renal calculi: Comment: Left ESWL Dr. Ramon February 2022 with stent removal September 2022 Code(s): N20.0 - Calculus of kidney Category: Medical Plan FU one year, renal US prior Orders: Orders US renal BI 11 Months N20.0 - Calculus of kidney Patient Instructions: The patient had an opportunity to ask questions regarding treatment plan. The patient expressed understanding and agreement with the above treatment plan. The patient is aware they should contact our office by phone for worsening of their current condition or the appearance of new symptoms. Compliance is encouraged with any medications and followup testing that is ordered. It is a privilege to be allowed the opportunity to participate in the urologic care of your patient. If you have any questions or concerns regarding treatment for the above conditions please do not hesitate to contact me. The office telephone contact is [phone]. This note is constructed in part using voice recognition software. While every effort has been made to ensure accuracy automobile rental clerk errors may have been included. Yours sincerely, Leslee Haro MD Coding Level of Care Code Tele Est Pt Level 3 (76974) Diagnoses Renal calculi N20.0
== END 2024-08-27 11:29 | disposition home or self-care (01) ==
LOC: HO.HUSH 10:34
PROVIDERS: PCP Internal Medicine; Visit Provider Urology
DX: N20.0 Calculus of kidney (principal)
CPT/HCPCS: 99442

== ENCOUNTER → 2024-08-27 10:34 | Outpatient (BNVA) | payer MEDICARE, MEDICAID, SELFPAY | PROVIDERS: PCP Internal Medicine; Visit Provider Urology ==

== ENCOUNTER 2024-09-10 14:11 | Outpatient (AMB) | payer MEDICARE, MEDICAID, SELFPAY ==
[2024-09-10 14:16] VITALS: BP 120/70; PULSE 54; BMI 27.3
--- NOTE | 2024-09-10 14:16 | A.OFFVIS_ITS ---
Vital Signs 09/10/24 14:16 Height 5 ft 3 in Weight 153 lb 14.122 oz BMI 27.3 BP 120/70 Blood Pressure Location Lt brachial Position Sitting Pulse 54 Pulse Source Pulse Oximeter Intake Visit Reasons: f/up-per km [place] [employer] Required: No Accompanied by: Self / Same As Patient Allergies escitalopram [From LEXAPRO] Allergy (Severe, Verified 08/27/24 10:44) STOMACH UPSET, abd pain lisinopril [LISINOPRIL] Allergy (Severe, Verified 08/27/24 10:44) SWELLING, Leg swelling desipramine [Desipramine] Allergy (Intermediate, Verified 08/27/24 10:44) PALPITATIONS, clammy skin diphenhydramine [From Benadryl] Allergy (Intermediate, Verified 08/27/24 10:44) PALPITATIONS/CLAMMY SKIN duloxetine [From CYMBALTA] Allergy (Intermediate, Verified 08/27/24 10:44) STOMACH UPSET, abd pain Penicillins Allergy (Intermediate, Verified 08/27/24 10:44) Rash carbamazepine [From TEGRETOL] Adverse Reaction (Severe, Verified 08/27/24 10:44) BLACKOUT, SEVERE INTOXICATION oxycodone [From Percocet] Adverse Reaction (Severe, Verified 08/27/24 10:44) N/V, projectile vomiting fluoxetine [From Prozac] Adverse Reaction (Intermediate, Verified 08/27/24 10:44) PARKINSON SYMPTOMS garlic Adverse Reaction (Intermediate, Verified 08/27/24 10:44) IBS SYMPTOMS Medication List - Last Reconciled 09/10/24 by Devante Cox MD acetaminophen 500 mg PO 5XD albuterol sulfate 90 mcg/actuation (Ventolin HFA) every 4-6 hrs as needed alendronate 70 mg PO QWEEK amlodipine 5 mg See Protocol PO BEDTIME apixaban (Eliquis) 5 mg PO BID@0600,1800 90 days citalopram 20 mg PO DAILY gabapentin 300 mg PO TID 90 days lamotrigine 100 mg PO DAILY 90 days memantine 1 tab PO BID@0600,1800 metoprolol tartrate 50 mg PO BID HPI Comments Details: 69-year-old female here for follow-up. She has background history of paroxysmal atrial fibrillation. She also has hypertension. Recent admission to hospital with orthostasis. Her medications were adjusted and thiazide diuretic was stopped. She is saying she is feeling better but her blood pressures have been high at home. She has recorded systolic blood pressures to 160s and 170s at times. Blood pressure in the office is normal. She has an appointment to see nephrology in a week. Otherwise clinically stable. Taking medications regularly. No bleeding issues. 04/09/24: She is here for f/u. BP is much better controlled. 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 She said she also had a headache and was very dizzy and almost passed out. She thought that this was due to heat but continued to feel somewhat sick the next day with some epigastric discomfort. She is saying she is still short of breath since this happened. She has been using her inhaler. No palpitations. Blood pressure is well controlled and she is sinus rhythm on EKG. 07/07/2024: She is here for follow-up. She said she had a syncopal episode recently. She said she was inside her house when she started feeling lightheaded and then passed out for few minutes. She did not have any urinary or fecal incontinence. Tongue bite. No known history of seizures. She said she did not have any further episodes since then. Denying any chest discomfort or shortness of breath. No infection or fevers. She did not have any prodrome like feeling hot or flushed/nauseous. She said she had some palpitations which she felt like skipped beats. 09/10/2024: She is here for follow-up. She underwent cardiac event monitor. Baseline rhythm was sinus bradycardia without significant pauses or AV conduction abnormality. Rare premature atrial complexes and PVCs were noted. Palpitations correlated with paroxysmal atrial tachycardia or PVCs. She also had 1 episode of syncope after standing from sitting position. She said she passed out for a short period. FOR[facility]LY [facility], [facility] Medical History Post traumatic stress disorder (PTSD) Dysthymia (or depressive neurosis) Multinodular thyroid Hyperparathyroidism Hyperthyroidism Chronic kidney disease, stage 3b History of panic attacks YOHANA (acute kidney injury) Hospital discharge follow-up Age-related osteoporosis without current pathological fracture Paroxysmal atrial fibrillation Multiple sclerosis Elevated troponin Kidney stone Acute kidney injury superimposed on CKD Abdominal pain Syncope and collapse Multiple sclerosis exacerbation Low back pain Screening for osteoporosis Chronic kidney disease History of renal calculi Closed right clavicular fracture Lumbar radiculopathy Allergic rhinitis Hepatitis C GERD (gastroesophageal reflux disease) Obesity Hypertension Multiple sclerosis Asthma Surgical History History of kidney stones History of lithotripsy History of gynecologic surgery Hx of wisdom tooth extraction History of esophagogastroduodenoscopy (EGD) Hx of colonoscopy History of verrucae (wart) excision History of liver biopsy Family History Father Prostate cancer Myocardial infarction Mother Breast cancer Paternal Aunt Myocardial infarction Paternal Uncle Myocardial infarction Social History Household Members: None Housing: Apartment Are you a primary wound care nurse to a significant other at home: No Do you presently have visiting nurse or other home services: Yes (PT, OT, VNA) Alcohol intake: never Patient Tobacco Use Status: Former Tobacco user Tobacco use type: Cigarette Years Smoked: 8 e-Cigarette/Vaping Use: Never Used service: No Current occupational status: retired Cognitive needs: No Hearing needs: No Vision needs: Yes Review of Systems Const Denies chills, Denies fatigue, Denies fever(s), Denies frequent falls, Denies weakness, Denies weight gain and Denies weight loss ENT Denies dizziness Card Denies chest pain, Denies leg edema, Denies lightheadedness, Denies palpitations, Denies dyspnea and Denies dyspnea on exertion Resp Denies cough, Denies dyspnea and Denies dyspnea on exertion GI Denies hematochezia Musc Denies abnormal gait, Denies muscle weakness, Denies numbness, Denies radiating pain into limb and Denies tingling Neuro Denies abnormal gait, Denies dizziness, Denies frequent falls, Denies numbness, Denies tingling and Denies weakness Endo Denies fatigue and Denies palpitations Physical Exam Vital Signs: Last Vital Signs Pulse 54 09/10/24 14:16 BP 120/70 09/10/24 14:16 BMI result Body Mass Index 27.3 GENERAL APPEARANCE: in no acute distress, pleasant. NECK: no carotid bruit, no jugular venous distention. SKIN: no suspicious lesions, warm and dry. HEART: no murmurs, regular rate and rhythm. Bradycardic. LUNGS: clear to auscultation bilaterally. ABDOMEN: soft, nontender. EXTREMITIES: no edema. PERIPHERAL PULSES: equal. NEUROLOGIC: No gross deficits, AAO X 3 Assessment & Plan Assessment & Plan (1) Essential hypertension: Code(s): I10 - Essential (primary) hypertension Category: Medical (2) Syncope: Code(s): R55 - Syncope and collapse Category: Medical (3) Palpitations: Code(s): R00.2 - Palpitations Category: Medical Plan Pleasant 69-year-old female who is here for follow-up. She has background history of hypertension and paroxysmal atrial fibrillation. She is on apixaban and metoprolol tartrate 50 mg twice a day. She has been complaining of some palpitations and cardiac event monitor has shown episodes of paroxysmal atrial tachycardia and PVCs. These are not sustained arrhythmia. She is bradycardic currently with heart rate in 50s and has been taking metoprolol tartrate 50 mg twice a day as well as has been on memantine which can also lead to bradycardia. I have advised her to continue same medications for now. She has been drinking good amount of water in the day. I told her to add some salt to her diet and hopefully that will help with some fluid retention and may lower the risk of recurrent syncope in her. I have explained to her that there are some premature atrial complexes and PVCs which she may have been feeling but it is not safe to titrate the beta-licha further especially with episode of syncope on standing up. We will see her back in 6 months. Thank you for allowing me to participate in the care of your patient. Please feel free to contact me if you have any questions. Coding Level of Care Code Est Pt Level 4 (62215) Diagnoses Essential hypertension I10 Syncope R55 Palpitations R00.2
== END 2024-09-10 14:35 | disposition home or self-care (01) ==
PROVIDERS: PCP Internal Medicine; Visit Provider Internal Medicine Cardiovascular Disease
DX: I10 Essential (primary) hypertension (principal); R55 Syncope and collapse; R00.2 Palpitations
CPT/HCPCS: 99214

== ENCOUNTER → 2024-09-10 14:11 | Outpatient (BNVA) | payer MEDICARE, MEDICAID, SELFPAY | PROVIDERS: PCP Internal Medicine; Visit Provider Internal Medicine Cardiovascular Disease | DX: I10 Essential (primary) hypertension (principal); R55 Syncope and collapse; R00.2 Palpitations | CPT/HCPCS: 99212 ==

== ENCOUNTER 2024-10-29 13:06 | Outpatient (AMB) | payer MEDICARE, MEDICAID, SELFPAY ==
[2024-10-29 13:19] VITALS: BP 122/76; PULSE 74; O2SAT 97; BMI 27.5
--- NOTE | 2024-10-29 13:20 | AM.OFFVISMDC ---
Intake Vital Signs 10/29/24 13:19 Height 5 ft 3 in Weight 155 lb BMI 27.5 BP 122/76 Blood Pressure Location Lt brachial Position Sitting Pulse 74 Pulse Source Pulse Oximeter Pulse Oximetry (%) 97 Oxygen Delivery Method Room Air Intake Visit Reasons: FRANKLIN G0439 - see comments Allergies escitalopram [From LEXAPRO] Allergy (Severe, Verified 08/27/24 10:44) STOMACH UPSET, abd pain lisinopril [LISINOPRIL] Allergy (Severe, Verified 08/27/24 10:44) SWELLING, Leg swelling desipramine [Desipramine] Allergy (Intermediate, Verified 08/27/24 10:44) PALPITATIONS, clammy skin diphenhydramine [From Benadryl] Allergy (Intermediate, Verified 08/27/24 10:44) PALPITATIONS/CLAMMY SKIN duloxetine [From CYMBALTA] Allergy (Intermediate, Verified 08/27/24 10:44) STOMACH UPSET, abd pain Penicillins Allergy (Intermediate, Verified 08/27/24 10:44) Rash carbamazepine [From TEGRETOL] Adverse Reaction (Severe, Verified 08/27/24 10:44) BLACKOUT, SEVERE INTOXICATION oxycodone [From Percocet] Adverse Reaction (Severe, Verified 08/27/24 10:44) N/V, projectile vomiting fluoxetine [From Prozac] Adverse Reaction (Intermediate, Verified 08/27/24 10:44) PARKINSON SYMPTOMS garlic Adverse Reaction (Intermediate, Verified 08/27/24 10:44) IBS SYMPTOMS Medication List - Last Reconciled 10/29/24 by Cookie Sam, acetaminophen 500 mg PO 5XD albuterol sulfate 90 mcg/actuation (Ventolin HFA) every 4-6 hrs as needed alendronate 70 mg PO QWEEK amlodipine 5 mg See Protocol PO BEDTIME apixaban (Eliquis) 5 mg PO BID@0600,1800 90 days citalopram 20 mg PO DAILY gabapentin 300 mg PO TID 90 days lamotrigine 100 mg PO DAILY 90 days memantine 1 tab PO BID@0600,1800 metoprolol tartrate 50 mg PO BID HPI SWV G0439 - see comments HPI Details syncope last month. The patient is a 69-year-old female presenting for an annual well visit. She has a complex medical history that includes asthma, which she manages with an albuterol inhaler used on an as-needed basis, approximately four to five times per month. Her history of nephrolithiasis has required past interventions, including extracorporeal shock wave lithotripsy (ESWL) in February 2022 and stent removal in September 2022. Most recently, a renal ultrasound in August 2024 showed bilateral non-obstructing renal calculi. The patient has been diagnosed with stage 3b chronic kidney disease, hypertension, and atrial fibrillation. Episodes of palpitations led to a Holter monitor evaluation, which revealed sinus bradycardia and premature atrial complexes. Her syncope episodes have impeded titration of beta-licha therapy, necessitating a conservative approach to management, including increased fluid intake. She is also being treated for atrial fibrillation and relies on medications like gabapentin for fibromyalgia. Current blood work, as of April 2024, showed a creatinine level of 1.17 mg/dL, blood sugar at 101 mg/dL, total cholesterol at 225 mg/dL, and LDL cholesterol at 118 mg/dL. Her bone density assessment in June 2024 indicated osteopenia. The patient's anxiety and depression are managed with psychiatric follow-up, and she continues treatment for PTSD. - Denies alcohol use. - Former smoker, quit smoking in 1978, after eight years. - Engages in regular water intake to manage kidney health. - Reports weight gain recently. - Plans to change prescription provider at the end of the year to [facility]. - Ears/Nose/Throat: Reports ringing in the ears, frequent throat clearing post-meal. - Respiratory: Reports episodic shortness of breath relieved by albuterol. - Cardiovascular: Reports dizziness and passing out twice in the past month. - Gastrointestinal: Reports use of Pepcid Complete for heartburn two times a week. - Musculoskeletal: Reports spine pain, occasionally numb fingers (right hand primarily). - Neurological: Reports numbness in fingers upon waking. - Labs: Creatinine 1.17 mg/dL, blood sugar 101 mg/dL, total cholesterol 225 mg/dL, LDL 118 mg/dL. - Tests and Diagnostics: Recent renal ultrasound reveals bilateral non-obstructing renal calculi. Bone density exam indicates osteopenia. [facility] Medical History Post traumatic stress disorder (PTSD) Dysthymia (or depressive neurosis) Multinodular thyroid Hyperparathyroidism Hyperthyroidism Chronic kidney disease, stage 3b History of panic attacks YOHANA (acute kidney injury) Hospital discharge follow-up Age-related osteoporosis without current pathological fracture Paroxysmal atrial fibrillation Multiple sclerosis Elevated troponin Kidney stone Acute kidney injury superimposed on CKD Abdominal pain Syncope and collapse Multiple sclerosis exacerbation Low back pain Screening for osteoporosis Chronic kidney disease History of renal calculi Closed right clavicular fracture Lumbar radiculopathy Allergic rhinitis Hepatitis C GERD (gastroesophageal reflux disease) Obesity Hypertension Multiple sclerosis Asthma Surgical History History of kidney stones History of lithotripsy History of gynecologic surgery Hx of wisdom tooth extraction History of esophagogastroduodenoscopy (EGD) Hx of colonoscopy History of verrucae (wart) excision History of liver biopsy Family History Father Prostate cancer Myocardial infarction Mother Breast cancer Paternal Aunt Myocardial infarction Paternal Uncle Myocardial infarction Social History (Updated 10/29/24 @ 14:13 by Cookie Sam MD) Household Members: None Housing: Apartment Are you a primary memory care program director to a significant other at home: No Do you presently have visiting nurse or other home services: Yes (PT, OT, VNA) Alcohol intake: never Patient Tobacco Use Status: Former Tobacco user Tobacco use type: Cigarette Years Smoked: 1978 e-Cigarette/Vaping Use: Never Used service: No Current occupational status: retired Cognitive needs: No Hearing needs: No Vision needs: Yes Questionnaire Medicare Wellness Checkup [age] What gender do you identify with?: female During the past 4 weeks, how much have you been bothered by emotional problems such as feeling anxious, depressed, irritable, sad or downhearted, and blue?: moderately During the past 4 weeks, has your physical & emotional health limited your social activities with family, friends, neighbors, or groups?: moderately During the past 4 weeks, how much bodily pain have you generally had?: moderate pain During the past 4 weeks, was someone available to help you if you needed & wanted help?: yes, some During the past 4 weeks, what was the hardest physical activity you could do for at least 2 minutes?: light Can you get to places out of walking distance without help? (For eg., can you travel alone on buses, taxis or drive your car?): Yes Can you go shopping for groceries or clothes without someone's help?: No Can you prepare your own meals?: Yes Can you do your housework without help?: Yes Because of any health problems, do you need the help of another person with your personal care needs such as eating, bathing, dressing or getting around the house?: No Can you handle your own money without help?: Yes During the past 4 weeks, how would you rate your health in general?: good During the past 4 weeks how have things been going for you?: good & bad parts about equal Are you having difficulties driving your car?: no Do you always fasten your seat belt when you are in a car?: yes, usually During past 4 weeks, have you been bothered by the following: never: Sexual problems? and Problems using the telephone?, seldom: Trouble eating well? and Teeth or denture problems?, sometimes: Falling or dizzy when standing up and often: Tiredness or fatigue? Have you fallen 2 or more times in the past year?: Yes Are you afraid of falling?: Yes Are you a smoker?: no During the past 4 weeks, how many drinks of wine, beer, or other alcoholic beverages did you have?: no alcohol at all Do you exercise for about 20 minutes 3 or more times a week?: no, I usually do not exercise this much Have you been given information to help with the following?: no: Hazards in your house that might hurt you? and no: Keeping track of your medications? How often do you have trouble taking medicines the way you have been told to take them?: I always take medicine as prescribed How confident are you that you can control & manage most of your health problems?: very confident What is your race?: White PHQ-9 Over the last 2 weeks, how often have you been bothered by any of the following problems? 1. Little interest or pleasure in doing things: more than half the days 2. Feeling down, depressed, or hopeless: more than half the days 3. Trouble falling or staying asleep, or sleeping too much: nearly every day 4. Feeling tired or having little energy: more than half the days 5. Poor appetite or overeating: not at all 6. Feeling bad about yourself - or that you are a failure or have let yourself or your family down: more than half the days 7. Trouble concentrating on things, such as reading the newspaper or watching television: nearly every day 8. Moving or speaking so slowly that other people could have noticed. Or the opposite - being so fidgety or restless that you have been moving around a lot more than usual: not at all 9. Thoughts that you would be better off or of hurting yourself in some way: several days Total score: 15 Depression Screening Interpretation: Positive Depression Screening Done: Yes 96996 - PHQ-9 Billing: Yes Source: Developed by Drs. Mario Ernandez, Vale Hubbard, Nahum Parada and colleagues, with an educational mel from [facility]. Review of Systems Const Denies poor appetite and Denies weakness Eyes Denies no additional complaints ENT Reports Normal hearing present, Denies dizziness, Denies nasal congestion, Denies tinnitus and Denies sore throat Card Denies chest pain, Denies syncope, Denies rapid heart rate and Denies dyspnea Resp Denies cough and Denies dyspnea GI Denies change in stool character, Reports constipation, Denies diarrhea, Denies nausea and Denies vomiting Denies urinary frequency, Denies difficulty voiding and Denies dysuria Neuro Reports Normal hearing present, Denies confusion, Denies dizziness, Denies syncope and Denies weakness Psych Denies confusion Physical Exam Vital Signs: Last Vital Signs Pulse 74 10/29/24 13:19 BP 122/76 10/29/24 13:19 Pulse Ox 97 10/29/24 13:19 Oxygen Delivery Method Room Air 10/29/24 13:19 BMI result Body Mass Index 27.5 Const General: No confusion Orientation/consciousness: No confusion HEENT Head: Yes normocephalic Ears: external ears normal and TM's normal bilaterally Face and sinus: Yes normal facial exam Mouth: moist mucous membranes Throat: Yes tonsils normal Eyes Conjunctivae: conjunctivae normal Pupils: Equal, round and reactive pupils present and Pupil accommodation reflex normal Direct Ophthalmoscopy: normal light reflex Neck Neck: No lymphadenopathy Thyroid: Thyroid normal Chest Chest palpation & inspection: normal inspection of the chest Resp Effort & Inspection: normal respiratory effort and no audible wheezes Auscultation: clear to auscultation bilaterally, no crackles, no wheezes and lung sounds not diminished Cardio Rate: regular rate Rhythm: regular rhythm Peripheral pulses: radial pulses present and dorsalis pedis present GI Palpation (GI): no masses Auscultation: normal bowel sounds and normoactive bowel sounds Rectal Exam - Female: deferred Skin General skin exam: no rashes or lesions noted Rashes: no rashes Neuro General: No confusion Cranial nerves: Yes Equal, round and reactive pupils present and Yes Normal hearing present Cognition (Neuro): normal cognition Gait exam (Neuro): Normal gait present Motor exam (neuro): 5/5 motor strength present throughout Deep tendon reflexes (DTR's): Right brachioradialis reflex intensity grade: 2+, Left brachioradialis reflex intensity grade: 2+, Right patellar reflex intensity grade: 2+ and Left patellar reflex intensity grade: 2+ Extrem General: No edema Assessment & Plan Assessment & Plan (1) Medicare annual wellness visit, subsequent: Code(s): Z00.00 - Encounter for general adult medical examination without abnormal findings (2) Breast cancer screening by mammogram: Code(s): Z12.31 - Encounter for screening mammogram for malignant neoplasm of breast (3) Post traumatic stress disorder (PTSD): Code(s): F43.10 - Post-traumatic stress disorder, unspecified (4) PAF (paroxysmal atrial fibrillation): Code(s): I48.0 - Paroxysmal atrial fibrillation (5) Essential hypertension: Code(s): I10 - Essential (primary) hypertension (6) Chronic kidney disease, stage 3b: Code(s): N18.32 - Chronic kidney disease, stage 3b (7) Osteopenia: Comment: 02/2022, 06/2024 Code(s): M85.80 - Other specified disorders of bone density and structure, unspecified site Qualifiers: Osteopenia location: unspecified Qualified Code(s): M85.80 - Other specified disorders of bone density and structure, unspecified site (8) Asthma: Code(s): J45.909 - Unspecified asthma, uncomplicated Qualifiers: Asthma complication type: uncomplicated Asthma persistence: intermittent Asthma severity: mild Qualified Code(s): J45.20 - Mild intermittent asthma, uncomplicated (9) Hyperlipidemia: Code(s): E78.5 - Hyperlipidemia, unspecified Qualifiers: Hyperlipidemia type: pure hypercholesterolemia Qualified Code(s): E78.00 - Pure hypercholesterolemia, unspecified (10) Renal calculi: Comment: Left ESWL Dr. Ramon February 2022 with stent removal September 2022 Code(s): N20.0 - Calculus of kidney (11) Tinnitus: Code(s): H93.19 - Tinnitus, unspecified ear Qualifiers: Laterality: bilateral Qualified Code(s): H93.13 - Tinnitus, bilateral (12) Numbness of left hand: Code(s): R20.0 - Anesthesia of skin Plan: Advised nerve conduction test Plan - Overweight: Discuss weight management strategies ahead of holiday season. Encourage physical activity and dietary modifications. - Asthma: Prescribe controller inhaler for maintenance. Refill albuterol inhaler as needed. - Nephrolithiasis: Continue surveillance of renal calculi. Schedule follow-up ultrasound in one year. - Hypertension and Atrial Fibrillation: Continue current medication regimen. Schedule six-month follow-up for condition reassessment. - Syncope: Conservative management with increased hydration. Potential future pacemaker if bradycardia episodes increase. - Osteopenia: Continue Alendronate; re-evaluate bone density periodically. Ensure adequate calcium and vitamin D intake. - Anxiety and Depression: Ongoing psychiatric care and follow-up. - Fibromyalgia: Continue gabapentin for pain management. - PTSD: Maintain current psychiatric treatment and supportive therapies. During the visit, I discussed the need for an annual well visit and reviewed the relevant health concerns with the patient. We talked about management strategies for her atrial fibrillation, and I explained the potential risks and benefits of conservative management. The patient expressed understanding and agreement with the need for increased fluid intake. For her asthma, we reviewed the importance of using a controller inhaler to manage symptoms and minimize reliance on rescue inhalers. I provided guidance on the appropriate usage of the inhaler and reiterated the importance of adherence to prescribed medications. We also covered the results of her recent lab work and imaging, discussing the stable kidney function and the plan for ongoing monitoring. I addressed concerns about her dizziness and the potential need for further cardiac evaluation should symptoms persist. For her sleep disturbances and numbness, we acknowledged the possibility of carpal tunnel syndrome and discussed wrist braces as an initial intervention. We also talked about the referral for nerve conduction studies to assess severity if conservative measures do not lead to improvement. - Maintain hydration levels; aim to drink plenty of water daily. - Use asthma controller inhaler as prescribed, and refill albuterol as needed for acute symptoms. - Follow up for blood work to monitor glucose and cholesterol levels. - Continue with prescribed medications and ensure timely refills. - Schedule a follow-up appointment with urology for kidney stone monitoring. - Manage weight through balanced diet and regular physical activity. - Monitor symptoms of dizziness and report any exacerbation immediately. - Use wrist brace nightly to reduce numbness associated with potential carpal tunnel syndrome. - Schedule and attend follow-up appointments with her primary care and specialist providers. Orders: Orders Free T4 (Free Thyroxine) Today E78.00 - Pure hypercholesterolemia, unspecified Thyroid Stimulating Hormone Today E78.00 - Pure hypercholesterolemia, unspecified Vitamin B12 and Folate Today E78.00 - Pure hypercholesterolemia, unspecified NE electromyogram (EMG) Today R20.0 - Anesthesia of skin Comprehensive Met. Panel Today E78.00 - Pure hypercholesterolemia, unspecified Lipid Panel Today E78.00 - Pure hypercholesterolemia, unspecified Vitamin D 25-OH Total Today E78.00 - Pure hypercholesterolemia, unspecified NE nerve conduction velocity Today R20.0 - Anesthesia of skin Medications: New fluticasone propion-salmeterol 115-21 mcg/actuation (Advair HFA) administer with spacer 2 puffs inhalation BID 3 ea 3RF J45.20 - Mild intermittent asthma, uncomplicated famotidine (Pepcid) 20 mg PO BID 30 tabs 0RF J45.20 - Mild intermittent asthma, uncomplicated Refilled apixaban (Eliquis) 5 mg PO BID@0600,1800 180 tabs 2RF 90 days I48.0 - Paroxysmal atrial fibrillation metoprolol tartrate 50 mg PO BID 180 tabs 2RF R09.89 - Other specified symptoms and signs involving the circulatory and respiratory systems Quality Reporting (2020) Depression/Bipolar (159/160/161/177) PHQ-9: Total score: 15 Coding Level of Care Code Medicare Subsequent (G0439) Diagnoses Medicare annual wellness visit, subsequent Z00.00 Breast cancer screening by mammogram Z12.31 Post traumatic stress disorder (PTSD) F43.10 PAF (paroxysmal atrial fibrillation) I48.0 Essential hypertension I10 Chronic kidney disease, stage 3b N18.32 Osteopenia, unspecified location M85.80 Osteopenia location: unspecified Mild intermittent asthma without complication J45.20 Asthma complication type: uncomplicated Asthma persistence: intermittent Asthma severity: mild Pure hypercholesterolemia E78.00 Hyperlipidemia type: pure hypercholesterolemia Renal calculi N20.0 Tinnitus of both ears H93.13 Laterality: bilateral Numbness of left hand R20.0 Additional Codes PHQ-9 - 08439 - PHQ-9 Billing: Yes ([id number])
--- OUTSIDE RECORDS SUMMARY | 2024-11-04 19:24 | XMS_ITS | Patient Health Record ---
Author Organization [facility] Address [address] [place] [id number] Care Team Providers Care Sheet Cutter Name Role Phone Cookie Sam MD Primary Care Provider Mario Montalvo [phone] ALLERGIES Allergen (clinical drug ingredient) Drug/Non Drug Allergy documented on EMR Reaction Allergy Type Onset Date Status acetaminophen / oxycodone Percocet Unknown Drug Allergy Active escitalopram Lexapro Unknown Drug Allergy Acti ve desipramine Desipramine HCl Unknown Drug Allergy Active duloxetine Cymbalta Unknown Drug Allergy Active diphenhydramine Benadryl Unknown Drug Allergy A ctive lisinopril Lisinopril Unknown Drug Allergy Activ e Penicillin Unknown Drug Allergy Active carbamazepine Tegretol Unknown Drug Allergy Act tg fluoxetine Prozac Unknown Drug Allergy Active REASON FOR REFERRAL No Information MEDICATIONS Medication SIG (Take, Route, Frequency, Duration) Notes Start Date End Date Status Chlorthalidone 25 MG Oral for 90 Active lamoTRIgine 200 MG 1 tablet Orally Once a day Active Citalopram Hydrobromide 10 MG Oral for 90 Active amLODIPine Besylate 10 MG Oral for 90 Active Metoprolol Tartrate 25 MG Oral for 90 Active Eliquis 5 MG TAKE 1 TABLET BY MAGUI TH TWICE A DAY Oral for 90 Active ALPRAZolam 0.25 MG Oral for 10 Active Omeprazole 40 MG TAKE 1 CAPSULE BY MO UTH EVERY MORNING FOR 90 DAYS for 90 Active Memantine HCl 10 MG Oral for 90 Active Tylenol 1 tab Oral for 14 days Active Albuterol Sulfate 108 (90 Base) MCG/ACT 1 puff as needed Inhalation every 4 hrs Active Gabapentin 300 MG 1 tablet Orally Thre e times a day Active Ondansetron HCl 4 MG 1 tablet Orally Tristan e 1 before breakfast, lunch, supper and at bedtime for nausea for 90 days Active Zofran 4 MG 1 tablet Orally Q 4- 6 hours prn nausea for 30 day(s) 05/07/2015 Active IMMUNIZATIONS Vaccine Route Administration Date Status Comme nts Influenza Unknown 07/27/2021 Administered SOCIAL HISTORY Sex Assigned At : Social History Observation Description Sex Assigned At Unknown PROBLEMS Problem Type ICD Code Onset Dates Problem Status W/U Status Risk SNOMED Code Notes Problem Encounter for screening for malignant neoplasm of colon (Z12.11) Active confirmed 194983531 Problem History of adenomatous polyp of colon (Z86.010) Active confirmed History o f adenomatous polyp of colon (078658489) Problem Nausea (R11.0) Active confirmed 1946807 07 Problem Gastroesophageal reflux disease without esophagitis (K21.9) Active confirmed 428284349 Problem Chronic hepatitis C without hepatic coma (B18.2) Active confirmed 183055266 Problem Family history of colon cancer (Z80.0) Active confirmed 962636861 Problem Diverticulosis of sigmoid colon (K57.30) Active confirmed Diverticulosis of sigmoid colon (049999487) Problem Irritable bowel syndrome with constipation (K58.1) Active confirmed 649873329 PLAN OF TREATMENT Pending Test Test Name Order Date CHEM 7 PROFILE 11/02/2021 BUN 10/25/2015 CREATININE 10/25/2015 LIVER PROFILE 10/25/2015 LIVER PROFILE 02/12/2022 LIVER PROFILE 11/02/2021 LIVER PROFILE 08/16/2022 LIVER PROFILE 12/16/2021 AMYLASE 11/02/2021 LIPASE 11/02/2021 CBC w DIFF 10/25/2015 CBC w DIFF 12/16/2021 CBC w DIFF 11/02/2021 PROTHROMBIN TIME (PT, INR) 10/25/2015 PROTHROMBIN TIME (PT, INR) 11/02/2021 HEPATITIS C VIRAL LOAD 11/02/2021 HEPATITIS C VIRAL LOAD 02/12/2022 HEPATITIS C VIRAL LOAD 08/16/2022 HEPATITIS C VIRAL LOAD 10/25/2015 HEPATITIS C VIRAL LOAD 12/16/2021 HCV LIVER FIBROSIS, FIBRO TEST HCV LIVER FIBROSIS, FIBRO TEST 5 Future Test Test Name Order Date UPPER GI ENDOSCOPY 04/11/2013 COLONOSCOPY 04/11/2013 COLONOSCOPY 08/16/2022 Insurance Providers Payer Name Payer Address Payer Phone Subscriber Number Group Number Insured Name Patient Relationship to Insured Coverage Start Date Coverage End Date MEDICARE OF [place] [address] [place] [address] [id number] [id number] COMBS Self - patient is the insured [employer] CLAIMS [address] [place] [address] [phone] [id number] [id number] COMBS Self - patient is the insured MEDICAL (GENERAL) HISTORY Medical History History ICD Code Tubular adenoma removed in 02/200404-23-2007 colon and egd--EGD with normal duodenal biopsies and neg bx for H.pylori; colon with biopsies c/w possible microscopic colitis chronic hepatitis C-liver bx 08/2004-Grade 1-2/4 and Stage 0-I/IV; Genotype 1a; neg. liver MRI in 10/2010 with AFP of 8.4. This has never been treated due to problems including her significant depression and multiple sclerosis. gastroesophageal reflux multiple sclerosis-Dr. Saba peña-has weakness on the right side, vision problems, and spine pain problems with paresthesias Pinched nerve in the lumbar spine--left leg pain Denies TX,DM,CVA,renal disease Depression-Dr. Carrillo, and sees a ther apist as well Asthma EGD in 06/2013-small HH, no esophagitis Colonoscopy in 06/2013--no po lyps, no colitis--diverticulosis--bx neg for microscopic colitis Hypertension Kidney stones 01/2022-Dr. Ramon--had an E SWL, stent, and cystoscopy Afib-Dr. Cox Parathyroid elevated level Hep C treated with 25 days o f Harvoni in 12/2021--neg Hep C viral load and normal LFT's in 04/2022 Surgical History Surgery Date(Month/Year) wisdom teeth extraction deviated septum repair removal of interuterine device
== END 2024-10-29 14:38 | disposition home or self-care (01) ==
PROVIDERS: PCP Internal Medicine; Visit Provider Internal Medicine
DX: Z00.00 Encounter for general adult medical examination without abnormal findings (principal); I48.0 Paroxysmal atrial fibrillation; N18.32 Chronic kidney disease, stage 3b; Z12.31 Encounter for screening mammogram for malignant neoplasm of breast; F43.10 Post-traumatic stress disorder, unspecified; I10 Essential (primary) hypertension; M85.80 Other specified disorders of bone density and structure, unspecified site; J45.20 Mild intermittent asthma, uncomplicated; E78.00 Pure hypercholesterolemia, unspecified; N20.0 Calculus of kidney; H93.13 Tinnitus, bilateral; R20.0 Anesthesia of skin

== ENCOUNTER → 2024-10-29 13:06 | Outpatient (BNVA) | payer MEDICARE, MEDICAID, SELFPAY | PROVIDERS: PCP Internal Medicine; Visit Provider Internal Medicine | DX: Z00.00 Encounter for general adult medical examination without abnormal findings (principal); F43.10 Post-traumatic stress disorder, unspecified; I48.0 Paroxysmal atrial fibrillation; I12.9 Hypertensive chronic kidney disease with stage 1 through stage 4 chronic kidney disease, or unspecified chronic kidney disease; N18.32 Chronic kidney disease, stage 3b; M85.80 Other specified disorders of bone density and structure, unspecified site; J45.20 Mild intermittent asthma, uncomplicated; E78.00 Pure hypercholesterolemia, unspecified; N20.0 Calculus of kidney; H93.13 Tinnitus, bilateral; R20.0 Anesthesia of skin | CPT/HCPCS: 96127 ==

== ENCOUNTER 2025-09-10 09:56 | Outpatient (REF) | payer MEDICARE, MEDICAID, SELFPAY ==
[2025-09-10 11:09] LABS: MANUAL DIFF FLAG NO
[2025-09-10 11:29] LABS: Hematocrit 53.9 % (37.0-47.0); Hemoglobin 17.4 g/dl (12.0-16.0); Imm Gran Abs Auto 0.03 X10*3/uL (0.00-0.03); Imm Gran Pct Auto 0.4 % (0.0-0.4); Lymphocytes Absolute Auto 1.4 X10*3/uL (1.2-4.9); Mean Corpuscular HGB Conc 32.3 g/dl (31.0-35.0); Mean Corpuscular Hemoglobin 29.4 pg (27.0-33.0); Mean Corpuscular Volume 91.2 fL (80.0-98.0); NRBC Abs Auto 0.000 X10*3/uL (0.0-0.012); NRBC Pct Auto 0.0 /100WBC (0.0-0.2); Platelet Count 207 X10*3/uL (160-400); Red Blood Count 5.91 X10*6/uL (4.20-5.50); White Blood Count 8.2 X10*3/uL (4.8-10.8)
[2025-09-10 12:30] LABS: Alanine Aminotransferase 14 U/L (0-31); Albumin Level 4.3 g/dL (3.5-5.0); Alkaline Phosphatase 55 U/L (39-117); Anion Gap 12 (12-20); Aspartate Amino Transferase 25 U/L (5-31); Blood Urea Nitrogen 19 mg/dL (9-16); Calcium 9.1 mg/dL (8.4-10.2); Carbon Dioxide 27 mmol/L (22-29); Chloride 105 mmol/L (96-108); Cholesterol 231 mg/dL (<200); Estimated Glomerular Filt Rate 34; Free T4 (Free Thyroxine) 1.00 ng/dL (0.71-1.85); HDL Cholesterol 79 mg/dL (>40); Magnesium 2.1 mg/dL (1.6-2.6); Potassium 4.2 mmol/L (3.3-5.1); Sodium 140 mmol/L (135-145); Thyroid Stimulating Hormone 0.92 uIU/mL (0.32-4.0); Total Protein 7.0 g/dL (6.5-8.0); Triglycerides 188 mg/dL (<150)
[2025-09-10 12:38] LABS: Folate 7.6 ng/mL (> or = 4.0); Vitamin B12 432 pg/mL (200-900)
== END 2025-09-10 09:57 | disposition home or self-care (01) ==
LOC: HO.LAB 09:56
PROVIDERS: PCP Internal Medicine; Visit Provider Internal Medicine
DX: Z23 Encounter for immunization (principal); I48.0 Paroxysmal atrial fibrillation; E78.00 Pure hypercholesterolemia, unspecified; I12.9 Hypertensive chronic kidney disease with stage 1 through stage 4 chronic kidney disease, or unspecified chronic kidney disease; N18.32 Chronic kidney disease, stage 3b; F41.1 Generalized anxiety disorder; Z79.01 Long term (current) use of anticoagulants; Z79.899 Other long term (current) drug therapy
CPT/HCPCS: 36415; 80053; 80061; 82306; 82607; 82746; 83735; 84439; 84443; 85025; 90471; 90656; 96127; 99212

== ENCOUNTER 2025-09-10 09:56 | Outpatient (AMB) | payer MEDICARE, MEDICAID, SELFPAY ==
[2025-09-10 10:11] VITALS: BP 150/104; PULSE 123; TEMP 36.2; O2SAT 98; BMI 27.5
--- NOTE | 2025-09-10 10:11 | MHC.PC.OV ---
Vital Signs 09/10/25 10:11 Height 5 ft 3 in Weight 155 lb 4 oz BMI 27.5 BP 150/104 H Blood Pressure Location Lt brachial Position Sitting Pulse 123 H Pulse Source Pulse Oximeter Temp 97.2 F Temp Source Temporal Artery Scan Pulse Oximetry (%) 98 Oxygen Delivery Method Room Air Intake Visit Reasons: blood pressure is extremely high Allergies escitalopram (From LEXAPRO) Allergy (Severe, Verified 09/10/25 10:13) STOMACH UPSET, abd pain lisinopril (LISINOPRIL) Allergy (Severe, Verified 09/10/25 10:13) SWELLING, Leg swelling desipramine (Desipramine) Allergy (Intermediate, Verified 09/10/25 10:13) PALPITATIONS, clammy skin diphenhydramine (From Benadryl) Allergy (Intermediate, Verified 09/10/25 10:13) PALPITATIONS/CLAMMY SKIN duloxetine (From CYMBALTA) Allergy (Intermediate, Verified 09/10/25 10:13) STOMACH UPSET, abd pain Penicillins Allergy (Intermediate, Verified 09/10/25 10:13) Rash carbamazepine (From TEGRETOL) Adverse Reaction (Severe, Verified 09/10/25 10:13) BLACKOUT, SEVERE INTOXICATION oxycodone (From Percocet) Adverse Reaction (Severe, Verified 09/10/25 10:13) N/V, projectile vomiting fluoxetine (From Prozac) Adverse Reaction (Intermediate, Verified 09/10/25 10:13) PARKINSON SYMPTOMS garlic Adverse Reaction (Intermediate, Verified 09/10/25 10:13) IBS SYMPTOMS Medication List - Last Reconciled 09/10/25 by Cookie Sam MD acetaminophen 500 mg PO 5XD albuterol sulfate 90 mcg/actuation (Ventolin HFA) every 4-6 hrs as needed alendronate 70 mg PO QWEEK amlodipine 5 mg See Protocol PO BEDTIME apixaban (Eliquis) 5 mg PO BID@0600,1800 90 days citalopram 20 mg PO DAILY famotidine (Pepcid) 20 mg PO BID fluticasone propion-salmeterol 115-21 mcg/actuation (Advair HFA) 2 puffs inhalation BID gabapentin 300 mg PO TID 90 days lamotrigine 100 mg PO DAILY 90 days memantine 1 tab PO BID@0600,1800 metoprolol tartrate 50 mg PO BID Tobacco use date assessed: 09/10/25 Fall risk assessment: 2 + Falls in past year Last assessed Fall Risk: 09/10/25 Dental Screening Dental Screen Date: 09/10/25 Did you have a dental visit in the last 12 months?: Yes Did you have a dental problem in the last 6 months where you did not have access to dental care?: No Was dental information given to patient?: Patient has dentist [facility] Medical History (Updated 09/10/25 @ 10:26 by Cookie Sam MD) Obesity Post traumatic stress disorder (PTSD) Dysthymia (or depressive neurosis) Multinodular thyroid Hyperparathyroidism Hyperthyroidism Chronic kidney disease, stage 3b History of panic attacks YOHANA (acute kidney injury) Hospital discharge follow-up Age-related osteoporosis without current pathological fracture Paroxysmal atrial fibrillation Multiple sclerosis Elevated troponin Kidney stone Acute kidney injury superimposed on CKD Abdominal pain Syncope and collapse Multiple sclerosis exacerbation Low back pain Screening for osteoporosis Chronic kidney disease History of renal calculi Closed right clavicular fracture Lumbar radiculopathy Allergic rhinitis Hepatitis C GERD (gastroesophageal reflux disease) Hypertension Multiple sclerosis Asthma Surgical History History of kidney stones History of lithotripsy History of gynecologic surgery Hx of wisdom tooth extraction History of esophagogastroduodenoscopy (EGD) Hx of colonoscopy History of verrucae (wart) excision History of liver biopsy Family History Father Prostate cancer Myocardial infarction Mother Breast cancer Paternal Aunt Myocardial infarction Paternal Uncle Myocardial infarction Social History Household Members: None Housing: Apartment Are you a primary child care associate teacher to a significant other at home: No Do you presently have visiting nurse or other home services: Yes (PT, OT, VNA) Alcohol intake: never Patient Tobacco Use Status: Former Tobacco user Tobacco use type: Cigarette Years Smoked: 1978 e-Cigarette/Vaping Use: Never Used service: No Current occupational status: retired Cognitive needs: No Hearing needs: No Vision needs: Yes Questionnaire PHQ-9 Over the last 2 weeks, how often have you been bothered by any of the following problems? 1. Little interest or pleasure in doing things: more than half the days 2. Feeling down, depressed, or hopeless: more than half the days 3. Trouble falling or staying asleep, or sleeping too much: more than half the days 4. Feeling tired or having little energy: more than half the days 5. Poor appetite or overeating: several days 6. Feeling bad about yourself - or that you are a failure or have let yourself or your family down: several days 7. Trouble concentrating on things, such as reading the newspaper or watching television: more than half the days 8. Moving or speaking so slowly that other people could have noticed. Or the opposite - being so fidgety or restless that you have been moving around a lot more than usual: several days 9. Thoughts that you would be better off or of hurting yourself in some way: several days Total score: 14 Depression Screening Interpretation: Positive Depression Screening Done: Yes 49238 - PHQ-9 Billing: Yes Source: Developed by Drs. Mario Ernandez, Vale Hubbard, Nahum Parada and colleagues, with an educational mel from [employer]. Thrive Questionnaire Date Thrive assessed: 09/10/25 I am a: Patient What is your living situation today?: I have a steady place to live Within the past 12 months, did the food you bought not last and you didn't have the money to get more?: Sometimes True Within the past 12 months, did you worry whether your food would run out before you got money to buy more?: Sometimes True Do you have trouble paying for medicines?: No Do you have trouble getting transportation to medical appointments?: No Do you have trouble paying your heating and electricity bill?: Yes Do you have trouble taking care of your child, family member or friend?: No Do you have trouble with day-to-day activities such as bathing, preparing meals, shopping, managing finances, etc.?: No Are you currently unemployed and looking for a job?: No Are you interested in more education?: No Please select the resources that you would like help with: Housing/Halfway and Utilities Currently or been in a relationship where the following occur: No concerns reported THRIVE Score: 3 AUDIT C Alcohol Use Questionnaire (AUDIT-C) 1. How often do you have a drink containing alcohol?: Never 3. How often do you have six or more drinks on one occasion?: Never Total Score: 0 BEREKET-7 AMB Questionnaire BEREKET-7 Date BEREKET - 7 assessed: 09/10/25 Feeling nervous, anxious, or on edge: 2 = More than half the days Not being able to stop or control worryin = More than half the days Worrying too much about different things: 1 = Several days Trouble relaxin = More than half the days Being so restless that it is hard to sit still: 1 = Several days Becoming easily annoyed or irritable: 1 = Several days Feeling afraid as if something awful might happen: 0 = Not at all Total BEREKET-7 score (0-4 normal; 5-9 mild; 10-14 moderate; 15-21 severe): 9 Source: Developed by Drs. Mario Ernandez, Vale Hubbard, Nahum Parada and colleagues, with an educational mel from [employer]. BEREKET-7 Assessment Billing BEREKET-7 Assessment Tool: BEREKET-7 Assessment 89938 Physical exam (Primary Care) Vital Signs: Last Vital Signs Temp 97.2 F 09/10/25 10:11 Pulse 123 H 09/10/25 10:11 BP 150/104 H 09/10/25 10:11 Pulse Ox 98 09/10/25 10:11 Oxygen Delivery Method Room Air 09/10/25 10:11 BMI result Body Mass Index 27.5 Tobacco/Smoking Status: Tobacco use Status Tobacco use date assessed 09/10/25 09/10/25 10:16 Patient Tobacco Use Status Former Tobacco user 09/10/25 10:16 Tobacco use type Cigarette 09/10/25 10:16 e-Cigarette/Vaping Use Never Used 09/10/25 10:16 PHQ-9: PHQ-9 Score PHQ-9: Total score 14 09/10/25 10:46 Depression Screening Interpretation: Positive Thrive Assessment: Date of Thrive Assessment Date Thrive assessed 09/10/25 09/10/25 10:16 Currently or been in a relationship where the following occur: No concerns reported Const General: alert; No acute distress Eyes Conjunctivae: conjunctivae normal Resp Auscultation: clear to auscultation bilaterally Cardio Rate: regular rate Rhythm: regular rhythm GI Inspection: Yes normal to inspection Extrem General: Yes normal to inspection and No edema Office Procedures Flu Questionnaire Does the patient have a severe egg allergy?: No Does the patient have severe life threatening allergies?: No Does the patient have a fever or illness today?: No Has the patient ever had Guillain-Winfield Syndrome?: No Has the patient ever had any past reaction to a flu shot?: No Immunizations Fluarix 8940-5346 (PF) 45 mcg (15 mcg x 3)/0.5 mL IM syringe Performing Provider: Cookie Sam MD Performing Location: [facility] [place] [facility] Administered by: Shante Bruno CMA on 09/10/25 10:46 Dose Route Admin Location Dispensed Lot Number Expiration Date ND Abatement Worker 0.5 mL IM Left Deltoid 0.5 mL [id number] 05/25/26 [id number] [employer] VIS Given Date VIS Provided VIS Publication Date 09/10/25 Single Vaccine 24 Eligibility Eligibility Date Funding Source Not [facility] Eligible 09/10/25 Private Coding Level of Care Code Est Pt Level 4 (02780) Complex EM visit Add On G2211 Diagnoses Essential hypertension I10 PAF (paroxysmal atrial fibrillation) I48.0 Pure hypercholesterolemia E78.00 Hyperlipidemia type: pure hypercholesterolemia Chronic kidney disease, stage 3b N18.32 Generalized anxiety disorder F41.1 Additional Codes BEREKET-7 Assessment Billing - BEREKET-7 Assessment Tool: BEREKET-7 Assessment 28306 ([id number]) PHQ-9 - 48596 - PHQ-9 Billing: Yes ([id number]) Assessment & Plan Assessment & Plan (1) Essential hypertension: Code(s): I10 - Essential (primary) hypertension Category: Medical Plan: Continue with blood pressure medication. Decrease salt intake and exercise patient is on metoprolol 50 mg twice a day amlodipine 5 mg once a day. Patient admits to running out of medications for few months (2) PAF (paroxysmal atrial fibrillation): Code(s): I48.0 - Paroxysmal atrial fibrillation Category: Medical Plan: Continue with anti coagulation. Patient admits to running out of medications. Prescriptions sent in (3) Hyperlipidemia: Code(s): E78.5 - Hyperlipidemia, unspecified Category: Medical Qualifiers: Hyperlipidemia type: pure hypercholesterolemia Qualified Code(s): E78.00 - Pure hypercholesterolemia, unspecified Plan: Avoid fried foods, chicken skin, eggs, butter margarine, pastries and meat. Be it pork or beef they have a lot of cholesterol LDL goal of less than 130 and triglyceride of less than 150 (4) Chronic kidney disease, stage 3b: Code(s): N18.32 - Chronic kidney disease, stage 3b Category: Medical Plan: Keep well hydrated with NSAIDs (5) Generalized anxiety disorder: Comment: Dr. Carrillo, Dr. Roberts psychologist Code(s): F41.1 - Generalized anxiety disorder Category: Medical Plan: Continue with counseling and therapy Plan History of Present Illness The patient is a 70-year-old female presenting for a follow-up visit after her last wellness check in October. She has a history of asthma, nephrolithiasis, hypercholesterolemia, and chronic hepatitis C. Her asthma has been stable, and she has not reported any recent exacerbations. The patient also has hypertension and atrial fibrillation, for which she is currently on metoprolol and amlodipine. She mentioned running out of her medications recently due to being out of town, which has led to elevated blood pressure and headaches. Her last blood work showed mild erythrocytosis and elevated blood sugar levels. Cholesterol levels were good, with high HDL cholesterol. Preventative care measures include a mammogram, which is due, and a colon cancer screening last done in 2021. A bone density test is scheduled for April 2024. Health Maintenance - Mammogram is due - Colon cancer screening last done in 2021 - Bone density test scheduled for April 2024 - Flu shot to be administered during the visit Social History - The patient has been experiencing depression and has not been getting out much. - She recently traveled to [place] to care for her [id number] who was in hospice. Review of Systems - Cardiovascular: Reports headaches and elevated blood pressure. Denies chest pain. - Respiratory: Denies recent asthma exacerbations. - Neurological: Reports persistent headache. Physical Exam - Cardiovascular: Heart rate noted to be fast - Respiratory: Auscultation performed Results - Labs: Mild erythrocytosis noted in last year's blood work - Labs: Elevated blood sugar level of 401 mg/dL - Labs: High HDL cholesterol level Plan Patient was informed and verbally consented to the use of an ambient scribe for clinic note documentation during this visit. 1. Hypertension The patient is advised to continue with metoprolol 50 mg twice a day and amlodipine 5 mg once a day for blood pressure management. She should ensure medication adherence to prevent elevated blood pressure and associated symptoms such as headaches. A prescription for a three-month supply has been provided, and she is advised to contact the clinic if she runs out of medication while traveling. 2. Atrial Fibrillation The patient is to continue anticoagulation therapy with Eliquis to manage atrial fibrillation. She is advised to maintain regular follow-ups with her multigraph operator and report any episodes of syncope or palpitations. 3. Hypercholesterolemia The patient's cholesterol levels are currently at goal, with high HDL cholesterol noted. She is advised to continue with her current lifestyle and dietary modifications to maintain these levels. 4. Preventative Care A mammogram is due, and the patient is reminded to schedule this screening. A colon cancer screening was last done in 2021, and a bone density test is scheduled for April 2024. The patient will receive a flu shot during this visit. Discussion Notes During the visit, I discussed the importance of medication adherence with the patient, especially for managing her hypertension and atrial fibrillation. We reviewed her current medications, and I provided prescriptions for a three-month supply to ensure continuity of care. I also emphasized the need for regular follow-ups with her multigraph operator and the importance of scheduling her preventative screenings, including a mammogram and bone density test. Patient Instructions - Continue taking metoprolol and amlodipine as prescribed. - Ensure you have enough medication while traveling and contact the clinic if you run out. - Schedule a mammogram and follow up on your bone density test in April 2024. - Receive your flu shot today. Orders: Orders Complete Blood Count Auto Diff Today I48.0 - Paroxysmal atrial fibrillation Magnesium Today I48.0 - Paroxysmal atrial fibrillation Influenza [id number] Immunization Today Z23 - Encounter for immunization Medications: New alendronate 2022 70 mg PO QWEEK 12 tabs 3RF M85.80 - Other specified disorders of bone density and structure, unspecified site Refilled amlodipine 5 mg See Protocol PO BEDTIME 90 tabs 3RF R09.89 - Other specified symptoms and signs involving the circulatory and respiratory systems metoprolol tartrate 50 mg PO BID 180 tabs 3RF R09.89 - Other specified symptoms and signs involving the circulatory and respiratory systems apixaban (Eliquis) 5 mg PO BID@0600,1800 180 tabs 3RF 90 days I48.0 - Paroxysmal atrial fibrillation metoprolol tartrate 50 mg PO BID 180 tabs 3RF R09.89 - Other specified symptoms and signs involving the circulatory and respiratory systems apixaban (Eliquis) 5 mg PO BID@0600,1800 90 days 180 tabs 3RF I48.0 - Paroxysmal atrial fibrillation alendronate 2022 70 mg PO QWEEK 12 tabs 3RF M85.80 - Other specified disorders of bone density and structure, unspecified site amlodipine 5 mg See Protocol PO BEDTIME 90 tabs 3RF R09.89 - Other specified symptoms and signs involving the circulatory and respiratory systems
--- OUTSIDE RECORDS SUMMARY | 2025-09-10 11:43 | XMS_ITS | Patient Health Record ---
Author Organization [facility] Address [address] [place] [id number] Care Team Providers Care Casting Associate Name Role Phone Cookie Sam MD Primary Care Provider Mario Montalvo [phone] Allergies Allergen (clinical drug ingredient) Drug/Non Drug Allergy [...] tg fluoxetine Prozac Unknown Drug Allergy Active Reason For Referral No Information Medications Medication SIG (Take, Route, Frequency, Duration) Notes Start Date End Date Status Chlorthalidone 25 MG Oral; Duration: 90 Active lamoTRIgine 200 MG 1 tablet Orally Once a day Active Citalopram Hydrobromide 10 MG Oral; Duration: 90 Active amLODIPine Besylate 10 MG Oral; Duration: 90 Active Metoprolol Tartrate 25 MG Oral; Duration: 90 Active Eliquis 5 MG TAKE 1 TABLET BY MAGUI TH TWICE A DAY Oral; Duration: 90 Active ALPRAZolam 0.25 MG Oral; Duration: 10 Active Omeprazole 40 MG TAKE 1 CAPSULE BY MO UTH EVERY MORNING FOR 90 DAYS; Duration: 90 Active Memantine HCl 10 MG Oral; Duration: 90 Active Tylenol 1 tab Oral; Duration : 14 days Active Albuterol Sulfate 108 (90 Base) MCG/ACT 1 puff as needed Inhalation every 4 hrs Active Gabapentin 300 MG 1 tablet Orally Thre e times a day Active Ondansetron HCl 4 MG 1 tablet Orally Tristan e 1 before breakfast, lunch, supper and at bedtime for nausea; Duration: 90 days Active Zofran 4 MG 1 tablet Orally Q 4- 6 hours prn nausea; Duration: 30 day(s) 05/07/2015 Active Immunizations Vaccine Route Administration Date Status Comme nts Influenza Unknown 07/27/2021 Administered Problems Problem Type SNOMED Code ICD Code Onset Dates Problem Status W/U Status Risk Notes Problem Screening for malignant neoplasm of colon (120900716) Encounter for screening for malignant neoplasm of colon (Z12.11) Active confirmed Problem History of adenomatous polyp of colon (490009949) History of adenomatous polyp of colon (Z86.010) Active confirmed Problem Nausea (169325297) Nausea (R11.0) Active confir med Problem Gastroesophageal reflux disease without esophagitis (535057105) Gastroesophageal reflux disease without esophagitis (K21.9) Active confirmed Problem Chronic hepatitis C (879129668) Chronic hepatitis C without hepatic coma (B18.2) Active confirmed Problem Family History of Cancer of Colon (Situation) (398619118) Family history of colon cancer (Z80.0) Active confirmed Problem Diverticulosis of sigmoid colon (986297123) Diverticulosis of sigmoid colon (K57.30) Active confirmed Problem Irritable bowel syndrome characterized by constipation (332306916) Irritable bowel syndrome with constipation (K58.1) Active confirmed Plan Of Treatment Pending Test Test Name Order Date CHEM 7 PROFILE 11/02/2021 BUN 10/25/2015 CREATININE 10/25/2015 LIVER PROFILE 10/25/2015 LIVER PROFILE 08/16/2022 LIVER PROFILE 11/02/2021 LIVER PROFILE 02/12/2022 LIVER PROFILE 12/16/2021 AMYLASE 11/02/2021 LIPASE 11/02/2021 CBC w DIFF 11/02/2021 CBC w DIFF 12/16/2021 CBC w DIFF 10/25/2015 PROTHROMBIN TIME (PT, INR) 11/02/2021 PROTHROMBIN TIME (PT, INR) 10/25/2015 HEPATITIS C VIRAL LOAD 12/16/2021 HEPATITIS C VIRAL LOAD 08/16/2022 HEPATITIS C VIRAL LOAD 11/02/2021 HEPATITIS C VIRAL LOAD 10/25/2015 HEPATITIS C VIRAL LOAD 02/12/2022 HCV LIVER FIBROSIS, FIBRO TEST 5 HCV LIVER FIBROSIS, FIBRO TEST 1 Future Test Test Name Order Date UPPER GI ENDOSCOPY 04/11/2013 COLONOSCOPY 04/11/2013 COLONOSCOPY 08/16/2022 Insurance Providers Payer Name Payer Address Payer Phone Subscriber Number Group Number Insured Name Patient Relationship to Insured Coverage Start Date Coverage End Date MEDICARE OF [place] [address] [place] [address] [id number] NUZHAT COMBS Self - patient is the insured [employer] ATT[employer] CLAIMS [address] [place] [phone] [id number] [id number] COMBS Self - patient is the insured Medical (General) History Medical History History ICD Code Tubular adenoma [...] in the lumbar spine--left leg pain Denies RI,DM,CVA,renal disease Depression-Dr. Carrillo, and sees a ther [...]
== END 2025-09-10 10:49 | disposition home or self-care (01) ==
LOC: HO.HMCH 09:57
PROVIDERS: PCP Internal Medicine; Visit Provider Internal Medicine
DX: I10 Essential (primary) hypertension (principal); I48.0 Paroxysmal atrial fibrillation; E78.00 Pure hypercholesterolemia, unspecified; N18.32 Chronic kidney disease, stage 3b; F41.1 Generalized anxiety disorder; Z23 Encounter for immunization

== ENCOUNTER 2025-09-23 12:54 | Outpatient (AMB) | payer MEDICARE, MEDICAID, SELFPAY ==
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
--- OUTSIDE RECORDS SUMMARY | 2025-09-23 16:18 | XMS_ITS | Patient Health Record ---
Author Organization [facility] Address [address] [place] [address] Care Team Providers Care External Grinder Name Role Phone Cookie Sam MD Primary Care Provider Mario Montalvo [phone] Allergies Allergen (clinical drug ingredient) Drug/Non Drug Allergy documented on EMR Reaction Allergy Type Onset Date Status escitalopram Lexapro Unknown Drug Allergy Acti ve desipramine Desipramine HCl Unknown Drug Allergy Active duloxetine Cymbalta Unknown Drug Allergy Active diphenhydramine Benadryl Unknown Drug Allergy A ctive lisinopril Lisinopril Unknown Drug Allergy Activ e Penicillin Unknown Drug Allergy Active carbamazepine Tegretol Unknown Drug Allergy Act tg fluoxetine Prozac Unknown Drug Allergy Active acetaminophen / oxycodone Percocet Unknown Drug Allergy Active Reason For Referral [...] Problem Screening for malignant neoplasm of colon (885066229) Encounter for screening for malignant neoplasm of colon (Z12.11) Active confirmed Problem History of adenomatous polyp of colon (336171514) History of adenomatous polyp of colon (Z86.010) Active confirmed Problem Nausea (523016141) Nausea (R11.0) Active confir med Problem Gastroesophageal reflux disease without esophagitis (465847141) Gastroesophageal reflux disease without esophagitis (K21.9) Active confirmed Problem Chronic hepatitis C (020540081) Chronic hepatitis C without hepatic coma (B18.2) Active confirmed Problem Family History of Cancer of Colon (Situation) (994830468) Family history of colon cancer (Z80.0) Active confirmed Problem Diverticulosis of sigmoid colon (193915305) Diverticulosis of sigmoid colon (K57.30) Active confirmed Problem Irritable bowel syndrome characterized by constipation (029457201) Irritable bowel syndrome with constipation (K58.1) Active [...] LOAD 02/12/2022 HCV LIVER FIBROSIS, FIBRO TEST 12/08/202 1 HCV LIVER FIBROSIS, FIBRO TEST 5 Future Test Test Name Order Date UPPER GI ENDOSCOPY 04/11/2013 COLONOSCOPY 04/11/2013 COLONOSCOPY 08/16/2022 Insurance Providers Payer Name Payer Address Payer Phone Subscriber Number Group Number Insured Name Patient Relationship to Insured Coverage Start Date Coverage End Date MEDICARE OF [place] [address] [place] [address] [id number] NUZHAT COMBS Self - patient is the insured MED[employer] ATTN CLAIMS [address] [place] [address] [id number] NUZHAT COMBS Self - patient is the [...] in the lumbar spine--left leg pain Denies [place],DM,CVA,renal disease Depression-Dr. Carrillo, and sees a ther [...]
--- OUTSIDE RECORDS SUMMARY | 2025-09-23 16:18 | XMS_ITS | Clinical Summary ---
Author Organization [facility] Address [address] [place] [address] Phone Care Team Providers Care Vp Of Product Name Role Phone Cookie Sam MD Primary Care Provider Allergies Active Allergy Reactions Criticality Noted Date Comments Carbamazepine 02/08/2022 Desipramine 02/08/2022 Diphenhydramine 02/08/2022 Duloxetine 02/08/2022 Duloxetine Hcl Other (see comments) 08/19/2022 Escitalopram 02/08/2022 Fluoxetine 02/08/2022 Garlic 02/08/2022 Lisinopril 02/08/2022 Oxycodone 02/08/2022 Oxycodone-Acetaminophen Other (see comments) Penicillins 02/08/2022 Medications Eliquis 5 MG tablet Take 5 mg by mouth 2 (two) times a day 02/03/2022 Active metoprolol tartrate (LOPRESSOR) 50 MG tablet Take 50 mg by mouth in the morning and 50 mg in the evening. 02/03/2022 Active omeprazole (PriLOSEC) [address] capsule Take 40 mg by mouth 1 (one) time each day 12/17/2021 Active ondansetron (ZOFRAN) 4 MG tablet Take 4 mg by mouth in the morning and 4 mg at noon and 4 mg in the evening. 12/17/2021 Active lamoTRIgine (LaMICtal) 200 MG tablet Take 100 mg by mouth 1 (one) time each day 01/05/2022 Active memantine (NAMENDA) 10 MG tablet Take 10 mg by mouth in the morning and 10 mg in the evening. 01/06/2022 Active gabapentin (NEURONTIN) 300 MG capsule Take 300 mg by mouth in the morning and 300 mg in the evening and 300 mg before bedtime. Active acetaminophen (TYLENOL) 500 MG tablet Take 1,000 mg by mouth every 6 (six) hours if needed for mild pain Active albuterol HFA (PROVENTIL HFA;VENTOLIN HFA) 108 (90 Base) MCG/ACT inhaler Inhale 2 puffs every 6 (six) hours if needed for wheezing Active citalopram (CeleXA) 20 MG tablet Take 20 mg by mouth 1 (one) time each day Active amLODIPine (NORVASC) 5 MG tablet Take 1 tablet by mouth 1 (one) time each day 01/08/2023 Active Active Problems Problem Noted Date Diagnosed Date Chronic viral hepatitis C 02/07/2023 Diverticulosis of sigmoid colon 02/07/2023 Family history of cancer of colon 02/07/2023 Gastro-esophageal reflux disease without esophag itis 02/07/2023 History of adenomatous polyp of colon 02/07/2023 Irritable bowel syndrome characterized by consti pation 02/07/2023 Nausea 02/07/2023 Screening for malignant neoplasm of colon 2022 Syncope 02/08/2022 Acute nontraumatic kidney injury 02/08/2022 Renal stone 02/08/2022 Stage 3b chronic kidney disease 02/08/2022 Hypertension 02/08/2022 Family History Medical History Relation Comments Cancer Father Prostate Cancer Heart disease Father Hypertension Father Stroke Father Cancer Mother Breast Cancer Hypertension Mother Relation Status Comments Father Mother Social History Tobacco Use Types Packs/Day Years Used Date Smoking Tobacco: Never Smokeless Tobacco: Never Tobacco Cessation:Counseling Given: Not Answered Alcohol Use Standard Drinks/Week Comments Never 0 (1 standard drink = 0.6 oz pur e alcohol) Comments Unknown Sex and Gender Information Value Date Recorded Sex Assigned at Not on file Legal Sex Female 5:03 PM EST Gender Identity Not on file Sexual Orientation Not on file Last Filed Vital Signs Vital Sign Reading Time Taken Comments Blood Pressure 120/58 11/01/2023 2:24 PM EST Pulse 60 11/01/2023 2:24 PM EST Temperature - - Respiratory Rate - - Oxygen Saturation 98% 07/26/2022 2:25 PM EDT Inhaled Oxygen Concentration - - Weight 63.5 kg (140 lb) 11/01/2023 2:24 PM EST Height - - Body Mass Index - - Plan of Treatment Health Maintenance Due Date Last Done Comments Breast Cancer Screening 1955 Pneumococcal Vaccine: 50+ Ye ars (1 of 2 - PCV) 1975 Colorectal Cancer Screening: Annual FOBT 2005 Colorectal Cancer Screening: Colonoscopy 2005 Colorectal Cancer Screening: Sigmoidoscopy 2005 Influenza Vaccine (#1) 2025 Hepatitis B Vaccine Aged Out No longe r eligible based on patient's age to complete this topic Insurance Medicare [facility] Medicaid [place] Medicare [facility] Medicaid [place] Care Teams Vp Of Product Relationship Specialty Start Date End Date Cookie Sam MD [facility] [place] [address] [place], [place] PCP - General Internal Medicine 02/07/23
== END 2025-09-23 14:00 | disposition home or self-care (01) ==
LOC: HO.HOP 12:54
PROVIDERS: PCP Internal Medicine; Visit Provider Psychiatry & Neurology Psychiatry
DX: F41.1 Generalized anxiety disorder (principal); F34.1 Dysthymic disorder; F43.10 Post-traumatic stress disorder, unspecified
CPT/HCPCS: 99214

== ENCOUNTER → 2025-09-23 12:54 | Outpatient (BNVA) | payer MEDICARE, MEDICAID, SELFPAY | PROVIDERS: PCP Internal Medicine; Visit Provider Psychiatry & Neurology Psychiatry | DX: F41.1 Generalized anxiety disorder (principal); F34.1 Dysthymic disorder; F43.10 Post-traumatic stress disorder, unspecified | CPT/HCPCS: 99212 ==

== ENCOUNTER 2025-11-03 13:51 | Outpatient (REF) | payer MEDICARE, MEDICAID, SELFPAY ==
--- NOTE | ~2025-11-03 | XR_ITS ---
EXAMINATION: XR ABDOMEN COMPLETE CLINICAL INDICATION: R10.9 - Unspecified abdominal pain COMPARISON: October 11, 2022 TECHNIQUE: 2 views of the abdomen. FINDINGS: Gas throughout the right hemicolon. No intestinal dilatation. No air-fluid levels. Dextroconvex rotoscoliosis, lumbar spine apex L2-3. Mild degenerative changes in the coxofemoral joints and the inferior sacroiliac joints. XR/XR abdomen 3V IMPRESSION: No intestinal obstruction pattern. Electronically signed by: Bossman Luong MD 11/03/2025 03:59 PM EST
[2025-11-03 15:43] LABS: MANUAL DIFF FLAG NO
[2025-11-03 16:29] LABS: Hematocrit 54.5 % (37.0-47.0); Hemoglobin 17.9 g/dl (12.0-16.0); Imm Gran Abs Auto 0.03 X10*3/uL (0.00-0.03); Imm Gran Pct Auto 0.3 % (0.0-0.4); Lymphocytes Absolute Auto 1.8 X10*3/uL (1.2-4.9); Mean Corpuscular HGB Conc 32.8 g/dl (31.0-35.0); Mean Corpuscular Hemoglobin 29.4 pg (27.0-33.0); Mean Corpuscular Volume 89.5 fL (80.0-98.0); NRBC Abs Auto 0.000 X10*3/uL (0.0-0.012); NRBC Pct Auto 0.0 /100WBC (0.0-0.2); Platelet Count 282 X10*3/uL (160-400); Red Blood Count 6.09 X10*6/uL (4.20-5.50); White Blood Count 10.4 X10*3/uL (4.8-10.8)
[2025-11-03 17:16] LABS: Alanine Aminotransferase 19 U/L (0-31); Albumin Level 4.6 g/dL (3.5-5.0); Alkaline Phosphatase 60 U/L (39-117); Anion Gap 16 (12-20); Aspartate Amino Transferase 27 U/L (5-31); Blood Urea Nitrogen 25 mg/dL (9-16); Calcium 9.5 mg/dL (8.4-10.2); Carbon Dioxide 21 mmol/L (22-29); Chloride 106 mmol/L (96-108); Estimated Glomerular Filt Rate 31; Potassium 4.3 mmol/L (3.3-5.1); Sodium 139 mmol/L (135-145); Total Protein 7.3 g/dL (6.5-8.0)
--- OUTSIDE RECORDS SUMMARY | 2025-11-03 21:57 | XMS_ITS | Patient Health Record ---
Author Organization [facility] Address [address] [place] [address] Care Team Providers Care Gun Profiler Name Role Phone Cookie Sam MD Primary Care Provider Mario Montalvo [phone] Allergies Allergen (clinical drug ingredient) Drug/Non Drug Allergy documented on EMR Reaction Allergy Type Onset Date Status diphenhydramine Benadryl Unknown Drug Allergy A ctive duloxetine Cymbalta Unknown Drug Allergy Active desipramine Desipramine HCl Unknown Drug Allergy Active escitalopram Lexapro Unknown Drug Allergy Acti ve acetaminophen / oxycodone Percocet Unknown Drug Allergy Active fluoxetine Prozac Unknown Drug Allergy Active carbamazepine Tegretol Unknown Drug Allergy Act tg Penicillin Unknown Drug Allergy Active lisinopril Lisinopril Unknown Drug Allergy Activ e Reason For Referral No Information Medications Medication SIG (Take, Route, Frequency, Duration) Notes Start Date End Date Status Chlorthalidone 25 MG Tablet Oral; Duration: 90 Active lamoTRIgine 200 MG Tablet 1 tablet Orall y Once a day Active Citalopram Hydrobromide 10 MG Tablet Oral; Duration: 90 Active amLODIPine Besylate 10 MG Tablet Oral; Duration: 90 Active Metoprolol Tartrate 25 MG Tablet Oral; Duration: 90 Active Eliquis 5 MG Tablet TAKE 1 TABLET BY TWICE A DAY Oral; Duration: 90 Active ALPRAZolam 0.25 MG Tablet Oral; Duration: 10 Active Omeprazole 40 MG Capsule Delayed Release TAKE 1 CAPSULE BY MOUTH EVERY MORNING FOR 90 DAYS; Duration: 90 Active Memantine HCl 10 MG Tablet Oral; Duration: 90 Active Tylenol 1 tab Oral; Duration : 14 days Active Albuterol Sulfate 108 (90 Base) MCG/ACT Aerosol Powder Breath Activated 1 puff as needed Inhalation every 4 hrs Active Gabapentin 300 MG Capsule 1 tablet Orall y Three times a day Active Ondansetron HCl 4 MG Tablet 1 tablet Ora karla Take 1 before breakfast, lunch, supper and at bedtime for nausea; Duration: 90 days Active Zofran 4 MG Tablet 1 tablet Orally Q 4- 6 hours prn nausea; Duration: 30 day(s) 05/07/2015 Active Immunizations Vaccine Route Administration Date Status Comme nts Influenza Unknown 07/27/2021 Administered Social History Social History Additional Details Category Social Info Options Details Miscellaneous: Marital status: single Occupation: unemployed Section Notes: Nonsmoker >10 yrs; no alcoho l Nonsmoker >10 yrs; no alcoho l Nonsmoker >10 yrs; no alcoho l Nonsmoker >10 yrs; no alcoho l Problems Problem Type SNOMED Code ICD Code Onset Dates Problem Status W/U Status Risk Notes Problem Screening for malignant neoplasm of colon (469931842) Encounter for screening for malignant neoplasm of colon (Z12.11) Active confirmed Problem History of adenomatous polyp of colon (104369172) History of adenomatous polyp of colon (Z86.010) Active confirmed Problem Nausea (241051220) Nausea (R11.0) Active confir med Problem Gastroesophageal reflux disease without esophagitis (858142429) Gastroesophageal reflux disease without esophagitis (K21.9) Active confirmed Problem Chronic hepatitis C (654411572) Chronic hepatitis C without hepatic coma (B18.2) Active confirmed Problem Family History of Cancer of Colon (Situation) (798519677) Family history of colon cancer (Z80.0) Active confirmed Problem Diverticulosis of sigmoid colon (551317198) Diverticulosis of sigmoid colon (K57.30) Active confirmed Problem Irritable bowel syndrome characterized by constipation (906144472) Irritable bowel syndrome with constipation (K58.1) Active confirmed Plan Of Treatment Pending Test Test Name Order Date CHEM 7 PROFILE 11/02/2021 BUN 10/25/2015 CREATININE 10/25/2015 LIVER PROFILE 08/16/2022 LIVER PROFILE 11/02/2021 LIVER PROFILE 10/25/2015 LIVER PROFILE 02/12/2022 LIVER PROFILE 12/16/2021 AMYLASE 11/02/2021 LIPASE 11/02/2021 CBC w DIFF 11/02/2021 CBC w DIFF 10/25/2015 CBC w DIFF 12/16/2021 PROTHROMBIN TIME (PT, INR) 10/25/2015 PROTHROMBIN TIME (PT, INR) 11/02/2021 HEPATITIS C VIRAL LOAD 11/02/2021 HEPATITIS C VIRAL LOAD 12/16/2021 HEPATITIS C [...] Date MEDICARE OF [place] [address] [facility] [place] [place] [address] [phone] [id number] NUZHAT COMBS Self - patient is the insured [employer] ATTN CLAIMS [address] [place] [address] [phone] [id number] NUZHAT COMBS Self - patient is the [...] in the lumbar spine--left leg pain Denies [place],DM,CVA,renal disease Depression-Dr. Carrillo, and sees a ther [...]
--- OUTSIDE RECORDS SUMMARY | 2025-11-03 21:57 | XMS_ITS | Clinical Summary ---
Author Organization [facility] Address [address] [place] [address] Phone Care Team Providers Care Adjunct Faculty Instructor Name Role Phone Cookie Sam MD Primary Care Provider [phone] Allergies Active Allergy Reactions Criticality Noted Date [...] age to complete this topic Insurance Medicare [facility] Medicaid [place] Medicare [facility] Medicaid [place] Care Teams Adjunct Faculty Instructor Relationship Specialty Start Date End Date Cookie Sam MD [facility] [place] [address] [place], [place] PCP - General Internal Medicine 02/07/23
== END 2025-11-03 13:52 | disposition home or self-care (01) ==
LOC: HO.XRAY 13:51
PROVIDERS: PCP Internal Medicine; Visit Provider Student in an Organized Health Care Education/Training Program
DX: Z00.00 Encounter for general adult medical examination without abnormal findings (principal); Z13.6 Encounter for screening for cardiovascular disorders; Z12.31 Encounter for screening mammogram for malignant neoplasm of breast; R10.9 Unspecified abdominal pain; R10.13 Epigastric pain; R19.7 Diarrhea, unspecified; I48.0 Paroxysmal atrial fibrillation; I10 Essential (primary) hypertension
CPT/HCPCS: 36415; 74021; 80053; 85025; 96127; 99212

== ENCOUNTER → 2025-11-03 15:46 | Outpatient (BNV) | payer MEDICARE, MEDICAID, SELFPAY | PROVIDERS: PCP Internal Medicine; Visit Provider Radiology Diagnostic Radiology | DX: R10.9 Unspecified abdominal pain (principal) | CPT/HCPCS: 74021 ==

== ENCOUNTER 2025-11-05 15:23 | Outpatient (REF) | payer MEDICARE, MEDICAID, SELFPAY ==
[2025-11-05 17:34] LABS: Leukocytes Stool Qualitative NEGATIVE (NEGATIVE)
--- OUTSIDE RECORDS SUMMARY | 2025-11-05 22:58 | XMS_ITS | Patient Health Record ---
Author Organization [facility] Address [address] [place] [address] Care Team Providers Care Licensed Psychologist Manager Name Role Phone Cookie Sam MD Primary Care Provider Mario Montalvo [phone] Allergies Allergen (clinical drug ingredient) Drug/Non Drug [...] 0.25 MG Tablet Oral; Duration: 10 Active Memantine HCl 10 MG Tablet Oral; Duration: 90 Active Tylenol 1 tab Oral; Duration : 14 days Active Albuterol Sulfate 108 (90 Base) MCG/ACT Aerosol Powder Breath Activated 1 puff as needed Inhalation every 4 hrs Active Omeprazole 40 MG Capsule Delayed Release TAKE 1 CAPSULE BY MOUTH EVERY MORNING FOR 90 DAYS; Duration: 90 Active Gabapentin 300 MG Capsule 1 tablet [...] Problem Screening for malignant neoplasm of colon (883647489) Encounter for screening for malignant neoplasm of colon (Z12.11) Active confirmed Problem History of adenomatous polyp of colon (066140179) History of adenomatous polyp of colon (Z86.010) Active confirmed Problem Nausea (310914821) Nausea (R11.0) Active confir med Problem Gastroesophageal reflux disease without esophagitis (785277811) Gastroesophageal reflux disease without esophagitis (K21.9) Active confirmed Problem Chronic hepatitis C (860750003) Chronic hepatitis C without hepatic coma (B18.2) Active confirmed Problem Family History of Cancer of Colon (Situation) (911209702) Family history of colon cancer (Z80.0) Active confirmed Problem Diverticulosis of sigmoid colon (134381331) Diverticulosis of sigmoid colon (K57.30) Active confirmed Problem Irritable bowel syndrome characterized by constipation (909675844) Irritable bowel syndrome with constipation (K58.1) Active [...] Date MEDICARE OF [place] [address] [place] [address] [id number] NUZHAT COMBS Self - patient is the insured MED[employer] ATTN CLAIMS [address] [place] [address] [id number] NUZHAT COMBS Self - patient is the [...] in the lumbar spine--left leg pain Denies MD,DM,CVA,renal disease Depression-Dr. Carrillo, and sees a ther [...]
--- OUTSIDE RECORDS SUMMARY | 2025-11-05 22:58 | XMS_ITS | Clinical Summary ---
Author Organization [facility] Address [address] [place] [address] Phone Care Team Providers Care Movers Name Role Phone Cookie Sam MD Primary Care Provider [phone] Allergies Active Allergy Reactions Criticality Noted Date [...] age to complete this topic Insurance Medicare [facility] Medicaid [place] Medicare [facility] Medicaid [place] Care Teams Movers Relationship Specialty Start Date End Date Cookie Sam MD [facility] [place] [address] [place], [place] PCP - General Internal Medicine 02/07/23
== END 2025-11-05 15:24 ==
LOC: HO.LNP 15:23
PROVIDERS: Visit Provider Student in an Organized Health Care Education/Training Program
DX: R10.9 Unspecified abdominal pain (principal); R19.7 Diarrhea, unspecified
CPT/HCPCS: 83631; 83993; 87329; 87338; 89055

== ENCOUNTER 2025-11-09 15:34 | Outpatient (REF) | payer MEDICARE, MEDICAID, SELFPAY ==
--- NOTE | ~2025-11-09 | MM_ITS ---
EXAMINATION: MM SCREENING DIGITAL BREAST TOMOSYNTHESIS, BILATERAL CLINICAL INFORMATION: Screening. Asymptomatic. COMPARISON: Mammography: Comparison is made with available priors TECHNIQUE: Digital breast mammography with tomosynthesis is performed in both the craniocaudal and mediolateral oblique views along with computer-aided detection (CAD). FINDINGS: There are scattered areas of fibroglandular density. There are no significant masses, abnormal calcifications, or other abnormalities. MM/MM tomosynthesis screening BI IMPRESSION: No mammographic evidence of malignancy. ASSESSMENT: BI-RADS Category 1: Negative RECOMMENDATION: Routine annual mammography screening. 1 year F/U This examination should not preclude the clinical evaluation of a suspicious palpable abnormality. This patient's information was entered into a reminder system with a target due date for their next mammogram. Electronically signed by: Laura Brock DO 11/10/2025 11:07 AM IRINEO
--- OUTSIDE RECORDS SUMMARY | 2025-11-09 22:02 | XMS_ITS | Patient Health Record ---
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 Role Phone Cookie Sam MD Primary Care Provider Mairo Montalvo [phone] Allergies Allergen (clinical drug ingredient) Drug/Non Drug [...] Problem Screening for malignant neoplasm of colon (273478246) Encounter for screening for malignant neoplasm of colon (Z12.11) Active confirmed Problem History of adenomatous polyp of colon (462939698) History of adenomatous polyp of colon (Z86.010) Active confirmed Problem Nausea (424290642) Nausea (R11.0) Active confir med Problem Gastroesophageal reflux disease without esophagitis (922012528) Gastroesophageal reflux disease without esophagitis (K21.9) Active confirmed Problem Chronic hepatitis C (084303461) Chronic hepatitis C without hepatic coma (B18.2) Active confirmed Problem Family History of Cancer of Colon (Situation) (839687157) Family history of colon cancer (Z80.0) Active confirmed Problem Diverticulosis of sigmoid colon (537078644) Diverticulosis of sigmoid colon (K57.30) Active confirmed Problem Irritable bowel syndrome characterized by constipation (101671319) Irritable bowel syndrome with constipation (K58.1) Active [...] Date MEDICARE OF [place] [address] [facility] [place] [address] [phone] [id number] NUZHAT COMBS Self - patient is the insured [employer] [address] [place] [phone] [id number] NUZHAT COMBS Self - patient is the [...] in the lumbar spine--left leg pain Denies LA,DM,CVA,renal disease Depression-Dr. Carrillo, and sees a ther [...]
== END 2025-11-09 15:35 | disposition home or self-care (01) ==
LOC: HO.MAMMO 15:34
PROVIDERS: PCP Internal Medicine; Visit Provider Student in an Organized Health Care Education/Training Program
DX: Z12.31 Encounter for screening mammogram for malignant neoplasm of breast (principal)
CPT/HCPCS: 77063; 77067

== ENCOUNTER → 2025-11-09 16:00 | Outpatient (BNV) | payer MEDICARE, MEDICAID, SELFPAY | PROVIDERS: PCP Internal Medicine; Visit Provider Internal Medicine | DX: Z12.31 Encounter for screening mammogram for malignant neoplasm of breast (principal) | CPT/HCPCS: 77063; 77067 ==